=== PATIENT | female | born 1960 | race Caucasian/White ===

== ENCOUNTER → 2019-10-13 13:46 | Outpatient (BNVA) | payer MEDICARE, MEDICAID, SELFPAY | PROVIDERS: Family Provider Physician Assistant; PCP Physician Assistant; Visit Provider Nurse Practitioner | DX: G89.29 Other chronic pain (principal); M54.41 Lumbago with sciatica, right side; M54.42 Lumbago with sciatica, left side; M79.18 Myalgia, other site; M17.12 Unilateral primary osteoarthritis, left knee; Z79.891 Long term (current) use of opiate analgesic | CPT/HCPCS: 99213; 99214 ==

== ENCOUNTER → 2019-12-08 13:11 | Outpatient (BNVA) | payer MEDICARE, MEDICAID, SELFPAY | PROVIDERS: Family Provider Physician Assistant; PCP Physician Assistant; Visit Provider Anesthesiology | DX: M54.5 Low back pain (principal); M46.90 Unspecified inflammatory spondylopathy, site unspecified; M47.9 Spondylosis, unspecified; M17.12 Unilateral primary osteoarthritis, left knee; Z79.891 Long term (current) use of opiate analgesic | CPT/HCPCS: 99214 ==

== ENCOUNTER 2020-04-01 11:59 | Emergency (ER) | payer MEDICARE, MEDICAID, SELFPAY ==
[2020-04-01 12:13] VITALS: BP 130/85; PULSE 92; RESP 18; TEMP 36.2; O2SAT 97; BMI 34.7
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
[2020-04-01 13:20] LABS: Basophils # 0.1 10^3/uL (0.0-0.1); Basophils % 0.7 %; Eosinophils # 0.2 10^3/uL (0.0-0.8); Eosinophils % 2.4 %; Hematocrit 40.1 % (37.0-47.0); Hemoglobin 12.9 g/dL (11.5-15.3); Lymphocytes # 2.7 10^3/uL (0.8-4.8); Lymphocytes % 33.5 %; Mean Corpuscular HGB Conc 32.2 g/dL (30.0-36.0); Mean Corpuscular Hemoglobin 28.9 pg (28.0-34.0); Mean Corpuscular Volume 89.7 fL (81-99); Mean Platelet Volume 10.4 fL (7.4-10.4); Monocytes # 0.7 10^3/uL (0.2-0.9); Monocytes % 9.1 %; Neutrophils # 4.4 10^3/uL (1.8-7.7); Neutrophils % 54.1 %; Nucleated Red Blood Cells % 0 %; Platelet Count 284 10^3/cmm (130-400); Red Blood Count 4.47 10^6/uL (4.1-5.3); Red Cell Distribution Width 13.1 % (12.1-15.1); White Blood Count 8.2 10^3/uL (4.0-10.0)
[2020-04-01 13:37] VITALS: BP 116/89; PULSE 81; O2SAT 98
[2020-04-01 13:42] LABS: Alanine Aminotransferase 18 U/L (0-33); Albumin Level 4.5 g/dL (3.5-5.2); Alkaline Phosphatase 87 IU/L (35-105); Anion Gap 12.7 (5-19); Aspartate Amino Transferase 18 U/L (0-32); Blood Urea Nitrogen 18 mg/dL (6-20); Calcium 9.6 mg/dL (8.5-10.5); Carbon Dioxide 23 mmol/L (22-29); Chloride 110 mmol/L (98-107); Globulin 2.7 g/dL (1.3-4.6); Glomerular Filtration Rate 73.4 mL/min (90-130); Glucose 98 mg/dL (65-115); Osmolality Calculated 290 mOsm/kg (285-295); Potassium 3.7 mmol/L (3.5-5.1); Sodium 142 mmol/L (136-145); Total Bilirubin 0.3 mg/dL (0.15-1.2); Total Protein 7.2 g/dL (6.6-8.7)
[2020-04-01] MEDS: iohexol 300 mg/mL 100 mL Btl IV (14:49)
[2020-04-01 14:59] VITALS: BP 141/92; PULSE 88; RESP 15; O2SAT 98
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
[2020-04-01 16:09] VITALS: BP 125/89; PULSE 87; RESP 16; O2SAT 99
[2020-04-01 16:48] VITALS: BP 130/92; PULSE 91; RESP 16; O2SAT 98
== END 2020-04-01 16:48 | disposition home or self-care (01) ==
PROVIDERS: Emergency Provider Family Medicine; PCP Physician Assistant
DX: Z04.1 Encounter for examination and observation following transport accident (principal); V89.2XXA Person injured in unspecified motor-vehicle accident, traffic, initial encounter; Z77.22 Contact with and (suspected) exposure to environmental tobacco smoke (acute) (chronic)
CPT/HCPCS: 12345; 36415; 70450; 71045; 72125; 73030; 74177; 80053; 85025; 99282; 99283; Q9967

== ENCOUNTER → 2020-05-02 13:11 | Outpatient (BNVA) | payer MEDICARE, MEDICAID, SELFPAY | PROVIDERS: PCP Physician Assistant; Visit Provider Anesthesiology | DX: M54.41 Lumbago with sciatica, right side (principal); M54.42 Lumbago with sciatica, left side; M47.9 Spondylosis, unspecified; M46.90 Unspecified inflammatory spondylopathy, site unspecified; M54.9 Dorsalgia, unspecified; Z79.891 Long term (current) use of opiate analgesic | CPT/HCPCS: 99213; 99214 ==

== ENCOUNTER 2020-06-28 08:24 | Outpatient (CLI) | payer MEDICARE, MEDICAID, SELFPAY ==
--- NOTE | 2020-06-28 08:30 | CT_ITS ---
WS: [id number] CT scan of the abdomen and pelvis with Oral and IV contrast. Additional two-dimensional coronal and s agittal reconstruction was performed. 06/28/2020 Clinical Data: PELVIC PAIN IN FEMALE Comparison: CT abdomen and pelvis, 04/01/2020. DLP: 1143.[address] scans at [facility] use at least one of these dose optimization techniques: automat ed exposure control; mA and/or kV adjustment per patient size (includes targeted exams where dose is matched to clinical indication); or iterative reconstruction. Findings: The lower lungs show no nodules, masses or effusions. Epidural stimulator wires are in the thoracic epidural space. The liver, spleen, adrenal glands and pancreas are normal. There are clips in the gallbladder fossa f rom a cholecystectomy. The kidneys show equal bilateral contrast excretion with no cyst or masses. The abdominal aorta is normal in size. No appendicitis or diverticulitis is seen. Oral contrast is in the stomach and small bowel and there is no bowel dilatation. No abscess, adenopathy, ascites, mass, obstruction or free air is seen. There is a small umbilical hernia containing only fat. The bladder is unremarkable. Uterus is normal. No inguinal hernia is seen. There is degenerative change of all lumbar vertebral bodies with degenerative disc narrowing at all l evels from T12-L1 through L5-S1 except for L3-L4. There is a subluxation of 0.6 cm at L4-L5. Severe o steoarthritic change of both hips is noted. CT/CT abdomen pelvis w con* [id number] Impression: Negative for acute intracranial abdominal or pelvic abnormalities.
[2020-06-28] MEDS: iohexol 300 mg/mL 50 mL Btl PO (10:10)
[2020-06-28] MEDS: iohexol 300 mg/mL 100 mL Btl IV (10:10)
== END 2020-06-28 08:25 | disposition home or self-care (01) ==
LOC: RADWPI 08:27
PROVIDERS: PCP Physician Assistant; Visit Provider Physician Assistant
DX: R10.2 Pelvic and perineal pain (principal)
CPT/HCPCS: 74177; Q9967

== ENCOUNTER → 2020-07-02 09:41 | Outpatient (BNVA) | payer MEDICARE, MEDICAID, SELFPAY | PROVIDERS: PCP Physician Assistant; Visit Provider Anesthesiology | DX: M54.42 Lumbago with sciatica, left side (principal); M54.41 Lumbago with sciatica, right side; M54.9 Dorsalgia, unspecified; M47.9 Spondylosis, unspecified; M46.90 Unspecified inflammatory spondylopathy, site unspecified; Z79.891 Long term (current) use of opiate analgesic | CPT/HCPCS: 99213; 99214 ==

== ENCOUNTER → 2020-09-03 10:32 | Outpatient (BNVA) | payer MEDICARE, MEDICAID, SELFPAY | PROVIDERS: PCP Physician Assistant; Visit Provider Anesthesiology | DX: M54.42 Lumbago with sciatica, left side (principal); M54.41 Lumbago with sciatica, right side; M54.9 Dorsalgia, unspecified; M47.9 Spondylosis, unspecified; M46.90 Unspecified inflammatory spondylopathy, site unspecified; Z79.1 Long term (current) use of non-steroidal anti-inflammatories (NSAID); Z79.891 Long term (current) use of opiate analgesic | CPT/HCPCS: 99213; 99214 ==

== ENCOUNTER 2020-09-13 16:43 | Outpatient (CLI) | payer MEDICARE, MEDICAID, SELFPAY ==
[2020-09-13 17:32] LABS: Alanine Aminotransferase 33 U/L (0-33); Albumin Level 4.6 g/dL (3.5-5.2); Alkaline Phosphatase 134 IU/L (35-105); Anion Gap 16.7 (5-19); Aspartate Amino Transferase 23 U/L (0-32); Blood Urea Nitrogen 16 mg/dL (6-20); Calcium 10.1 mg/dL (8.5-10.5); Carbon Dioxide 22 mmol/L (22-29); Chloride 105 mmol/L (98-107); Globulin 2.9 g/dL (1.3-4.6); Glomerular Filtration Rate 73.4 mL/min (90-130); Glucose 77 mg/dL (65-115); Osmolality Calculated 290 mOsm/kg (285-295); Potassium 3.7 mmol/L (3.5-5.1); Sodium 140 mmol/L (136-145); Total Bilirubin 0.3 mg/dL (0.15-1.2); Total Protein 7.5 g/dL (6.6-8.7)
== END 2020-09-13 16:44 | disposition home or self-care (01) ==
PROVIDERS: PCP Physician Assistant; Visit Provider Anesthesiology
DX: Z79.1 Long term (current) use of non-steroidal anti-inflammatories (NSAID) (principal)
CPT/HCPCS: 80053

== ENCOUNTER → 2020-11-05 10:16 | Outpatient (BNVA) | payer MEDICARE, MEDICAID, SELFPAY | PROVIDERS: PCP Physician Assistant; Visit Provider Nurse Practitioner | DX: M47.9 Spondylosis, unspecified (principal); M54.9 Dorsalgia, unspecified; M17.12 Unilateral primary osteoarthritis, left knee; Z79.891 Long term (current) use of opiate analgesic | CPT/HCPCS: 99213 ==

== ENCOUNTER → 2020-12-25 09:32 | Outpatient (BNVA) | payer MEDICARE, MEDICAID, SELFPAY | PROVIDERS: PCP Physician Assistant; Visit Provider Nurse Practitioner | DX: G89.29 Other chronic pain (principal); M47.9 Spondylosis, unspecified; M54.9 Dorsalgia, unspecified; R29.6 Repeated falls; M46.90 Unspecified inflammatory spondylopathy, site unspecified; M17.12 Unilateral primary osteoarthritis, left knee; Z79.891 Long term (current) use of opiate analgesic | CPT/HCPCS: 99212; 99213 ==

== ENCOUNTER 2021-04-07 08:54 | Outpatient (CLI) | payer MEDICARE, MEDICAID, SELFPAY ==
--- NOTE | 2021-04-07 09:15 | CT_ITS ---
WS: [id number] Jacquelyn failure CT LUMBAR SPINE, NONCONTRAST. HISTORY: Chronic low back pain. Prior surgery. TECHNIQUE: 2.5 mm axial imaging performed of the lumbar spine. Images reformatted in sagittal and cor onal planes. Soft tissue and bone windows reviewed. DLP: 1788.29 mGy-cm. All CT scans at [facility] use at least one of these dose optimization techniques: automat ed exposure control; mA and/or kV adjustment per patient size (includes targeted exams where dose is matched to clinical indication); or iterative reconstruction. COMPARISON: Lumbar spine 03/26/2021 LEFT curvature of the upper lumbar spine. L4 anterolisthesis by 7 mm. Retrolisthesis of L1, L2-L3 and L5 by 2 to 3 mm. Severe degenerative disc disease with vacuum disc phenomenon at all levels except L 3-4. Severe osteochondrosis in the adjacent endplates of L2 and L3. No pars defects. No acute acute f ractures are identified in the lumbar spine. Dorsal column stimulator is noted extending above the T1 2 level. L1-2: Diffuse osteophytic ridging and asymmetric disc bulging. No central stenosis. Asymmetric disc b ulging and is focal RIGHT foraminal disc protrusion causing moderate stenosis on the RIGHT and mild o n the LEFT. L2-3: Diffuse osteophytic ridging and annular disc bulging. Facet joint arthritis and asymmetric disc bulging. Far RIGHT foraminal disc protrusion. Mild central with bilateral subarticular recess stenos is and severe RIGHT and moderate LEFT foraminal stenosis. L3-4: Diffuse asymmetric disc bulging and mild central with bilateral subarticular recess and foramin al stenosis. L4-5: diffuse annular disc bulging with severe facet joint arthritis. Widening of the facet joints wi th degenerative air and bony hypertrophy. Multifactorial findings of moderate to severe central, bila teral foraminal and subarticular recess stenosis. L5-S1: Diffuse annular disc bulging and osteophytic ridging. RIGHT foraminal disc protrusion and oste ophytes are causing severe RIGHT foraminal stenosis and moderate to severe LEFT foraminal stenosis. M ild central and bilateral subarticular recess stenosis. Sclerotic focus in the LEFT ilium is a bone island. CT/CT lumbar spine wo con* [id number] IMPRESSION: 1. Multilevel areas of significant stenosis throughout the lumbar spine with a dvanced degenerative changes. Progression of spondylosis and stenoses since 201 2. 2. Severe RIGHT, moderate to severe LEFT foraminal stenosis L5-S1 with mild tarsha tral and bilateral subarticular recess stenosis. 3. Moderate to severe central, bilateral foraminal subarticular recess stenosis at L4-5. 4. Severe RIGHT and moderate LEFT foraminal stenosis with mild central and bila teral subarticular recess stenosis at L2-3 due to combination of factors as jaspal cribed above. 5. Moderate RIGHT foraminal stenosis at L1-2. 6. Degenerative LEFT rotary scoliosis the lumbar spine with advanced degenerati ve disc disease and anterolisthesis and retrolisthesis at multiple levels.
== END 2021-04-07 08:55 | disposition home or self-care (01) ==
LOC: RADWPI 08:57
PROVIDERS: PCP Physician Assistant; Visit Provider Physician Assistant
DX: M43.16 Spondylolisthesis, lumbar region (principal); M48.061 Spinal stenosis, lumbar region without neurogenic claudication; M41.86 Other forms of scoliosis, lumbar region; M48.07 Spinal stenosis, lumbosacral region
CPT/HCPCS: 72131

== ENCOUNTER 2021-04-21 08:42 | Outpatient (CLI) | payer MEDICARE, MEDICAID, SELFPAY ==
[2021-04-21 09:09] LABS: D Dimer 0.48 ug/mIFEU (0-0.59)
== END 2021-04-21 08:43 | disposition home or self-care (01) ==
PROVIDERS: PCP Physician Assistant; Visit Provider Family Medicine
DX: U07.1 COVID-19 (principal)
CPT/HCPCS: 85378

== ENCOUNTER 2021-04-24 05:40 | Inpatient (IN) | payer MEDICARE, MEDICAID, SELFPAY ==
[2021-04-24] VITALS (21 sets, daily range): BP systolic 97–108; BP diastolic 63–77; PULSE 71–89; RESP 17–26; TEMP 36.9–37.1; O2SAT 73–100; BMI 30.1
--- NOTE | 2021-04-24 06:04 | ECG_ITS ---
[facility] ED Test Date: 2021-04-24 Pat Name: Aston Carvajal Department: Room: Gender: Female Collection Support Specialist: : 1960 Requested By: Thuan Cruz Order Number: [id number] Vargas MD: Jyoti Davenport M.D. Measurements Intervals [place] Rate: 78 P: 47 [place]: 171 QRS: -6 QRSD: 106 T: 39 QT: 350 QTc: 399 Interpretive Statements SINUS RHYTHM VOLTAGE CRITERIA FOR LVH [MEETS CRITERIA IN ONE OF: R(aVL), S(V1), R(V5), R(V5/V6)+S(V1)] POSSIBLE ANTERIOR MYOCARDIAL INFARCTION [30 ms Q WAVE IN V3/V4, OR R < 0.2 mV IN V4], OF INDETERMINATE AGE Compared to ECG 07/06/2015 09:30:53 Left ventricular hypertrophy now present Myocardial infarct finding now present Sinus tachycardia no longer present Electronically Signed On 04-28-2021 0:26:32 CDT by Jyoti Davenport M.D. [id number] f
--- NOTE | 2021-04-24 06:04 | XR_ITS ---
WS: [id number] XR chest 1V portable [id number] REASON FOR EXAM: SOB FINDINGS: Diffuse patchy infiltrative changes in the predominating in the central mid lung cruz. There is some volume loss in the right upper lobe. The heart and mediastinum are within normal limits. Dorsal column stimulator present at T6 level. Partial right shoulder arthroplasty. Severe degenerative change in the left shoulder with multiple lo ose bodies. XR/XR chest 1V portable [id number] IMPRESSION: Diffuse infiltrative changes of unknown chronicity, most likely subacute pneumo nitis.
--- NOTE | 2021-04-24 06:06 | W.ED.COVID ---
HPI - COVID General: Chief Complaint: COVID symptoms Stated Complaint: covid + Time Seen by Provider: 04/24/21 05:56 Triage information: Has fever, cough or shortness of breath. Exposure to COVID + person last 14 days History of Present Illness: HPI Narrative: This patient is a 60-year-old female who presents to the emergency department who presented for outpatient monoclonal antibody therapy. However upon arrival patient had a documented pulse ox in the 70s. Patient states she was diagnosed with Covid 2 weeks ago. Patient states she has not had the vaccine for Covid infection. Patient states that she just began having increasing shortness of breath over the past several days. Patient is on high flow nasal cannula at this time pulse ox is up to 95%. Will do medical evaluation treat as needed complaint: known COVID positive and has COVID symptoms Prior covid testing: yes, results known COVID 19 common symptoms: positive cough, non-productive cough, dyspnea, fatigue and body aches; negative headache(s), throat pain, nausea or vomiting COVID 19 other sytmptoms: positive requiring oxygen and requiring more oxygen; negative chest pain Onset (ago): day(s) Severity: moderate and slowly worsening COVID Results: No Data to Display Review of Systems General: Reports: 10 or more systems reviewed and unremarkable except in HPI and below Const: Reports: body aches and fatigue Eyes: Denies: change in vision or blurry vision ENMT: Denies: throat pain, hoarseness or mouth pain Card: Denies: chest pain, palpitations, irregular heart rhythm, edema, swelling of feet/ankles or lightheadedness Resp: Reports: dyspnea and non-productive cough GI: Denies: abdominal pain, nausea or vomiting : Denies: flank pain, difficulty voiding, dysuria, urinary frequency, urinary urgency or urinary hesitancy Musc: Denies: neck pain, back pain, extremity pain, extremity swelling, joint pain, joint swelling, joint redness, joint warmth or limited range of motion Skin/Breast: Denies: rash, pruritus, erythema or skin tenderness Neuro: Denies: headache(s), numbness in extremities or weakness in extremities Psych: Denies: anxiety or depression [facility] ED PFSH: Medical History (Updated 04/24/21 @ 09:08 by Thuan Cruz MD) Arthritis of left knee Bursitis of right shoulder DDD (degenerative disc disease) cervical and lumbar Diverticulosis Encounter for long-term opiate analgesic use Opioid contract exists Spondylitis Surgical History History of ankle surgery Tarsal release-bilat ankle repair 1991 History of back surgery HERNIATED DISC 12/2003 Hx of abdominal surgery exploratory Hx of carpal tunnel repair bilat wrists 1981 Hx of cholecystectomy 2006 Hx of laparoscopy X4 S/P shoulder replacement RIGHT SHOULDER REPLACEMENT 04/2016 Family History Sister Diabetes paternal grandmother Family/Other Heart disease paternal uncle Unknown Hypercholesteremia family members in general Brother Cancer prostate Sister Thyroid disease Social History Smoking and tobacco status: former smoker Second hand smoke exposure: Yes Alcohol intake: never History of recent travel: No Physical Exam Const: COMMON NORMALS: no acute distress, average body habitus, patient oriented x3, no limitations, healthy appearing, alert and well nourished HENMT: COMMON NORMALS: normocephalic, atraumatic, hearing grossly normal bilaterally, external ears normal, EAC's normal, TM's normal bilaterally, Normal external nose present, Normal nasal mucous membranes and turbinates present, moist oral mucous membranes, oropharynx normal, dentition normal and gingiva normal HEAD & SCALP: normocephalic and atraumatic NOSE: Normal external nose present and Normal nasal mucous membranes and turbinates present EXTERNAL EAR: Yes external ears normal EXTERNAL AUDITORY CANAL: EAC's normal TYMPANIC MEMBRANE: TM's normal bilaterally Neck/C-Spine: COMMON NORMALS: full ROM, no lymphadenopathy, supple, no meningeal signs, no JVD, Thyroid normal and No carotid bruits THYROID: Thyroid normal Chest: COMMONS NORMALS: normal inspection of the chest, normal palpation of entire chest wall, normal inspection of the breasts and normal palpation of the breasts Breast/axilla inspection: Yes normal inspection of the breasts BREAST/AXILLA PALPATION: Yes normal palpation of the breasts Resp: COMMON NORMALS: normal respiratory effort, No retractions, No use of accessory muscles, clear to auscultation bilaterally and percussion normal AUSCULTATION: clear to auscultation bilaterally PERCUSSION: percussion normal Cardio: COMMON NORMALS: no JVD, regular rate, regular rhythm, S1 normal heart sound present, S2 normal heart sound present, No gallops present (Cardio), No clicks present (Cardio), No murmurs present (Cardio), No rub (Cardio) and Peripheral pulses 2+ throughout RATE: regular rate RHYTHM: regular rhythm HEART SOUNDS: S1 normal heart sound present and S2 normal heart sound present PERIPHERAL PULSES: Peripheral pulses 2+ throughout GI: COMMON NORMALS: Normal to inspection, nondistended, normoactive bowel sounds present, Soft to palpation, non-tender, No hepatosplenomegaly present, no masses and no bruits PALPATION: Yes Soft to palpation and Yes No hepatosplenomegaly present Back/Pelvis: COMMON NORMALS: thoracic and lumbar spine normal to inspection, no thoracic nor lumbar tenderness, thoraco-lumbar ROM normal and straight leg raise negative bilaterally Extremity: COMMON NORMALS: normal to inspection, full ROM, capillary refill normal, no joint enlargement, no clubbing, cyanosis or edema, no calf tenderness and no pedal edema Neuro: COMMON NORMALS: patient oriented x3 SENSORIUM/ORIENTATION: Yes alert MENINGEAL SIGNS: Yes no meningeal signs Course Reevaluation(s): Reevaluation #1: I did discuss at length with patient about findings and concerns of worsening COVID-19 infection. Patient is agreeable to be admitted to the hospital. Time: 09:05 Consultations: Consultation #1: I did discuss at length with Dr. Hylton about patient's findings. Requiring high flow oxygen. He request the patient be admitted to the ICU and will start remdesivir treatment. Time: 09:06 Vital Signs: Vital signs: Vital Signs Temperature 98.5 F 04/24/21 05:47 Pulse Rate 78 04/24/21 07:50 Respiratory Rate 21 H 04/24/21 07:50 Blood Pressure 98/67 04/24/21 07:50 Pulse Oximetry 94 04/24/21 06:43 MDM - COVID MDM Narrative: Medical decision making narrative: This patient is a 60-year-old female who presents to the emergency department who presented for outpatient monoclonal antibody therapy. However upon arrival patient had a documented pulse ox in the 70s. Patient states she was diagnosed with Covid 2 weeks ago. Patient states she has not had the vaccine for Covid infection. Patient states that she just began having increasing shortness of breath over the past several days. Patient is on high flow nasal cannula at this time pulse ox is up to 95%. Will do medical evaluation treat as needed I did discuss at length with Dr. Hylton about patient's findings. Requiring high flow oxygen. He request the patient be admitted to the ICU and will start remdesivir treatment. Differential Diagnosis: Differential diagnosis: Likely COVID 19, influenza, other viral infection, bacterial infection and pneumonia Medical Records: Attestation: I reviewed the patient's medical records. Lab Data: Attestation: I reviewed the patient's lab results. Labs: Lab Results 04/24/21 04/24/21 04/24/21 Range/Units 06:40 06:40 06:40 WBC 5.6 (4.0-10.0) 10^3/ uL RBC 4.34 (4.1-5.3) 10^6/u L Hgb 12.3 (11.5-15.3) g/dL Hct 39.2 (37.0-47.0) % MCV 90.3 (81-99) fL MCH 28.3 (28.0-34.0) pg MCHC 31.4 (30.0-36.0) g/dL RDW 13.4 (12.1-15.1) % Plt Count 182 (130-400) 10^3/c mm MPV 12.2 H (7.4-10.4) fL Neut % (Auto) 70.8 % Lymph % (Auto) 18.8 % Duchesne % (Auto) 9.8 % Eos % (Auto) 0.0 % Baso % (Auto) 0.2 % Neut # (Auto) 3.97 (1.8-7.7) 10^3/u L Lymph # (Auto) 1.1 (0.8-4.8) 10^3/u L Duc[place]ne # (Auto) 0.6 (0.2-0.9) 10^3/u L Eos # (Auto) 0.0 (0.0-0.8) 10^3/u L Baso # (Auto) 0.0 (0.0-0.1) 10^3/u L Nucleated RBC % (a uto) 0 % Nucleated RBCs # 0.0 /100WBC PT Cancelled INR Cancelled APTT Cancelled Fibrinogen Cancelled D-Dimer Cancelled Sodium Cancelled Potassium Cancelled Chloride Cancelled Carbon Dioxide Cancelled Anion Gap Cancelled BUN Cancelled Creatinine Cancelled GFR Calculation Cancelled Glucose Cancelled Calculated Osmolal ity Cancelled Lactic Acid Calcium Cancelled Total Bilirubin Cancelled AST Cancelled ALT Cancelled Alkaline Phosphata se Cancelled Lactate Dehydrogen ase Cancelled Troponin T Gen 5 n g/L C-Reactive Protein Cancelled NT-Pro-B Natriuret Pep Cancelled Total Protein Cancelled Albumin Cancelled Globulin Cancelled Influenza Type A A g (Negative) Influenza Type B A g (Negative) 04/24/21 04/24/21 04/24/21 Range/Units 06:40 06:40 06:46 WBC (4.0-10.0) 10^3/ uL RBC (4.1-5.3) 10^6/u L Hgb (11.5-15.3) g/dL Hct (37.0-47.0) % MCV (81-99) fL MCH (28.0-34.0) pg MCHC (30.0-36.0) g/dL RDW (12.1-15.1) % Plt Count (130-400) 10^3/c mm MPV (7.4-10.4) fL Neut % (Auto) % Lymph % (Auto) % Duchesne % (Auto) % Eos % (Auto) % Baso % (Auto) % Neut # (Auto) (1.8-7.7) 10^3/u L Lymph # (Auto) (0.8-4.8) 10^3/u L Duchesne # (Auto) (0.2-0.9) 10^3/u L Eos # (Auto) (0.0-0.8) 10^3/u L Baso # (Auto) (0.0-0.1) 10^3/u L Nucleated RBC % (a uto) % Nucleated RBCs # /100WBC PT INR APTT Fibrinogen D-Dimer Sodium Potassium Chloride Carbon Dioxide Anion Gap BUN Creatinine GFR Calculation Glucose Calculated Osmolal ity Lactic Acid Cancelled Calcium Total Bilirubin AST ALT Alkaline Phosphata se Lactate Dehydrogen ase Troponin T Gen 5 n g/L Cancelled C-Reactive Protein NT-Pro-B Natriuret Pep Total Protein Albumin Globulin Influenza Type A A g Negative (Negative) Influenza Type B A g Negative (Negative) 04/24/21 04/24/21 04/24/21 Range/Units 07:45 07:45 07:55 WBC (4.0-10.0) 10^3/ uL RBC (4.1-5.3) 10^6/u L Hgb (11.5-15.3) g/dL Hct (37.0-47.0) % MCV (81-99) fL MCH (28.0-34.0) pg MCHC (30.0-36.0) g/dL RDW (12.1-15.1) % Plt Count (130-400) 10^3/c mm MPV (7.4-10.4) fL Neut % (Auto) % Lymph % (Auto) % Duc[place]ne % (Auto) % Eos % (Auto) % Baso % (Auto) % Neut # (Auto) (1.8-7.7) 10^3/u L Lymph # (Auto) (0.8-4.8) 10^3/u L Duc[place]ne # (Auto) (0.2-0.9) 10^3/u L Eos # (Auto) (0.0-0.8) 10^3/u L Baso # (Auto) (0.0-0.1) 10^3/u L Nucleated RBC % (a uto) % Nucleated RBCs # /100WBC PT 13.50 INR 1.00 APTT 26.2 Fibrinogen 497 D-Dimer 0.62 H Sodium 136 Potassium 4.1 Chloride 103 Carbon Dioxide 21 L Anion Gap 16.1 BUN 16 Creatinine 0.9 GFR Calculation 63.9 L Glucose 160 H Calculated Osmolal ity 287 Lactic Acid 1.6 Calcium 8.5 Total Bilirubin 0.4 AST 56 H ALT 41 H Alkaline Phosphata se 121 H Lactate Dehydrogen ase 720 H Troponin T Gen 5 n g/L C-Reactive Protein 105.3 H NT-Pro-B Natriuret Pep 163 H Total Protein 6.4 L Albumin 3.7 Globulin 2.7 Influenza Type A A g (Negative) Influenza Type B A g (Negative) 04/24/21 Range/Units 08:05 WBC (4.0-10.0) 10^3/ uL RBC (4.1-5.3) 10^6/u L Hgb (11.5-15.3) g/dL Hct (37.0-47.0) % MCV (81-99) fL MCH (28.0-34.0) pg MCHC (30.0-36.0) g/dL RDW (12.1-15.1) % Plt Count (130-400) 10^3/c mm MPV (7.4-10.4) fL Neut % (Auto) % Lymph % (Auto) % Duc[place]ne % (Auto) % Eos % (Auto) % Baso % (Auto) % Neut # (Auto) (1.8-7.7) 10^3/u L Lymph # (Auto) (0.8-4.8) 10^3/u L Duc[place]ne # (Auto) (0.2-0.9) 10^3/u L Eos # (Auto) (0.0-0.8) 10^3/u L Baso # (Auto) (0.0-0.1) 10^3/u L Nucleated RBC % (a uto) % Nucleated RBCs # /100WBC PT INR APTT Fibrinogen D-Dimer Sodium Potassium Chloride Carbon Dioxide Anion Gap BUN Creatinine GFR Calculation Glucose Calculated Osmolal ity Lactic Acid Calcium Total Bilirubin AST ALT Alkaline Phosphata se Lactate Dehydrogen ase Troponin T Gen 5 n g/L 13 H C-Reactive Protein NT-Pro-B Natriuret Pep Total Protein Albumin Globulin Influenza Type A A g (Negative) Influenza Type B A g (Negative) Imaging Data: CXR: Attestation: I personally reviewed and interpreted this imaging study as follows: Radiologist's impression: IMPRESSION: Diffuse infiltrative changes of unknown chronicity, most likely subacute pneumonitis. EKG Data: EKG 1: Attestation: I personally reviewed and interpreted this EKG as follows: EKG interpretation date: 04/24/21 EKG interpretation time: 06:51 Prior EKG tracings: not available for review Interpretation: Sinus rhythm heart rate 78 nonspecific EKG changes COVID Results: No Data to Display Discharge Plan Discharge Patient Disposition: Admitted As Inpatient Clinical Impression: Suspected severe acute respiratory syndrome coronavirus 2 (SARS-CoV-2) infection, Upper respiratory infection, Hypoxia Condition: Stable Prescriptions: No Action calcium carbonate-vitamin D3 500mg (1,250mg) -600 unit tablet 1 tab PO DAILY RF: 0 trazodone 50 mg tablet 50 mg PO BEDTIME PRN (Reason: Sleep) RF: 0 celecoxib [Celebrex] 200 mg capsule 200 mg PO BID PRN (Reason: pain) 30 Days Qty: 60 RF: 1 cyclobenzaprine 10 mg tablet 10 mg PO TID PRN (Reason: muscle spasm) Qty: 30 RF: 1 gabapentin 400 mg capsule 400 mg PO TID Qty: 90 RF: 1 topiramate [Topamax] 50 mg tablet 50 mg PO BEDTIME RF: 0 vitamin E 200 unit capsule 200 unit PO DAILY RF: 0 vitamin B complex Tablet 1 tab PO DAILY RF: 0 amlodipine 10 mg tablet 10 mg PO QAM RF: 0 omega-3 fatty acids [Fish Oil Concentrate] 1,000 mg capsule 1,000 mg PO DAILY RF: 0 esomeprazole magnesium [Nexium] 40 mg capsule,delayed release(DR/EC) 40 mg PO QAM RF: 0 fluticasone propion-salmeterol [Advair Diskus] 250-50 mcg/dose blister with device 1 inh INHALATION BID RF: 0 multivitamin Tablet 1 tab PO DAILY RF: 0 amoxicillin 500 mg capsule 1,000 mg PO TID RF: 0 azithromycin 250 mg tablet See Rx Instructions .ROUTE .COMPLEX RF: 0 prednisone 20 mg tablet 40 mg PO DAILY RF: 0 Tylenol Extra Strength 500 mg Tablet 1,000 mg PO PRN RF: 0 levothyroxine 75 mcg tablet 75 mcg PO QAM RF: 0 ProAir HFA 90 mcg/actuation Hfa Aerosol Inhaler 2 puff INHALATION Q4H PRN (Reason: Shortness Of Breath) RF: 0 oxybutynin chloride 5 mg tablet 5 mg PO BID RF: 0 Linzess 145 mcg capsule 145 mcg PO BEDTIME RF: 0 vitamin A 1 cap PO DAILY RF: 0 baclofen 20 mg tablet 20 mg PO BEDTIME RF: 0 Referrals: Jacqueline Adam PA [Primary Care Provider] - Coding Level of Care Code ED Dcs Engineer for Chg Fwd Exam Comprehensive
[2021-04-24] MEDS: albuterol 8 gm MDI 2 PUFF INHALATION (06:22)
[2021-04-24 06:51] LABS: Basophils % 0.2 %; Hematocrit 39.2 % (37.0-47.0); Hemoglobin 12.3 g/dL (11.5-15.3); Lymphocytes # 1.1 10^3/uL (0.8-4.8); Lymphocytes % 18.8 %; Mean Corpuscular HGB Conc 31.4 g/dL (30.0-36.0); Mean Corpuscular Hemoglobin 28.3 pg (28.0-34.0); Mean Corpuscular Volume 90.3 fL (81-99); Mean Platelet Volume 12.2 fL (7.4-10.4); Monocytes # 0.6 10^3/uL (0.2-0.9); Monocytes % 9.8 %; Neutrophils # 3.97 10^3/uL (1.8-7.7); Neutrophils % 70.8 %; Nucleated Red Blood Cells % 0 %; Platelet Count 182 10^3/cmm (130-400); Red Blood Count 4.34 10^6/uL (4.1-5.3); Red Cell Distribution Width 13.4 % (12.1-15.1); White Blood Count 5.6 10^3/uL (4.0-10.0)
[2021-04-24] MEDS: dexamethasone 4 mg/mL INJ 6 MG IVP (06:53)
[2021-04-24] MEDS: ondansetron 2 mg/ML SDV 2 mL 4 MG IV (06:54)
[2021-04-24] MEDS: sodium chloride 0.9% 1,000 ML 150 ML IV (06:54)
[2021-04-24 07:27] LABS: Influenza A by IFA Negative (Negative); Influenza B by IFA Negative (Negative)
[2021-04-24 07:32] LABS: Slide Review Slide Review Perform
[2021-04-24 08:09] LABS: Lactic Sepsis W/Reflex 1.6 mmol/L (0.5-2.2)
[2021-04-24 08:18] LABS: Alanine Aminotransferase 41 U/L (0-33); Albumin Level 3.7 g/dL (3.5-5.2); Alkaline Phosphatase 121 IU/L (35-105); Anion Gap 16.1 (5-19); Aspartate Amino Transferase 56 U/L (0-32); Blood Urea Nitrogen 16 mg/dL (8-23); C Reactive Protein 105.3 mg/L (0.0-4.9); Calcium 8.5 mg/dL (8.5-10.5); Carbon Dioxide 21 mmol/L (22-29); Chloride 103 mmol/L (98-107); Globulin 2.7 g/dL (1.3-4.6); Glomerular Filtration Rate 63.9 mL/min (90-130); Glucose 160 mg/dL (65-115); Lactate Dehydrogenase 720 U/L (135-214); NT Pro B Type Natriuretic Pept 163 pg/mL (0-125); Osmolality Calculated 287 mOsm/kg (285-295); Potassium 4.1 mmol/L (3.5-5.1); Sodium 136 mmol/L (136-145); Total Bilirubin 0.4 mg/dL (0.15-1.2); Total Protein 6.4 g/dL (6.6-8.7)
[2021-04-24 08:35] LABS: Partial Thromboplastin Time 26.2 SECONDS (23.9-36.7)
[2021-04-24 08:40] LABS: Fibrinogen 497 mg/dL (174-498)
[2021-04-24 08:43] LABS: D Dimer 0.62 ug/mIFEU (0-0.59)
[2021-04-24 08:44] LABS: Troponin T (5th) Once 13 ng/L (0-10)
[2021-04-24] MEDS: remdesivir 200 MG in sodium chloride 0.9% (100 ml) 100 ML 100 MG IV (10:38)
--- NOTE | 2021-04-24 13:04 | P.HP_ITS ---
Providers/Chief Complaint Primary Care Provider: Jacqueline Aadm Chief Complaint: covid + History of Present Illness Aston Carvajal is a 60 year old female presenting to the hospital short of breath. She reports she became ill 10 to 14 days ago, and eventually had a positive Covid test done at [facility] on Wednesday the . She has not been vaccinated, nor had Covid previously. She has not had any exposures that she is aware of. She has had fevers, nausea, decreased p.o. intake, and some loose stools. She reports no hemoptysis. Review of Systems General: Reports: 10 or more systems reviewed and unremarkable except in HPI and below Const: Reports: fever(s), chills, body aches and fatigue Eyes: Denies: change in vision ENMT: Denies: throat pain Card: Denies: chest pain Resp: Reports: dyspnea and productive cough GI: Reports: nausea; Denies: abdominal pain or vomiting : Denies: flank pain Musc: Denies: neck pain Skin/Breast: Denies: rash Neuro: Denies: headache(s) Psych: Denies: anxiety Endo: Denies: polyuria Ernesto/Lymph: Denies: easy bruising All/Imm: Denies: urticaria Medications/Allergies Home Medications Medication Instructions Recorded Confirmed Last Taken Type amlodipine 10 mg tablet 10 mg PO QAM 10/12/19 04/24/21 03/31/20 History esomeprazole magnesium 40 mg 40 mg PO QAM 10/12/19 04/24/21 03/31/20 History capsule,delayed release fluticasone 250 mcg-salmeterol 50 1 inh INHALATION BID 10/12/19 04/24/21 Unknown History mcg/dose blistr powdr for inhalation omega-3 fatty acids 1,000 mg 1,000 mg PO DAILY 10/12/19 04/24/21 03/31/20 History capsule topiramate 50 mg tablet 50 mg PO BEDTIME tab 10/12/19 04/24/21 03/31/20 History vitamin B complex 1 tab PO DAILY 10/12/19 04/24/21 03/31/20 History vitamin E 200 unit capsule 200 unit PO DAILY cap 10/12/19 04/24/21 03/31/20 History calcium carbonate-vitamin D3 500 1 tab PO DAILY tab 02/15/20 04/24/21 03/31/20 History mg (1,250 mg)-600 unit tablet trazodone 50 mg tablet 50 mg PO BEDTIME PRN 11/05/20 04/24/21 Unknown History celecoxib 200 mg capsule 200 mg PO BID PRN 30 Days #60 cap 12/25/20 04/24/21 Unknown Rx cyclobenzaprine 10 mg tablet 10 mg PO TID PRN #30 tab 12/25/20 04/24/21 Unknown Rx gabapentin 400 mg capsule 400 mg PO TID #90 cap 12/25/20 04/24/21 Unknown Rx acetaminophen [Tylenol Extra 1,000 mg PO PRN 04/24/21 04/24/21 04/23/21 History Strength] albuterol sulfate [ProAir HFA] 2 puff INHALATION Q4H PRN 04/24/21 04/24/21 Unknown History amoxicillin 1,000 mg PO TID 04/24/21 04/24/21 04/24/21 04:00 History azithromycin See Rx Instructions .ROUTE .COMPLEX 04/24/21 04/24/21 04/24/21 04:00 History baclofen 20 mg PO BEDTIME 04/24/21 04/24/21 Unknown History levothyroxine 75 mcg PO QAM 04/24/21 04/24/21 Unknown History linaclotide [Linzess] 145 mcg PO BEDTIME 04/24/21 04/24/21 Unknown History multivitamin 1 tab PO DAILY 04/24/21 04/24/21 Unknown History oxybutynin chloride 5 mg PO BID 04/24/21 04/24/21 Unknown History prednisone 40 mg PO DAILY 04/24/21 04/24/21 04/24/21 04:00 History vitamin A 1 cap PO DAILY 04/24/21 04/24/21 Unknown History Allergies Allergy/AdvReac Type Severity Reaction Status Date / Time acetaminophen [From Percocet] Allergy ADR-Itching Verified 04/24/21 08:48 oxycodone [From Percocet] Allergy ADR-Itching Verified 04/24/21 08:48 PFSH Acute PFSH: Medical History (Updated 04/24/21 @ 13:13 by Juwan Hylton MD) Arthritis of left knee Bursitis of right shoulder DDD (degenerative disc disease) cervical and lumbar Diverticulosis Encounter for long-term opiate analgesic use GERD (gastroesophageal reflux disease) Hypertension Hypothyroidism Opioid contract exists Spondylitis Surgical History History of ankle surgery Tarsal release-bilat ankle repair 1991 History of back surgery HERNIATED DISC 12/2003 Hx of abdominal surgery exploratory Hx of carpal tunnel repair bilat wrists 1981 Hx of cholecystectomy 2006 Hx of laparoscopy X4 S/P shoulder replacement RIGHT SHOULDER REPLACEMENT 04/2016 Family History Sister Diabetes paternal grandmother Family/Other Heart disease paternal uncle Unknown Hypercholesteremia family members in general Brother Cancer prostate Sister Thyroid disease Social History Smoking and tobacco status: former smoker Second hand smoke exposure: Yes Alcohol intake: never History of recent travel: No Supplemental PFSH Information: Also with history of nerve stimulator insertion Vitals/I&O/Wt Last Vital Signs Temp 98.7 F 04/24/21 10:48 Pulse 71 04/24/21 11:59 Resp 24 H 04/24/21 11:59 BP 108/76 04/24/21 10:48 Pulse Ox 91 04/24/21 11:59 Weight last 48 hrs Weight 77.111 kg Physical Exam Narrative: EXAM NARRATIVE: General exam is a white female, on high flow oxyge n, with moderate tachypnea and respiratory effort. HEENT: Pupils equally round. Oropharynx clear. Neck is supple no lymphadenopathy or thyromegaly Cardiovascular regular rate and rhythm without murmur, no S3 or S4 Lungs diminished breath sounds bilaterally with some scattered crackles Abdomen is soft with positive bowel sounds. No obvious organomegaly is deferred Extremities no cyanosis clubbing or edema, cap refill brisk Skin no rash Neuro no obvious focal deficits, alert and oriented Urinary Catheter Management^: Robb: Cath Placed During This Visit: yes Urinary Catheter Date of Insertion: 04/24/21 Urinary Catheter Time of Insertion: 11:55 Data : 04/24/21 06:40 04/24/21 07:45 Micro: Microbiology 04/24/21 06:40 Blood Culture - Preliminary Blood SPECIMEN COLLECTED 04/24/21 06:40 Blood Culture - Preliminary Blood SPECIMEN COLLECTED Other data: D-dimer 0.62 PT/PTT normal AST and ALT elevated at 56 and 41. Alk phos slight elevation 121. LDH 720. CRP 105. BNP 163 Influenza negative Chest x-ray diffuse interstitial infiltrates consistent with pneumonitis. Wiring from nerve stimulator is seen as well as right shoulder arthroplasty A&P Assessment and plan (1) Pneumonia due to COVID-19 virus: Severe COVID-19 pneumonia requiring high flow oxygen at approximately 95% Remdesivir Dexamethasone Combivent every 6 hours Budesonide every 12 hours Check MRSA PCR, Legionella antigen, bacterial antigen Zosyn empirically Wean oxygen as tolerated If any significant worsening consider Tocilizumab if available Ensure that blood cultures were done. Status: Acute (2) Acute respiratory failure with hypoxia: See above Status: Acute (3) Hypothyroidism: Check TSH Status: Acute (4) Hypertension: Hold amlodipine currently. Blood pressure somewhat soft. Status: Acute (5) GERD (gastroesophageal reflux disease): Status: Acute (6) Chronic back pain greater than 3 months duration: Continue current home medications. Status: Acute Additional A&P Information Full code Lovenox for DVT prophylaxis Attestations Medical Necessity Statement*: Will require greater than 2 midnight stay secon yolis to severe COVID-19 pneumonia. Critical Care Time: The high probability of a clinically significant, sudden or life threatening deterioration of the patient's [pulmonary] system(s) required my full and direct attention, intervention and personal management. The critical care time is as shown. This time is in addition to time spent performing any reported procedures but includes the following: [x] Data and vital sign review and interpretation [x] Patient assessment, examination and intervention [x] Documentation [x] Medication orders and management Critical Care Time (min): 67 Coding Level of Care Code Acute Instructional Aide for [facility] Fwd Diagnoses Pneumonia due to COVID-19 virus U07.1; J12.82 Acute respiratory failure with hypoxia J96.01 Hypothyroidism E03.9 Hypertension I10 GERD (gastroesophageal reflux disease) K21.9 Chronic back pain greater than 3 months duration M54.9; G89.29
[2021-04-24 14:14] LABS: Thyroid Stimulating Hormone 0.53 uIU/mL (0.27-4.20)
[2021-04-24 14:18] LABS: Hepatitis A Antibody IgM Non-Reactive (Nonreactive); Hepatitis B Core IgM Non-Reactive (Nonreactive); Hepatitis B Surface Antigen Non-Reactive (Nonreactive); Hepatitis C Virus Antibody Non-Reactive (Nonreactive)
[2021-04-24] MEDS: gabapentin 400 mg Capsule PO ×2 (18:17→21:43)
[2021-04-24] MEDS: oxybutynin 5 mg Tablet PO (18:17)
[2021-04-24] MEDS: enoxaparin 40 mg/0.4 mL Syringe SUBCUT (18:19)
[2021-04-24 18:39] LABS: Bilirubin Urine Neg (Negative); Blood Urine 3+ (Negative); Glucose Urine UA Norm (Normal); Ketones Urine Negative (Negative); Leukocyte Esterase Urine Negative (Negative); Nitrate Urine Negative (Negative); Protein Urine 1+ (Negative); Urine Appearance Clear (CLEAR); Urine Color Yellow (Yellow); Urobilinogen Urine 4 mg/dL (Negative); pH Urine 5 (5-7)
[2021-04-24 18:50] LABS: Add Urine Culture? Yes; Bacteria Urine TRACE /hpf; RBC Urine 50-80 /hpf (0-2); Squamous Epithelial Cell Urine 0-4 /hpf (0-5); WBC Urine 0-4 /hpf (0-5)
[2021-04-24] MEDS: piperacillin-tazobactam 3.375 GM in sodium chloride 0.9% (plus) 50 ML IV (21:43)
[2021-04-24] MEDS: topiramate 25 mg Tablet 50 MG PO (22:04)
[2021-04-24] MEDS: trazodone 50 mg Tablet PO (23:31)
[2021-04-25] VITALS (86 sets, daily range): BP systolic 91–120; BP diastolic 66–89; PULSE 62–98; RESP 16–38; TEMP 36.6–37.3; O2SAT 76–99
[2021-04-25] MEDS: piperacillin-tazobactam 3.375 GM in sodium chloride 0.9% (plus) 50 ML IV ×3 (05:12→22:16)
[2021-04-25] MEDS: levothyroxine 75 mcg Tablet PO (05:12)
[2021-04-25] MEDS: remdesivir 100 MG in sodium chloride 0.9% (100 ml) 100 ML IV (05:16)
[2021-04-25] MEDS: pantoprazole DR 40 mg Tablet PO (06:15)
[2021-04-25] MEDS: dexamethasone 4 mg/mL INJ 6 MG IVP (06:15)
[2021-04-25] MEDS: oxybutynin 5 mg Tablet PO (07:54)
[2021-04-25] MEDS: gabapentin 400 mg Capsule PO ×3 (07:54→20:05)
[2021-04-25] MEDS: ondansetron 2 mg/ML SDV 2 mL 4 MG IVP (08:17)
[2021-04-25 08:41] LABS: Hematocrit 36.6 % (37.0-47.0); Hemoglobin 11.6 g/dL (11.5-15.3); Lymphocytes # 1.3 10^3/uL (0.8-4.8); Lymphocytes % 17.5 %; Mean Corpuscular HGB Conc 31.7 g/dL (30.0-36.0); Mean Corpuscular Volume 88.2 fL (81-99); Monocytes # 0.6 10^3/uL (0.2-0.9); Monocytes % 8.3 %; Neutrophils # 5.58 10^3/uL (1.8-7.7); Neutrophils % 73.5 %; Nucleated Red Blood Cells % 0 %; Platelet Count 239 10^3/cmm (130-400); Red Blood Count 4.15 10^6/uL (4.1-5.3); Red Cell Distribution Width 13.2 % (12.1-15.1); White Blood Count 7.6 10^3/uL (4.0-10.0)
[2021-04-25 09:01] LABS: Alanine Aminotransferase 35 U/L (0-33); Albumin Level 3.4 g/dL (3.5-5.2); Alkaline Phosphatase 100 IU/L (35-105); Anion Gap 15.1 (5-19); Aspartate Amino Transferase 43 U/L (0-32); Blood Urea Nitrogen 19 mg/dL (8-23); Calcium 8.5 mg/dL (8.5-10.5); Carbon Dioxide 24 mmol/L (22-29); Chloride 106 mmol/L (98-107); Globulin 3.1 g/dL (1.3-4.6); Glomerular Filtration Rate 73.2 mL/min (90-130); Glucose 126 mg/dL (65-115); Magnesium 2.5 mg/dL (1.7-2.3); Osmolality Calculated 296 mOsm/kg (285-295); Potassium 4.1 mmol/L (3.5-5.1); Sodium 141 mmol/L (136-145); Total Bilirubin 0.4 mg/dL (0.15-1.2); Total Protein 6.5 g/dL (6.6-8.7)
[2021-04-25] MEDS: LORazepam 2 mg/mL INJ 1 mL 0.5 MG IVP ×2 (09:22→18:47)
[2021-04-25 09:37] LABS: Slide Review Slide Review Perform
--- NOTE | 2021-04-25 12:42 | PM.PN ---
Subjective Subjective: Interval history: Aston reported no significant changes overnight. She is very tired, and had not been able to sleep. Her shortness of breath is about the same as it was when she was put on oxygen yesterday. Medications: Reviewed: Yes Vitals/I&O/Wt Last Vital Signs Temp 99.1 F 04/25/21 11:26 Pulse 75 04/25/21 12:01 Resp 18 04/25/21 11:56 BP 114/75 04/25/21 11:26 Pulse Ox 89 L 04/25/21 11:56 04/24/21 04/25/21 04/25/21 22:59 06:59 14:59 Intake Total 100 / 1200 150.833 / 1350.833 Output Total 700 / 700 Balance 100 / 1200 -549.167 / 650.833 Weight last 48 hrs Weight 77.111 kg Weight 77.111 kg Physical Exam Narrative: EXAM NARRATIVE: General exam is a white female, on high flow oxygen, with moderate tachypnea Neck is supple no lymphadenopathy or thyromegaly Cardiovascular regular rate and rhythm without murmur, no S3 or S4 Lungs diminished breath sounds bilaterally with some scattered crackles Abdomen is soft with positive bowel sounds. No obvious organomegaly Extremities no cyanosis clubbing or edema, cap refill brisk Urinary Catheter Management^: Robb: Cath Placed During This Visit: yes Reason for Continuing Indwelling Catheter: Accurate Measurement of Urinary Output in Critically Ill Patients Urinary Catheter Date of Insertion: 04/24/21 Urinary Catheter Time of Insertion: 11:55 Data : 04/25/21 05:57 04/25/21 05:57 Micro: Microbiology 04/24/21 17:24 MRSA Culture - Final Nose 04/24/21 17:24 Bacterial Antigens - Final Urine Suprapubic 04/24/21 17:24 Legionella Urinary Antigen - Final Urine Catheterized 04/24/21 06:40 Blood Culture - Preliminary Blood NEGATIVE TO DATE 04/24/21 06:40 Blood Culture - Preliminary Blood NEGATIVE TO DATE A&P Assessment and plan (1) Pneumonia due to COVID-19 virus: Severe COVID-19 pneumonia requiring high flow oxygen at approximately 80% currently Continue remdesivir Continue dexamethasone Combivent every 6 hours Advair every 12 hours MRSA, Legionella, bacterial antigens all negative Continue Zosyn empirically Wean oxygen as tolerated Tocilizumab given 04/24 Blood cultures negative to date Check inflammatory markers tomorrow Status: Acute (2) Acute respiratory failure with hypoxia: See above Status: Acute (3) Hypothyroidism: TSH checked and normal Status: Acute (4) Hypertension: Hold amlodipine currently. Blood pressure normal Status: Acute (5) GERD (gastroesophageal reflux disease): Status: Acute (6) Chronic back pain greater than 3 months duration: Continue current home medications. Status: Acute Additional A&P Information Full code Lovenox for DVT prophylaxis Attestations Medical Necessity Statement*: Needs continued hospitalization secondary to severe COVID-19 pneumonia with requirement for high flow oxygen. 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
[2021-04-25] MEDS: cyclobenzaprine 10 mg Tablet PO (13:38)
[2021-04-25 14:04] LABS: Procalcitonin 0.13 ng/mL (0-0.5)
--- NOTE | 2021-04-25 16:33 | PC.NURSE ---
1610 Received patient awake and alert, pale, with very pale lips with o2 on. No c/os Connected to monitor. Iv in left a/c.
[2021-04-25] MEDS: enoxaparin 40 mg/0.4 mL Syringe SUBCUT (17:32)
[2021-04-25] MEDS: topiramate 25 mg Tablet 50 MG PO (20:05)
[2021-04-26] VITALS (226 sets, daily range): BP systolic 89–121; BP diastolic 56–87; PULSE 54–83; RESP 14–34; TEMP 36.1–37; O2SAT 79–100; BMI 30.1
[2021-04-26 04:44] LABS: Hematocrit 37.1 % (37.0-47.0); Hemoglobin 11.2 g/dL (11.5-15.3); Lymphocytes # 1.4 10^3/uL (0.8-4.8); Lymphocytes % 17.9 %; Mean Corpuscular HGB Conc 30.2 g/dL (30.0-36.0); Mean Corpuscular Hemoglobin 27.2 pg (28.0-34.0); Mean Platelet Volume 10.6 fL (7.4-10.4); Monocytes # 0.6 10^3/uL (0.2-0.9); Monocytes % 7.4 %; Neutrophils # 5.84 10^3/uL (1.8-7.7); Neutrophils % 73.7 %; Nucleated Red Blood Cells % 0 %; Platelet Count 279 10^3/cmm (130-400); Red Blood Count 4.12 10^6/uL (4.1-5.3); Red Cell Distribution Width 13.2 % (12.1-15.1); White Blood Count 7.9 10^3/uL (4.0-10.0)
[2021-04-26 05:11] LABS: D Dimer 2.04 ug/mIFEU (0-0.59)
[2021-04-26 05:16] LABS: Alanine Aminotransferase 39 U/L (0-33); Albumin Level 3.2 g/dL (3.5-5.2); Alkaline Phosphatase 105 IU/L (35-105); Anion Gap 14.3 (5-19); Aspartate Amino Transferase 49 U/L (0-32); Blood Urea Nitrogen 19 mg/dL (8-23); C Reactive Protein 34.8 mg/L (0.0-4.9); Calcium 8.6 mg/dL (8.5-10.5); Carbon Dioxide 25 mmol/L (22-29); Chloride 106 mmol/L (98-107); Creatinine Clr Calc Pharmacy 58.8242; Glomerular Filtration Rate 56.6 mL/min (90-130); Glucose 114 mg/dL (65-115); Osmolality Calculated 295 mOsm/kg (285-295); Potassium 4.3 mmol/L (3.5-5.1); Sodium 141 mmol/L (136-145); Total Bilirubin 0.3 mg/dL (0.15-1.2); Total Protein 6.2 g/dL (6.6-8.7)
[2021-04-26] MEDS: pantoprazole DR 40 mg Tablet PO (06:09)
[2021-04-26] MEDS: levothyroxine 75 mcg Tablet PO (06:09)
[2021-04-26] MEDS: remdesivir 100 MG in sodium chloride 0.9% (100 ml) 100 ML IV (06:10)
[2021-04-26] MEDS: piperacillin-tazobactam 3.375 GM in sodium chloride 0.9% (plus) 50 ML IV ×3 (06:10→21:31)
[2021-04-26] MEDS: dexamethasone 10 mg/mL INJ 6 MG IVP (07:42)
[2021-04-26] MEDS: oxybutynin 5 mg Tablet PO ×2 (09:31→17:57)
[2021-04-26] MEDS: gabapentin 400 mg Capsule PO ×3 (09:31→21:29)
--- NOTE | 2021-04-26 12:03 | PC.NURSE ---
Patient is reporting pain 8/ related to degenrative disc disease. Nurse alerted Dr bourgeois as no pain meds were available. Received order for tylenol 650mg q6prn. After she makes rounds she will order something for severe pain. .
[2021-04-26] MEDS: acetaminophen 325 mg Tablet 650 MG PO (12:16)
[2021-04-26] MEDS: HYDROcodone-acetaminophen 5-325 mg Tablet 1 TAB PO (13:46)
[2021-04-26] MEDS: LORazepam 2 mg/mL INJ 1 mL 0.5 MG IVP (15:29)
--- NOTE | 2021-04-26 16:07 | PC.NURSE ---
Patient having trouble maintaining an O2 saturation about the low 80's. Nurse placed patient back on BIPAP and administered IV ativan for anxiety. patient is now resting comfortably with BIPAP, saturating in the mid 90%s
--- NOTE | 2021-04-26 17:26 | PM.PN ---
Subjective Subjective: Interval history: Mrs. Kaufman thinks that she might feel a little bit better. Has continued to require high flow, high FiO2 oxygen supplementation to maintain saturations around 90%. Currently on 45 L flow at 85% FiO2. She has had some pain in her back and legs. No other new complaints. Medications: Reviewed: Yes Vitals/I&O/Wt Last Vital Signs Temp 97.0 F L 04/26/21 12:05 Pulse 72 04/26/21 16:18 Resp 29 H 04/26/21 14:05 BP 107/67 04/26/21 14:05 Pulse Ox 91 04/26/21 16:18 04/26/21 04/26/21 04/26/21 06:59 14:59 22:59 Intake Total 50 / 209.167 150 / 150 Output Total 300 / 750 Balance -250 / -540.833 150 / 150 Weight last 48 hrs Weight 77.111 kg Weight 77.111 kg Physical Exam Narrative: EXAM NARRATIVE: On BiPAP therapy, awake, answers questions, requested a sip of water and able to take a sip with assistance removing BiPAP mask. Saturations dropped into the mid to low 80s but quickly recovered with replacement of BiPAP mask. Some accessory muscle use noted intermittently, regular rhythm, scattered crackles, occasional wheeze, abdomen is soft, obese, positive Robb, no pitting edema, cooperative Urinary Catheter Management^: Robb: Cath Placed During This Visit: yes Reason for Continuing Indwelling Catheter: Accurate Measurement of Urinary Output in Critically Ill Patients Urinary Catheter Date of Insertion: 04/24/21 Urinary Catheter Time of Insertion: 11:55 Data : 04/26/21 03:49 04/26/21 03:49 Micro: Microbiology 04/24/21 17:24 Urine Culture - Preliminary Urine,Clean Catch 04/24/21 17:24 MRSA Culture - Final Nose A&P Assessment and plan (1) Pneumonia due to COVID-19 virus: Severe COVID-19 pneumonia requiring high flow oxygen -currently 45 L flow with 85% FiO2 Remdesivir initiated 04/24 Dexamethasone initiated 04/25 Combivent every 6 hours Advair every 12 hours MRSA, Legionella, bacterial antigens all negative Continue Zosyn empirically, started 04/24 Wean oxygen as tolerated Tocilizumab given 04/24 Blood cultures from 04/24 negative to date CRP 105>35 D dimer 0.62>2.02 As needed Ativan for anxiety Status: Acute (2) Acute respiratory failure with hypoxia: See above Status: Acute (3) Hypothyroidism: TSH checked and normal On home levothyroxine Status: Chronic (4) Hypertension: Home amlodipine currently held , blood pressure normal Status: Chronic (5) GERD (gastroesophageal reflux disease): Status: Chronic (6) Chronic back pain greater than 3 months duration: Baclofen resumed at half home dose 04/26 Remains on home gabapentin and as needed Flexeril Off of home Celebrex As needed hydrocodone added 04/26 Status: Chronic Additional A&P Information Off of home Linzess On home oxybutynin On home Topamax On home trazodone prn Has Robb catheter GI prophylaxis Lovenox for DVT prophylaxis Disposition dependent on clinical course Full code Attestations Medical Necessity Statement*: Needs continued hospitalization for severe COVID pneumonia with requirement for high flow oxygen Coding Level of Care Code 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
[2021-04-26] MEDS: enoxaparin 40 mg/0.4 mL Syringe SUBCUT (17:57)
--- NOTE | 2021-04-26 19:37 | PC.NURSE ---
SHift SUmmary: patient spent about half of the day in the chair, but oxygen requirements started increasing. Pt was saturaing in the low 80's on 50 L and 100% fio2. Pt was moved back to bed around 2pm and was placed on bipap. REmained on bipap for rest of shift. Saturations in the low 90's on bipap @85%
[2021-04-26] MEDS: topiramate 25 mg Tablet 50 MG PO (21:29)
[2021-04-26] MEDS: baclofen 10 mg Tablet PO (21:31)
[2021-04-27] VITALS (244 sets, daily range): BP systolic 90–150; BP diastolic 65–97; PULSE 48–90; RESP 15–36; TEMP 35.1–37.2; O2SAT 72–100
--- NOTE | 2021-04-27 00:19 | PC.NURSE ---
Provider notified me of change in pain medication ordered hydrocodone. I clarified allergies to oxycodone. Pt previously on medication. Will give medicain PRN.
[2021-04-27] MEDS: LORazepam 2 mg/mL INJ 1 mL 0.5 MG IVP (05:16)
[2021-04-27] MEDS: ondansetron 2 mg/ML SDV 2 mL 4 MG IVP (05:16)
[2021-04-27 05:21] LABS: Basophils % 0.1 %; Eosinophils % 0.1 %; Hematocrit 39.2 % (37.0-47.0); Lymphocytes # 0.9 10^3/uL (0.8-4.8); Lymphocytes % 11.2 %; Mean Corpuscular HGB Conc 30.6 g/dL (30.0-36.0); Mean Corpuscular Hemoglobin 27.6 pg (28.0-34.0); Mean Corpuscular Volume 90.3 fL (81-99); Mean Platelet Volume 10.5 fL (7.4-10.4); Monocytes # 0.2 10^3/uL (0.2-0.9); Neutrophils # 6.33 10^3/uL (1.8-7.7); Neutrophils % 83.9 %; Nucleated Red Blood Cells % 0 %; Platelet Count 282 10^3/cmm (130-400); Red Blood Count 4.34 10^6/uL (4.1-5.3); Red Cell Distribution Width 13.1 % (12.1-15.1); White Blood Count 7.6 10^3/uL (4.0-10.0)
[2021-04-27 05:44] LABS: Alanine Aminotransferase 37 U/L (0-33); Albumin Level 3.2 g/dL (3.5-5.2); Alkaline Phosphatase 114 IU/L (35-105); Aspartate Amino Transferase 50 U/L (0-32); Blood Urea Nitrogen 16 mg/dL (8-23); C Reactive Protein 18.4 mg/L (0.0-4.9); Calcium 8.3 mg/dL (8.5-10.5); Carbon Dioxide 26 mmol/L (22-29); Chloride 104 mmol/L (98-107); Globulin 2.6 g/dL (1.3-4.6); Glomerular Filtration Rate 73.2 mL/min (90-130); Glucose 87 mg/dL (65-115); Osmolality Calculated 291 mOsm/kg (285-295); Phosphorus 3.1 mg/dL (2.5-4.5); Sodium 140 mmol/L (136-145); Total Bilirubin 0.5 mg/dL (0.15-1.2); Total Protein 5.8 g/dL (6.6-8.7)
[2021-04-27 05:49] LABS: Procalcitonin 0.08 ng/mL (0-0.5)
[2021-04-27] MEDS: remdesivir 100 MG in sodium chloride 0.9% (100 ml) 100 ML IV (06:21)
[2021-04-27] MEDS: piperacillin-tazobactam 3.375 GM in sodium chloride 0.9% (plus) 50 ML IV ×3 (06:21→23:41)
[2021-04-27] MEDS: pantoprazole DR 40 mg Tablet PO (06:22)
[2021-04-27] MEDS: levothyroxine 75 mcg Tablet PO (06:22)
--- NOTE | 2021-04-27 06:38 | PC.NURSE ---
Patient has increased agitation around 1800. Pulled off bipap multipe times. received order for restraints. Applied restraints.
--- NOTE | 2021-04-27 07:00 | XRR_ITS ---
PROCEDURE INFORMATION: Exam: XR Chest Exam date and time: 04/27/2021 7:00 AM Age: 60 years old Clinical indication: Dyspnea; Additional info: Covid, high flow TECHNIQUE: Imaging protocol: XR of the chest. Views: 1 view. Total images: 1 COMPARISON: CR XR chest 1V portable [id number] 04/24/2021 6:12 AM FINDINGS: Tubes, catheters and devices: Intraspinal nerve stimulator electrodes noted. Lungs: Bilateral pulmonary opacities are again noted and have shown interval worsening from the prior exam. Pleural spaces: Unremarkable. No pleural effusion. No pneumothorax. Heart/Mediastinum: Heart size is stable when compared to the prior exam. Bones/joints: Right shoulder arthroplasty. Osseous structures are unchanged from the prior exam. Organs: Surgical clips are present in the right upper quadrant which are suggestive of prior cholecystectomy. XR/XR chest 1V portable [id number] IMPRESSION: Bilateral pulmonary opacities are again noted and have shown interval worsening from the prior exam.
[2021-04-27] MEDS: dexamethasone 10 mg/mL INJ 6 MG IVP (07:13)
--- NOTE | 2021-04-27 08:21 | PC.NURSE ---
Upon morning assessment, patient is in restraints due to overnight agitation and trying to pull bipap off. Nurse educated patient on reasoning for restraints but patient does not comprehend. A/OX0 as she doesn't respond to questions. She is still agitated and trying to pull off bipap. Nurse repositioned patient and assisted her with getting a drink. patient continues to be agitated and pulled off bipap. Oxygen saturation quickly fell to the low 70's. Nurse reapplied bipap and restraints. Updated day shift physician.
--- NOTE | 2021-04-27 08:38 | PC.NURSE ---
Patient continues to be agitated, thrashing in bed, trying to pull off mask, no able to be redirected. Nurse received order for precedex from physician.
[2021-04-27] MEDS: dexmedetomidine 400 MCG in sodium chloride 0.9% (100 ml) 100 ML IV (08:44)
[2021-04-27 10:08] LABS: ABG PCO2 40.5 mmHg (35-45); ABG PH Result 7.39 (7.35-7.45); Alveolar-Arterial Oxygen Gradi 78.6 mmHg (5-10); Arterial Blood Gas Hematocrit 38.9 % (37-47); Base Excess ABG -0.5 mmol/L (-2.0-2.0); Blood Gas Allen Test Pos; Blood Gas Operator Identificat BD; Blood Gas Sample Site Brachial, right; Blood Gas Sample Type Arterial; Carboxyhemoglobin 0.7 %THgb (0.4-20.1); HCO3 ABG 24.5 mmol/L (22-26); HGB O2 Sat 90.3 % (95-100); Ionized Calcium Level - ABG 1.2 mmol/L (1.1-1.4); Methemoglobin 0.9 % (0.4-1.5); Oxygen Device BIPAP; Oxygen Saturation ABG 91.8; PO2 ABG 59.3 mmHg (80.0-100.0); Potassium Level - ABG 4.2 mmol/L (3.5-5.0); Total Hemoglobin 12.7 g/dL (12-16)
--- NOTE | 2021-04-27 10:27 | DCPLANNER ---
04/27/21 @ 0952. IMM not updated due to pt on vent at this time.
--- NOTE | 2021-04-27 12:13 | USCV_ITS ---
Aston Carvajal Age: 60 Gender: F : 1960 Exam Date: 04/27/2021 13:23 Ordering Phys: Nima Garcia MD Technologist: Exam Location: [facility] [place] Indication: SOB COVID BP: 142 / 95 HR: 50 Rhythm: Sinus Technical Quality: Adequate MEASUREMENTS (Male / Female) Normal Values 2D ECHO LV Diastolic Diameter PLAX 3.3 cm 4.2 - 5.9 / 3.9 - 5.3 cm LV Systolic Diameter PLAX 2.2 cm IVS Diastolic Thickness 1.1 cm 0.6 - 1.0 / 0.6 - 0.9 cm IVS Systolic Thickness 1.5 cm LVPW Diastolic Thickness 1.1 cm 0.6 - 1.0 / 0.6 - 0.9 cm LVPW Systolic Thickness 1.1 cm LVOT Diameter 2.0 cm LV Ejection Fraction 2D Teich 64.3 % LV Ejection Fraction MOD 2C 51.5 % LV Ejection Fraction 2C AL 51.9 % LA Diameter 2.9 cm LA Width 3.5 cm LA Height 4.8 cm RA Width 3.3 cm RA Height 4.5 cm DOPPLER AV Peak Velocity 118.0 cm/s LVOT Peak Velocity 89.0 cm/s AV Area Cont Eq vti 2.3 cm squared AV Area Cont Eq pk 2.4 cm squared MV Area PHT 5.0 cm squared Mitral E to A Ratio 0.8 MV E' Velocity 30.5 cm/s Mitral E to MV E' Ratio 8.5 Mitral E to LV E' Lateral Ratio 6.7 Mitral E to LV E' Septal Ratio 11.6 TR Peak Velocity 130.3 cm/s TR Peak Gradient 6.8 mmHg TV Peak E Velocity 88.0 cm/s Right Atrial Pressure 3.0 mmHg Pulmonary Artery Systolic Pressu 9.8 mmHg FINDINGS Left Ventricle Normal left ventricular cavity size. Normal left ventricular systolic function. No regional wall motion abnormalities. Left ventricular ejection fraction is estimated at 60 %. Grade I/IV diastolic dysfunction (abnormal relaxation filling pattern), normal to mildly elevated filling pressures. Right Ventricle The right ventricle is normal in size and function. Right Atrium The right atrium is normal in size. Left Atrium The left atrium is normal in size. Mitral Valve Moderately thickened mitral valve. No mitral valve stenosis. Mild mitral annular calcification. Trace mitral valve regurgitation. Aortic Valve Structurally normal aortic valve without significant sclerosis or stenosis. There is no aortic regurgitation. Tricuspid Valve Structurally normal tricuspid valve without significant stenosis or regurgitation. Pulmonary artery systolic pressure is normal. Pulmonic Valve Structurally normal pulmonic valve without significant stenosis. There is no pulmonic regurgitation. Pericardium Normal pericardium without effusion. Aorta Normal ascending aorta dimension. CONCLUSIONS 1-Normal left ventricular cavity size. Normal left ventricular systolic function. No regional wall motion abnormalities. Left ventricular ejection fraction is estimated at 60 %. Grade I/IV diastolic dysfunction (abnormal relaxation filling pattern), normal to mildly elevated filling pressures. 2-There is no pericardial effusion. 3-No significant valve abnormalities. 4-Right atrial pressure is around 5 mm of mercury. 5-There are no prior echocardiogram studies to compare. Simeon Dunn MD (Electronically Signed) Final Date: 27 April 2021 18:46 S
[2021-04-27] MEDS: FUROsemide 10 mg/mL SDV 2mL 20 MG IVP (12:45)
[2021-04-27 14:19] LABS: NT Pro B Type Natriuretic Pept 172 pg/mL (0-125)
[2021-04-27] MEDS: gabapentin 400 mg Capsule PO (14:48)
[2021-04-27] MEDS: HYDROcodone-acetaminophen 5-325 mg Tablet 1 TAB PO ×2 (14:49→20:27)
--- NOTE | 2021-04-27 15:59 | P.PN_ITS ---
Subjective Subjective: Interval history: Overnight patient had episodes of hypoxia, and agitation and confusion requiring placement of BiPAP. I was told by nurses and respiratory staff that she continues to pull off her BiPAP mask at times, and refuses prone positioning. At one point early this morning she did not follow commands, but now is much more responsive. For her agitation, she is placed on Precedex overnight, is on 100% FiO2 on BiPAP, remained afebrile overnight, normotensive. This morning patient was alert to person, to place, follows all commands, tells me that she is tired, tired of having the mask on, but nods her head to understand that the BiPAP is lifesaving, and will avoid intubation. She agreed to continue BiPAP therapy, voiced understanding of its importance, agreed to be compliant. I was clear with patient, if her respiratory status worsens, she continues to have episodes of confusion, we will have to proceed with intubation. For now we will avoid as best as possible but we will require her compliance, especially with prone positioning if possible Vitals/I&O/Wt Last Vital Signs Temp 98.0 F 04/27/21 10:20 Pulse 66 04/27/21 15:14 Resp 26 H 04/27/21 15:05 BP 116/82 04/27/21 15:05 Pulse Ox 98 04/27/21 15:14 04/27/21 04/27/21 04/27/21 06:59 14:59 22:59 Intake Total 50 / 310 555.615 / 555.615 Output Total 350 / 1100 500 / 500 Balance -300 / -790 55.615 / 55.615 Weight last 48 hrs Weight 77.111 kg Physical Exam Const: COMMON NORMALS: no acute distress and patient oriented x3 Resp: COMMON NORMALS: normal respiratory effort, No retractions, No use of accessory muscles and clear to auscultation bilaterally AUSCULTATION: clear to auscultation bilaterally Cardio: COMMON NORMALS: regular rate, regular rhythm, S1 normal heart sound present and S2 normal heart sound present RATE: regular rate RHYTHM: regular rhythm HEART SOUNDS: S1 normal heart sound present and S2 normal heart sound present GI: COMMON NORMALS: Normal to inspection, nondistended, normoactive bowel sounds present, Soft to palpation, non-tender and No hepatosplenomegaly present PALPATION: Yes Soft to palpation and Yes No hepatosplenomegaly present Neuro: COMMON NORMALS: patient oriented x3 Psych: COMMON NORMALS: mental status grossly normal Urinary Catheter Management^: Robb: Cath Placed During This Visit: yes Reason for Continuing Indwelling Catheter: Accurate Measurement of Urinary Output in Critically Ill Patients Urinary Catheter Date of Insertion: 04/24/21 Urinary Catheter Time of Insertion: 11:55 Data : 04/27/21 03:58 04/27/21 03:58 Micro: Microbiology 04/27/21 13:00 Bacterial Antigens - Final Urine,Voided 04/24/21 17:24 Urine Culture - Final Urine,Clean Catch A&P Assessment and plan (1) Pneumonia due to COVID-19 virus: Severe COVID-19 pneumonia, acute hypoxic respiratory failure, acute encephalopathy requiring high flow oxygen -BiPAP, 100% FiO2 Remdesivir initiated 04/24 Dexamethasone initiated 04/25 Combivent every 6 hours Advair every 12 hours MRSA, Legionella, bacterial antigens all negative Continue Zosyn empirically, started 04/24, start azithromycin 04/27/2021 Wean oxygen as tolerated Tocilizumab given 04/24 Blood cultures from 04/24 negative to date Monitor inflammatory markers Encourage prone positioning Vitamin C, zinc, incentive spirometer, flutter valve Obtain a cardiac echocardiogram today, Lasix 20 mg Currently patient is a high risk of intubation, monitor respiratory status closely Currently Precedex for anxiety and agitation, Ativan as needed but will be used sparingly Will hold Flexeril, gabapentin for now Lovenox for DVT prophylaxis Protonix for GI prophylaxis Full code Status: Acute (2) Acute respiratory failure with hypoxia: See above Status: Acute (3) Hypothyroidism: TSH checked and normal On home levothyroxine Status: Chronic (4) Hypertension: Home amlodipine currently held , blood pressure normal Status: Chronic (5) GERD (gastroesophageal reflux disease): Status: Chronic (6) Chronic back pain greater than 3 months duration: Baclofen resumed at half home dose 04/26 Remains on home gabapentin and as needed Flexeril Off of home Celebrex As needed hydrocodone added 04/26 Status: Chronic (7) Acute encephalopathy: Likely secondary to COVID-19, hypoxia Status: Acute Additional A&P Information Off of home Linzess On home oxybutynin On home Topamax On home trazodone prn Has Robb catheter GI prophylaxis Lovenox for DVT prophylaxis Disposition dependent on clinical course Full code Attestations Medical Necessity Statement*: Patient requires hospitalization, for acute respiratory failure with hypoxia secondary to COVID-19 pneumonia, ICU admission, critical care time spent over 45 minutes Coding Level of Care Code 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
[2021-04-27] MEDS: azithromycin 500 MG in sodium chloride 0.9% 250 ML 250 MG IV (17:22)
[2021-04-27] MEDS: enoxaparin 40 mg/0.4 mL Syringe SUBCUT (17:23)
[2021-04-27] MEDS: oxybutynin 5 mg Tablet PO (17:23)
[2021-04-27] MEDS: ascorbic acid 500 mg Tablet 1000 MG PO (17:23)
--- NOTE | 2021-04-27 18:28 | PC.NURSE ---
Recieved Okay to give info to the patient's daughter Sandra at [phone]
--- NOTE | 2021-04-27 19:34 | PC.NURSE ---
SHift SUmmary: Initially, patient was confused, agitated and pulling off BIPAP form which she would quickly Desaturate into the 70's. After precedex was started, patient became calm. Throughout the day precedex was weaned off. Patient became more alert and is no longer agitated. Besides initial confusion which is now resolved, uneventful shift. Patient is currently still receiving 0.1 of precedex and is on Bipap at 100%
[2021-04-27] MEDS: topiramate 25 mg Tablet 50 MG PO (20:27)
[2021-04-27] MEDS: trazodone 50 mg Tablet PO (20:27)
[2021-04-27] MEDS: baclofen 10 mg Tablet PO (20:28)
[2021-04-28] VITALS (99 sets, daily range): BP systolic 71–151; BP diastolic 47–91; PULSE 48–106; RESP 16–32; TEMP 36.6–37.2; O2SAT 71–99
[2021-04-28 04:28] LABS: Basophils % 0.2 %; Hemoglobin 12.7 g/dL (11.5-15.3); Lymphocytes # 0.9 10^3/uL (0.8-4.8); Lymphocytes % 10.6 %; Mean Corpuscular HGB Conc 31.8 g/dL (30.0-36.0); Mean Corpuscular Hemoglobin 27.7 pg (28.0-34.0); Mean Corpuscular Volume 87.3 fL (81-99); Mean Platelet Volume 9.9 fL (7.4-10.4); Monocytes # 0.2 10^3/uL (0.2-0.9); Neutrophils # 6.76 10^3/uL (1.8-7.7); Neutrophils % 84.5 %; Nucleated Red Blood Cells % 0 %; Platelet Count 266 10^3/cmm (130-400); Red Blood Count 4.58 10^6/uL (4.1-5.3); Red Cell Distribution Width 12.7 % (12.1-15.1)
[2021-04-28 04:44] LABS: INR 1.17 (0.8-1.2)
[2021-04-28 04:52] LABS: NT Pro B Type Natriuretic Pept 269 pg/mL (0-125); Procalcitonin 0.15 ng/mL (0-0.5)
[2021-04-28 04:54] LABS: Alanine Aminotransferase 30 U/L (0-33); Albumin Level 3.3 g/dL (3.5-5.2); Alkaline Phosphatase 111 IU/L (35-105); Anion Gap 16.8 (5-19); Aspartate Amino Transferase 39 U/L (0-32); Blood Urea Nitrogen 19 mg/dL (8-23); C Reactive Protein 22.4 mg/L (0.0-4.9); Calcium 8.6 mg/dL (8.5-10.5); Carbon Dioxide 24 mmol/L (22-29); Chloride 105 mmol/L (98-107); Globulin 2.7 g/dL (1.3-4.6); Glomerular Filtration Rate 73.2 mL/min (90-130); Glucose 92 mg/dL (65-115); Magnesium 2.1 mg/dL (1.7-2.3); Osmolality Calculated 296 mOsm/kg (285-295); Phosphorus 2.9 mg/dL (2.5-4.5); Potassium 3.8 mmol/L (3.5-5.1); Sodium 142 mmol/L (136-145); Total Bilirubin 0.5 mg/dL (0.15-1.2)
[2021-04-28 04:56] LABS: ABG PCO2 38.5 mmHg (35-45); ABG PH Result 7.44 (7.35-7.45); Arterial Blood Gas Hematocrit 41.6 % (37-47); Base Excess ABG 2.1 mmol/L (-2.0-2.0); Blood Gas Allen Test Pos; Blood Gas Sample Type Arterial; HCO3 ABG 26.3 mmol/L (22-26); PO2 ABG 65.9 mmHg (80.0-100.0)
[2021-04-28 04:58] LABS: Blood Gas Sample Site Radial, right; Oxygen Device BIPAP
[2021-04-28 05:04] LABS: Creatine Phosphokinase 94 U/L (26-192)
[2021-04-28] MEDS: remdesivir 100 MG in sodium chloride 0.9% (100 ml) 100 ML IV (05:19)
[2021-04-28] MEDS: levothyroxine 75 mcg Tablet PO (05:19)
[2021-04-28] MEDS: pantoprazole DR 40 mg Tablet PO (05:19)
[2021-04-28] MEDS: piperacillin-tazobactam 3.375 GM in sodium chloride 0.9% (plus) 50 ML IV ×3 (06:32→21:24)
--- NOTE | 2021-04-28 07:00 | XRR_ITS ---
PROCEDURE INFORMATION: Exam: XR Chest Exam date and time: 04/28/2021 7:00 AM Age: 60 years old Clinical indication: Dyspnea; Additional info: SOB TECHNIQUE: Imaging protocol: XR of the chest. Views: 1 view. COMPARISON: CR (CHEST, ) 04/27/2021 5:06 AM FINDINGS: Tubes, catheters and devices: Neurostimulator leads project over the lower thoracic spine. Lungs: Low lung volumes. Persistent bilateral airspace opacities. No large pleural effusion or pneumothorax. Pleural spaces: See Lungs finding. Heart/Mediastinum: Stable cardiomediastinal silhouette. Stable cardiomediastinal silhouette. Bones/joints: Right shoulder arthroplasty hardware and left shoulder degenerative changes noted. No acute osseous injury identified. XR/XR chest 1V portable [id number] IMPRESSION: Persistent bilateral airspace opacities.
[2021-04-28] MEDS: dexamethasone 10 mg/mL INJ 6 MG IVP (07:12)
[2021-04-28] MEDS: dexmedetomidine 400 MCG in sodium chloride 0.9% (100 ml) 100 ML 6.02 MCG IV (07:15)
[2021-04-28] MEDS: succinylcholine 20 mg/mL SDV 10mL IVP (09:35)
--- NOTE | 2021-04-28 10:18 | XR_ITS ---
WS: [id number] Portable AP semiupright chest, 04/28/2021, 1035 hours Clinical Data: central line Comparison: Portable chest, 0512 hours Findings: There is an endotracheal tube which is above the anusha. There is a right internal jugular venous catheter ending in the superior vena cava. No pneumothorax is noted. Bilateral pulmonary opaci ties remain the same. There are monitor leads on the chest wall. There are epidural stimulator leads ending in the lower thoracic epidural space. There is a right shoulder arthroplasty and degenerative change of the left shoulder. Monitor leads on the chest wall. XR/XR chest 1V portable [id number] Impression: 1. Endotracheal tube above the anusha. 2. Satisfactory position right internal jugular venous catheter. 3. No change in bilateral pulmonary opacities.
[2021-04-28] MEDS: cisatracurium 100 MG in sodium chloride 0.9% 50 ML IV (10:31)
--- NOTE | 2021-04-28 11:30 | PC.NURSE ---
Nurse called the patient's sister, shar bush, and updated her on patient condition. Now intubated. Nurse also attempted to call the daughter elizabeth. Left message with the fiance to call us back.
[2021-04-28] MEDS: midazolam 1 mg/mL INJ 2 mL 2 MG IVP (11:48)
[2021-04-28] MEDS: midazolam 1 mg/mL INJ 2 mL 4 MG IVP (11:48)
[2021-04-28] MEDS: propofol 1,000 MG/100 ML INJ 20.82 MG IV ×3 (12:22→17:24)
[2021-04-28 14:16] LABS: ABG PCO2 34.6 mmHg (35-45); ABG PH Result 7.43 (7.35-7.45); Arterial Blood Gas Hematocrit 37.9 % (37-47); Blood Gas Allen Test Pos; Blood Gas Sample Site Radial, right; Blood Gas Sample Type Arterial; HCO3 ABG 22.9 mmol/L (22-26); Oxygen Device HAG; PO2 ABG 63.6 mmHg (80.0-100.0)
--- NOTE | 2021-04-28 14:17 | PC.NUTR ---
Nutrition reassessment: Spoke with ICU staff by phone clarifying current diet--request to cancel Cardiac diet given intubated status. Poor po intake X 4 days noted, and possibly prior to admit as well. If unable to consume oral diet within 1-3 days, recommend consideration of nutrition support if consistent with patient's plan of care. RD available for recommendations as needed. See RD assessments for further details.
[2021-04-28 14:48] LABS: Glucose Point of Care 209 mg/dL (70-110)
[2021-04-28 14:54] LABS: ABG PCO2 74.6 mmHg (35-45); ABG PH Result 7.15 (7.35-7.45); Alveolar-Arterial Oxygen Gradi 61.5 mmHg (5-10); Base Excess ABG -4.5 mmol/L (-2.0-2.0); Blood Gas Allen Test Pos; Blood Gas Operator Identificat BD; Blood Gas Sample Site Radial, left; Blood Gas Sample Type Arterial; Blood Gas Tidal Volume 0.35; Carboxyhemoglobin 0.4 %THgb (0.4-20.1); HCO3 ABG 26.2 mmol/L (22-26); HGB O2 Sat 97.1 % (95-100); Ionized Calcium Level - ABG 1.3 mmol/L (1.1-1.4); Oxygen Saturation ABG 98.5; Potassium Level - ABG 4.1 mmol/L (3.5-5.0); Total Hemoglobin 14.7 g/dL (12-16)
--- NOTE | 2021-04-28 15:45 | PM.ACPR ---
Procedure/Consent Time out: Time Out Performed: Yes Consent: Consent for Procedure: Emergency procedure Procedure Narrative: Name of the Procedure: Right internal Jugular Central venous catheter placement under ultrasound guidance. Indication: Frequent blood work and need for vasopressor Anesthesiia: Lidocaine 1%, 5 ml Description of the procedure: The right IJ vein was identified with the Ultrasound from collapsibility and lack of pulsatility. The site was prepared using sterile technique. The skin and subcuteneous tissue was anesthetized using lidocaine. The introducer needle was advanced under US guidance till flash back was noted. Dark, non pulsatile blood noted. Using seldinger technique the CVC was put in.Blood return was noted in all ports. Catheter was secured with suture and covered with transparent dressing. Complications: None X-ray: Right IJ central venous catheter is in optimal position. Acute Procedures Epistaxis Control: Time out performed: Yes
--- NOTE | 2021-04-28 15:50 | PM.PN ---
Subjective Subjective: Interval history: Overnight patient continued to have high oxygen requirements, 100% FiO2, remained on BiPAP, patient was seen by pulmonary critical care team this morning, decision was made to intubate patient, patient was seen after intubation, she is currently in prone positioning, on 100% FiO2, on fentanyl, Versed, propofol, and paralytics for sedation Vitals/I&O/Wt Last Vital Signs Temp 98.9 F 04/28/21 03:00 Pulse 104 H 04/28/21 13:00 Resp 16 04/28/21 14:04 BP 115/67 04/28/21 13:00 Pulse Ox 97 04/28/21 14:04 04/28/21 04/28/21 04/28/21 06:59 14:59 22:59 Intake Total 348.385 / 1054.000 376.514 / 376.514 125.485 / 501.999 Output Total 400 / 1600 Balance -51.615 / -546.000 376.514 / 376.514 125.485 / 501.999 Physical Exam Narrative: EXAM NARRATIVE: Intubated, sedated Const: COMMON NORMALS: no acute distress Neck/C-Spine: COMMON NORMALS: no JVD Resp: COMMON NORMALS: normal respiratory effort, No retractions, No use of accessory muscles and clear to auscultation bilaterally AUSCULTATION: clear to auscultation bilaterally Cardio: COMMON NORMALS: no JVD, regular rate, regular rhythm, S1 normal heart sound present and S2 normal heart sound present RATE: regular rate RHYTHM: regular rhythm HEART SOUNDS: S1 normal heart sound present and S2 normal heart sound present GI: COMMON NORMALS: Normal to inspection, nondistended, normoactive bowel sounds present, Soft to palpation and non-tender PALPATION: Yes Soft to palpation Extremity: COMMON NORMALS: no pedal edema Psych: COMMON NORMALS: mental status grossly normal Urinary Catheter Management^: Robb: Cath Placed During This Visit: yes Reason for Continuing Indwelling Catheter: Accurate Measurement of Urinary Output in Critically Ill Patients Urinary Catheter Date of Insertion: 04/24/21 Urinary Catheter Time of Insertion: 11:55 Data : 04/28/21 03:33 04/28/21 03:33 Micro: Microbiology 04/27/21 13:00 Bacterial Antigens - Final Urine,Voided A&P Assessment and plan (1) Pneumonia due to COVID-19 virus: Severe COVID-19 pneumonia, acute hypoxic respiratory failure, acute encephalopathy requiring high flow oxygen -BiPAP, 100% FiO2 Intubated 04/27/2021 Prone positioning protocol On vent, 100% FiO2, PEEP of 10, will titrate down FiO2 On Versed, propofol, fentanyl for sedation Nimbex for paralytic, BISS 30-40 Remdesivir initiated 04/24 Dexamethasone initiated 04/25 Combivent every 6 hours Advair every 12 hours MRSA, Legionella, bacterial antigens all negative Continue Zosyn empirically, started 04/24, start azithromycin 04/27/2021 Tocilizumab given 04/24 Blood cultures from 04/24 negative to date Monitor inflammatory markers Encourage prone positioning Vitamin C, zinc, incentive spirometer, flutter valve Echocardiogram shows EF of 60%, grade 1 out of 4 diastolic dysfunction Currently patient is a high risk of intubation, monitor respiratory status closely Currently Precedex for anxiety and agitation, Ativan as needed but will be used sparingly Will hold Flexeril, gabapentin for now Lovenox for DVT prophylaxis Protonix for GI prophylaxis Full code Status: Acute (2) Acute respiratory failure with hypoxia: See above Status: Acute (3) Hypothyroidism: TSH checked and normal On home levothyroxine Status: Chronic (4) Hypertension: Home amlodipine currently held , blood pressure normal Status: Chronic (5) GERD (gastroesophageal reflux disease): Status: Chronic (6) Chronic back pain greater than 3 months duration: Baclofen resumed at half home dose 04/26 Remains on home gabapentin and as needed Flexeril Off of home Celebrex As needed hydrocodone added 04/26 Status: Chronic (7) Acute encephalopathy: Likely secondary to COVID-19, hypoxia Status: Acute Additional A&P Information Off of home Linzess On home oxybutynin On home Topamax On home trazodone prn Has Robb catheter GI prophylaxis Lovenox for DVT prophylaxis Disposition dependent on clinical course Full code Attestations Medical Necessity Statement*: Patient requires hospitalization due to acute respiratory failure secondary COVID-19 Coding Level of Care Code Acute Trouble Locator Test Desk for [facility] Fwd Diagnoses Pneumonia due to COVID-19 virus U07.1; J12.82 Acute respiratory failure with hypoxia J96.01 Hypothyroidism E03.9 Hypertension I10 GERD (gastroesophageal reflux disease) K21.9 Chronic back pain greater than 3 months duration M54.9; G89.29 Acute encephalopathy G93.40
--- NOTE | 2021-04-28 15:52 | PM.ACPR ---
Procedure/Consent Time out: Time Out Performed: Yes Consent: Consent for Procedure: Emergency procedure Procedure Narrative: Name of the procedure: Endotracheal intubation. Indication: Hypoxic respiratory failure. Medications: Etomidate 20 mg, succinylcholine 100 mg. Procedure: The patient was positioned optimally.The patient was oxygenated with 100% oxygen with noninvasive ventilator. After the aforementioned medications were introduced, the videoendoscope blade was introduced and advanced till vocal cords are visualized. The endotracheal tube was advanced through the vocal cords under direct visualization. There was fogging of the ET tube, positive change in end-tidal CO2 monitor, bilateral chest rise, bilateral positive breath sound. The ET tube was secured at 22 cm at the lips. Complications: There was no immediate complications. Chest x-ray: The ET tube is in optimal position. Acute Procedures Epistaxis Control: Time out performed: Yes
--- NOTE | 2021-04-28 15:54 | P.CONIM_ITS ---
Providers/Reason For Consult Consulting Physician/Specialty*: Pulmonary critical care medicine Reason for Consult*: Acute hypoxic respiratory failure with SARS-CoV-2 pneumonia Attending Physician: Nima Garcia MD Primary Care Provider: Jacqueline Adam History of Present Illness History of Present Illness Aston Carvajal is a 60 year old female who presented to the hospital on April 24 with acute hypoxic respiratory failure secondary to SARS-CoV-2 pneumonia. The patient tested positive for COVID-19 on April 14. She was likely having symptoms for a few days prior to testing positive. After admission to the hospital, the patient had been receiving remdesivir and dexamethasone. She also received Tocilizumab on April 24. Initially, the patient was on high flow nasal cannula however since yesterday she has been on 100% BiPAP with her saturation ranging in the high 80s to low 90s. I had seen and examined the patient today. She appears tired. Complaint of shortness of breath. She was eventually intubated paralyzed and performed. Her chest x-ray on admission revealed bilateral diffuse infiltrate. Which has progressed since then. Patient has no leukocytosis. Her inflammatory markers have been elevated. Review of Systems Narrative: Unable to assess Meds/Allergies Home Medications and Allergies Home Medications Medication Instructions Recorded Confirmed Last Taken Type amlodipine 10 mg tablet 10 mg PO QAM 10/12/19 04/24/21 03/31/20 History esomeprazole magnesium 40 mg 40 mg PO QAM 10/12/19 04/24/21 03/31/20 History capsule,delayed release fluticasone 250 mcg-salmeterol 50 1 inh INHALATION BID 10/12/19 04/24/21 Unknown History mcg/dose blistr powdr for inhalation omega-3 fatty acids 1,000 mg 1,000 mg PO DAILY 10/12/19 04/24/21 03/31/20 History capsule topiramate 50 mg tablet 50 mg PO BEDTIME tab 10/12/19 04/24/21 03/31/20 History vitamin B complex 1 tab PO DAILY 10/12/19 04/24/21 03/31/20 History vitamin E 200 unit capsule 200 unit PO DAILY cap 10/12/19 04/24/21 03/31/20 History calcium carbonate-vitamin D3 500 1 tab PO DAILY tab 02/15/20 04/24/21 03/31/20 History mg (1,250 mg)-600 unit tablet trazodone 50 mg tablet 50 mg PO BEDTIME PRN 11/05/20 04/24/21 Unknown History celecoxib 200 mg capsule 200 mg PO BID PRN 30 Days #60 cap 12/25/20 04/24/21 Unknown Rx cyclobenzaprine 10 mg tablet 10 mg PO TID PRN #30 tab 12/25/20 04/24/21 Unknown Rx gabapentin 400 mg capsule 400 mg PO TID #90 cap 12/25/20 04/24/21 Unknown Rx acetaminophen [Tylenol Extra 1,000 mg PO PRN 04/24/21 04/24/21 04/23/21 History Strength] albuterol sulfate [ProAir HFA] 2 puff INHALATION Q4H PRN 04/24/21 04/24/21 Un known History amoxicillin 1,000 mg PO TID 04/24/21 04/24/21 04/24/21 04:00 History azithromycin See Rx Instructions .ROUTE .COMPLEX 04/24/21 04/24/21 04/24/21 04:00 History baclofen 20 mg PO BEDTIME 04/24/21 04/24/21 Unknown History levothyroxine 75 mcg PO QAM 04/24/21 04/24/21 Unknown History linaclotide [Linzess] 145 mcg PO BEDTIME 04/24/21 04/24/21 Unknown History multivitamin 1 tab PO DAILY 04/24/21 04/24/21 Unknown History oxybutynin chloride 5 mg PO BID 04/24/21 04/24/21 Unknown History prednisone 40 mg PO DAILY 04/24/21 04/24/21 04/24/21 04:00 History vitamin A 1 cap PO DAILY 04/24/21 04/24/21 Unknown History Allergies Allergy/AdvReac Type Severity Reaction Status Date / Time oxycodone [From Percocet] Allergy ADR-Itching Verified 04/24/21 08:48 Current Medications Current Medications Generic Name Dose Route Start Last Admin Trade Name Freq PRN Reason Stop Dose Admin Acetaminophen 650 mg 04/26/21 12:02 04/26/21 12:16 Acetaminophen 325 Mg Tablet PO 650 mg Q6H PRN Administration MILD PAIN Hydrocodone Bitart/Acetaminophen 1 tab 04/26/21 13:13 04/27/21 20:27 Hydrocodone-Acetaminophen 5-325 Mg Tablet PO 1 tab Q6H PRN Administration SEVERE PAIN Albuterol/Ipratropium 1 puff 04/24/21 16:00 04/27/21 20:49 Ipratropium-Albuterol 4 Gm Mdi INHALATION Not Given QID.RESPIRATORY MICHAEL Ascorbic Acid 1,000 mg 04/27/21 18:00 04/28/21 11:38 Ascorbic Acid 500 Mg Tablet PO Not Given BID MICHAEL Baclofen 10 mg 04/26/21 21:00 04/27/21 20:28 Baclofen 10 Mg Tablet PO 10 mg BEDTIME MICHAEL Administration Cyclobenzaprine HCl 10 mg 04/24/21 17:19 04/25/21 13:38 Cyclobenzaprine 10 Mg Tablet PO 10 mg TID PRN Administration muscle spasm Dexamethasone 6 mg 04/26/21 08:00 04/28/21 07:12 Dexamethasone 10 Mg/Ml Inj IVP 6 mg Q24H MICHAEL Administration Enoxaparin Sodium 40 mg 04/24/21 18:00 04/27/21 17:23 Enoxaparin 40 Mg/0.4 Ml Syringe SUBCUT 40 mg Q24H MICHAEL Administration Gabapentin 400 mg 04/24/21 17:19 04/27/21 14:48 Gabapentin 400 Mg Capsule PO 400 mg TID MICHAEL Administration Piperacillin Sod/Tazobactam 50 mls @ 12.5 mls/hr 04/24/21 14:00 04/28/21 14:28 Sod 3.375 gm/ Sodium Chloride IV 12.5 mls/hr Q8H MICHAEL Administration Protocol Dexmedetomidine HCl 400 mcg/ 104 mls @ 0 mls/hr 04/27/21 08:45 04/28/21 12:19 Sodium Chloride IV 0 mcg/kg/hr .Q0M MICHAEL 0 mls/hr Titration Protocol Per Protocol Azithromycin 500 mg/ Sodium 250 mls @ 250 mls/hr 04/27/21 17:00 04/28/21 11:39 Chloride IV Infused Q24H MICHAEL Infusion Protocol Norepinephrine Bitartrate 4 mg 254 mls @ 0 mls/hr 04/28/21 09:15 04/28/21 15:16 / Dextrose IV 10 mcg/min .Q0M MICHAEL 38.1 mls/hr Administration Protocol Per Protocol Propofol 1,000 mg in 100 mls @ 0 mls/hr 04/28/21 09:30 04/28/21 13:08 Diprivan IV 45 mcg/kg/min .Q0M MICHAEL 20.82 mls/hr Administration Protocol Per Protocol Fentanyl 1,000 mcg/ Sodium 100 mls @ 0 mls/hr 04/28/21 09:30 04/28/21 15:32 Chloride IV 125 mcg/hr .Q0M MICHAEL 12.5 mls/hr Titration Protocol Per Protocol Midazolam HCl 100 mg/ Sodium 100 mls @ 0 mls/hr 04/28/21 10:00 04/28/21 12:21 Chloride IV 4 mg/hr .Q0M MICHAEL 4 mls/hr Administration Protocol Per Protocol Cisatracurium Besylate 100 mg/ 100 mls @ 0 mls/hr 04/28/21 10:15 04/28/21 15:00 Sodium Chloride IV 1.25 mcg/kg/min .Q0M MICHAEL 5.78 mls/hr Titration Protocol Per Protocol Levothyroxine Sodium 75 mcg 04/25/21 06:00 04/28/21 05:19 Levothyroxine 75 Mcg Tablet PO 75 mcg QAM MICHAEL Administration Lorazepam 0.5 mg 04/25/21 07:55 04/27/21 05:16 Lorazepam 2 Mg/Ml Inj 1 Ml IVP 0.5 mg Q6H PRN Administration ANXIETY Ondansetron HCl 4 mg 04/24/21 17:19 04/27/21 05:16 Ondansetron 2 Mg/Ml Sdv 2 Ml IVP 4 mg Q6H PRN Administration NAUSEA AND VOMITING Oxybutynin Chloride 5 mg 04/24/21 18:00 04/28/21 11:38 Oxybutynin 5 Mg Tablet PO Not Given BID MICHAEL Pantoprazole Sodium 40 mg 04/25/21 06:00 04/28/21 05:[address] 40 Mg Tablet PO 40 mg QAM MICHAEL Administration Fluticasone/Salmeterol 1 puff 04/25/21 08:00 04/27/21 20:49 Fluticasone-Salmeterol 250-50 Diskus INHALATION Not Given BID.RESPIRATORY MICHAEL Topiramate 50 mg 04/24/21 21:00 04/27/21 20:27 Topiramate 25 Mg Tablet PO 50 mg BEDTIME MICHAEL Administration Trazodone HCl 50 mg 04/24/21 17:19 04/27/21 20:27 Trazodone 50 Mg Tablet PO 50 mg BEDTIME PRN Administration Sleep Zinc Gluconate 50 mg 04/28/21 09:00 04/28/21 11:38 Zinc Gluconate 50 Mg Tablet PO Not Given DAILY MICHAEL PFSH Acute PFSH: Medical History Arthritis of left knee Bursitis of right shoulder DDD (degenerative disc disease) cervical and lumbar Diverticulosis Encounter for long-term opiate analgesic use GERD (gastroesophageal reflux disease) Hypertension Hypothyroidism Opioid contract exists Spondylitis Surgical History History of ankle surgery Tarsal release-bilat ankle repair 1991 History of back surgery HERNIATED DISC 12/2003 Hx of abdominal surgery exploratory Hx of carpal tunnel repair bilat wrists 1981 Hx of cholecystectomy 2006 Hx of laparoscopy X4 S/P shoulder replacement RIGHT SHOULDER REPLACEMENT 04/2016 Family History Sister Diabetes paternal grandmother Family/Other Heart disease paternal uncle Unknown Hypercholesteremia family members in general Brother Cancer prostate Sister Thyroid disease Social History Smoking and tobacco status: former smoker Second hand smoke exposure: Yes Alcohol intake: never History of recent travel: No Vitals/I&O/Wt Last Vital Signs Temp 98.9 F 04/28/21 03:00 Pulse 104 H 04/28/21 13:00 Resp 16 04/28/21 14:04 BP 115/67 04/28/21 13:00 Pulse Ox 97 04/28/21 14:04 04/28/21 04/28/21 04/28/21 06:59 14:59 22:59 Intake Total 348.385 / 1054.000 376.514 / 376.514 125.485 / 501.999 Output Total 400 / 1600 Balance -51.615 / -546.000 376.514 / 376.514 125.485 / 501.999 Physical Exam Narrative: EXAM NARRATIVE: General: The patient is intubated and sedated Neck: No JVD Respiratory: Auscultation: Mild crackles at bilateral lung bases Cardiovascular: Regular rate and rhythm, S1-S2 present, no murmur, no peripheral edema. Abdomen: Soft, mildly distended from obesity, absent bowel sound Musculoskeletal: No obvious joint deformity Skin: No rash Neuro: Unable to assess Urinary Catheter Management^: Robb: Cath Placed During This Visit: yes Reason for Continuing Indwelling Catheter: Accurate Measurement of Urinary Output in Critically Ill Patients Urinary Catheter Date of Insertion: 04/24/21 Urinary Catheter Time of Insertion: 11:55 Data Micro: Micro: Microbiology 04/27/21 13:00 Bacterial Antigens - Final Urine,Voided Other Data: Attestation for Other Data: I personally reviewed and interpreted the following: Other data: I have reviewed the patient's laboratory, microbiologic and radiologic data in detail. A&P Assessment and plan (1) Pneumonia due to COVID-19 virus: This is a 60-year-old lady with severe COVID-19 secondary to SARS-CoV-2 pneumonia. The patient has developed ARDS. The patient is currently intubated, paralyzed and prone. Changes have been made to her ventilator setting after the blood gas revealed acute hypercapnic respiratory failure. There had been a significant improvement of the hypoxic respiratory failure after proning her. Status: Acute (2) ARDS (adult respiratory distress syndrome): We will continue with the low tidal volume ventilation. The PEEP will be optimized. Currently the patient is covered with Zosyn and azithromycin. I will consider discontinuing the antibiotic in the near future in the absence of any infection which there is none currently. Status: Acute (3) Hypothyroidism: The levothyroxine has been switched to IV form. Status: Chronic (4) Hypertension: The patient is currently requiring vasopressor support likely secondary to vasodilatory shock. 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
[2021-04-28] MEDS: azithromycin 500 MG in sodium chloride 0.9% 250 ML 250 MG IV (17:57)
[2021-04-28] MEDS: famotidine 20 mg/2 mL INJ IVP (17:57)
[2021-04-28] MEDS: enoxaparin 40 mg/0.4 mL Syringe SUBCUT (17:58)
--- NOTE | 2021-04-28 19:25 | PC.NURSE ---
Nurse shabana smith witness wasting of 1mg versed from morning intubation
--- NOTE | 2021-04-28 19:51 | PC.NURSE ---
Nurse was able to reach patient's sister shar. updated on condition
--- NOTE | 2021-04-28 19:52 | PC.NURSE ---
Late note, patient was intubated this AM and proned. Proned at 1100 on 04/28/2021, needs to go supine at 0300.
--- NOTE | 2021-04-28 19:53 | PC.NURSE ---
SHift Summary: Due to increased and unsustainable work of breathing despite the BIPAP being at 100%, patient has been intubated, and placed prone today. Nimbex used for paralytic and rate has varied between 1 and 1.5 to acheive a 2 on the TO4 scale. BIS has ranged between 40-50 using versed at 7, fentanyl at 125, and propofol at 40. Patient needs to be placed supine at 0300 on 04/29/2021. Family aware of intubation.
--- NOTE | 2021-04-28 19:56 | PC.NURSE ---
TO4/BIS 1000 1100 1200 2 1300 258 1400 248 1500 1600 045 1700 1800
[2021-04-28] MEDS: propofol 1,000 MG/100 ML INJ 18.51 MG IV (21:51)
--- NOTE | 2021-04-28 22:07 | PC.NURSE ---
Upon shift change Versed gtt was running at 7 mg/7 mL an hour per Dr. Garcia is what was reported at shift report
[2021-04-29] VITALS (54 sets, daily range): BP systolic 66–157; BP diastolic 46–88; PULSE 53–88; RESP 22; TEMP 37.1–37.3; O2SAT 84–98
[2021-04-29] MEDS: cisatracurium 100 MG in sodium chloride 0.9% 50 ML IV (01:44)
[2021-04-29] MEDS: propofol 1,000 MG/100 ML INJ 16.19 MG IV (03:02)
[2021-04-29 03:46] LABS: Glucose Point of Care 121 mg/dL (70-110)
[2021-04-29] MEDS: famotidine 20 mg/2 mL INJ IVP ×2 (04:19→17:42)
[2021-04-29] MEDS: piperacillin-tazobactam 3.375 GM in sodium chloride 0.9% (plus) 50 ML IV ×3 (05:12→21:59)
--- NOTE | 2021-04-29 05:36 | PC.NURSE ---
Addendum entered by Deb Quinonez RN 04/29/21 05:37: Witnessed versed waste. Original Note: Wasted 46.5 of Versed witnessed by Deb MITCHELL
--- NOTE | 2021-04-29 06:00 | ECG_ITS ---
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
--- NOTE | 2021-04-29 06:05 | PC.NURSE ---
No acute changes overnight patient still on paralytic. Continue care.
[2021-04-29 06:07] LABS: ABG PCO2 47.7 mmHg (35-45); ABG PH Result 7.36 (7.35-7.45); Arterial Blood Gas Hematocrit 44.7 % (37-47); Base Excess ABG 0.5 mmol/L (-2.0-2.0); Blood Gas Allen Test Pos; Blood Gas Sample Type Arterial; HCO3 ABG 26.6 mmol/L (22-26); PO2 ABG 74.2 mmHg (80.0-100.0)
[2021-04-29 06:08] LABS: Blood Gas Operator Identificat JB; Blood Gas Sample Site Brachial, right; Blood Gas Tidal Volume 0.37; Oxygen Device VENT
--- NOTE | 2021-04-29 06:20 | PC.NURSE ---
TOF/BIS 2000 TOF 4 BIS 30 2200 TOF 4 BIS 32 0000 TOF 4 BIS 36 0200 TOF 4 BIS 45 0400 TOF 4 BIS 50 0600 TOF 4 BIS 41
[2021-04-29 06:25] LABS: Basophils % 0.3 %; Eosinophils # 0.1 10^3/uL (0.0-0.8); Hematocrit 41.4 % (37.0-47.0); Hemoglobin 12.7 g/dL (11.5-15.3); Lymphocytes # 0.9 10^3/uL (0.8-4.8); Lymphocytes % 7.6 %; Mean Corpuscular HGB Conc 30.7 g/dL (30.0-36.0); Mean Corpuscular Hemoglobin 27.5 pg (28.0-34.0); Mean Corpuscular Volume 89.8 fL (81-99); Mean Platelet Volume 10.3 fL (7.4-10.4); Monocytes # 0.3 10^3/uL (0.2-0.9); Monocytes % 2.7 %; Neutrophils # 9.78 10^3/uL (1.8-7.7); Neutrophils % 85.7 %; Nucleated Red Blood Cells % 0.2 %; Platelet Count 267 10^3/cmm (130-400); Red Blood Count 4.61 10^6/uL (4.1-5.3); Red Cell Distribution Width 13.1 % (12.1-15.1); White Blood Count 11.4 10^3/uL (4.0-10.0)
[2021-04-29 06:31] LABS: Lactate (Lactic Acid level) 2.5 mmol/L (0.5-2.2)
[2021-04-29 06:42] LABS: INR 1.23 (0.8-1.2)
[2021-04-29 06:51] LABS: D Dimer 19.94 ug/mIFEU (0-0.59)
[2021-04-29 06:57] LABS: Alanine Aminotransferase 23 U/L (0-33); Albumin Level 3.1 g/dL (3.5-5.2); Alkaline Phosphatase 127 IU/L (35-105); Anion Gap 14.8 (5-19); Aspartate Amino Transferase 27 U/L (0-32); Blood Urea Nitrogen 16 mg/dL (8-23); Calcium 8.4 mg/dL (8.5-10.5); Carbon Dioxide 25 mmol/L (22-29); Chloride 102 mmol/L (98-107); Globulin 2.7 g/dL (1.3-4.6); Glomerular Filtration Rate 73.2 mL/min (90-130); Glucose 109 mg/dL (65-115); Magnesium 2.1 mg/dL (1.7-2.3); Osmolality Calculated 288 mOsm/kg (285-295); Phosphorus 2.3 mg/dL (2.5-4.5); Potassium 3.8 mmol/L (3.5-5.1); Sodium 138 mmol/L (136-145); Total Bilirubin 0.5 mg/dL (0.15-1.2); Total Protein 5.8 g/dL (6.6-8.7)
[2021-04-29 06:58] LABS: NT Pro B Type Natriuretic Pept 819 pg/mL (0-125); Procalcitonin 0.32 ng/mL (0-0.5)
--- NOTE | 2021-04-29 07:00 | XRR_ITS ---
PROCEDURE INFORMATION: Exam: XR Chest Exam date and time: 04/29/2021 7:00 AM Age: 60 years old Clinical indication: Dyspnea; Additional info: SOB TECHNIQUE: Imaging protocol: XR of the chest. Views: 1 view. COMPARISON: CR XR chest 1V portable [id number] 04/28/2021 10:31 AM FINDINGS: Tubes, catheters and devices: Endotracheal tube, neuro muscular stimulation device, central venous catheter. The endotracheal tube terminates 6.8 cm above the anusha. Lungs: Bilateral interstitial/airspace disease. Pleural spaces: No significant pleural effusion. Heart/Mediastinum: No cardiomegaly. Bones/joints: Right shoulder arthroplasty. Degenerative change. XR/XR chest 1V portable [id number] IMPRESSION: Bilateral interstitial/airspace disease.
[2021-04-29 07:09] LABS: Creatine Phosphokinase 226 U/L (26-192); Ferritin 359 ng/mL (15-150)
[2021-04-29 08:04] LABS: Glucose Point of Care 152 mg/dL (70-110)
[2021-04-29 09:03] LABS: Glucose Point of Care 119 mg/dL (70-110)
[2021-04-29] MEDS: dexamethasone 10 mg/mL INJ 6 MG IVP (09:04)
[2021-04-29] MEDS: levothyroxine 100 mcg SDV 40 MCG IVP (09:06)
--- NOTE | 2021-04-29 09:07 | P.PN_ITS ---
Subjective Subjective: Interval history: The patient was seen and examined. She was unprovoked around 2 AM this morning. Currently her oxygen saturation in the high 80s. She will be proned again this morning. Currently the patient is on 70% FiO2. No other overnight events. Medications: Reviewed: Yes Vitals/I&O/Wt Last Vital Signs Temp 97.8 F 04/28/21 20:00 Pulse 70 04/29/21 06:00 Resp 22 H 04/29/21 06:37 BP 82/61 04/29/21 06:00 Pulse Ox 96 04/29/21 06:37 04/28/21 04/29/21 04/29/21 22:59 06:59 14:59 Intake Total 1041.086 / 1417.600 361.330 / 1778.930 25.625 / 25.625 Output Total 500 / 500 550 / 1050 Balance 541.086 / 917.600 -188.670 / 728.930 25.625 / 25.625 Physical Exam Narrative: EXAM NARRATIVE: General: The patient is intubated and sedated Neck: No JVD Respiratory: Auscultation: Mild crackles at bilateral lung bases Cardiovascular: Regular rate and rhythm, S1-S2 present, no murmur, no peripheral edema. Abdomen: Soft, mildly distended from obesity, absent bowel sound Musculoskeletal: No obvious joint deformity Skin: No rash Neuro: Unable to assess Urinary Catheter Management^: Robb: Cath Placed During This Visit: yes Reason for Continuing Indwelling Catheter: Accurate Measurement of Urinary Output in Critically Ill Patients Urinary Catheter Date of Insertion: 04/24/21 Urinary Catheter Time of Insertion: 11:55 Data : 04/29/21 05:55 04/29/21 05:55 Micro: Microbiology 04/24/21 06:40 Blood Culture - Final Blood NO GROWTH AFTER 5 DAYS 04/24/21 06:40 Blood Culture - Final Blood NO GROWTH AFTER 5 DAYS Attestation for Other Data: I personally reviewed and interpreted the following: Other data: I have reviewed her laboratory, microbiologic and radiologic data. A&P Assessment and plan (1) Pneumonia due to COVID-19 virus: This is a 60-year-old lady with severe COVID-19 secondary to SARS-CoV-2 pneumonia. The patient has developed ARDS. The patient is currently intubated, paralyzed and undergoing her second session of prone positioning Currently she is on 70% oxygen. I am hoping the session of prone positioning will help reducing the FiO2 even further tomorrow. She is currently on dexamethasone. She has completed her course of remdesivir. She received tocilizumab on April 24. Status: Acute (2) ARDS (adult respiratory distress syndrome): We will continue with the low tidal volume ventilation. The PEEP will be optimized. Currently the patient is covered with Zosyn and azithromycin. Status: Acute (3) Hypothyroidism: The levothyroxine has been switched to IV form. Status: Chronic (4) Hypertension: The patient is currently requiring vasopressor support likely secondary to vasodilatory shock. 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
--- NOTE | 2021-04-29 09:37 | PC.CHAP ---
Pastoral Care Encounter/Spiritual Assessment Type of Contact [] Declined shipping/receiving manager visit [] Patient/Family/Request visit [] Outpatient visit [] Follow-up visit [] Physician referral [] Code/Alert [x] Routine visit [] Staff referral [] Actively dying [] Patient sleeping [] Family support [] [] Out of room [] Palliative care [] [] Receiving care in room [] Pre-surgical visit [] Trauma [] Long length of stay [x] ICU visit [x] Other:ventilator Relational/Emotional Strength [] Patient feels connected with others/family/visitors/staff [] Distress [] Loneliness/isolation [] Abandonment Spirituality of Patient [] Person of Miracle [] Attends Judaism of their Miracle [] Believes in Prayer [] Reads Bible or Mormonism materials [] There are Spiritual issues to be addressed [employer] Interventions [x] Prayer [] Active listening [] Non-anxious presence [] Spiritual/emotional support [] Crisis/trauma care [] Spiritual counseling [] Bereavement support [] Provided bereavement packet [] Provided Bible/devotional materials [] Provided toy/stuffed animal, coloring book to patient or family member [] Provided Communion [] Anointing/[place] [] Salvation [x] Completed spiritual assessment [] Other: Impact on Illness or Injury [] Angry [] Fearful [] Anxious [] Often cries [] Exhaustion [] Unable to work [] Unable to attend muslim [] Unable to walk/stand [] Unable to read [] Unable to drive [] Unable to eat/drink [] Unable to sleep [] Unable to be with family [] Patient intubated [] Other: Summary Time spent with patient
--- NOTE | 2021-04-29 11:00 | PC.NURSE ---
Placed patient prone at 0930. Turn was uneventful.
--- NOTE | 2021-04-29 11:05 | PC.NURSE ---
NUrse spoke to shar bush, patient's sister and gave an update. Attempted to call daughter elizabeth, no answer.
--- NOTE | 2021-04-29 11:14 | PC.SOCIAL ---
IMM NOT GIVEN IMM update not given due to patient on vent at this time.
--- NOTE | 2021-04-29 12:37 | PC.NURSE ---
Patient has had a decreased hourly urine output. 0.35 ml/kg/hr for the last 5 hours. and average of 0.16ml/kg/hr for the last 12 [address] nurse [address] ramirez and received an order to give 1000ml bolus of lactated ringers at 100 ml/hr
--- NOTE | 2021-04-29 12:55 | P.PN_ITS ---
Subjective Subjective: Interval history: Currently patient was seen this morning, she is intubated, sedated, on pressors, on paralytics, and prone positioning, oxygen saturation high 80s, currently she is on 70% FiO2, Vitals/I&O/Wt Last Vital Signs Temp 99.1 F 04/29/21 09:30 Pulse 75 04/29/21 10:00 Resp 22 H 04/29/21 11:17 BP 74/51 04/29/21 10:00 Pulse Ox 97 04/29/21 11:17 04/28/21 04/29/21 04/29/21 22:59 06:59 14:59 Intake Total 1041.086 / 1417.600 361.330 / 1778.930 149.375 / 149.375 Output Total 500 / 500 550 / 1050 150 / 150 Balance 541.086 / 917.600 -188.670 / 728.930 -0.625 / -0.625 Physical Exam Narrative: EXAM NARRATIVE: Intubated, sedated in prone Const: COMMON NORMALS: no acute distress HENMT: COMMON NORMALS: normocephalic HEAD & SCALP: normocephalic Resp: COMMON NORMALS: normal respiratory effort, No retractions, No use of accessory muscles and clear to auscultation bilaterally AUSCULTATION: clear to auscultation bilaterally Cardio: COMMON NORMALS: regular rate, regular rhythm, S1 normal heart sound present and S2 normal heart sound present RATE: regular rate RHYTHM: reg ular rhythm HEART SOUNDS: S1 normal heart sound present and S2 normal heart sound present GI: COMMON NORMALS: Normal to inspection, nondistended, normoactive bowel sounds present, Soft to palpation and non-tender PALPATION: Yes Soft to palpation Extremity: COMMON NORMALS: no pedal edema Psych: COMMON NORMALS: mental status grossly normal Urinary Catheter Management^: Robb: Cath Placed During This Visit: yes Reason for Continuing Indwelling Catheter: Accurate Measurement of Urinary Output in Critically Ill Patients Urinary Catheter Date of Insertion: 04/24/21 Urinary Catheter Time of Insertion: 11:55 Data : 04/29/21 05:55 04/29/21 05:55 Micro: Microbiology 04/24/21 06:40 Blood Culture - Final Blood NO GROWTH AFTER 5 DAYS 04/24/21 06:40 Blood Culture - Final Blood NO GROWTH AFTER 5 DAYS A&P Assessment and plan (1) Pneumonia due to COVID-19 virus: Severe COVID-19 pneumonia, acute hypoxic respiratory failure, acute encephalopathy, acute respiratory distress requiring high flow oxygen -BiPAP, 100% FiO2, then intubation Intubated 04/27/2021 Prone positioning protocol On vent, 70% FiO2, minimize tidal volume, minimize FiO2 optimize PEEP On Versed, propofol, fentanyl for sedation Levophed for vasodilatory, pressor support wean as tolerated maintain MAP in the 65 Patient is urine output has declined to 150 cc in the last shift, monitor crea tinine, monitor for ATN, monitor for rhabdo, she has a high risk of requiring dialysis next 24 to 48 hours Nimbex for paralytic, BISS 30-40 Remdesivir initiated 04/24 Dexamethasone initiated 04/25 Combivent every 6 hours Advair every 12 hours MRSA, Legionella, bacterial antigens all negative Continue Zosyn empirically, started 04/24, start azithromycin 04/27/2021 Tocilizumab given 04/24 Blood cultures from 04/24 negative to date Monitor inflammatory markers Encourage prone positioning Vitamin C, zinc, incentive spirometer, flutter valve Echocardiogram shows EF of 60%, grade 1 out of 4 diastolic dysfunction Will hold Flexeril, gabapentin for now Lovenox for DVT prophylaxis Protonix for GI prophylaxis Full code Status: Acute (2) Acute respiratory failure with hypoxia: See above Status: Acute (3) Hypothyroidism: TSH checked and normal On home levothyroxine Status: Chronic (4) Hypertension: Home amlodipine currently held , blood pressure normal Status: Chronic (5) GERD (gastroesophageal reflux disease): Status: Chronic (6) Chronic back pain greater than 3 months duration: Baclofen resumed at half home dose 04/26 Remains on home gabapentin and as needed Flexeril Off of home Celebrex As needed hydrocodone added 04/26 Status: Chronic (7) Acute encephalopathy: Likely secondary to COVID-19, hypoxia Status: Acute Additional A&P Information Off of home Linzess On home oxybutynin On home Topamax On home trazodone prn Has Robb catheter GI prophylaxis Lovenox for DVT prophylaxis Disposition dependent on clinical course Full code Attestations Medical Necessity Statement*: Patient requires hospitalization due to pneumonia secondary COVID-19 Coding Level of Care Code 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
[2021-04-29] MEDS: lactated ringers 1,000 ML 100 ML IV (13:03)
[2021-04-29] MEDS: propofol 1,000 MG/100 ML INJ 13.88 MG IV (14:38)
[2021-04-29 15:41] LABS: Glucose Point of Care 162 mg/dL (70-110)
[2021-04-29] MEDS: azithromycin 500 MG in sodium chloride 0.9% 250 ML 250 MG IV (17:41)
[2021-04-29] MEDS: enoxaparin 40 mg/0.4 mL Syringe SUBCUT (17:42)
--- NOTE | 2021-04-29 19:04 | PC.NURSE ---
Paralytic monitoring: BIS/TO4 0800 35/4 1000 45/4 1200 51/4 1400 35/4 1600 52/4 1800 35/0
--- NOTE | 2021-04-29 19:05 | PC.NURSE ---
SHift summary: uneventful shift. Patient was proned without incident at 0930. Needs to be supine at 0130. Decreased urine output was noted, only 300 mL during day shift a 1000mL bolus of LR was ordered, followed by an order for lasix. Day shit nurse held lasix administration due to soft blood pressure and a map below 65. CUrrently waiting on levophed form the pharmacy before giving lasix. Family has been updated on patient condition.
[2021-04-29] MEDS: cisatracurium 100 MG in sodium chloride 0.9% 50 ML 8.1 MG IV (19:28)
[2021-04-29] MEDS: FUROsemide 10 mg/mL SDV 2mL 20 MG IVP (19:52)
[2021-04-29] MEDS: propofol 1,000 MG/100 ML INJ 9.25 MG IV (21:59)
[2021-04-30] VITALS (51 sets, daily range): BP systolic 105–156; BP diastolic 64–98; PULSE 54–90; RESP 19–22; TEMP 36.4–37.3; O2SAT 87–98
[2021-04-30 01:22] LABS: Glucose Point of Care 140 mg/dL (70-110)
--- NOTE | 2021-04-30 01:30 | PC.NURSE ---
Patient turned back supine at 0130. No complications. Continue care.
[2021-04-30 02:50] LABS: Glucose Point of Care 139 mg/dL (70-110)
[2021-04-30] MEDS: propofol 1,000 MG/100 ML INJ 13.88 MG IV ×3 (03:54→18:17)
[2021-04-30] MEDS: famotidine 20 mg/2 mL INJ IVP ×2 (04:09→16:35)
--- NOTE | 2021-04-30 05:25 | PC.NURSE ---
Shift Note Frequent safety and comfort rounds continue. Orders and/or nursing care completed as indicated. Patient monitored for response to intervention and treatment(s). Education provided includes[pain management]. Patient and/or claim service representative[patient, reinforcement needed]. Will continue to monitor.
[2021-04-30] MEDS: piperacillin-tazobactam 3.375 GM in sodium chloride 0.9% (plus) 50 ML IV ×3 (05:41→21:41)
[2021-04-30 05:55] LABS: ABG PCO2 47.7 mmHg (35-45); ABG PH Result 7.39 (7.35-7.45); Arterial Blood Gas Hematocrit 42.5 % (37-47); Base Excess ABG 3.3 mmol/L (-2.0-2.0); Blood Gas Allen Test Pos; Blood Gas Operator Identificat JB; Blood Gas Sample Site Radial, right; Blood Gas Sample Type Arterial; Blood Gas Tidal Volume 0.37; HCO3 ABG 29.1 mmol/L (22-26); Oxygen Device VENT
--- NOTE | 2021-04-30 06:01 | PC.NURSE ---
TOF/BIS 2000- TOF 4 BIS 56 2200- TOF 4 BIS 56 0000- TOF 4 BIS 54 0200- TOF 4 BIS 45 0400 -TOF 4 BIS 41 0600- TOF 4 BIS 31
[2021-04-30 06:48] LABS: Basophils % 0.3 %; Eosinophils # 0.2 10^3/uL (0.0-0.8); Eosinophils % 1.3 %; Hematocrit 41.9 % (37.0-47.0); Hemoglobin 12.9 g/dL (11.5-15.3); Lymphocytes # 0.6 10^3/uL (0.8-4.8); Mean Corpuscular HGB Conc 30.8 g/dL (30.0-36.0); Mean Corpuscular Hemoglobin 27.7 pg (28.0-34.0); Mean Corpuscular Volume 89.9 fL (81-99); Mean Platelet Volume 10.2 fL (7.4-10.4); Monocytes # 0.5 10^3/uL (0.2-0.9); Monocytes % 3.8 %; Neutrophils # 10.63 10^3/uL (1.8-7.7); Neutrophils % 84.9 %; Nucleated Red Blood Cells % 0.2 %; Platelet Count 311 10^3/cmm (130-400); Red Blood Count 4.66 10^6/uL (4.1-5.3); Red Cell Distribution Width 13.2 % (12.1-15.1); White Blood Count 12.5 10^3/uL (4.0-10.0)
[2021-04-30 06:56] LABS: INR 1.12 (0.8-1.2)
[2021-04-30 07:00] LABS: Alanine Aminotransferase 20 U/L (0-33); Albumin Level 3.2 g/dL (3.5-5.2); Alkaline Phosphatase 118 IU/L (35-105); Anion Gap 14.7 (5-19); Aspartate Amino Transferase 27 U/L (0-32); Blood Urea Nitrogen 17 mg/dL (8-23); Calcium 8.6 mg/dL (8.5-10.5); Carbon Dioxide 28 mmol/L (22-29); Chloride 102 mmol/L (98-107); Globulin 2.5 g/dL (1.3-4.6); Glomerular Filtration Rate 85.4 mL/min (90-130); Glucose 135 mg/dL (65-115); Magnesium 1.9 mg/dL (1.7-2.3); Osmolality Calculated 296 mOsm/kg (285-295); Potassium 3.7 mmol/L (3.5-5.1); Sodium 141 mmol/L (136-145); Total Bilirubin 0.4 mg/dL (0.15-1.2); Total Protein 5.7 g/dL (6.6-8.7)
[2021-04-30 07:07] LABS: Procalcitonin 0.19 ng/mL (0-0.5)
[2021-04-30] MEDS: dexamethasone 10 mg/mL INJ 6 MG IVP (08:28)
[2021-04-30 08:36] LABS: Glucose Point of Care 154 mg/dL (70-110)
[2021-04-30] MEDS: levothyroxine 100 mcg SDV 40 MCG IVP (09:20)
--- NOTE | 2021-04-30 09:40 | P.PN_ITS ---
Subjective Subjective: Interval history: The patient was seen and examined. She is intubated sedated and paralyzed in supine position. A bedside ultrasound revealed dilated IVC. Her oxygen requirement has been slowly coming down. Medications: Reviewed: Yes Vitals/I&O/Wt Last Vital Signs Temp 99.0 F 04/29/21 16:00 Pulse 70 04/30/21 06:00 Resp 22 H 04/30/21 08:27 BP 118/79 04/30/21 05:30 Pulse Ox 92 04/30/21 08:27 04/29/21 04/30/21 04/30/21 22:59 06:59 14:59 Intake Total 522.445 / 3773.503 7300.746 / 2411.981 Output Total 150 / 300 1200 / 1500 Balance 372.445 / 736.235 175.746 / 911.981 Physical Exam Narrative: EXAM NARRATIVE: General: The patient is intubated and sedated Neck: No JVD Respiratory: Auscultation: Mild crackles at bilateral lung bases Cardiovascular: Regular rate and rhythm, S1-S2 present, no murmur, no peripheral edema. Abdomen: Soft, mildly distended from obesity, absent bowel sound Musculoskeletal: No obvious joint deformity Skin: No rash Neuro: Unable to assess Urinary Catheter Management^: Robb: Cath Placed During This Visit: yes Reason for Continuing Indwelling Catheter: Accurate Measurement of Urinary Output in Critically Ill Patients Urinary Catheter Date of Insertion: 04/24/21 Urinary Catheter Time of Insertion: 11:55 Data : 04/30/21 05:25 04/30/21 05:25 Micro: Microbiology 04/24/21 06:40 Blood Culture - Final Blood NO GROWTH AFTER 5 DAYS 04/24/21 06:40 Blood Culture - Final Blood NO GROWTH AFTER 5 DAYS Attestation for Other Data: I personally reviewed and interpreted the following: Other data: I have reviewed her laboratory, microbiologic and radiologic data A&P Assessment and plan (1) Pneumonia due to COVID-19 virus: This is a 60-year-old lady with severe COVID-19 secondary to SARS-CoV-2 pneumonia. The patient has developed ARDS. The patient is currently intubated, paralyzed and had undergone second session of prone positioning Currently she is on 70% oxygen and saturating in mid 90s. She is currently on dexamethasone. She has completed her course of remdesivir. She received tocilizumab on April 24. Status: Acute (2) ARDS (adult respiratory distress syndrome): We will continue with the low tidal volume ventilation. The PEEP will be optimized. Currently the patient is covered with Zosyn and azithromycin. I am going to start her on trickle feeds today. She will receive a dose of 20 of Lasix. Status: Acute (3) Hypothyroidism: The levothyroxine has been switched to IV form. Status: Chronic (4) Hypertension: The patient is currently requiring mild vasopressor support likely secondary to vasodilatory shock. 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
--- NOTE | 2021-04-30 09:47 | PC.CHAP ---
Pastoral Care Encounter/Spiritual Assessment Type of Contact [] Declined call center dispatcher visit [] Patient/Family/Request visit [] Outpatient visit [] Follow-up visit [] Physician referral [] Code/Alert [x] Routine visit [] Staff referral [] Actively dying [] Patient sleeping [] Family support [] [] Out of room [] Palliative care [] [] Receiving care in room [] Pre-surgical visit [] Trauma [] Long length of stay [x] ICU visit [x] Other: ventilator Relational/Emotional Strength [] Patient feels connected with others/family/visitors/staff [] Distress [] Loneliness/isolation [] Abandonment Spirituality of Patient [] Person of Miracle [] Attends Protestant of their Miracle [] Believes in Prayer [] Reads Bible or Baptism materials [] There are Spiritual issues to be addressed Banquet Set Up Person Interventions [x] Prayer [] Active listening [] Non-anxious presence [] Spiritual/emotional support [] Crisis/trauma care [] Spiritual counseling [] Bereavement support [] Provided bereavement packet [] Provided Bible/devotional materials [] Provided toy/stuffed animal, coloring book to patient or family member [] Provided Communion [] Anointing/[place] [] Salvation [x] Completed spiritual assessment [] Other: Impact on Illness or Injury [] Angry [] Fearful [] Anxious [] Often cries [] Exhaustion [] Unable to work [] Unable to attend orthodox [] Unable to walk/stand [] Unable to read [] Unable to drive [] Unable to eat/drink [] Unable to sleep [] Unable to be with family [] Patient intubated [] Other: Summary Time spent with patient
[2021-04-30] MEDS: FUROsemide 10 mg/mL SDV 2mL 20 MG IVP (11:00)
--- NOTE | 2021-04-30 12:09 | P.PN_ITS ---
Subjective Subjective: Interval history: Patient was seen this morning, currently in prone positioning, intubated, sedated, on paralytics, afebrile overnight, remains on pressors, Vitals/I&O/Wt Last Vital Signs Temp 97.5 F L 04/30/21 11:30 Pulse 62 04/30/21 12:00 Resp 21 H 04/30/21 10:56 BP 137/82 04/30/21 12:00 Pulse Ox 96 04/30/21 12:00 04/29/21 04/30/21 04/30/21 22:59 06:59 14:59 Intake Total 522.445 / 2185.785 8699.746 / 2411.981 93.922 / 93.922 Output Total 150 / 300 1200 / 1500 Balance 372.445 / 736.235 175.746 / 911.981 93.922 / 93.922 Physical Exam Narrative: EXAM NARRATIVE: Intubated, sedated in prone Const: COMMON NORMALS: no acute distress HENMT: COMMON NORMALS: normocephalic HEAD & SCALP: normocephalic Neck/C-Spine: COMMON NORMALS: no JVD Resp: COMMON NORMALS: normal respiratory effort, No retractions, No use of accessory muscles and clear to auscultation bilaterally AUSCULTATION: clear to auscultation bilaterally Cardio: COMMON NORMALS: no JVD, regular rate, regular rhythm, S1 normal heart sound present and S2 normal heart sound present RATE: regular rate RHYTHM: regular rhythm HEART SOUNDS: S1 normal heart sound present and S2 normal heart sound present GI: COMMON NORMALS: Normal to inspection, nondistended, normoactive bowel zuhair nds present, Soft to palpation, non-tender and No hepatosplenomegaly present PALPATION: Yes Soft to palpation and Yes No hepatosplenomegaly present Extremity: COMMON NORMALS: no pedal edema Urinary Catheter Management^: Robb: Cath Placed During This Visit: yes Reason for Continuing Indwelling Catheter: Accurate Measurement of Urinary Output in Critically Ill Patients Urinary Catheter Date of Insertion: 04/24/21 Urinary Catheter Time of Insertion: 11:55 Data : 04/30/21 05:25 04/30/21 05:25 Micro: Microbiology 04/24/21 06:40 Blood Culture - Final Blood NO GROWTH AFTER 5 DAYS 04/24/21 06:40 Blood Culture - Final Blood NO GROWTH AFTER 5 DAYS A&P Assessment and plan (1) Pneumonia due to COVID-19 virus: Severe COVID-19 pneumonia, acute hypoxic respiratory failure, acute encephalopathy, acute respiratory distress requiring high flow oxygen -BiPAP, 100% FiO2, then intubation Intubated 04/27/2021 Prone positioning protocol On vent, 70% FiO2, minimize tidal volume, minimize FiO2 optimize PEEP On Versed, propofol, fentanyl for sedation Levophed for vasodilatory, pressor support wean as tolerated maintain MAP in the 65 Patient is urine output has declined to 150 cc in the last shift, monitor creatinine, monitor for ATN, monitor for rhabdo, she has a high risk of requiring dialysis next 24 to 48 hours Nimbex for paralytic, BISS 30-40 Remdesivir initiated 04/24 Dexamethasone initiated 04/25 Combivent every 6 hours Advair every 12 hours IV levothyroxine Lasix as needed MRSA, Legionella, bacterial antigens all negative Continue Zosyn empirically, started 04/24, start azithromycin 04/27/2021 Tocilizumab given 04/24 Blood cultures from 04/24 negative to date Monitor inflammatory markers Encourage prone positioning Vitamin C, zinc, incentive spirometer, flutter valve Echocardiogram shows EF of 60%, grade 1 out of 4 diastolic dysfunction Will hold Flexeril, gabapentin for now Lovenox for DVT prophylaxis Protonix for GI prophylaxis Full code Status: Acute (2) Acute respiratory failure with hypoxia: See above Status: Acute (3) Hypothyroidism: TSH checked and normal On home levothyroxine Status: Chronic (4) Hypertension: Home amlodipine currently held , blood pressure normal Status: Chronic (5) GERD (gastroesophageal reflux disease): Status: Chronic (6) Chronic back pain greater than 3 months duration: Baclofen resumed at half home dose 04/26 Remains on home gabapentin and as needed Flexeril Off of home Celebrex As needed hydrocodone added 04/26 Status: Chronic (7) Acute encephalopathy: Likely secondary to COVID-19, hypoxia Status: Acute Additional A&P Information Off of home Linzess On home oxybutynin On home Topamax On home trazodone prn Has Robb catheter GI prophylaxis Lovenox for DVT prophylaxis Disposition dependent on clinical course Full code Attestations Medical Necessity Statement*: Patient requires hospitalization for acute respiratory failure, COVID-19 pneumonia, sepsis Coding Level of Care Code 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
[2021-04-30] MEDS: cisatracurium 100 MG in sodium chloride 0.9% 50 ML 8.1 MG IV (13:33)
[2021-04-30] MEDS: azithromycin 500 MG in sodium chloride 0.9% 250 ML 250 MG IV (16:35)
[2021-04-30 17:07] LABS: Glucose Point of Care 174 mg/dL (70-110)
[2021-04-30] MEDS: enoxaparin 40 mg/0.4 mL Syringe SUBCUT (18:13)
--- NOTE | 2021-04-30 19:01 | PC.NURSE ---
TOF BIS 0700- 4 35 1100- 4 51 1500- 4 38 1900- 4 36
--- NOTE | 2021-04-30 19:03 | PC.NURSE ---
Shift Note Frequent safety and comfort rounds continue. Orders and/or nursing care completed as indicated. Patient monitored for response to intervention and treatment(s). Education provided includes paralytics and ventilation compliance. Patient and/or phlebotomy services representative were notified of these findings. Will continue to monitor.
[2021-04-30] MEDS: propofol 1,000 MG/100 ML INJ 18.51 MG IV (20:28)
[2021-04-30 21:42] LABS: Glucose Point of Care 135 mg/dL (70-110)
[2021-05-01] VITALS (35 sets, daily range): BP systolic 104–147; BP diastolic 67–86; PULSE 53–73; RESP 22; TEMP 37.3–37.4; O2SAT 88–97
--- NOTE | 2021-05-01 00:27 | PC.NURSE ---
Restraint order placed in error/on wrong pt. discontinued.
[2021-05-01] MEDS: propofol 1,000 MG/100 ML INJ 18.51 MG IV (01:11)
--- NOTE | 2021-05-01 02:48 | PC.NURSE ---
PT returned to supine position @ 0230. Tolerated well.
[2021-05-01 03:39] LABS: Glucose Point of Care 123 mg/dL (70-110)
[2021-05-01] MEDS: famotidine 20 mg/2 mL INJ IVP ×2 (04:47→16:04)
[2021-05-01] MEDS: piperacillin-tazobactam 3.375 GM in sodium chloride 0.9% (plus) 50 ML IV ×3 (05:29→21:38)
[2021-05-01] MEDS: propofol 1,000 MG/100 ML INJ 20.82 MG IV ×4 (05:30→18:39)
--- NOTE | 2021-05-01 05:43 | PC.NURSE ---
TRAIN of 4's 1900 - 4 2000 - 3 2100 - 3 2200 - 3 2300 - 3 0000 - 3 0100 - 4 0200 - 3 0300 - 4 0400 - 3 0500 - 4 0600 - 4
--- NOTE | 2021-05-01 06:13 | PC.NURSE ---
Shift Note Pt sedation and paralyzation monitored and medications titrated per protocol. Frequent safety and comfort rounds continue. Orders and/or nursing care completed as indicated. Patient monitored for response to intervention and treatment(s). Will continue to monitor.
[2021-05-01 06:58] LABS: Basophils # 0.1 10^3/uL (0.0-0.1); Basophils % 0.4 %; Eosinophils # 0.1 10^3/uL (0.0-0.8); Eosinophils % 1.2 %; Hematocrit 39.9 % (37.0-47.0); Hemoglobin 12.3 g/dL (11.5-15.3); Lymphocytes # 0.9 10^3/uL (0.8-4.8); Lymphocytes % 7.7 %; Mean Corpuscular HGB Conc 30.8 g/dL (30.0-36.0); Mean Corpuscular Hemoglobin 28.1 pg (28.0-34.0); Mean Corpuscular Volume 91.3 fL (81-99); Mean Platelet Volume 10.2 fL (7.4-10.4); Monocytes # 0.6 10^3/uL (0.2-0.9); Monocytes % 5.3 %; Neutrophils # 9.22 10^3/uL (1.8-7.7); Neutrophils % 79.6 %; Nucleated Red Blood Cells % 0.2 %; Platelet Count 277 10^3/cmm (130-400); Red Blood Count 4.37 10^6/uL (4.1-5.3); Red Cell Distribution Width 13.3 % (12.1-15.1); White Blood Count 11.6 10^3/uL (4.0-10.0)
[2021-05-01 07:16] LABS: Alanine Aminotransferase 16 U/L (0-33); Albumin Level 3.2 g/dL (3.5-5.2); Alkaline Phosphatase 106 IU/L (35-105); Anion Gap 11.8 (5-19); Aspartate Amino Transferase 22 U/L (0-32); Blood Urea Nitrogen 19 mg/dL (8-23); Calcium 8.7 mg/dL (8.5-10.5); Carbon Dioxide 31 mmol/L (22-29); Chloride 105 mmol/L (98-107); Globulin 2.2 g/dL (1.3-4.6); Glucose 120 mg/dL (65-115); Osmolality Calculated 301 mOsm/kg (285-295); Phosphorus 1.8 mg/dL (2.5-4.5); Potassium 3.8 mmol/L (3.5-5.1); Sodium 144 mmol/L (136-145); Total Bilirubin 0.4 mg/dL (0.15-1.2); Total Protein 5.4 g/dL (6.6-8.7)
[2021-05-01] MEDS: cisatracurium 100 MG in sodium chloride 0.9% 50 ML 6.02 MG IV (07:46)
[2021-05-01 08:08] LABS: Slide Review Slide Review Perform
[2021-05-01] MEDS: dexamethasone 10 mg/mL INJ 6 MG IVP (08:24)
--- NOTE | 2021-05-01 09:41 | PC.CHAP ---
Pastoral Care Encounter/Spiritual Assessment Type of Contact [] Declined mission worker visit [] Patient/Family/Request visit [] Outpatient visit [] Follow-up visit [] Physician referral [] Code/Alert [x] Routine visit [] Staff referral [] Actively dying [] Patient sleeping [] Family support [] [] Out of room [] Palliative care [] [] Receiving care in room [] Pre-surgical visit [] Trauma [] Long length of stay [x] ICU visit [x] Other: Relational/Emotional Strength [] Patient feels connected with others/family/visitors/staff [] Distress [] Loneliness/isolation [] Abandonment Spirituality of Patient [] Person of Miracle [] Attends Voodoo of their Miracle [] Believes in Prayer [] Reads Bible or Druze materials [] There are Spiritual issues to be addressed Finance Assistant Interventions [] Prayer [] Active listening [] Non-anxious presence [] Spiritual/emotional support [] Crisis/trauma care [] Spiritual counseling [] Bereavement support [] Provided bereavement packet [] Provided Bible/devotional materials [] Provided toy/stuffed animal, coloring book to patient or family member [] Provided Communion [] Anointing/[place] [] Salvation [x] Completed spiritual assessment [] Other: Impact on Illness or Injury [] Angry [] Fearful [] Anxious [] Often cries [] Exhaustion [] Unable to work [] Unable to attend buddhist [] Unable to walk/stand [] Unable to read [] Unable to drive [] Unable to eat/drink [] Unable to sleep [] Unable to be with family [] Patient intubated [] Other: Summary Time spent with patient
--- NOTE | 2021-05-01 09:47 | P.PN_ITS ---
Subjective Subjective: Interval history: The patient was seen and examined. Currently in supine position. The patient is intubated sedated and paralyzed. Requiring 60% oxygen. Medications: Reviewed: Yes Vitals/I&O/Wt Last Vital Signs Temp 99.1 F 05/01/21 07:00 Pulse 70 05/01/21 09:00 Resp 22 H 05/01/21 08:16 BP 123/79 05/01/21 09:00 Pulse Ox 92 05/01/21 09:00 04/30/21 05/01/21 05/01/21 22:59 06:59 14:59 Intake Total 627.948 / 1173.156 578.926 / 1752.082 110.307 / 110.307 Output Total 1250 / 1450 Balance 627.948 / 973.156 -671.074 / 302.082 110.307 / 110.307 Physical Exam Narrative: EXAM NARRATIVE: General: The patient is intubated and sedated Neck: No JVD Respiratory: Auscultation: Mild crackles at bilateral lung bases Cardiovascular: Regular rate and rhythm, S1-S2 present, no murmur, no peripheral edema. Abdomen: Soft, mildly distended from obesity, sluggish bowel sound Musculoskeletal: No obvious joint deformity Skin: No rash Neuro: Unable to assess Urinary Catheter Management^: Robb: Cath Placed During This Visit: yes Reason for Continuing Indwelling Catheter: Accurate Measurement of Urinary Output in Critically Ill Patients Urinary Catheter Date of Insertion: 04/24/21 Urinary Catheter Time of Insertion: 11:55 Data : 05/01/21 05:55 05/01/21 05:55 Micro: Microbiology 04/29/21 15:13 MRSA Culture - Final Nose Attestation for Other Data: I personally reviewed and interpreted the following: Other data: I have reviewed her laboratory, microbiologic and neurologic data A&P Assessment and plan (1) Pneumonia due to COVID-19 virus: This is a 60-year-old lady with severe COVID-19 secondary to SARS-CoV-2 pneumonia. The patient has developed ARDS. The patient is currently intubated, paralyzed and had undergone second session of prone positioning Currently she is on 60% oxygen and saturating in mid 90s. She is currently on dexamethasone. She has completed her course of remdesivir. She received tocilizumab on April 24. Status: Acute (2) ARDS (adult respiratory distress syndrome): We will continue with the low tidal volume ventilation. The PEEP will be optimized. Currently the patient is covered with Zosyn and azithromycin. The patient is on trickle feeds. Lasix 20 mg IV today. We will move forward with the fourth session of proning. Status: Acute (3) Hypothyroidism: The levothyroxine has been switched to IV form. Status: Chronic (4) Hypertension: The patient is currently requiring mild vasopressor support likely secondary to vasodilatory shock. 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
[2021-05-01] MEDS: levothyroxine 100 mcg SDV 40 MCG IVP (09:59)
[2021-05-01] MEDS: FUROsemide 10 mg/mL SDV 2mL 20 MG IVP (09:59)
--- NOTE | 2021-05-01 10:54 | PC.NUTR ---
Nutrition follow up: Noted TF ordered by MD and verified per nursing yesterday AM, but no documentation of provision in chart. Contacted nurse by phone, who stated confirmed TF not yet initiated. Also confirmed with Dr. Wells that TF was ordered yesterday AM and should be have been started. Recommend to initiate MD order YUE, and when proning sessions complete and medically appropriate, recommend to increase to goal of 55 ml/hr, with 130 ml H2O flushes q 6 hours, to provide 1584 kcal, 79 g protein, and 1583 ml H2O. If propofol remaining at current rate, however, would hold TF at 35-40 ml/hr until propofol decreased, as it is providing 550 kcal/day at this time. See full RD assessment for further details.
[2021-05-01 10:56] LABS: Glucose Point of Care 124 mg/dL (70-110)
[2021-05-01 11:08] LABS: ABG PCO2 46.2 mmHg (35-45); ABG PH Result 7.47 (7.35-7.45); Arterial Blood Gas Hematocrit 39.1 % (37-47); Base Excess ABG 8.5 mmol/L (-2.0-2.0); Blood Gas Allen Test Pos; Blood Gas Sample Type Arterial; HCO3 ABG 33.4 mmol/L (22-26); PO2 ABG 56.6 mmHg (80.0-100.0)
[2021-05-01 11:09] LABS: Blood Gas Operator Identificat GD; Oxygen Device VENT
--- NOTE | 2021-05-01 11:49 | PC.SOCIAL ---
IMM NOT GIVEN IMM update not given at this time due to patient still intubated.
--- NOTE | 2021-05-01 12:08 | PC.NURSE ---
Unable to check placement of OG tube due to patient being in the proned position per radiology staff. Will get xray when patient is in supine position and start tube feeding.
--- NOTE | 2021-05-01 13:15 | P.PN_ITS ---
Subjective Subjective: Interval history: Patient was seen this morning, currently she is in supine positioning, remains on pressors, paralytics, multiple sedating medications, remains normotensive, afebrile, good urine output, requiring 60% FiO2 Vitals/I&O/Wt Last Vital Signs Temp 99.1 F 05/01/21 07:00 Pulse 63 05/01/21 12:00 Resp 22 H 05/01/21 12:31 BP 108/70 05/01/21 11:00 Pulse Ox 97 05/01/21 12:31 04/30/21 05/01/21 05/01/21 22:59 06:59 14:59 Intake Total 627.948 / 1173.156 578.926 / 1752.082 226.762 / 226.762 Output Total 1250 / 1450 Balance 627.948 / 973.156 -671.074 / 302.082 226.762 / 226.762 Physical Exam Narrative: EXAM NARRATIVE: Intubated, sedated in supine positioning Resp: COMMON NORMALS: normal respiratory effort, No retractions, No use of a ccessory muscles and clear to auscultation bilaterally AUSCULTATION: clear to auscultation bilaterally Cardio: COMMON NORMALS: regular rate, regular rhythm, S1 normal heart sound present and S2 normal heart sound present RATE: regular rate RHYTHM: regular rhythm HEART SOUNDS: S1 normal heart sound present and S2 normal heart sound present GI: COMMON NORMALS: Normal to inspection, nondistended, normoactive bowel sounds present, Soft to palpation and No hepatosplenomegaly present PALPATION: Yes Soft to palpation and Yes No hepatosplenomegaly present Extremity: COMMON NORMALS: no pedal edema Urinary Catheter Management^: Robb: Cath Placed During This Visit: yes Reason for Continuing Indwelling Catheter: Accurate Measurement of Urinary Output in Critically Ill Patients Urinary Catheter Date of Insertion: 04/24/21 Urinary Catheter Time of Insertion: 11:55 Data : 05/01/21 05:55 05/01/21 05:55 Micro: Microbiology 04/29/21 15:13 MRSA Culture - Final Nose A&P Assessment and plan (1) Pneumonia due to COVID-19 virus: Severe COVID-19 pneumonia, acute hypoxic respiratory failure, acute encephalopathy, acute respiratory distress requiring high flow oxygen -BiPAP, 100% FiO2, then intubation Intubated 04/27/2021 Prone positioning protocol, fourth session On vent, 70% FiO2, minimize tidal volume, minimize FiO2 optimize PEEP On Versed, propofol, fentanyl for sedation Levophed for vasodilatory, pressor support wean as tolerated maintain MAP in the 65 Patient is urine output has declined to 150 cc in the last shift, monitor creatinine, monitor for ATN, monitor for rhabdo, she has a high risk of requiring dialysis next 24 to 48 hours Nimbex for paralytic, BISS 30-40 Remdesivir initiated 04/24 Dexamethasone initiated 04/25 Combivent every 6 hours Advair every 12 hours IV levothyroxine Lasix as needed Is on trickle feeds MRSA, Legionella, bacterial antigens all negative Continue Zosyn empirically, started 04/24, start azithromycin 04/27/2021 Tocilizumab given 04/24 Blood cultures from 04/24 negative to date Monitor inflammatory markers Encourage prone positioning Vitamin C, zinc, incentive spirometer, flutter valve Echocardiogram shows EF of 60%, grade 1 out of 4 diastolic dysfunction Will hold Flexeril, gabapentin for now Lovenox for DVT prophylaxis Protonix for GI prophylaxis Full code Status: Acute (2) Acute respiratory failure with hypoxia: See above Status: Acute (3) Hypothyroidism: TSH checked and normal On home levothyroxine Status: Chronic (4) Hypertension: Home amlodipine currently held , blood pressure normal Status: Chronic (5) GERD (gastroesophageal reflux disease): Status: Chronic (6) Chronic back pain greater than 3 months duration: Baclofen resumed at half home dose 04/26 Remains on home gabapentin and as needed Flexeril Off of home Celebrex As needed hydrocodone added 04/26 Status: Chronic (7) Acute encephalopathy: Likely secondary to COVID-19, hypoxia Status: Acute Additional A&P Information Off of home Linzess On home oxybutynin On home Topamax On home trazodone prn Has Robb catheter GI prophylaxis Lovenox for DVT prophylaxis Disposition dependent on clinical course Full code Attestations Medical Necessity Statement*: Patient requires hospitalization due to acute respiratory distress syndrome, pneumonia, second COVID-19 pneumonia Coding Level of Care Code 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
[2021-05-01 14:06] LABS: Oxygen Device HAG
[2021-05-01 14:50] LABS: Glucose Point of Care 200 mg/dL (70-110)
[2021-05-01] MEDS: azithromycin 500 MG in sodium chloride 0.9% 250 ML 250 MG IV (16:03)
[2021-05-01] MEDS: enoxaparin 40 mg/0.4 mL Syringe SUBCUT (17:29)
--- NOTE | 2021-05-01 19:55 | PC.NURSE ---
FENTANYL DOSING PER BRIE Fentanyl MAX changed from 100 mcg to titrate up PRN to reach BIS goal of les than 50.
[2021-05-01] MEDS: cisatracurium 100 MG in sodium chloride 0.9% 50 ML 7.4 MG IV (20:41)
[2021-05-01] MEDS: propofol 1,000 MG/100 ML INJ 23.13 MG IV (22:33)
[2021-05-01 23:20] LABS: Glucose Point of Care 135 mg/dL (70-110)
[2021-05-02] VITALS (32 sets, daily range): BP systolic 99–151; BP diastolic 62–91; PULSE 54–74; RESP 22; TEMP 36.6–36.9; O2SAT 85–97
[2021-05-02] MEDS: propofol 1,000 MG/100 ML INJ 23.13 MG IV ×5 (00:40→16:03)
--- NOTE | 2021-05-02 00:49 | PC.NURSE ---
Addendum entered by Sophie Downing RN 05/02/21 05:36: 0400 - 4 0500 - 3 Addendum entered by Sophie Downing RN 05/02/21 03:07: 0100 - 4 0200 - 3 0300 - 2 Original Note: TOF 1900 - 4 2000 - 4 2100 - 3 2200 - 4 2300 - 4 0000 - 3 0100 - 0200 - 0300 - 0400 - 0500 - 0600 -
--- NOTE | 2021-05-02 04:31 | PC.NURSE ---
Pt placed in supine position and reconnected to all monitoring equipment.
[2021-05-02] MEDS: famotidine 20 mg/2 mL INJ IVP ×2 (04:39→17:30)
[2021-05-02] MEDS: cisatracurium 100 MG in sodium chloride 0.9% 50 ML 11.57 MG IV (05:24)
[2021-05-02] MEDS: piperacillin-tazobactam 3.375 GM in sodium chloride 0.9% (plus) 50 ML IV ×3 (05:31→21:27)
--- NOTE | 2021-05-02 05:59 | PC.NURSE ---
Shift Note Sedation and paralytic medication continued. Monitoring for TOF and BIS are documented. Frequent safety and comfort rounds continue. Orders and/or nursing care completed as indicated. Patient monitored for response to intervention and treatment(s). Will continue to monitor.
[2021-05-02 06:02] LABS: Basophils # 0.1 10^3/uL (0.0-0.1); Basophils % 0.6 %; Eosinophils % 0.1 %; Hematocrit 37.7 % (37.0-47.0); Hemoglobin 11.6 g/dL (11.5-15.3); Lymphocytes # 1.2 10^3/uL (0.8-4.8); Lymphocytes % 8.1 %; Mean Corpuscular HGB Conc 30.8 g/dL (30.0-36.0); Mean Corpuscular Volume 91.1 fL (81-99); Mean Platelet Volume 9.8 fL (7.4-10.4); Monocytes # 0.8 10^3/uL (0.2-0.9); Monocytes % 5.8 %; Neutrophils # 11.75 10^3/uL (1.8-7.7); Neutrophils % 80.5 %; Nucleated Red Blood Cells % 0.2 %; Platelet Count 236 10^3/cmm (130-400); Red Blood Count 4.14 10^6/uL (4.1-5.3); Red Cell Distribution Width 13.2 % (12.1-15.1); White Blood Count 14.6 10^3/uL (4.0-10.0)
[2021-05-02 06:20] LABS: Alanine Aminotransferase 13 U/L (0-33); Alkaline Phosphatase 91 IU/L (35-105); Anion Gap 11.6 (5-19); Aspartate Amino Transferase 20 U/L (0-32); Blood Urea Nitrogen 22 mg/dL (8-23); Calcium 8.6 mg/dL (8.5-10.5); Carbon Dioxide 31 mmol/L (22-29); Chloride 105 mmol/L (98-107); Globulin 2.3 g/dL (1.3-4.6); Glomerular Filtration Rate 125.9 mL/min (90-130); Glucose 103 mg/dL (65-115); Magnesium 2.1 mg/dL (1.7-2.3); Osmolality Calculated 302 mOsm/kg (285-295); Phosphorus 2.2 mg/dL (2.5-4.5); Potassium 3.6 mmol/L (3.5-5.1); Sodium 144 mmol/L (136-145); Total Bilirubin 0.4 mg/dL (0.15-1.2); Total Protein 5.3 g/dL (6.6-8.7)
[2021-05-02] MEDS: dexamethasone 10 mg/mL INJ 6 MG IVP (08:21)
[2021-05-02 08:26] LABS: Glucose Point of Care 116 mg/dL (70-110)
--- NOTE | 2021-05-02 09:27 | PC.NURSE ---
pt to right side and trickle tube feeding at 15cc started at this time Dr Wells here to decrease paralytic and start to bring pt to somewhat at this time oral care done urine output very decreased at this time fio2 50% on vent. monitor vs and o2 sat
[2021-05-02] MEDS: levothyroxine 100 mcg SDV 40 MCG IVP (10:00)
--- NOTE | 2021-05-02 10:31 | PC.NURSE ---
decreased paralytic small amt per doctor orders, lighten sedation fio2 increased to 55%
--- NOTE | 2021-05-02 11:51 | XRR_ITS ---
PROCEDURE INFORMATION: Exam: XR Chest Exam date and time: 05/02/2021 11:51 AM Age: 60 years old Clinical indication: Device placement; Ng tube; Patient HX: Check for og placement TECHNIQUE: Imaging protocol: XR of the chest. Views: 1 view. COMPARISON: CR (CHEST, ) 04/29/2021 5:14 AM FINDINGS: Tubes, catheters and devices: An endotracheal tube is placed with its tip approximately 5.6 cm from the anusha. An orogastric tube is placed with its tip in the proximal stomach. The proximal side port is within the distal esophagus. A right internal jugular vein central venous line is placed with its tip at the level of the superior vena cava. EKG leads overlie the chest. Lungs: Patchy bilateral ground-glass opacities are seen within the hemithoraces, findings suggesting a bilateral interstitial pneumonia. Pleural spaces: Unremarkable. No pleural effusion. No pneumothorax. Heart/Mediastinum: Unremarkable. No cardiomegaly. Bones/joints: Unremarkable. XR/XR chest 1V portable [id number] IMPRESSION: 1. Endotracheal tube tip 5.6 cm from the anusha. Stable right internal jugular vein central venous line. 2. Orogastric tube tip in proximal stomach. However, the proximal side port is in the distal esophagus. 3. Patchy bilateral ground-glass opacities within the hemithoraces suggests a bilateral interstitial pneumonia.
--- NOTE | 2021-05-02 12:25 | P.PN_ITS ---
Subjective Subjective: Interval history: This morning patient was seen, currently she is supine positioning, receiving trickle feeding, on 1 of Levophed, on sedation, on paralytics, remains normotensive, afebrile, has good urine output Vitals/I&O/Wt Last Vital Signs Temp 98.5 F 05/02/21 12:00 Pulse 63 05/02/21 12:00 Resp 22 H 05/02/21 12:00 BP 100/64 05/02/21 12:00 Pulse Ox 89 L 05/02/21 12:00 05/01/21 05/02/21 05/02/21 22:59 06:59 14:59 Intake Total 774.161 / 1160.228 628.452 / 1788.680 171.917 / 171.917 Output Total 500 / 500 250 / 750 Balance 274.161 / 660.228 378.452 / 1038.680 171.917 / 171.917 Physical Exam Const: COMMON NORMALS: no acute distress OTHER: Patient is intubated, sedated Neck/C-Spine: OTHER: Right central venous catheter in place Resp: COMMON NORMALS: normal respiratory effort, No retractions, No use of accessory muscles and clear to auscultation bilaterally AUSCULTATION: clear to auscultation bilaterally Cardio: COMMON NORMALS: regular rate, regular rhythm, S1 normal heart sound present and S2 normal heart sound present RATE: regular rate RHYTHM: regular rhythm HEART SOUNDS: S1 normal heart sound present and S2 normal heart sound present GI: COMMON NORMALS: Normal to inspection, nondistended, normoactive bowel sounds present and Soft to palpation PALPATION: Yes Soft to palpation Psych: COMMON NORMALS: mental status grossly normal Urinary Catheter Management^: Robb: Cath Placed During This Visit: yes Reason for Continuing Indwelling Catheter: Accurate Measurement of Urinary Output in Critically Ill Patients Urinary Catheter Date of Insertion: 04/24/21 Urinary Catheter Time of Insertion: 11:55 Data : 05/02/21 05:51 05/02/21 05:51 A&P Assessment and plan (1) Pneumonia due to COVID-19 virus: Severe COVID-19 pneumonia, acute hypoxic respiratory failure, acute encephalopat hy, acute respiratory distress requiring high flow oxygen -BiPAP, 100% FiO2, then intubation Agree with pulmonary critical care Intubated 04/27/2021 Has finished her fourth session of proning On vent, 60% FiO2, minimize tidal volume, minimize FiO2, optimize PEEP On Versed, propofol, fentanyl for sedation Levophed for vasodilatory, pressor support wean as tolerated maintain MAP in the 65 Continues to have good urine output Nimbex for paralytic, BISS 30-40 Plan on weaning trial today Remdesivir initiated 04/24 Dexamethasone initiated 04/25 Combivent every 6 hours Advair every 12 hours IV levothyroxine Lasix as needed Is on trickle feeds MRSA, Legionella, bacterial antigens all negative Continue Zosyn empirically, started 04/24, start azithromycin 04/27/2021 Tocilizumab given 04/24 Blood cultures from 04/24 negative to date Monitor inflammatory markers Encourage prone positioning Vitamin C, zinc, incentive spirometer, flutter valve Echocardiogram shows EF of 60%, grade 1 out of 4 diastolic dysfunction Will hold Flexeril, gabapentin for now Lovenox for DVT prophylaxis Protonix for GI prophylaxis Full code Status: Acute (2) Acute respiratory failure with hypoxia: See above Status: Acute (3) Hypothyroidism: TSH checked and normal On home levothyroxine Status: Chronic (4) Hypertension: Home amlodipine currently held , blood pressure normal Status: Chronic (5) GERD (gastroesophageal reflux disease): Status: Chronic (6) Chronic back pain greater than 3 months duration: Baclofen resumed at half home dose 04/26 Remains on home gabapentin and as needed Flexeril Off of home Celebrex As needed hydrocodone added 04/26 Status: Chronic (7) Acute encephalopathy: Likely secondary to COVID-19, hypoxia Status: Acute Additional A&P Information Off of home Linzess On home oxybutynin On home Topamax On home trazodone prn Has Robb catheter GI prophylaxis Lovenox for DVT prophylaxis Disposition dependent on clinical course Full code Attestations Medical Necessity Statement*: Patient course hospitalization due to COVID-19 pneumonia, acute respiratory distress Coding Level of Care Code 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
[2021-05-02] MEDS: azithromycin 500 MG in sodium chloride 0.9% 250 ML 250 MG IV (17:29)
[2021-05-02] MEDS: enoxaparin 40 mg/0.4 mL Syringe SUBCUT (17:30)
[2021-05-02 18:28] LABS: Glucose Point of Care 158 mg/dL (70-110)
--- NOTE | 2021-05-02 18:44 | PC.NURSE ---
shift summary... monitor closely weaned off nembex gtt today to llighten sedation slowly awaken to wean vent fio2 now at 60 but off levophed gtt today overal small progress. oral care done q2hr and turned reposition
--- NOTE | 2021-05-02 19:33 | P.PN_ITS ---
Subjective Subjective: Interval history: The patient was seen and examined. She has undergone 4 sessions of prone positioning. Currently the patient is on 60% oxygen. No significant overnight events. Chest x-ray today revealed bilateral infiltrate. There is no worsening of the previous infiltrate. Medications: Reviewed: Yes Vitals/I&O/Wt Last Vital Signs Temp 98 F 05/02/21 17:00 Pulse 63 05/02/21 18:00 Resp 22 H 05/02/21 16:11 BP 100/63 05/02/21 18:00 Pulse Ox 95 05/02/21 18:00 05/02/21 05/02/21 05/02/21 06:59 14:59 22:59 Intake Total 628.452 / 1788.680 304.938 / 304.938 227.735 / 532.673 Output Total 250 / 750 350 / 350 Balance 378.452 / 1038.680 304.938 / 304.938 -122.265 / 182.673 Physical Exam Narrative: EXAM NARRATIVE: General: The patient is intubated and sedated Neck: No JVD Respiratory: Auscultation: Mild crackles at bilateral lung bases Cardiovascular: Regular rate and rhythm, S1-S2 present, no murmur, no peripheral edema. Abdomen: Soft, mildly distended from obesity, sluggish bowel sound Musculoskeletal: No obvious joint deformity Skin: No rash Neuro: Unable to assess Urinary Catheter Management^: Robb: Cath Placed During This Visit: yes Reason for Continuing Indwelling Catheter: Accurate Measurement of Urinary Output in Critically Ill Patients Urinary Catheter Date of Insertion: 04/24/21 Urinary Catheter Time of Insertion: 11:55 Data : 05/02/21 05:51 05/02/21 05:51 Attestation for Other Data: I personally reviewed and interpreted the following: Other data: I have reviewed the patient's laboratory, microbiologic and radiologic data A&P Assessment and plan (1) Pneumonia due to COVID-19 virus: This is a 60-year-old lady with severe COVID-19 secondary to SARS-CoV-2 pneumonia. The patient has developed ARDS. The patient is currently intubated, and sedated. She has undergone 4 sessions of prone positioning. Currently she is on 60% oxygen and saturating in mid 90s. She is currently on dexamethasone. Today is day 7. She has completed her course of remdesivir. She received tocilizumab on April 24. Status: Acute (2) ARDS (adult respiratory distress syndrome): We will continue with the low tidal volume ventilation. The PEEP will be optimized. Currently the patient is covered with Zosyn and azithromycin. The patient is on trickle feeds. Lasix 20 mg IV today. Status: Acute (3) Hypothyroidism: The levothyroxine has been switched to IV form. Status: Chronic (4) Hypertension: The patient is currently requiring mild vasopressor support likely secondary to vasodilatory shock. I am hoping that her oxygen requirement will continue to come down. 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
[2021-05-02 20:10] LABS: Triglycerides 763 mg/dL (0-150)
[2021-05-02 20:24] LABS: LDL Cholesterol Direct 39 mg/dL (0-100)
[2021-05-02] MEDS: propofol 1,000 MG/100 ML INJ 11.57 MG IV (20:30)
[2021-05-02] MEDS: FUROsemide 10 mg/mL SDV 2mL 20 MG IVP (21:27)
[2021-05-02 21:46] LABS: Glucose Point of Care 119 mg/dL (70-110)
[2021-05-03] VITALS (33 sets, daily range): BP systolic 92–135; BP diastolic 57–88; PULSE 68–95; RESP 20–26; TEMP 36.7–37.4; O2SAT 88–97
--- NOTE | 2021-05-03 00:42 | PC.NURSE ---
VERSED MAX Per Aureliano, versed may be maxed at 6 mg/hr.
[2021-05-03 03:47] LABS: Glucose Point of Care 121 mg/dL (70-110)
[2021-05-03 04:01] LABS: Basophils # 0.1 10^3/uL (0.0-0.1); Basophils % 0.3 %; Hematocrit 37.4 % (37.0-47.0); Hemoglobin 11.3 g/dL (11.5-15.3); Lymphocytes # 1.3 10^3/uL (0.8-4.8); Lymphocytes % 7.7 %; Mean Corpuscular HGB Conc 30.2 g/dL (30.0-36.0); Mean Corpuscular Volume 92.8 fL (81-99); Mean Platelet Volume 10.2 fL (7.4-10.4); Monocytes # 1.2 10^3/uL (0.2-0.9); Neutrophils # 13.62 10^3/uL (1.8-7.7); Neutrophils % 80.1 %; Nucleated Red Blood Cells % 0.2 %; Platelet Count 228 10^3/cmm (130-400); Red Blood Count 4.03 10^6/uL (4.1-5.3); Red Cell Distribution Width 13.6 % (12.1-15.1)
[2021-05-03 04:24] LABS: Alanine Aminotransferase 12 U/L (0-33); Albumin Level 3.1 g/dL (3.5-5.2); Alkaline Phosphatase 95 IU/L (35-105); Anion Gap 10.5 (5-19); Aspartate Amino Transferase 21 U/L (0-32); Blood Urea Nitrogen 25 mg/dL (8-23); Calcium 8.7 mg/dL (8.5-10.5); Carbon Dioxide 33 mmol/L (22-29); Chloride 106 mmol/L (98-107); Globulin 2.1 g/dL (1.3-4.6); Glomerular Filtration Rate 125.9 mL/min (90-130); Glucose 105 mg/dL (65-115); Magnesium 2.2 mg/dL (1.7-2.3); Osmolality Calculated 307 mOsm/kg (285-295); Potassium 3.5 mmol/L (3.5-5.1); Sodium 146 mmol/L (136-145); Total Bilirubin 0.5 mg/dL (0.15-1.2); Total Protein 5.2 g/dL (6.6-8.7)
[2021-05-03] MEDS: famotidine 20 mg/2 mL INJ IVP ×2 (04:37→17:12)
[2021-05-03] MEDS: piperacillin-tazobactam 3.375 GM in sodium chloride 0.9% (plus) 50 ML IV ×3 (05:09→22:09)
--- NOTE | 2021-05-03 05:51 | PC.NURSE ---
Shift Note Frequent safety and comfort rounds continue. Orders and/or nursing care completed as indicated. At the beginning of this shift, Dr. Wells verbally stated propofol should be weaned and d/c. Propofol weaning successful. Patient monitored for response to intervention and treatment(s). Will continue to monitor.
[2021-05-03 06:33] LABS: ABG PCO2 44.3 mmHg (35-45); Arterial Blood Gas Hematocrit 36.6 % (37-47); Base Excess ABG 10.5 mmol/L (-2.0-2.0); Blood Gas Allen Test Pos; Blood Gas Operator Identificat BD; Blood Gas Sample Site Brachial, right; Blood Gas Sample Type Arterial; Blood Gas Tidal Volume 0.37; HCO3 ABG 34.9 mmol/L (22-26); Oxygen Device VENT; PO2 ABG 63.4 mmHg (80.0-100.0)
[2021-05-03] MEDS: dexamethasone 10 mg/mL INJ 6 MG IVP (07:18)
--- NOTE | 2021-05-03 08:19 | P.PN_ITS ---
Subjective Subjective: Interval history: The patient was seen and examined. She seems to be doing okay. No significant overnight events. She has received 4 sessions of prone positioning. Currently she is sedated. Her oxygen requirement is 60% at this time. The patient has developed mild met abolic alkalosis likely secondary to mild dehydration. Some increase in the white blood cell count. Medications: Reviewed: Yes Vitals/I&O/Wt Last Vital Signs Temp 98.1 F 05/03/21 07:35 Pulse 77 05/03/21 08:00 Resp 22 H 05/03/21 08:00 BP 92/61 05/03/21 08:00 Pulse Ox 91 05/03/21 08:00 05/02/21 05/03/21 05/03/21 22:59 06:59 14:59 Intake Total 768.184 / 1073.122 405.619 / 1478.741 Output Total 350 / 350 850 / 1200 Balance 418.184 / 723.122 -444.381 / 278.741 Physical Exam Narrative: EXAM NARRATIVE: General: The patient is intubated and sedated Neck: No JVD Respiratory: Auscultation: Mild crackles at bilateral lung bases Cardiovascular: Regular rate and rhythm, S1-S2 present, no murmur, no peripheral edema. Abdomen: Soft, mildly distended from obesity, sluggish bowel sound Musculoskeletal: No obvious joint deformity Skin: No rash Neuro: The patient is sedated, unable to assess Urinary Catheter Management^: Robb: Cath Placed During This Visit: yes Reason for Continuing Indwelling Catheter: Accurate Measurement of Urinary Output in Critically Ill Patients Urinary Catheter Date of Insertion: 04/24/21 Urinary Catheter Time of Insertion: 11:55 Data : 05/03/21 03:37 05/03/21 03:37 Attestation for Other Data: I personally reviewed and interpreted the following: Other data: I have reviewed the patient's laboratory, microbiologic and radiologic data A&P Assessment and plan (1) Pneumonia due to COVID-19 virus: This is a 60-year-old lady with severe COVID-19 secondary to SARS-CoV-2 pneumonia. The patient has developed ARDS. The patient is currently intubated, and sedated. She has undergone 4 sessions of prone positioning. Currently she is on 60% oxygen and saturating in mid 90s. The latest PO2 is in the 60s. She is currently on dexamethasone. Today is day 8. She has completed her course of remdesivir. She received tocilizumab on April 24. Status: Acute (2) ARDS (adult respiratory distress syndrome): We will continue with the low tidal volume ventilation. The PEEP will be optimized. Currently the patient is covered with Zosyn and azithromycin. She has received azithromycin for 6 days and going to discontinue it. We will continue with Zosyn for now. If the white cell continues to get worse, the patient may require a different antibiotic if there is evidence of sepsis. Nasal MRSA have been negative. The patient is on trickle feeds. We will increase the tube feed and also add free water flush. Status: Acute (3) Hypothyroidism: The levothyroxine has been switched to IV form. Status: Chronic (4) Hypertension: The patient is currently requiring mild vasopressor support likely secondary to vasodilatory shock. I am hoping that her oxygen requirement will continue to come down. 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
--- NOTE | 2021-05-03 08:55 | PC.NURSE ---
Addendum entered by NADEEN Byers 05/03/21 08:59: time of this patient change and actions performed was at 0830. Original Note: Sedation level change Pt found to be restless and moving with secretions coming out of mouth. Respiratory therapist alerted; suction and oral care performed. Head repositioned and increased versed drip at this time.
[2021-05-03] MEDS: levothyroxine 100 mcg SDV 40 MCG IVP (09:08)
--- NOTE | 2021-05-03 09:29 | PC.NURSE ---
Dr. Garcia aware of Versed at 7mg/hr and fentanyl at 200mcg/hr.
[2021-05-03 09:33] LABS: Glucose Point of Care 180 mg/dL (70-110)
--- NOTE | 2021-05-03 10:04 | PC.NURSE ---
Dr ramirez her this am attempt to wean sedation unable at this time as pt became restless agitated with increase resp rate and increased secrtions noted repositioned up in bed saftey and comfort rounds performed frequently
--- NOTE | 2021-05-03 10:44 | PC.NURSE ---
Suction Patient noted to have secretions in airway; suction performed via ET tube.
--- NOTE | 2021-05-03 10:53 | PC.SOCIAL ---
IMM update IMM not updated as patient is intubated and not expected to DC in the next 24 to 48 hours.
--- NOTE | 2021-05-03 13:29 | PM.PN ---
Subjective Subjective: Interval history: Patient was seen this morning, her propofol has been turned off, currently improved fentanyl and Versed, is off pressors, off paralytics, remains afebrile right normotensive, 55% FiO2 Vitals/I&O/Wt Last Vital Signs Temp 98.8 F 05/03/21 12:00 Pulse 95 05/03/21 12:00 Resp 24 H 05/03/21 12:17 BP 112/82 05/03/21 12:00 Pulse Ox 95 05/03/21 12:17 05/02/21 05/03/21 05/03/21 22:59 06:59 14:59 Intake Total 768.184 / 1073.122 405.619 / 1478.741 396.7 / 396.7 Output Total 350 / 350 850 / 1200 Balance 418.184 / 723.122 -444.381 / 278.741 396.7 / 396.7 Physical Exam Const: COMMON NORMALS: no acute distress OTHER: Currently intubated, sedated Neck/C-Spine: COMMON NORMALS: no JVD Resp: COMMON NORMALS: normal respiratory effort, No retractions, No use of accessory muscles and clear to auscultation bilaterally AUSCULTATION: clear to auscultation bilaterally Cardio: COMMON NORMALS: no JVD, regular rate, regular rhythm, S1 normal heart sound present and S2 normal heart sound present RATE: regular rate RHYTHM: regular rhythm HEART SOUNDS: S1 normal heart sound present and S2 normal heart sound present GI: COMMON NORMALS: Normal to inspection, nondistended, normoactive bowel sounds present, Soft to palpation, non-tender and No hepatosplenomegaly present PALPATION: Yes Soft to palpation and Yes No hepatosplenomegaly present Extremity: COMMON NORMALS: no pedal edema Urinary Catheter Management^: Robb: Cath Placed During This Visit: yes Reason for Continuing Indwelling Catheter: Accurate Measurement of Urinary Output in Critically Ill Patients Urinary Catheter Date of Insertion: 04/24/21 Urinary Catheter Time of Insertion: 11:55 Data : 05/03/21 03:37 05/03/21 03:37 A&P Assessment and plan (1) Pneumonia due to COVID-19 virus: Severe COVID-19 pneumonia, acute hypoxic respiratory failure, acute encephalopathy, acute respiratory distress requiring high flow oxygen -BiPAP, 100% FiO2, then intubation Agree with pulmonary critical care Intubated 04/27/2021 Has finished her fourth session of proning On vent, 60% FiO2, minimize tidal volume, minimize FiO2, optimize PEEP On Versed,, fentanyl for sedation Off Levophed for vasodilatory, pressor support wean as tolerated maintain MAP in the 65 Continues to have good urine output off nimbex for paralytic Plan on weaning trial today Remdesivir initiated 04/24 Dexamethasone initiated 04/25 Combivent every 6 hours Advair every 12 hours IV levothyroxine Lasix as needed Is on trickle feeds MRSA, Legionella, bacterial antigens all negative Continue Zosyn empirically, started 04/24, start azithromycin 04/27/2021 Tocilizumab given 04/24 Blood cultures from 04/24 negative to date Monitor inflammatory markers Encourage prone positioning Vitamin C, zinc, incentive spirometer, flutter valve Echocardiogram shows EF of 60%, grade 1 out of 4 diastolic dysfunction Will hold Flexeril, gabapentin for now Lovenox for DVT prophylaxis Protonix for GI prophylaxis Full code Status: Acute (2) Acute respiratory failure with hypoxia: See above Status: Acute (3) Hypothyroidism: TSH checked and normal On home levothyroxine Status: Chronic (4) Hypertension: Home amlodipine currently held , blood pressure normal Status: Chronic (5) GERD (gastroesophageal reflux disease): Status: Chronic (6) Chronic back pain greater than 3 months duration: Baclofen resumed at half home dose 04/26 Remains on home gabapentin and as needed Flexeril Off of home Celebrex As needed hydrocodone added 04/26 Status: Chronic (7) Acute encephalopathy: Likely secondary to COVID-19, hypoxia Status: Acute Additional A&P Information Off of home Linzess On home oxybutynin On home Topamax On home trazodone prn Has Robb catheter GI prophylaxis Lovenox for DVT prophylaxis Disposition dependent on clinical course Full code Attestations Medical Necessity Statement*: Patient course hospitalization for COVID-19 pneumonia, weaning trial today Coding Level of Care Code Acute Disability Attorney for [facility] Fwd Diagnoses Pneumonia due to COVID-19 virus U07.1; J12.82 Acute respiratory failure with hypoxia J96.01 Hypothyroidism E03.9 Hypertension I10 GERD (gastroesophageal reflux disease) K21.9 Chronic back pain greater than 3 months duration M54.9; G89.29 Acute encephalopathy G93.40
[2021-05-03 14:58] LABS: Glucose Point of Care 195 mg/dL (70-110)
[2021-05-03] MEDS: enoxaparin 40 mg/0.4 mL Syringe SUBCUT (17:12)
--- NOTE | 2021-05-03 18:33 | PC.NURSE ---
Suction Patient noted to have further secretions in airway; suction performed two times via ET tube between 2 and 6.
--- NOTE | 2021-05-03 18:56 | PC.NURSE ---
Heparin Flush One of the lumens of the Right IJ central line found hard to flush; position altered and no change. Heparin flush put in followed by normal saline.
[2021-05-03 22:02] LABS: Glucose Point of Care 120 mg/dL (70-110)
[2021-05-04] VITALS (31 sets, daily range): BP systolic 92–141; BP diastolic 63–104; PULSE 61–87; RESP 17–31; TEMP 36.6–37.2; O2SAT 89–99
[2021-05-04 03:17] LABS: Glucose Point of Care 129 mg/dL (70-110)
[2021-05-04 04:06] LABS: Basophils # 0.1 10^3/uL (0.0-0.1); Basophils % 0.6 %; Eosinophils % 0.1 %; Hematocrit 37.7 % (37.0-47.0); Hemoglobin 11.3 g/dL (11.5-15.3); Lymphocytes % 5.6 %; Mean Corpuscular Hemoglobin 27.8 pg (28.0-34.0); Mean Corpuscular Volume 92.6 fL (81-99); Mean Platelet Volume 10.3 fL (7.4-10.4); Monocytes % 5.7 %; Neutrophils # 14.85 10^3/uL (1.8-7.7); Neutrophils % 85.7 %; Nucleated Red Blood Cells % 0 %; Platelet Count 205 10^3/cmm (130-400); Red Blood Count 4.07 10^6/uL (4.1-5.3); Red Cell Distribution Width 13.8 % (12.1-15.1); White Blood Count 17.3 10^3/uL (4.0-10.0)
[2021-05-04 04:39] LABS: Alanine Aminotransferase 13 U/L (0-33); Albumin Level 3.1 g/dL (3.5-5.2); Alkaline Phosphatase 111 IU/L (35-105); Anion Gap 11.4 (5-19); Aspartate Amino Transferase 21 U/L (0-32); Blood Urea Nitrogen 25 mg/dL (8-23); Calcium 8.9 mg/dL (8.5-10.5); Carbon Dioxide 32 mmol/L (22-29); Chloride 104 mmol/L (98-107); Globulin 2.2 g/dL (1.3-4.6); Glomerular Filtration Rate 162.8 mL/min (90-130); Glucose 122 mg/dL (65-115); Magnesium 2.2 mg/dL (1.7-2.3); Osmolality Calculated 304 mOsm/kg (285-295); Phosphorus 3.1 mg/dL (2.5-4.5); Potassium 3.4 mmol/L (3.5-5.1); Sodium 144 mmol/L (136-145); Total Bilirubin 0.7 mg/dL (0.15-1.2); Total Protein 5.3 g/dL (6.6-8.7)
[2021-05-04] MEDS: famotidine 20 mg/2 mL INJ IVP ×2 (05:15→17:16)
[2021-05-04] MEDS: piperacillin-tazobactam 3.375 GM in sodium chloride 0.9% (plus) 50 ML IV ×3 (05:15→21:57)
--- NOTE | 2021-05-04 06:33 | PC.NURSE ---
Shift Note Frequent safety and comfort rounds continue. Orders and nursing care completed as indicated. Patient remains intubated and sedated. gtts include: fent and versed at this time. Patient monitored for response to intervention and treatments. Education provided including ventilator management and disease process. Patient gestures to understanding but will likely need reinforcement. Will continue to monitor.
[2021-05-04 07:48] LABS: Glucose Point of Care 159 mg/dL (70-110)
[2021-05-04] MEDS: dexamethasone 10 mg/mL INJ 6 MG IVP (08:38)
[2021-05-04] MEDS: levothyroxine 100 mcg SDV 40 MCG IVP (08:39)
--- NOTE | 2021-05-04 09:17 | XRR_ITS ---
PROCEDURE INFORMATION: Exam: XR Chest Exam date and time: 05/04/2021 9:17 AM Age: 60 years old Clinical indication: Shortness of breath; Additional info: Respiratory failure TECHNIQUE: Imaging protocol: XR of the chest. Views: Frontal portable semiupright view of the chest. COMPARISON: CR (CHEST, ) 05/02/2021 5:18 AM FINDINGS: Tubes, catheters and devices: EKG leads are present overlying the chest. The feeding tube enters the stomach with the tip in the mid gastric body. Lower thoracic intraspinal neural stimulator leads. The right internal jugular venous catheter tip is in the lower SVC. The endotracheal tube tip is approximately 5 cm above the anusha. Lungs: Interval increase in heterogeneous air space opacities in the right mid and bilateral lower lung zones. The pulmonary vasculature is stable. Pleural spaces: Small-moderate right pleural effusion. No pneumothorax. Heart/Mediastinum: The heart is normal in size and contour. Bones/joints: Right shoulder arthroplasty. Severe left glenohumeral joint primary osteoarthritis. XR/XR chest 1V portable [id number] IMPRESSION: 1. Increased bilateral pulmonary infiltrates/atypical pulmonary edema. 2. Small-moderate right pleural effusion.
[2021-05-04] MEDS: potassium chloride oral liq 20 mEq/15 mL UDC 40 MEQ PO (10:15)
--- NOTE | 2021-05-04 10:51 | PM.PN ---
Subjective Subjective: Interval history: This morning patient was seen, she is on Versed, and fentanyl for sedation, her sedation is being weaned, she is on 45% FiO2, normotensive, afebrile Medications: Reviewed: Yes Vitals/I&O/Wt Last Vital Signs Temp 98.1 F 05/04/21 03:00 Pulse 81 05/04/21 08:00 Resp 31 H 05/04/21 08:28 BP 114/72 05/04/21 08:00 Pulse Ox 92 05/04/21 08:28 05/03/21 05/04/21 05/04/21 22:59 06:59 14:59 Intake Total 493.917 / 1032.717 545 / 1577.717 50 / 50 Output Total 375 / 375 300 / 675 Balance 118.917 / 657.717 245 / 902.717 50 / 50 Physical Exam Narrative: EXAM NARRATIVE: Intubated, sedated in supine positioning Const: COMMON NORMALS: no acute distress OTHER: Currently intubated, sedated HENMT: COMMON NORMALS: normocephalic HEAD & SCALP: normocephalic Neck/C-Spine: COMMON NORMALS: no JVD OTHER: Right central venous catheter in place Resp: COMMON NORMALS: normal respiratory effort, No retractions, No use of accessory muscles and clear to auscultation bilaterally AUSCULTATION: clear to auscultation bilaterally Cardio: COMMON NORMALS: no JVD, regular rate, regular rhythm, S1 normal heart sound present and S2 normal heart sound present RATE: regular rate RHYTHM: regular rhythm HEART SOUNDS: S1 normal heart sound present and S2 normal heart sound present GI: COMMON NORMALS: Normal to inspection, nondistended, normoactive bowel sounds present, Soft to palpation, non-tender and No hepatosplenomegaly present PALPATION: Yes Soft to palpation and Yes No hepatosplenomegaly present Extremity: COMMON NORMALS: no pedal edema Urinary Catheter Management^: Robb: Cath Placed During This Visit: yes Reason for Continuing Indwelling Catheter: Accurate Measurement of Urinary Output in Critically Ill Patients Urinary Catheter Date of Insertion: 04/24/21 Urinary Catheter Time of Insertion: 11:55 Data : 05/04/21 03:49 05/04/21 03:49 A&P Assessment and plan (1) Pneumonia due to COVID-19 virus: Severe COVID-19 pneumonia, acute hypoxic respiratory failure, acute encephalopathy, acute respiratory distress requiring high flow oxygen -BiPAP, 100% FiO2, then intubation Agree with pulmonary critical care Intubated 04/27/2021 Has finished her fourth session of proning On vent, 45% FiO2, minimize tidal volume, minimize FiO2, optimize PEEP On Versed,, fentanyl for sedation Off Levophed for vasodilatory, pressor support wean as tolerated maintain MAP in the 65 Continues to have good urine output off nimbex for paralytic Plan on weaning trial today Remdesivir initiated 04/24 Dexamethasone initiated 04/25 Combivent every 6 hours Advair every 12 hours IV levothyroxine Lasix as needed Is on trickle feeds MRSA, Legionella, bacterial antigens all negative Continue Zosyn empirically, started 04/24, start azithromycin 04/27/2021 Tocilizumab given 04/24 Blood cultures from 04/24 negative to date Monitor inflammatory markers Encourage prone positioning Vitamin C, zinc, incentive spirometer, flutter valve Echocardiogram shows EF of 60%, grade 1 out of 4 diastolic dysfunction Will hold Flexeril, gabapentin for now Lovenox for DVT prophylaxis Protonix for GI prophylaxis Full code Status: Acute (2) Acute respiratory failure with hypoxia: See above Status: Acute (3) Hypothyroidism: TSH checked and normal On home levothyroxine Status: Chronic (4) Hypertension: Home amlodipine currently held , blood pressure normal Status: Chronic (5) GERD (gastroesophageal reflux disease): Status: Chronic (6) Chronic back pain greater than 3 months duration: Baclofen resumed at half home dose 04/26 Remains on home gabapentin and as needed Flexeril Off of home Celebrex As needed hydrocodone added 04/26 Status: Chronic (7) Acute encephalopathy: Likely secondary to COVID-19, hypoxia Status: Acute Additional A&P Information Off of home Linzess On home oxybutynin On home Topamax On home trazodone prn Has Robb catheter GI prophylaxis Lovenox for DVT prophylaxis Disposition dependent on clinical course Full code Attestations Medical Necessity Statement*: Patient requires hospitalization for severe COVID-19 pneumonia, acute respiratory failure Coding Level of Care Code Acute Marketing Operations Analyst for [facility] Fwd Diagnoses Pneumonia due to COVID-19 virus U07.1; J12.82 Acute respiratory failure with hypoxia J96.01 Hypothyroidism E03.9 Hypertension I10 GERD (gastroesophageal reflux disease) K21.9 Chronic back pain greater than 3 months duration M54.9; G89.29 Acute encephalopathy G93.40
--- NOTE | 2021-05-04 13:15 | PM.PN ---
Subjective Subjective: Interval history: The patient was seen and examined this morning. Overall, the patient has made recovery. Currently she is on 45% FiO2. She is sedated and not able to follow any commands at this time. The patient gets agitated very quickly A chest x-ray this morning revealed organization of infiltrate in bilateral lower lobes. Likely secondary to atelectasis. Overall since her admission, the patient is approximately 3 L positive without taking consideration the insensible fluid loss. Medications: Reviewed: Yes Vitals/I&O/Wt Last Vital Signs Temp 97.8 F 05/04/21 10:00 Pulse 78 05/04/21 10:00 Resp 21 H 05/04/21 13:13 BP 126/94 05/04/21 10:00 Pulse Ox 92 05/04/21 13:13 05/03/21 05/04/21 05/04/21 22:59 06:59 14:59 Intake Total 493.917 / 1032.717 545 / 1577.717 226.083 / 226.083 Output Total 375 / 375 300 / 675 Balance 118.917 / 657.717 245 / 902.717 226.083 / 226.083 Physical Exam Narrative: EXAM NARRATIVE: General: The patient is intubated and sedated Neck: No JVD Respiratory: Auscultation: Mild crackles at bilateral lung bases Cardiovascular: Regular rate and rhythm, S1-S2 present, no murmur, no peripheral edema. Abdomen: Soft, mildly distended from obesity, positive bowel sound Musculoskeletal: No obvious joint deformity Skin: No rash Neuro: The patient is sedated, unable to assess Urinary Catheter Management^: Robb: Cath Placed During This Visit: yes Reason for Continuing Indwelling Catheter: Accurate Measurement of Urinary Output in Critically Ill Patients Urinary Catheter Date of Insertion: 04/24/21 Urinary Catheter Time of Insertion: 11:55 Data : 05/04/21 03:49 05/04/21 03:49 Attestation for Other Data: I personally reviewed and interpreted the following: Other data: I have reviewed her laboratory, microbiologic and radiologic data A&P Assessment and plan (1) Pneumonia due to COVID-19 virus: This is a 60-year-old lady with severe COVID-19 secondary to SARS-CoV-2 pneumonia. The patient has developed ARDS. The patient is currently intubated, and sedated. She has undergone 4 sessions of prone positioning. Currently she is on 45% oxygen and saturating in mid 90s. She is currently on dexamethasone. Today is day 9. She has completed her course of remdesivir. She received tocilizumab on April 24. Status: Acute (2) ARDS (adult respiratory distress syndrome): We will continue with the low tidal volume ventilation. The patient is now on Zosyn. Overall she has been getting better over the past week. The patient is on tube feed and free water flush drip. Going to give her a dose of Lasix 40 mg IV today. Status: Acute (3) Hypothyroidism: The levothyroxine has been switched to IV form. Status: Chronic (4) Hypertension: The patient is currently requiring mild vasopressor support likely secondary to vasodilatory shock. I am hoping that her oxygen requirement will continue to come down. We will need to work on her mental status next. Status: Chronic Attestations Medical Necessity Statement*: Will defer to the primary team Coding Level of Care Code Acute Area Mechanic for [facility] Diagnoses Pneumonia due to COVID-19 virus U07.1; J12.82 ARDS (adult respiratory distress syndrome) J80 Hypothyroidism E03.9 Hypertension I10 Time Spent (min) 32
[2021-05-04] MEDS: FUROsemide 10 mg/mL SDV 4mL 40 MG IVP (13:38)
--- NOTE | 2021-05-04 15:24 | NUR.SHIFT ---
repositioned oral care done tube feeding infusing at 10cchr doctor aware lower rate increased residual and flush noted orders today to wean versed dripp and started precedex gtt for transition assist lower rate and fio2 when awaken . fentynl gtt decreased fio2 now down to 45% continues to arch head to kraus vent with eyes upward but will move eyes when more awake and repositioning right IJ in place drs change done
--- NOTE | 2021-05-04 15:26 | PC.NUTR ---
Nutrition follow up: Spoke with nurse, who reports TF decreased to 10 ml/hr yesterday. States unsure of rationale, but suspects not tolerating the 15 ml/hr. Due to limited documentation, unclear what the TF provision has been since initiated on 05/01. Current feeding at 10 ml/hr with flushes providing 288 kcal, 15 g protein, 993 ml H2O. Per nurse, unable to tolerate increase at this time. If able to tolerate at later time, would recommend goal of 55 ml/hr, with 130 ml H2O flushes q 6 hours, to provide 1584 kcal, 79 g protein, and 1583 ml H2O. See full RD assessment for further details.
[2021-05-04 16:08] LABS: Glucose Point of Care 215 mg/dL (70-110)
[2021-05-04] MEDS: gabapentin 400 mg Capsule PO ×2 (16:14→21:57)
[2021-05-04] MEDS: enoxaparin 40 mg/0.4 mL Syringe SUBCUT (17:16)
--- NOTE | 2021-05-04 18:18 | PC.NURSE ---
Shift Note Frequent safety and comfort rounds continue. Orders and/or nursing care completed as indicated. Patient monitored for response to intervention and treatment(s). Education provided includes[decreasing sedation]. Patient and/or wholesale representative [ResponseToTeaching]. Will continue to monitor.
[2021-05-04] MEDS: dexmedetomidine 400 MCG in sodium chloride 0.9% (100 ml) 100 ML 12.03 MCG IV (21:36)
[2021-05-05] VITALS (102 sets, daily range): BP systolic 84–139; BP diastolic 58–95; PULSE 62–96; RESP 16–33; TEMP 37.3–37.9; O2SAT 84–99
[2021-05-05 01:16] LABS: Glucose Point of Care 142 mg/dL (70-110)
[2021-05-05] MEDS: dexmedetomidine 400 MCG in sodium chloride 0.9% (100 ml) 100 ML 12.03 MCG IV (05:14)
[2021-05-05] MEDS: famotidine 20 mg/2 mL INJ IVP ×2 (05:14→17:31)
[2021-05-05] MEDS: piperacillin-tazobactam 3.375 GM in sodium chloride 0.9% (plus) 100 ML IV ×3 (06:36→21:56)
--- NOTE | 2021-05-05 07:10 | PC.NURSE ---
Shift Note Frequent safety and comfort rounds continue. Orders and/or nursing care completed as indicated. Patient monitored for response to intervention and treatment(s). Education provided includes situation, medications and mech vent. Patient unable to comprehend at this this time due to sedation. Patient does not respond meaningfully or follow commands, but does get agitated and move extremities and shack her head back and forth. Tolerating tube feeds so rate increased, 15ml/hr as ordered. Will continue to monitor.
[2021-05-05] MEDS: dexamethasone 10 mg/mL INJ 6 MG IVP (08:00)
[2021-05-05] MEDS: levothyroxine 100 mcg SDV 40 MCG IVP (08:03)
[2021-05-05] MEDS: gabapentin 400 mg Capsule PO ×3 (08:04→21:57)
[2021-05-05 08:44] LABS: Glucose Point of Care 163 mg/dL (70-110)
[2021-05-05 09:01] LABS: Glucose Point of Care 145 mg/dL (70-110)
--- NOTE | 2021-05-05 09:12 | XRR_ITS ---
PROCEDURE INFORMATION: Exam: XR Chest Exam date and time: 05/05/2021 9:12 AM Age: 60 years old Clinical indication: Condition or disease; Lung condition and disease; Pneumonia; Additional info: Covid pneumonia TECHNIQUE: Imaging protocol: XR of the chest. Views: 1 view. COMPARISON: CR (CHEST, ) 05/04/2021 9:26 AM FINDINGS: Tubes, catheters and devices: The endotracheal tube is above the level of the anusha. Nasogastric tube overlies the body of the stomach; Central venous catheter via the right jugular approach with the tip projecting over the superior vena cava. Lungs: Mild basilar airspace disease left greater than right. Likely infectious. Small subpulmonic effusions. Findings mildly improved. Pleural spaces: See Lungs finding. Heart/Mediastinum: Unremarkable. No cardiomegaly. Bones/joints: Unremarkable. XR/XR chest 1V portable [id number] IMPRESSION: Mild basilar airspace disease left greater than right. Likely infectious. Small subpulmonic effusions. Findings mildly improved.
--- NOTE | 2021-05-05 09:58 | PC.CHAP ---
Pastoral Care Encounter/Spiritual Assessment Type of Contact [] Declined egyptologist visit [] Patient/Family/Request visit [] Outpatient visit [] Follow-up visit [] Physician referral [] Code/Alert [x] Routine visit [] Staff referral [] Actively dying [] Patient sleeping [] Family support [] [] Out of room [] Palliative care [] [] Receiving care in room [] Pre-surgical visit [] Trauma [] Long length of stay [x] ICU visit [] Other: Relational/Emotional Strength [] Patient feels connected with others/family/visitors/staff [] Distress [] Loneliness/isolation [] Abandonment Spirituality of Patient [] Person of Miracle [] Attends Quaker of their Miracle [] Believes in Prayer [] Reads Bible or Amish materials [] There are Spiritual issues to be addressed Reinstatement Clerk Interventions [x] Prayer [] Active listening [] Non-anxious presence [] Spiritual/emotional support [] Crisis/trauma care [] Spiritual counseling [] Bereavement support [] Provided bereavement packet [] Provided Bible/devotional materials [] Provided toy/stuffed animal, coloring book to patient or family member [] Provided Communion [] Anointing/[place] [] Salvation [x] Completed spiritual assessment [] Other: Impact on Illness or Injury [] Angry [] Fearful [] Anxious [] Often cries [] Exhaustion [] Unable to work [] Unable to attend religion [] Unable to walk/stand [] Unable to read [] Unable to drive [] Unable to eat/drink [] Unable to sleep [] Unable to be with family [] Patient intubated [] Other: Summary Time spent with patient
--- NOTE | 2021-05-05 10:32 | PC.NURSE ---
Starting weaning trial. Started reducing sedation after morning rounds with Dr Burk. Nurse turned fentanyl and versed off at 10am. Precedex continues to run at 0.7.
--- NOTE | 2021-05-05 11:10 | PC.NURSE ---
Nurse attempted to elicit a response to painful stimuli. Nail bed pressure, trap pinch, and sternal rub performed. No response.
[2021-05-05 11:41] LABS: Basophils # 0.1 10^3/uL (0.0-0.1); Basophils % 0.3 %; Hematocrit 41.6 % (37.0-47.0); Hemoglobin 12.7 g/dL (11.5-15.3); Lymphocytes # 0.6 10^3/uL (0.8-4.8); Mean Corpuscular HGB Conc 30.5 g/dL (30.0-36.0); Mean Corpuscular Hemoglobin 28.2 pg (28.0-34.0); Mean Corpuscular Volume 92.2 fL (81-99); Mean Platelet Volume 10.8 fL (7.4-10.4); Monocytes # 1.1 10^3/uL (0.2-0.9); Monocytes % 5.3 %; Neutrophils # 17.96 10^3/uL (1.8-7.7); Neutrophils % 89.9 %; Nucleated Red Blood Cells % 0 %; Platelet Count 229 10^3/cmm (130-400); Red Blood Count 4.51 10^6/uL (4.1-5.3); Red Cell Distribution Width 14.3 % (12.1-15.1)
--- NOTE | 2021-05-05 12:09 | P.PN_ITS ---
Subjective Subjective: Interval history: Patient was seen this morning, she is on Precedex for sedation, she is undergoing weaning trial, she does not follow commands, but does have spontaneous head movement, is moving her upper extremities, does have low-grade temperatures this morning, normotensive, on 50% FiO2 Vitals/I&O/Wt Last Vital Signs Temp 100 F H 05/05/21 09:00 Pulse 85 05/05/21 10:15 Resp 33 H 05/05/21 10:49 BP 122/81 05/05/21 10:15 Pulse Ox 92 05/05/21 10:49 05/04/21 05/05/21 05/05/21 22:59 06:59 14:59 Intake Total 450 / 676.083 735.579 / 1411.662 178.033 / 178.033 Output Total 2049 / 2049 425 / 2475 200 / 200 Balance -1600 / -1373.917 310.579 / -1063.338 -21.967 / -21.967 Physical Exam Narrative: EXAM NARRATIVE: He is on weaning protocol, has spontaneous movement of head, spontaneous movement of upper extremities Const: COMMON NORMALS: no acute distress Resp: COMMON NORMALS: normal respiratory effort, No retractions, No use of accessory muscles and clear to auscultation bilaterally AUSCULTATION: clear to auscultation bilaterally Cardio: COMMON NORMALS: regular rate, regular rhythm, S1 normal heart sound present and S2 normal heart sound present RATE: regular rate RHYTHM: regular rhythm HEART SOUNDS: S1 normal heart sound present and S2 normal heart sound present GI: COMMON NORMALS: Normal to inspection, nondistended, normoactive bowel sounds present, Soft to palpation and non-tender PALPATION: Yes Soft to palpation Extremity: COMMON NORMALS: no pedal edema Urinary Catheter Management^: Robb: Cath Placed During This Visit: yes Reason for Continuing Indwelling Catheter: Accurate Measurement of Urinary Output in Critically Ill Patients Urinary Catheter Date of Insertion: 04/24/21 Urinary Catheter Time of Insertion: 11:55 Data : 05/05/21 11:30 05/04/21 03:49 A&P Assessment and plan (1) Pneumonia due to COVID-19 virus: Severe COVID-19 pneumonia, acute hypoxic respiratory failure, acute encephalopathy, acute respiratory distress requiring high flow oxygen -BiPAP, 100% FiO2, then intubation Agree with pulmonary critical care Intubated 04/27/2021 Has finished her fourth session of proning On vent, 50% FiO2, minimize tidal volume, minimize FiO2, optimize PEEP On Precedex for sedation Off Levophed for vasodilatory, pressor support wean as tolerated maintain MAP in the 65 Continues to have good urine output off nimbex for paralytic Plan on weaning trial today Remdesivir initiated 04/24 Dexamethasone initiated 04/25 Combivent every 6 hours Advair every 12 hours IV levothyroxine Lasix as needed Is on trickle feeds MRSA, Legionella, bacterial antigens all negative Continue Zosyn empirically, started 04/24, start azithromycin 04/27/2021 Tocilizumab given 04/24 Blood cultures from 04/24 negative to date Monitor inflammatory markers Encourage prone positioning Vitamin C, zinc, incentive spirometer, flutter valve Echocardiogram shows EF of 60%, grade 1 out of 4 diastolic dysfunction Will hold Flexeril, gabapentin for now Lovenox for DVT prophylaxis Protonix for GI prophylaxis Full code Status: Acute (2) Acute respiratory failure with hypoxia: See above Status: Acute (3) Hypothyroidism: TSH checked and normal On home levothyroxine Status: Chronic (4) Hypertension: Home amlodipine currently held , blood pressure normal Status: Chronic (5) GERD (gastroesophageal reflux disease): Status: Chronic (6) Chronic back pain greater than 3 months duration: Baclofen resumed at half home dose 04/26 Remains on home gabapentin and as needed Flexeril Off of home Celebrex As needed hydrocodone added 04/26 Status: Chronic (7) Acute encephalopathy: Likely secondary to COVID-19, hypoxia Status: Acute Additional A&P Information Off of home Linzess On home oxybutynin On home Topamax On home trazodone prn Has Robb catheter GI prophylaxis Lovenox for DVT prophylaxis Disposition dependent on clinical course Full code Attestations Medical Necessity Statement*: Patient requires hospitalization for acute respiratory failure, pneumonia secondary to COVID-19 Coding Level of Care Code Acute Pharmaceutical Botanist for [facility] Fwd Diagnoses Pneumonia due to COVID-19 virus U07.1; J12.82 Acute respiratory failure with hypoxia J96.01 Hypothyroidism E03.9 Hypertension I10 GERD (gastroesophageal reflux disease) K21.9 Chronic back pain greater than 3 months duration M54.9; G89.29 Acute encephalopathy G93.40
[2021-05-05 12:16] LABS: Alanine Aminotransferase 14 U/L (0-33); Albumin Level 3.2 g/dL (3.5-5.2); Alkaline Phosphatase 135 IU/L (35-105); Anion Gap 12.9 (5-19); Aspartate Amino Transferase 20 U/L (0-32); Blood Urea Nitrogen 29 mg/dL (8-23); Calcium 9.4 mg/dL (8.5-10.5); Carbon Dioxide 31 mmol/L (22-29); Chloride 106 mmol/L (98-107); Globulin 2.6 g/dL (1.3-4.6); Glomerular Filtration Rate 125.9 mL/min (90-130); Glucose 185 mg/dL (65-115); Osmolality Calculated 313 mOsm/kg (285-295); Potassium 3.9 mmol/L (3.5-5.1); Sodium 146 mmol/L (136-145); Total Bilirubin 0.8 mg/dL (0.15-1.2); Total Protein 5.8 g/dL (6.6-8.7)
--- NOTE | 2021-05-05 12:54 | PC.SOCIAL ---
IMM NOT GIVEN IMM update not given due to patient being intubated at this time.
[2021-05-05 13:47] LABS: ABG PCO2 35.7 mmHg (35-45); ABG PH Result 7.55 (7.35-7.45); Alveolar-Arterial Oxygen Gradi 33.6 mmHg (5-10); Arterial Blood Gas Hematocrit 41.6 % (37-47); Base Excess ABG 8.2 mmol/L (-2.0-2.0); Blood Gas Allen Test Pos; Blood Gas Operator Identificat CAK; Blood Gas Sample Site Radial, left; Blood Gas Sample Type Arterial; Blood Gas Tidal Volume 0.37; Carboxyhemoglobin 1.3 %THgb (0.4-20.1); HCO3 ABG 30.9 mmol/L (22-26); Ionized Calcium Level - ABG 1.3 mmol/L (1.1-1.4); Methemoglobin 0.7 % (0.4-1.5); Oxygen Device VENT; Oxygen Saturation ABG 90.9; PO2 ABG 52.9 mmHg (80.0-100.0); Potassium Level - ABG 3.7 mmol/L (3.5-5.0); Total Hemoglobin 13.6 g/dL (12-16)
--- NOTE | 2021-05-05 13:52 | PC.NURSE ---
During weaning trial, patient continued to be unresponsive to pain and unable to follow direction. Per datatalisha, restarting fentanyl, and starting propofol instead of versed. wants us to stay at 50 fentanyl or less.
[2021-05-05] MEDS: propofol 1,000 MG/100 ML INJ 2.31 MG IV (14:04)
[2021-05-05] MEDS: dexmedetomidine 400 MCG in sodium chloride 0.9% (100 ml) 100 ML 14.03 MCG IV ×2 (15:29→21:57)
[2021-05-05 15:52] LABS: Glucose Point of Care 182 mg/dL (70-110)
--- NOTE | 2021-05-05 17:04 | PC.NURSE ---
Nurse Lorena Law witnessed waste of 45 mL of versed.
[2021-05-05] MEDS: enoxaparin 40 mg/0.4 mL Syringe SUBCUT (17:30)
[2021-05-05 18:21] LABS: Glucose Point of Care 165 mg/dL (70-110)
--- NOTE | 2021-05-05 18:21 | PC.NURSE ---
Shift Note Frequent safety and comfort rounds continue. Orders and/or nursing care completed as indicated. Patient monitored for response to intervention and treatments. Weaning trial/extubation was attempted today, however we were unable to remove ET tube. Fentanyl and versed was turned off for about 4 hours. Patient was breathing on her own, but remained unable to follow commands and was unresponsive to verbal and painful stimuli. Patient would move head side to side, but no purposeful movement. Per Dr aguero, nurse restarted fentanyl, and started propofol instead of versed. WIll try a weaning trial again tommorow. if patient remains unresponsive, will do a CT. Dr aguero wants us to not use versed for sedation, Versed has been discontinued, and keep fentanyl at 50mcg or less.
--- NOTE | 2021-05-05 19:18 | P.PN_ITS ---
Subjective Subjective: Interval history: seen pt multiple times at bedside on versed and Fentanyl - did not wake up even after turning off sedation will continue awakening trial tomorrow; do not start her on versed if no improvement in mentation - will do CT head Medications: Reviewed: Yes Vitals/I&O/Wt Last Vital Signs Temp 99.3 F 05/05/21 16:45 Pulse 82 05/05/21 18:30 Resp 31 H 05/05/21 18:30 BP 107/79 05/05/21 18:30 Pulse Ox 90 05/05/21 18:30 05/05/21 05/05/21 05/05/21 06:59 14:59 22:59 Intake Total 735.579 / 1411.662 338.532 / 338.532 33.250 / 371.782 Output Total 425 / 2475 200 / 200 300 / 500 Balance 310.579 / -1063.338 138.532 / 138.532 -266.750 / -128.218 Physical Exam Narrative: EXAM NARRATIVE: PHYSICAL EXAM: General: lying in bed, sedated and intubated. HEENT:NCAT, PERRLA, EOMI Neck: Supple Lungs: Clear, Heart: s1/s2, RRR Abd: soft, NT, ND, BS + Normoactive Extremities: No edema PRODUCTION ENGINE REPAIRER: sedated and limited PRODUCTION ENGINE REPAIRER exam possible. SKIN: no rash Urinary Catheter Management^: Robb: Cath Placed During This Visit: yes Reason for Continuing Indwelling Catheter: Accurate Measurement of Urinary Output in Critically Ill Patients Urinary Catheter Date of Insertion: 04/24/21 Urinary Catheter Time of Insertion: 11:55 Data : 05/06/21 06:00 05/06/21 06:00 Other Labs: Laboratory Results WBC 23.2 10^3/uL (4.0-10.0) H 05/06/21 06:00 RBC 4.66 10^6/uL (4.1-5.3) 05/06/21 06:00 Hgb 13.2 g/dL (11.5-15.3) 05/06/21 06:00 Hct 43.8 % (37.0-47.0) 05/06/21 06:00 MCV 94.0 fL (81-99) 05/06/21 06:00 MCH 28.3 pg (28.0-34.0) 05/06/21 06:00 MCHC 30.1 g/dL (30.0-36.0) 05/06/21 06:00 RDW 14.5 % (12.1-15.1) 05/06/21 06:00 Plt Count 323 10^3/cmm (130-400) 05/06/21 06:00 MPV 11.3 fL (7.4-10.4) H 05/06/21 06:00 Neut % (Auto) 81.2 % 05/06/21 06:00 Lymph % (Auto) 6.9 % 05/06/21 06:00 [place] % (Auto) 8.3 % 05/06/21 06:00 Eos % (Auto) 0.3 % 05/06/21 06:00 Baso % (Auto) 0.6 % 05/06/21 06:00 Neut # (Auto) 18.81 10^3/uL (1.8-7.7) H 05/06/21 06:00 Lymph # (Auto) 1.6 10^3/uL (0.8-4.8) 05/06/21 06:00 [place] # (Auto) 1.9 10^3/uL (0.2-0.9) H 05/06/21 06:00 Eos # (Auto) 0.1 10^3/uL (0.0-0.8) 05/06/21 06:00 Baso # (Auto) 0.1 10^3/uL (0.0-0.1) 05/06/21 06:00 Nucleated RBC % (auto) 0 % 05/06/21 06:00 Nucleated RBCs # 0.0 /100WBC 05/06/21 06:00 PT 14.70 SECONDS (12.1-14.9) 04/30/21 05:25 INR 1.12 (0.8-1.2) 04/30/21 05:25 APTT 26.2 SECONDS (23.9-36.7) 04/24/21 07:55 Fibrinogen 497 mg/dL (174-498) 04/24/21 07:55 D-Dimer 19.94 ug/mIFEU (0-0.59) H 04/29/21 05:55 Specimen Type Arterial 05/05/21 13:35 Sample Site Radial, left 05/05/21 13:35 ABG pH 7.55 (7.35-7.45) H 05/05/21 13:35 ABG pCO2 35.7 mmHg (35-45) 05/05/21 13:35 ABG pO2 52.9 mmHg (80.0-100.0) L 05/05/21 13:35 ABG HCO3 30.9 mmol/L (22-26) H 05/05/21 13:35 ABG O2 Saturation 90.9 05/05/21 13:35 ABG Base Excess 8.2 mmol/L (-2.0-2.0) H 05/05/21 13:35 Dejan Test Pos 05/05/21 13:35 A-a O2 Gradient 33.6 mmHg (5-10) H 05/05/21 13:35 Hematocrit 41.6 % (37-47) 05/05/21 13:35 Hgb O2 Saturation 89.0 % (95-100) L 05/05/21 13:35 Carboxyhemoglobin 1.3 %THgb (0.4-20.1) 05/05/21 13:35 Methemoglobin 0.7 % (0.4-1.5) 05/05/21 13:35 Total Hemoglobin 13.6 g/dL (12-16) 05/05/21 13:35 Sodium 149.0 mmol/L (131-143) H 05/05/21 13:35 Potassium 3.7 mmol/L (3.5-5.0) 05/05/21 13:35 Glucose 206.0 mg/dL (70-115) H 05/05/21 13:35 Ionized Calcium 1.3 mmol/L (1.1-1.4) 05/05/21 13:35 O2 Delivery Device Vent 05/05/21 13:35 O2 Liters/Min 50.0 % 04/24/21 06:25 FiO2 50.0 % 05/05/21 13:35 Tidal Volume 0.37 05/05/21 13:35 PEEP 8.0 cmH20 05/05/21 13:35 Electrician'S Helper ID Cak 05/05/21 13:35 Sodium 147 mmol/L (136-145) H 05/06/21 06:00 Potassium 3.5 mmol/L (3.5-5.1) 05/06/21 06:00 Chloride 108 mmol/L (98-107) H 05/06/21 06:00 Carbon Dioxide 27 mmol/L (22-29) 05/06/21 06:00 Anion Gap 15.5 (5-19) 05/06/21 06:00 BUN 31 mg/dL (8-23) H 05/06/21 06:00 Creatinine 0.7 mg/dL (0.5-0.9) 05/06/21 06:00 GFR Calculation 85.4 mL/min (90-130) L 05/06/21 06:00 Glucose 194 mg/dL (65-115) H 05/06/21 06:00 POC Glucose 181 mg/dL (70-110) H 05/06/21 06:21 Calculated Osmolality 316 mOsm/kg (285-295) H 05/06/21 06:00 Lactic Acid 1.6 mmol/L (0.5-2.2) 04/24/21 07:45 Lactate 2.5 mmol/L (0.5-2.2) H 04/29/21 05:55 Calcium 9.2 mg/dL (8.5-10.5) 05/06/21 06:00 Phosphorus 3.1 mg/dL (2.5-4.5) 05/04/21 03:49 Magnesium 2.2 mg/dL (1.7-2.3) 05/04/21 03:49 Ferritin 359 ng/mL (15-150) H 04/29/21 05:55 Total Bilirubin 0.8 mg/dL (0.15-1.2) 05/06/21 06:00 AST 21 U/L (0-32) 05/06/21 06:00 ALT 16 U/L (0-33) 05/06/21 06:00 Alkaline Phosphatase 135 IU/L (35-105) H 05/06/21 06:00 Lactate Dehydrogenase 720 U/L (135-214) H 04/24/21 07:45 Creatine Kinase 226 U/L (26-192) H 04/29/21 05:55 Troponin T Gen 5 ng/L 13 ng/L (0-10) H 04/24/21 08:05 C-Reactive Protein 16.0 mg/L (0.0-4.9) H 04/29/21 05:55 NT-Pro-B Natriuret Pep 819 pg/mL (0-125) H 04/29/21 05:55 Total Protein 5.7 g/dL (6.6-8.7) L 05/06/21 06:00 Albumin 3.1 g/dL (3.5-5.2) L 05/06/21 06:00 Globulin 2.6 g/dL (1.3-4.6) 05/06/21 06:00 Triglycerides 763 mg/dL (0-150) H 05/02/21 05:51 LDL Cholesterol Direct 39 mg/dL (0-100) 05/02/21 05:51 Interleukin 6 27.80 pg/mL (<5.00) H 04/24/21 07:45 Procalcitonin 0.19 ng/mL (0-0.5) 04/30/21 05:25 TSH 0.53 uIU/mL (0.27-4.20) 04/24/21 07:45 Urine Color Yellow (Yellow) 04/24/21 17:24 Urine Appearance Clear (CLEAR) 04/24/21 17:24 Urine pH 5 (5-7) 04/24/21 17:24 Ur Specific [place] 1.020 (1.005-1.030) 04/24/21 17:24 Urine Protein 1+ (Negative) H 04/24/21 17:24 Urine Glucose (UA) Norm (Normal) 04/24/21 17:24 Urine Ketones Negative (Negative) 04/24/21 17:24 Urine Blood 3+ (Negative) H 04/24/21 17:24 Urine Nitrate Negative (Negative) 04/24/21 17:24 Urine Bilirubin Neg (Negative) 04/24/21 17:24 Urine Urobilinogen 4 mg/dL (Negative) H 04/24/21 17:24 Ur Leukocyte Esterase Negative (Negative) 04/24/21 17:24 Urine RBC 50-80 /hpf (0-2) H 04/24/21 17:24 Urine WBC 0-4 /hpf (0-5) H 04/24/21 17:24 Ur Squamous Epith Cells 0-4 /hpf (0-5) H 04/24/21 17:24 Amorphous Sediment Not Reportable 04/24/21 17:24 Urine Bacteria Trace /hpf (NONE) 04/24/21 17:24 Hepatitis A IgM Ab Non-reactive (Nonreactive) 04/24/21 07:45 Hep Bs Antigen Non-reactive (Nonreactive) 04/24/21 07:45 Hep B Core IgM Ab Non-reactive (Nonreactive) 04/24/21 07:45 Hepatitis C Antibody Non-reactive (Nonreactive) 04/24/21 07:45 Influenza Type A Ag Negative (Negative) 04/24/21 06:46 Influenza Type B Ag Negative (Negative) 04/24/21 06:46 Impressions Chest X-Ray 05/06/21 04:58 IMPRESSION: 1. Right-sided chest tube has been placed. 2. Small residual right-sided pneumothorax. 3. Hazy left basilar opacity which could be secondary to atelectasis or pneumonia. 4. Nasogastric tube side port is at the GE junction and should be advanced approximately 8.4 cm. A&P Assessment and plan (1) ARDS (adult respiratory distress syndrome): Status: Acute (2) Acute encephalopathy: Status: Acute (3) GERD (gastroesophageal reflux disease): Status: Chronic Qualifiers: Esophagitis presence: esophagitis presence not specified Qualified Code(s): K21.9 - Gastro-esophageal reflux disease without esophagitis (4) Acute respiratory failure with hypoxia: Status: Acute (5) Pneumonia due to COVID-19 virus: Status: Acute (6) Hypoxia: Status: Acute #Acute hypoxic respiratory failure secondary to ARDS due to COVID-19 pneumonia #Hypothyroidism #Hypertension -Currently intubated (04/27)and sedated with fentanyl 100, Versed 5, Precedex 0.7 -Recommended to DC Versed and start awakening trial if successful followed by breathing trial -If no response after tomorrow's awakening trial-we will plan for CT head -On CMV mode 370/10/45% -s/p 5-day remdesivir protocol and 1 dose Tocilizumab 04/24/2021 and proned 4 times -On Levophed 2 for hypotension intermittently -Completed 10 days dexamethasone - Combivent every 6 hours -Advair every 12 hours -IV levothyroxine 40 mg -Lasix as needed - trickle feeds - MRSA, Legionella, bacterial antigens all negative - Continue Zosyn empirically, started 04/24, start azithromycin 04/27/2021 - Blood cultures from 04/24 negative to date - Monitor inflammatory markers - incentive spirometer, flutter valve - Echocardiogram shows EF of 60%, grade 1 out of 4 diastolic dysfunction - Lovenox for DVT prophylaxis - Protonix for GI prophylaxis - Full code Recommendations conveyed to hospitalist, RN, RT covering the patient Attestations Medical Necessity Statement*: Patient requires hospitalization for acute respiratory failure, pneumonia secondary to COVID-19 Time Spent in Patient Care: Greater than 35 minutes (>than 50% of time spent in counselling and/or direct pt care on unit) . Critical Care Time: The high probability of a clinically significant, sudden or life threatening deterioration of the patient's [neurologic and respiratory] system(s) required my full and direct attention, intervention and personal management. The critical care time is as shown. 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
[2021-05-05] MEDS: propofol 1,000 MG/100 ML INJ 13.88 MG IV (21:31)
[2021-05-06] VITALS (102 sets, daily range): BP systolic 70–126; BP diastolic 51–83; PULSE 64–131; RESP 20–75; TEMP 37.2–38.8; O2SAT 77–100; BMI 30.1
--- NOTE | 2021-05-06 04:23 | XRR_ITS ---
PROCEDURE INFORMATION: Exam: XR Chest Exam date and time: 05/06/2021 4:23 AM Age: 60 years old Clinical indication: Other: Sats dropping on vent; Additional info: Resp distress TECHNIQUE: Imaging protocol: XR of the chest. Views: 1 view. COMPARISON: CR XR chest 1V portable [id number] 05/05/2021 9:26 AM FINDINGS: Tubes, catheters and devices: Stable right central venous catheter and endotracheal tube. Nasogastric tube side port is just above the GE junction and should be advanced approximately 5.6 cm. Lungs: Large right tension pneumothorax occupying approximately 70% of the right hemithorax. There is mild shift of the mediastinum from right to left with diffuse left lung atelectasis. Pleural spaces: See Lungs finding. Heart/Mediastinum: See Lungs finding. Bones/joints: Unremarkable. XR/XR chest 1V [id number] IMPRESSION: 1. Large right tension pneumothorax occupying approximately 70% of the right hemithorax. 2. Nasogastric tube side port is just above the GE junction and should be advanced approximately 5.6 cm.
[2021-05-06] MEDS: propofol 1,000 MG/100 ML INJ 13.88 MG IV ×3 (04:44→16:33)
--- NOTE | 2021-05-06 04:58 | XRR_ITS ---
PROCEDURE INFORMATION: Exam: XR Chest Exam date and time: 05/06/2021 4:58 AM Age: 60 years old Clinical indication: Device placement; Chest tube TECHNIQUE: Imaging protocol: XR of the chest. Views: 1 view. COMPARISON: CR (CHEST, ) 05/06/2021 4:29 AM FINDINGS: Tubes, catheters and devices: Right-sided chest tube has been placed. Spinal cord stimulator leads overlie the thoracic spine. Endotracheal tube and right-sided central venous catheter are stable. Nasogastric tube side port is at the GE junction and should be advanced approximately 8.4 cm. Lungs: Hazy left basilar opacity which could be secondary to atelectasis or pneumonia. Pleural spaces: Small residual right-sided pneumothorax. Heart/Mediastinum: Unremarkable. No cardiomegaly. Bones/joints: Unremarkable. Soft tissues: Small amounts of subcutaneous gas along the right chest wall. XR/XR chest 1V portable [id number] IMPRESSION: 1. Right-sided chest tube has been placed. 2. Small residual right-sided pneumothorax. 3. Hazy left basilar opacity which could be secondary to atelectasis or pneumonia. 4. Nasogastric tube side port is at the GE junction and should be advanced approximately 8.4 cm.
--- NOTE | 2021-05-06 05:18 | PC.RESP ---
Called to patient room at approximately 0445 by nurse for ventilator alarm and decrease in spo2 into the low 80's. Increased fio2 to 100%. Noted increased increase peak inspiratory pressures, and decreased breath sounds on the right. Requested nurse to call DR. Kline and call for a stat xray. Xray obtained and Dr. Choudhary requested to come to bedside. Dr. Choudhary placed right sided chest tube. Patient Spo2 increased to 95%.
[2021-05-06] MEDS: dexmedetomidine 400 MCG in sodium chloride 0.9% (100 ml) 100 ML 14.03 MCG IV ×3 (05:22→20:18)
--- NOTE | 2021-05-06 05:45 | ED_ITS ---
HPI - SOB/Dyspnea General: Chief Complaint: ER Hold Stated Complaint: covid + Time Seen by Provider: 04/24/21 05:56 PFSH ED PFSH: Medical History Arthritis of left knee Bursitis of right shoulder DDD (degenerative disc disease) cervical and lumbar Diverticulosis Encounter for long-term opiate analgesic use GERD (gastroesophageal reflux disease) Hypertension Hypothyroidism Opioid contract exists Spondylitis Surgical History History of ankle surgery Tarsal release-bilat ankle repair 1991 History of back surgery HERNIATED DISC 12/2003 Hx of abdominal surgery exploratory Hx of carpal tunnel repair bilat wrists 1981 Hx of cholecystectomy 2006 Hx of laparoscopy X4 S/P shoulder replacement RIGHT SHOULDER REPLACEMENT 04/2016 Family History Sister Diabetes paternal grandmother Family/Other Heart disease paternal uncle Unknown Hypercholesteremia family members in general Brother Cancer prostate Sister Thyroid disease Social History Smoking and tobacco status: former smoker Second hand smoke exposure: Yes Alcohol intake: never History of recent travel: No Procedures Chest Tube Chest Tube 1: Chest Tube Location: right, mid axillary line and fifth interspace Size of Tube (cm): 28 Chest Tube Prep: Yes betadine prep and sterile drapes applied Incision Made With: #11 blade Post Procedure: sutured to skin and sterile dressing applied Tube Drainage: fluid Post Procedure CXR?: Yes Patient Tolerated Procedure: Yes Complications: tube needs to be repositioned Progress: I did reposition the tube and pulled it back 5 cm with good placement Course Vital Signs: Vital signs: Vital Signs Temperature 100.6 F H 05/06/21 00:00 Pulse Rate 64 05/06/21 03:00 Respiratory Rate 23 H 05/06/21 02:49 Blood Pressure 89/59 05/06/21 03:00 Pulse Oximetry 93 05/06/21 03:00 MDM - SOB/Dyspnea MDM Narrative: Medical decision making narrative: I got called over to the ICU for patient desaturation and had a tension pneumothorax. I sterilely prepped patient placed drapes and placed a 20 [place] chest tube with good resolution of the pneumothorax. Patient saturations were up from 60s percent to 94%. She tolerated procedure well. Lab Data: Labs: Lab Results 04/24/21 04/24/21 04/24/21 Range/Units 06:25 06:40 06:40 WBC 5.6 (4.0-10.0) 10^3/ uL RBC 4.34 (4.1-5.3) 10^6/u L Hgb 12.3 (11.5-15.3) g/dL Hct 39.2 (37.0-47.0) % MCV 90.3 (81-99) fL MCH 28.3 (28.0-34.0) pg MCHC 31.4 (30.0-36.0) g/dL RDW 13.4 (12.1-15.1) % Plt Count 182 (130-400) 10^3/c mm MPV 12.2 H (7.4-10.4) fL Neut % (Auto) 70.8 % Lymph % (Auto) 18.8 % [place] % (Auto) 9.8 % Eos % (Auto) 0.0 % Baso % (Auto) 0.2 % Neut # (Auto) 3.97 (1.8-7.7) 10^3/u L Lymph # (Auto) 1.1 (0.8-4.8) 10^3/u L [place] # (Auto) 0.6 (0.2-0.9) 10^3/u L Eos # (Auto) 0.0 (0.0-0.8) 10^3/u L Baso # (Auto) 0.0 (0.0-0.1) 10^3/u L Nucleated RBC % (a uto) 0 % Nucleated RBCs # 0.0 /100WBC PT Cancelled INR Cancelled APTT Cancelled Fibrinogen Cancelled D-Dimer Cancelled Specimen Type Arterial Sample Site Radial, right ABG pH 7.43 (7.35-7.45) ABG pCO2 34.6 L (35-45) mmHg ABG pO2 63.6 L (80.0-100.0) mmH g ABG HCO3 22.9 (22-26) mmol/L ABG Base Excess -1.0 (-2.0-2.0) mmol/ L Dejan Test Pos Hematocrit 37.9 (37-47) % O2 Delivery Device Hag O2 Liters/Min 50.0 % FiO2 90.0 % Aerial Photograph Interpreter ID Posjo Sodium Potassium Chloride Carbon Dioxide Anion Gap BUN Creatinine GFR Calculation Glucose Calculated Osmolal ity Lactic Acid Calcium Total Bilirubin AST ALT Alkaline Phosphata se Lactate Dehydrogen ase Troponin T Gen 5 n g/L C-Reactive Protein NT-Pro-B Natriuret Pep Total Protein Albumin Globulin Interleukin 6 (<5.00) pg/mL TSH (0.27-4.20) uIU/ mL Hepatitis A IgM Ab (Nonreactive) Hep Bs Antigen (Nonreactive) Hep B Core IgM Ab (Nonreactive) Hepatitis C Antibo dy (Nonreactive) Influenza Type A A g (Negative) Influenza Type B A g (Negative) 04/24/21 04/24/21 04/24/21 Range/Units 06:40 06:40 06:40 WBC (4.0-10.0) 10^3/ uL RBC (4.1-5.3) 10^6/u L Hgb (11.5-15.3) g/dL Hct (37.0-47.0) % MCV (81-99) fL MCH (28.0-34.0) pg MCHC (30.0-36.0) g/dL RDW (12.1-15.1) % Plt Count (130-400) 10^3/c mm MPV (7.4-10.4) fL Neut % (Auto) % Lymph % (Auto) % [place] % (Auto) % Eos % (Auto) % Baso % (Auto) % Neut # (Auto) (1.8-7.7) 10^3/u L Lymph # (Auto) (0.8-4.8) 10^3/u L [place] # (Auto) (0.2-0.9) 10^3/u L Eos # (Auto) (0.0-0.8) 10^3/u L Baso # (Auto) (0.0-0.1) 10^3/u L Nucleated RBC % (a uto) % Nucleated RBCs # /100WBC PT INR APTT Fibrinogen D-Dimer Specimen Type Sample Site ABG pH (7.35-7.45) ABG pCO2 (35-45) mmHg ABG pO2 (80.0-100.0) mmH g ABG HCO3 (22-26) mmol/L ABG Base Excess (-2.0-2.0) mmol/ L Dejan Test Hematocrit (37-47) % O2 Delivery Device O2 Liters/Min % FiO2 % Aerial Photograph Interpreter ID Sodium Cancelled Potassium Cancelled Chloride Cancelled Carbon Dioxide Cancelled Anion Gap Cancelled BUN Cancelled Creatinine Cancelled GFR Calculation Cancelled Glucose Cancelled Calculated Osmolal ity Cancelled Lactic Acid Cancelled Calcium Cancelled Total Bilirubin Cancelled AST Cancelled ALT Cancelled Alkaline Phosphata se Cancelled Lactate Dehydrogen ase Cancelled Troponin T Gen 5 n g/L Cancelled C-Reactive Protein Cancelled NT-Pro-B Natriuret Pep Cancelled Total Protein Cancelled Albumin Cancelled Globulin Cancelled Interleukin 6 (<5.00) pg/mL TSH (0.27-4.20) uIU/ mL Hepatitis A IgM Ab (Nonreactive) Hep Bs Antigen (Nonreactive) Hep B Core IgM Ab (Nonreactive) Hepatitis C Antibo dy (Nonreactive) Influenza Type A A g (Negative) Influenza Type B A g (Negative) 04/24/21 04/24/21 04/24/21 Range/Units 06:46 07:45 07:45 WBC (4.0-10.0) 10^3/ uL RBC (4.1-5.3) 10^6/u L Hgb (11.5-15.3) g/dL Hct (37.0-47.0) % MCV (81-99) fL MCH (28.0-34.0) pg MCHC (30.0-36.0) g/dL RDW (12.1-15.1) % Plt Count (130-400) 10^3/c mm MPV (7.4-10.4) fL Neut % (Auto) % Lymph % (Auto) % [place] % (Auto) % Eos % (Auto) % Baso % (Auto) % Neut # (Auto) (1.8-7.7) 10^3/u L Lymph # (Auto) (0.8-4.8) 10^3/u L [place] # (Auto) (0.2-0.9) 10^3/u L Eos # (Auto) (0.0-0.8) 10^3/u L Baso # (Auto) (0.0-0.1) 10^3/u L Nucleated RBC % (a uto) % Nucleated RBCs # /100WBC PT INR APTT Fibrinogen D-Dimer Specimen Type Sample Site ABG pH (7.35-7.45) ABG pCO2 (35-45) mmHg ABG pO2 (80.0-100.0) mmH g ABG HCO3 (22-26) mmol/L ABG Base Excess (-2.0-2.0) mmol/ L Dejan Test Hematocrit (37-47) % O2 Delivery Device O2 Liters/Min % FiO2 % Aerial Photograph Interpreter ID Sodium Potassium Chloride Carbon Dioxide Anion Gap BUN Creatinine GFR Calculation Glucose Calculated Osmolal ity Lactic Acid 1.6 Calcium Total Bilirubin AST ALT Alkaline Phosphata se Lactate Dehydrogen ase Troponin T Gen 5 n g/L C-Reactive Protein NT-Pro-B Natriuret Pep Total Protein Albumin Globulin Interleukin 6 27.80 H (<5.00) pg/mL TSH (0.27-4.20) uIU/ mL Hepatitis A IgM Ab (Nonreactive) Hep Bs Antigen (Nonreactive) Hep B Core IgM Ab (Nonreactive) Hepatitis C Antibo dy (Nonreactive) Influenza Type A A g Negative (Negative) Influenza Type B A g Negative (Negative) 04/24/21 04/24/21 04/24/21 Range/Units 07:45 07:45 07:45 WBC (4.0-10.0) 10^3/ uL RBC (4.1-5.3) 10^6/u L Hgb (11.5-15.3) g/dL Hct (37.0-47.0) % MCV (81-99) fL MCH (28.0-34.0) pg MCHC (30.0-36.0) g/dL RDW (12.1-15.1) % Plt Count (130-400) 10^3/c mm MPV (7.4-10.4) fL Neut % (Auto) % Lymph % (Auto) % [place] % (Auto) % Eos % (Auto) % Baso % (Auto) % Neut # (Auto) (1.8-7.7) 10^3/u L Lymph # (Auto) (0.8-4.8) 10^3/u L [place] # (Auto) (0.2-0.9) 10^3/u L Eos # (Auto) (0.0-0.8) 10^3/u L Baso # (Auto) (0.0-0.1) 10^3/u L Nucleated RBC % (a uto) % Nucleated RBCs # /100WBC PT INR APTT Fibrinogen D-Dimer Specimen Type Sample Site ABG pH (7.35-7.45) ABG pCO2 (35-45) mmHg ABG pO2 (80.0-100.0) mmH g ABG HCO3 (22-26) mmol/L ABG Base Excess (-2.0-2.0) mmol/ L Dejan Test Hematocrit (37-47) % O2 Delivery Device O2 Liters/Min % FiO2 % Aerial Photograph Interpreter ID Sodium 136 Potassium 4.1 Chloride 103 Carbon Dioxide 21 L Anion Gap 16.1 BUN 16 Creatinine 0.9 GFR Calculation 63.9 L Glucose 160 H Calculated Osmolal ity 287 Lactic Acid Calcium 8.5 Total Bilirubin 0.4 AST 56 H ALT 41 H Alkaline Phosphata se 121 H Lactate Dehydrogen ase 720 H Troponin T Gen 5 n g/L C-Reactive Protein 105.3 H NT-Pro-B Natriuret Pep 163 H Total Protein 6.4 L Albumin 3.7 Globulin 2.7 Interleukin 6 (<5.00) pg/mL TSH 0.53 (0.27-4.20) uIU/ mL Hepatitis A IgM Ab Non-reactive (Nonreactive) Hep Bs Antigen Non-reactive (Nonreactive) Hep B Core IgM Ab Non-reactive (Nonreactive) Hepatitis C Antibo dy Non-reactive (Nonreactive) Influenza Type A A g (Negative) Influenza Type B A g (Negative) 04/24/21 04/24/21 Range/Units 07:55 08:05 WBC (4.0-10.0) 10^3/ uL RBC (4.1-5.3) 10^6/u L Hgb (11.5-15.3) g/dL Hct (37.0-47.0) % MCV (81-99) fL MCH (28.0-34.0) pg MCHC (30.0-36.0) g/dL RDW (12.1-15.1) % Plt Count (130-400) 10^3/c mm MPV (7.4-10.4) fL Neut % (Auto) % Lymph % (Auto) % [place] % (Auto) % Eos % (Auto) % Baso % (Auto) % Neut # (Auto) (1.8-7.7) 10^3/u L Lymph # (Auto) (0.8-4.8) 10^3/u L [place] # (Auto) (0.2-0.9) 10^3/u L Eos # (Auto) (0.0-0.8) 10^3/u L Baso # (Auto) (0.0-0.1) 10^3/u L Nucleated RBC % (a uto) % Nucleated RBCs # /100WBC PT 13.50 INR 1.00 APTT 26.2 Fibrinogen 497 D-Dimer 0.62 H Specimen Type Sample Site ABG pH (7.35-7.45) ABG pCO2 (35-45) mmHg ABG pO2 (80.0-100.0) mmH g ABG HCO3 (22-26) mmol/L ABG Base Excess (-2.0-2.0) mmol/ L Dejan Test Hematocrit (37-47) % O2 Delivery Device O2 Liters/Min % FiO2 % Aerial Photograph Interpreter ID Sodium Potassium Chloride Carbon Dioxide Anion Gap BUN Creatinine GFR Calculation Glucose Calculated Osmolal ity Lactic Acid Calcium Total Bilirubin AST ALT Alkaline Phosphata se Lactate Dehydrogen ase Troponin T Gen 5 n g/L 13 H C-Reactive Protein NT-Pro-B Natriuret Pep Total Protein Albumin Globulin Interleukin 6 (<5.00) pg/mL TSH (0.27-4.20) uIU/ mL Hepatitis A IgM Ab (Nonreactive) Hep Bs Antigen (Nonreactive) Hep B Core IgM Ab (Nonreactive) Hepatitis C Antibo dy (Nonreactive) Influenza Type A A g (Negative) Influenza Type B A g (Negative) Discharge Plan Discharge Patient Disposition: Admitted As Inpatient Admit Provider: Juwan Hylton Clinical Impression: Suspected severe acute respiratory syndrome coronavirus 2 (SARS-CoV-2) infection, Upper respiratory infection, Hypoxia Condition: Stable Coding Level of Care Code ED [employer] Services Manager for [facility] Luis
[2021-05-06] MEDS: famotidine 20 mg/2 mL INJ IVP ×2 (06:01→16:32)
[2021-05-06] MEDS: piperacillin-tazobactam 3.375 GM in sodium chloride 0.9% (plus) 100 ML IV ×3 (06:02→22:43)
--- NOTE | 2021-05-06 06:30 | PC.NURSE ---
Chest Tube Supplies Supplies used; drainage sponges-2, Vaseline gauze-2, 1 pack 4x4s, were used for the right chest tube dressing this morning at 0600.
[2021-05-06 06:31] LABS: Basophils # 0.1 10^3/uL (0.0-0.1); Basophils % 0.6 %; Eosinophils # 0.1 10^3/uL (0.0-0.8); Eosinophils % 0.3 %; Hematocrit 43.8 % (37.0-47.0); Hemoglobin 13.2 g/dL (11.5-15.3); Lymphocytes # 1.6 10^3/uL (0.8-4.8); Lymphocytes % 6.9 %; Mean Corpuscular HGB Conc 30.1 g/dL (30.0-36.0); Mean Corpuscular Hemoglobin 28.3 pg (28.0-34.0); Mean Platelet Volume 11.3 fL (7.4-10.4); Monocytes # 1.9 10^3/uL (0.2-0.9); Monocytes % 8.3 %; Neutrophils # 18.81 10^3/uL (1.8-7.7); Neutrophils % 81.2 %; Nucleated Red Blood Cells % 0 %; Platelet Count 323 10^3/cmm (130-400); Red Blood Count 4.66 10^6/uL (4.1-5.3); Red Cell Distribution Width 14.5 % (12.1-15.1); White Blood Count 23.2 10^3/uL (4.0-10.0)
[2021-05-06 06:34] LABS: Glucose Point of Care 181 mg/dL (70-110)
[2021-05-06 06:52] LABS: Alanine Aminotransferase 16 U/L (0-33); Albumin Level 3.1 g/dL (3.5-5.2); Alkaline Phosphatase 135 IU/L (35-105); Aspartate Amino Transferase 21 U/L (0-32); Blood Urea Nitrogen 31 mg/dL (8-23); Calcium 9.2 mg/dL (8.5-10.5); Carbon Dioxide 27 mmol/L (22-29); Chloride 108 mmol/L (98-107); Globulin 2.6 g/dL (1.3-4.6); Glomerular Filtration Rate 85.4 mL/min (90-130); Glucose 194 mg/dL (65-115); Osmolality Calculated 316 mOsm/kg (285-295); Sodium 147 mmol/L (136-145); Total Bilirubin 0.8 mg/dL (0.15-1.2); Total Protein 5.7 g/dL (6.6-8.7)
[2021-05-06 06:58] LABS: Anion Gap 15.5 (5-19); Potassium 3.5 mmol/L (3.5-5.1)
--- NOTE | 2021-05-06 07:19 | XRR_ITS ---
PROCEDURE INFORMATION: Exam: XR Chest Exam date and time: 05/06/2021 7:19 AM Age: 60 years old Clinical indication: Device placement; Chest tube; Additional info: Post chest tube adjustment TECHNIQUE: Imaging protocol: XR of the chest. Views: 1 view. COMPARISON: CR XR chest 1V portable [id number] 05/06/2021 4:54 AM FINDINGS: Tubes, catheters and devices: An endotracheal tube, nasogastric tube and central venous catheter projects in satisfactory position. A right chest tube is present. It appears partially withdrawn since the previous chest radiograph so that the side port is now along the outside margin of the rib cage. Stimulator wires are present in the thoracic spinal canal. Lungs: Bilateral interstitial pulmonary infiltrates with basilar consolidation greater on the left side. These infiltrates are fairly stable. Pleural spaces: There is a small right apical pneumothorax which has decreased since previous examination. No pneumothorax is seen on the left side. Heart/Mediastinum: Unremarkable. No cardiomegaly. Bones/joints: Unremarkable. Soft tissues: There is mild subcutaneous emphysema over the right side of the chest. XR/XR chest 1V portable [id number] IMPRESSION: 1. When compared to the previous study the right chest tube has been partially withdrawn so that the side port now lies outside of the pleural cavity. 2. Decreasing small right pneumothorax. 3. Stable bilateral pulmonary infiltrates.
[2021-05-06 07:40] LABS: Glucose Point of Care 173 mg/dL (70-110)
[2021-05-06] MEDS: dexamethasone 10 mg/mL INJ 6 MG IVP (09:06)
[2021-05-06] MEDS: potassium chloride ER 20 mEq Tablet 40 MEQ PO (09:06)
[2021-05-06] MEDS: gabapentin 400 mg Capsule PO ×3 (09:06→22:42)
[2021-05-06] MEDS: FUROsemide 10 mg/mL SDV 2mL 20 MG IVP (09:06)
--- NOTE | 2021-05-06 09:15 | PC.NURSE ---
Shift Note Frequent safety and comfort rounds continue. Orders and/or nursing care completed as indicated. Patient monitored for response to intervention and treatment(s). Education provided includes chest tube management. Patient is unable to to comprehend teaching due to being intubated and sedated at this time. Patient is currently still intubated and sedated and does not respond to verbal command or stimulation. Vent settings are as follows; mode-CMV, Rate-14, FiO2-90%, VT-370, Peep-10, tube size-8.0, ET tube @ lip-22. She is in bilateral soft wrist restraints due to attempting removal of ET tube, restraints were released and reapplied throughout the night. Patient has a stage 1 pressure injury that is open to air on the upper buttock. No other wounds or skin issues noted at this time. Right hand IV is saline locked at this time. Right IJ central line has Zosyn infusing @ 25mls/hr, Propofol infusing @ 30 mcg/kg/min, Fentanyl infusing @ 50mcg/hr, Precedex infusing @ 0.7mcg/kg/hr, and Levophed infusing @ 2mcg/min. Tube feedings were running at 15 mls/hr with 200 ml free water flushes Q6 until 0445 this morning, when they were turned off. Tube feedings were stopped due to patient decrease in O2 sats and need for immediate chest tube placement. Received verbal orders from Dr. Burk to hold the tube feedings until further notice. Patient received a right mid axillary line chest tube this morning due to a right side tension pneumothorax. Chest tube connected to [place] suction kit as well as low wall suction @ [address] Burk orders. Chest tube had 184 mls of bright red fluid out. During procedure patient had an episode of emesis and had 100 mls of yellow gastric content out. Robb catheter had 320 mls of brown urine with sediment out overnight. Will continue to monitor.
[2021-05-06] MEDS: levothyroxine 100 mcg SDV 40 MCG IVP (10:18)
[2021-05-06 12:06] LABS: Glucose Point of Care 179 mg/dL (70-110)
[2021-05-06 15:44] LABS: Glucose Point of Care 199 mg/dL (70-110)
--- NOTE | 2021-05-06 15:44 | XRR_ITS ---
PROCEDURE INFORMATION: Exam: XR Chest Exam date and time: 05/06/2021 3:44 PM Age: 60 years old Clinical indication: Device placement; Chest tube; Additional info: Chest tube placement TECHNIQUE: Imaging protocol: XR of the chest. Views: 1 view. COMPARISON: CR XR chest 1V portable [id number] 05/06/2021 7:46 AM FINDINGS: Tubes, catheters and devices: Right-sided pleural drainage catheter is unchanged in position. Mid trachea positioning of endotracheal tube. Enteric tube within the gastric body. Right neck central venous catheter within distal SVC. Thoracic spine stimulator device unchanged in position. Lungs: Diffusely increased interstitial opacities and patchy alveolar ground-glass opacities in both lungs similar to comparison. Pleural spaces: Small volume right apical pneumothorax stable from prior. Small volume bilateral pleural effusions layer dependently. Heart/Mediastinum: Unremarkable cardiac silhouette. Bones/joints: Right shoulder arthroplasty. Severe productive osteoarthritis changes of the left glenohumeral articulation. Soft tissues: Resolved right lateral chest wall soft tissue air. XR/XR chest 1V portable [id number] IMPRESSION: No significant changes in exam of chest.
[2021-05-06] MEDS: enoxaparin 40 mg/0.4 mL Syringe SUBCUT (17:42)
--- NOTE | 2021-05-06 17:51 | P.PN_ITS ---
Subjective Subjective: Interval history: Overnight patient did have a pneumothorax requiring chest tube. Medications: Reviewed: Yes Vitals/I&O/Wt Last Vital Signs Temp 98.9 F 05/06/21 16:00 Pulse 76 05/06/21 16:00 Resp 28 H 05/06/21 17:17 BP 100/72 05/06/21 16:00 Pulse Ox 95 05/06/21 17:17 05/06/21 05/06/21 05/06/21 06:59 14:59 22:59 Intake Total 942.77 / 1605.279 457.821 / 457.821 100 / 557.821 Output Total 604 / 1104 Balance 338.77 / 501.279 457.821 / 457.821 100 / 557.821 Weight last 48 hrs Weight 77.111 kg Physical Exam Narrative: EXAM NARRATIVE: visual examination remained on vent chest tube in place sedated Urinary Catheter Management^: Robb: Cath Placed During This Visit: yes Reason for Continuing Indwelling Catheter: Accurate Measurement of Urinary Output in Critically Ill Patients Urinary Catheter Date of Insertion: 04/24/21 Urinary Catheter Time of Insertion: 11:55 Data : 05/06/21 06:00 05/06/21 06:00 Micro: Microbiology 05/05/21 18:30 Gram Stain - Final Sputum - Endotracheal Tube Aspirate A&P Assessment and plan (1) Pneumonia due to COVID-19 virus: Severe COVID-19 pneumonia, acute hypoxic respiratory failure, acute encephalopathy, acute respiratory distress requiring high flow oxygen -BiPAP, 100% FiO2, then intubation Agree with pulmonary critical care Intubated 04/27/2021 Has finished her fourth session of proning On vent, 50% FiO2, minimize tidal volume, minimize FiO2, optimize PEEP On Precedex for sedation Off Levophed for vasodilatory, pressor support wean as tolerated maintain MAP in the 65 Continues to have good urine output off nimbex for paralytic Plan on weaning trial today Remdesivir initiated 04/24 Dexamethasone initiated 04/25 Combivent every 6 hours Advair every 12 hours IV levothyroxine Lasix as needed Is on trickle feeds MRSA, Legionella, bacterial antigens all negative Continue Zosyn empirically, started 04/24, start azithromycin 04/27/2021 Tocilizumab given 04/24 Blood cultures from 04/24 negative to date Monitor inflammatory markers Encourage prone positioning Vitamin C, zinc, incentive spirometer, flutter valve Echocardiogram shows EF of 60%, grade 1 out of 4 diastolic dysfunction Will hold Flexeril, gabapentin for now Lovenox for DVT prophylaxis Protonix for GI prophylaxis Full code Status: Acute (2) Acute respiratory failure with hypoxia: See above Status: Acute (3) Hypothyroidism: TSH checked and normal On home levothyroxine Status: Chronic (4) Hypertension: Home amlodipine currently held , blood pressure normal Status: Chronic (5) GERD (gastroesophageal reflux disease): Status: Chronic Qualifiers: Esophagitis presence: esophagitis presence not specified Qualified Code(s): K21.9 - Gastro-esophageal reflux disease without esophagitis (6) Chronic back pain greater than 3 months duration: Baclofen resumed at half home dose 04/26 Remains on home gabapentin and as needed Flexeril Off of home Celebrex As needed hydrocodone added 04/26 Status: Chronic (7) Acute encephalopathy: Likely secondary to COVID-19, hypoxia Status: Acute Additional A&P Information Off of home Linzess On home oxybutynin On home Topamax On home trazodone prn Has Robb catheter GI prophylaxis Lovenox for DVT prophylaxis Disposition dependent on clinical course Full code Attestations Medical Necessity Statement*: Require further hospitalization for management of COVID-19 related respiratory failure requiring mechanical ventilation. Coding Level of Care Code Acute Multigraph Operator for [facility] Fwd Diagnoses Pneumonia due to COVID-19 virus U07.1; J12.82 Acute respiratory failure with hypoxia J96.01 Hypothyroidism E03.9 Hypertension I10 GERD (gastroesophageal reflux disease) K21.9 Esophagitis presence: esophagitis presence not specified Chronic back pain greater than 3 months duration M54.9; G89.29 Acute encephalopathy G93.40
--- NOTE | 2021-05-06 22:45 | P.PN_ITS ---
Subjective Subjective: Interval history: -Patient desaturated overnight and will chest x- ray showed a large right-sided pneumothorax -Chest tube was placed during early hours and and later retracted to reposition the chest tube along the lateral border of the right lung -Connected to waterseal and patient has grade 3 persistent air leak -Continue to reduce sedation and patient started moving her limbs -Other labs and imaging reviewed Medications: Reviewed: Yes Vitals/I&O/Wt Last Vital Signs Temp 98.9 F 05/06/21 18:00 Pulse 76 05/06/21 18:00 Resp 26 H 05/06/21 20:53 BP 100/72 05/06/21 18:00 Pulse Ox 91 05/06/21 20:53 05/06/21 05/06/21 05/06/21 06:59 14:59 22:59 Intake Total 942.77 / 1605.279 457.821 / 457.821 800 / 1257.821 Output Total 604 / 1104 820 / 820 Balance 338.77 / 501.279 457.821 / 457.821 -20 / 437.821 Weight last 48 hrs Weight 170 lb Physical Exam Narrative: EXAM NARRATIVE: General: lying in bed, sedated and intubated. HEENT:NCAT, PERRLA, EOMI Neck: Supple Lungs: Bilateral diffuse crepitations, right-sided chest tube in place and sterile dressing applied Heart: s1/s2, RRR Abd: soft, NT, ND, BS + Normoactive Extremities: No edema OPS ANALYST: sedated and limited OPS ANALYST exam possible. SKIN: no rash Urinary Catheter Management^: Robb: Cath Placed During This Visit: yes Reason for Continuing Indwelling Catheter: Accurate Measurement of Urinary Output in Critically Ill Patients Urinary Catheter Date of Insertion: 04/24/21 Urinary Catheter Time of Insertion: 11:55 Data : 05/06/21 06:00 05/06/21 06:00 Other Labs: Laboratory Results WBC 23.2 10^3/uL (4.0-10.0) H 05/06/21 06:00 RBC 4.66 10^6/uL (4.1-5.3) 05/06/21 06:00 Hgb 13.2 g/dL (11.5-15.3) 05/06/21 06:00 Hct 43.8 % (37.0-47.0) 05/06/21 06:00 MCV 94.0 fL (81-99) 05/06/21 06:00 MCH 28.3 pg (28.0-34.0) 05/06/21 06:00 MCHC 30.1 g/dL (30.0-36.0) 05/06/21 06:00 RDW 14.5 % (12.1-15.1) 05/06/21 06:00 Plt Count 323 10^3/cmm (130-400) 05/06/21 06:00 MPV 11.3 fL (7.4-10.4) H 05/06/21 06:00 Neut % (Auto) 81.2 % 05/06/21 06:00 Lymph % (Auto) 6.9 % 05/06/21 06:00 [place] % (Auto) 8.3 % 05/06/21 06:00 Eos % (Auto) 0.3 % 05/06/21 06:00 Baso % (Auto) 0.6 % 05/06/21 06:00 Neut # (Auto) 18.81 10^3/uL (1.8-7.7) H 05/06/21 06:00 Lymph # (Auto) 1.6 10^3/uL (0.8-4.8) 05/06/21 06:00 [place] # (Auto) 1.9 10^3/uL (0.2-0.9) H 05/06/21 06:00 Eos # (Auto) 0.1 10^3/uL (0.0-0.8) 05/06/21 06:00 Baso # (Auto) 0.1 10^3/uL (0.0-0.1) 05/06/21 06:00 Nucleated RBC % (auto) 0 % 05/06/21 06:00 Nucleated RBCs # 0.0 /100WBC 05/06/21 06:00 PT 14.70 SECONDS (12.1-14.9) 04/30/21 05:25 INR 1.12 (0.8-1.2) 04/30/21 05:25 APTT 26.2 SECONDS (23.9-36.7) 04/24/21 07:55 Fibrinogen 497 mg/dL (174-498) 04/24/21 07:55 D-Dimer 19.94 ug/mIFEU (0-0.59) H 04/29/21 05:55 Specimen Type Arterial 05/05/21 13:35 Sample Site Radial, left 05/05/21 13:35 ABG pH 7.55 (7.35-7.45) H 05/05/21 13:35 ABG pCO2 35.7 mmHg (35-45) 05/05/21 13:35 ABG pO2 52.9 mmHg (80.0-100.0) L 05/05/21 13:35 ABG HCO3 30.9 mmol/L (22-26) H 05/05/21 13:35 ABG O2 Saturation 90.9 05/05/21 13:35 ABG Base Excess 8.2 mmol/L (-2.0-2.0) H 05/05/21 13:35 Dejan Test Pos 05/05/21 13:35 A-a O2 Gradient 33.6 mmHg (5-10) H 05/05/21 13:35 Hematocrit 41.6 % (37-47) 05/05/21 13:35 Hgb O2 Saturation 89.0 % (95-100) L 05/05/21 13:35 Carboxyhemoglobin 1.3 %THgb (0.4-20.1) 05/05/21 13:35 Methemoglobin 0.7 % (0.4-1.5) 05/05/21 13:35 Total Hemoglobin 13.6 g/dL (12-16) 05/05/21 13:35 Sodium 149.0 mmol/L (131-143) H 05/05/21 13:35 Potassium 3.7 mmol/L (3.5-5.0) 05/05/21 13:35 Glucose 206.0 mg/dL (70-115) H 05/05/21 13:35 Ionized Calcium 1.3 mmol/L (1.1-1.4) 05/05/21 13:35 O2 Delivery Device Vent 05/05/21 13:35 O2 Liters/Min 50.0 % 04/24/21 06:25 FiO2 50.0 % 05/05/21 13:35 Tidal Volume 0.37 05/05/21 13:35 PEEP 8.0 cmH20 05/05/21 13:35 Student Admissions Clerk ID Cak 05/05/21 13:35 Sodium 147 mmol/L (136-145) H 05/06/21 06:00 Potassium 3.5 mmol/L (3.5-5.1) 05/06/21 06:00 Chloride 108 mmol/L (98-107) H 05/06/21 06:00 Carbon Dioxide 27 mmol/L (22-29) 05/06/21 06:00 Anion Gap 15.5 (5-19) 05/06/21 06:00 BUN 31 mg/dL (8-23) H 05/06/21 06:00 Creatinine 0.7 mg/dL (0.5-0.9) 05/06/21 06:00 GFR Calculation 85.4 mL/min (90-130) L 05/06/21 06:00 Glucose 194 mg/dL (65-115) H 05/06/21 06:00 POC Glucose 199 mg/dL (70-110) H 05/06/21 15:18 Calculated Osmolality 316 mOsm/kg (285-295) H 05/06/21 06:00 Lactic Acid 1.6 mmol/L (0.5-2.2) 04/24/21 07:45 Lactate 2.5 mmol/L (0.5-2.2) H 04/29/21 05:55 Calcium 9.2 mg/dL (8.5-10.5) 05/06/21 06:00 Phosphorus 3.1 mg/dL (2.5-4.5) 05/04/21 03:49 Magnesium 2.2 mg/dL (1.7-2.3) 05/04/21 03:49 Ferritin 359 ng/mL (15-150) H 04/29/21 05:55 Total Bilirubin 0.8 mg/dL (0.15-1.2) 05/06/21 06:00 AST 21 U/L (0-32) 05/06/21 06:00 ALT 16 U/L (0-33) 05/06/21 06:00 Alkaline Phosphatase 135 IU/L (35-105) H 05/06/21 06:00 Lactate Dehydrogenase 720 U/L (135-214) H 04/24/21 07:45 Creatine Kinase 226 U/L (26-192) H 04/29/21 05:55 Troponin T Gen 5 ng/L 13 ng/L (0-10) H 04/24/21 08:05 C-Reactive Protein 16.0 mg/L (0.0-4.9) H 04/29/21 05:55 NT-Pro-B Natriuret Pep 819 pg/mL (0-125) H 04/29/21 05:55 Total Protein 5.7 g/dL (6.6-8.7) L 05/06/21 06:00 Albumin 3.1 g/dL (3.5-5.2) L 05/06/21 06:00 Globulin 2.6 g/dL (1.3-4.6) 05/06/21 06:00 Triglycerides 763 mg/dL (0-150) H 05/02/21 05:51 LDL Cholesterol Direct 39 mg/dL (0-100) 05/02/21 05:51 Interleukin 6 27.80 pg/mL (<5.00) H 04/24/21 07:45 Procalcitonin 0.19 ng/mL (0-0.5) 04/30/21 05:25 TSH 0.53 uIU/mL (0.27-4.20) 04/24/21 07:45 Urine Color Yellow (Yellow) 04/24/21 17:24 Urine Appearance Clear (CLEAR) 04/24/21 17:24 Urine pH 5 (5-7) 04/24/21 17:24 Ur Specific Angie 1.020 (1.005-1.030) 04/24/21 17:24 Urine Protein 1+ (Negative) H 04/24/21 17:24 Urine Glucose (UA) Norm (Normal) 04/24/21 17:24 Urine Ketones Negative (Negative) 04/24/21 17:24 Urine Blood 3+ (Negative) H 04/24/21 17:24 Urine Nitrate Negative (Negative) 04/24/21 17:24 Urine Bilirubin Neg (Negative) 04/24/21 17:24 Urine Urobilinogen 4 mg/dL (Negative) H 04/24/21 17:24 Ur Leukocyte Esterase Negative (Negative) 04/24/21 17:24 Urine RBC 50-80 /hpf (0-2) H 04/24/21 17:24 Urine WBC 0-4 /hpf (0-5) H 04/24/21 17:24 Ur Squamous Epith Cells 0-4 /hpf (0-5) H 04/24/21 17:24 Amorphous Sediment Not Reportable 04/24/21 17:24 Urine Bacteria Trace /hpf (NONE) 04/24/21 17:24 Hepatitis A IgM Ab Non-reactive (Nonreactive) 04/24/21 07:45 Hep Bs Antigen Non-reactive (Nonreactive) 04/24/21 07:45 Hep B Core IgM Ab Non-reactive (Nonreactive) 04/24/21 07:45 Hepatitis C Antibody Non-reactive (Nonreactive) 04/24/21 07:45 Influenza Type A Ag Negative (Negative) 04/24/21 06:46 Influenza Type B Ag Negative (Negative) 04/24/21 06:46 Impressions Chest X-Ray 05/06/21 15:44 IMPRESSION: No significant changes in exam of chest. Micro: Microbiology 05/05/21 18:30 Gram Stain - Final Sputum - Endotracheal Tube Aspirate A&P Assessment and plan (1) ARDS (adult respiratory distress syndrome): Status: Acute (2) Acute encephalopathy: Status: Acute (3) GERD (gastroesophageal reflux disease): Status: Chronic Qualifiers: Esophagitis presence: esophagitis presence not specified Qualified Code(s): K21.9 - Gastro-esophageal reflux disease without esophagitis (4) Acute respiratory failure with hypoxia: Status: Acute (5) Pneumonia due to COVID-19 virus: Status: Acute (6) Hypoxia: Status: Acute (7) Pneumothorax on right: Status: Acute (8) Persistent air leak: Status: Acute #Acute hypoxic respiratory failure secondary to ARDS due to COVID-19 pneumonia complicated by large right pneumothorax with persistent air leak #Hypothyroidism #Hypertension -Currently intubated (04/27)and sedated with fentanyl 100, Versed 5, Precedex 0.7 -Recommended to DC Versed and start awakening trial if successful followed by breathing trial -Patient started moving her limbs while tapering down sedation -S/p chest tube insertion 05/06/2021 early hours for large right-sided pneumothorax -Connected to waterseal-persistent air leak noted -On CMV mode 370/8/50% -s/p 5-day remdesivir protocol and 1 dose Tocilizumab 04/24/2021 and proned 4 times -On Levophed 2 for hypotension intermittently -Echo during this admission EF 60% grade 1 diastolic dysfunction -Completed 10 days dexamethasone - Combivent every 6 hours -Advair every 12 hours -IV levothyroxine 40 mg -I/os/N-+100 cc in last 24 hours and +2.4 L since admission, -Sodium 147-we will follow - trickle feeds - MRSA, Legionella, bacterial antigens all negative - Continue Zosyn empirically, started 04/24, start azithromycin 04/27/2021 - Blood cultures from 04/24 negative to date - Monitor inflammatory markers - incentive spirometer, flutter valve - Lovenox for DVT prophylaxis - Protonix for GI prophylaxis - Full code Recommendations conveyed to hospitalist, RN, RT covering the patient Attestations Medical Necessity Statement*: Patient requires hospitalization for acute respiratory failure, pneumonia secondary to COVID-19 Time Spent in Patient Care: Greater than 35 minutes (>than 50% of time spent in counselling and/or direct pt care on unit) . Critical Care Time: The high probability of a clinically significant, sudden or life threatening deterioration of the patient's [neurologic and respiratory] system(s) required my full and direct attention, intervention and personal ma nagement. The critical care time is as shown. This time is in addition to time spent performing any reported procedures but includes the following: [x] Data and vital sign review and interpretation [x] Patient assessment, examination and intervention [x] Documentation [x] Medication orders and management Critical Care Time (min): 75 Coding Level of Care Code Established Pt Acute Accounts Payable Representative for Chg Fwd Patient Type Established History Comprehensive Exam Comprehensive Medical Decision Making High Complexity Diagnoses ARDS (adult respiratory distress syndrome) J80 Acute encephalopathy G93.40 GERD (gastroesophageal reflux disease) K21.9 Esophagitis presence: esophagitis presence not specified Acute respiratory failure with hypoxia J96.01 Pneumonia due to COVID-19 virus U07.1; J12.82 Hypoxia R09.02 Pneumothorax on right J93.9 Persistent air leak Time Spent (min) 75
[2021-05-07] VITALS (76 sets, daily range): BP systolic 80–126; BP diastolic 54–82; PULSE 67–111; RESP 18–37; TEMP 37.2–38.8; O2SAT 86–98; BMI 30.1
[2021-05-07 00:34] LABS: Glucose Point of Care 150 mg/dL (70-110)
[2021-05-07] MEDS: propofol 1,000 MG/100 ML INJ 13.88 MG IV ×2 (01:00→07:39)
[2021-05-07] MEDS: dexmedetomidine 400 MCG in sodium chloride 0.9% (100 ml) 100 ML 14.03 MCG IV ×3 (03:43→21:50)
[2021-05-07 04:07] LABS: Glucose Point of Care 144 mg/dL (70-110)
[2021-05-07] MEDS: famotidine 20 mg/2 mL INJ IVP ×2 (04:09→17:07)
[2021-05-07 05:10] LABS: Basophils % 0.3 %; Hematocrit 41.8 % (37.0-47.0); Hemoglobin 12.6 g/dL (11.5-15.3); Lymphocytes # 1.2 10^3/uL (0.8-4.8); Lymphocytes % 7.9 %; Mean Corpuscular HGB Conc 30.1 g/dL (30.0-36.0); Mean Corpuscular Hemoglobin 28.3 pg (28.0-34.0); Mean Corpuscular Volume 93.7 fL (81-99); Mean Platelet Volume 10.9 fL (7.4-10.4); Monocytes % 12.9 %; Neutrophils % 77.9 %; Nucleated Red Blood Cells % 0 %; Platelet Count 330 10^3/cmm (130-400); Red Blood Count 4.46 10^6/uL (4.1-5.3); Red Cell Distribution Width 14.4 % (12.1-15.1); White Blood Count 15.6 10^3/uL (4.0-10.0)
[2021-05-07 05:27] LABS: Alanine Aminotransferase 15 U/L (0-33); Albumin Level 2.8 g/dL (3.5-5.2); Alkaline Phosphatase 172 IU/L (35-105); Anion Gap 10.9 (5-19); Aspartate Amino Transferase 19 U/L (0-32); Blood Urea Nitrogen 28 mg/dL (8-23); Calcium 8.7 mg/dL (8.5-10.5); Carbon Dioxide 30 mmol/L (22-29); Chloride 113 mmol/L (98-107); Glucose 149 mg/dL (65-115); Osmolality Calculated 318 mOsm/kg (285-295); Potassium 3.9 mmol/L (3.5-5.1); Sodium 150 mmol/L (136-145); Total Bilirubin 0.8 mg/dL (0.15-1.2); Total Protein 5.8 g/dL (6.6-8.7)
[2021-05-07 05:51] LABS: Slide Review Slide Review Perform
--- NOTE | 2021-05-07 06:00 | XRR_ITS ---
PROCEDURE INFORMATION: Exam: XR Chest Exam date and time: 05/07/2021 6:00 AM Age: 60 years old Clinical indication: Device placement; Chest tube; Patient HX: F/u R pneumo; Additional info: Recent chest tube insertion TECHNIQUE: Imaging protocol: XR of the chest. Views: 1 view. COMPARISON: CR XR chest 1V portable [id number] 05/06/2021 3:57 PM FINDINGS: Tubes, catheters and devices: Endotracheal tube, tip 4.6 cm above anusha. Nasogastric tube, tip below diaphragm and off image. Right chest tube with tip overlying the right upper to mid thorax laterally, similar to prior position. Right internal jugular central venous line, tip overlying the mid superior vena cava. Lungs: Marked mixed interstitial/alveolar opacities throughout both lungs, slightly increased from prior study. These may represent any combination of pulmonary edema and pneumonia. Pleural spaces: Small right apical pneumothorax, similar to prior study. Small right pleural effusion, similar to prior study. Moderate left pleural effusion, similar prior study. Heart/Mediastinum: Heart size within normal limits. Bones/joints: Status post right shoulder arthroplasty. Marked degenerative changes of the left glenohumeral joint. Soft tissues: Small amount of subcutaneous emphysema in the right hemithorax laterally, increased from prior study. XR/XR chest 1V portable [id number] IMPRESSION: 1. Marked mixed interstitial/alveolar opacities throughout both lungs, slightly increased from prior study. These may represent any combination of pulmonary edema and pneumonia. 2. Small right apical pneumothorax, similar to prior study. Small right pleural effusion, similar to prior study. Moderate left pleural effusion, similar prior study. 3. Small amount of subcutaneous emphysema in the right hemithorax laterally, increased from prior study.
[2021-05-07] MEDS: piperacillin-tazobactam 3.375 GM in sodium chloride 0.9% (plus) 100 ML IV ×3 (06:22→22:06)
[2021-05-07] MEDS: dexamethasone 10 mg/mL INJ 6 MG IVP (08:21)
[2021-05-07] MEDS: gabapentin 400 mg Capsule PO ×3 (08:21→22:06)
[2021-05-07] MEDS: levothyroxine 100 mcg SDV 40 MCG IVP (08:21)
--- NOTE | 2021-05-07 08:30 | PC.NURSE ---
Fentanyl gtt wasted with Ayesha Brown, RN aprox. 65cc wasted.
[2021-05-07] MEDS: FUROsemide 10 mg/mL SDV 4mL 40 MG IVP (09:10)
--- NOTE | 2021-05-07 10:46 | PC.CHAP ---
Pastoral Care Encounter/Spiritual Assessment Type of Contact [] Declined metallographer visit [] Patient/Family/Request visit [] Outpatient visit [] Follow-up visit [] Physician referral [] Code/Alert [x] Routine visit [] Staff referral [] Actively dying [] Patient sleeping [] Family support [] [] Out of room [] Palliative care [] [x] Receiving care in room [] Pre-surgical visit [] Trauma [] Long length of stay [x] ICU visit [x] Other: ventilator Relational/Emotional Strength [] Patient feels connected with others/family/visitors/staff [] Distress [] Loneliness/isolation [] Abandonment Spirituality of Patient [] Person of Miracle [] Attends Anabaptism of their Miracle [] Believes in Prayer [] Reads Bible or Jew materials [] There are Spiritual issues to be addressed Picker Tender Interventions [x] Prayer [] Active listening [] Non-anxious presence [] Spiritual/emotional support [] Crisis/trauma care [] Spiritual counseling [] Bereavement support [] Provided bereavement packet [] Provided Bible/devotional materials [] Provided toy/stuffed animal, coloring book to patient or family member [] Provided Communion [] Anointing/[place] [] Salvation [x] Completed spiritual assessment [] Other: Impact on Illness or Injury [] Angry [] Fearful [] Anxious [] Often cries [] Exhaustion [] Unable to work [] Unable to attend confucianism [] Unable to walk/stand [] Unable to read [] Unable to drive [] Unable to eat/drink [] Unable to sleep [] Unable to be with family [] Patient intubated [] Other: Summary Time spent with patient
[2021-05-07] MEDS: propofol 1,000 MG/100 ML INJ 23.13 MG IV ×4 (10:49→22:31)
--- NOTE | 2021-05-07 13:37 | PC.SOCIAL ---
IMM NOT GIVEN IMM update not given due to patient being intubated at this time.
--- NOTE | 2021-05-07 13:44 | PC.NUTR ---
Tube feeding recommendations: TF at 15 ml/hr X past 3 days providing 432 kcal, meeting only 24% estimated kcal needs. Noted propofol currently providing additional 611 kcal per day. Per nurse, no plan to increase TF at this time. Would recommend increase in H2O flushes per MD discretion to better meet fluid needs. If able to tolerate at later time, would recommend goal of Glucerna 1.2 at 55 ml/hr, with 130 ml H2O flushes q 6 hours, to provide 1584 kcal, 79 g protein, and 1583 ml H2O. If propofol remaining at current rate, recommend hold at 40 ml/hr until decreased. See full RD assessment for further details.
[2021-05-07] MEDS: ipratropium-albuterol 3 mL Neb INHALATION ×2 (15:29→21:48)
[2021-05-07] MEDS: enoxaparin 40 mg/0.4 mL Syringe SUBCUT (17:07)
--- NOTE | 2021-05-07 17:35 | XRR_ITS ---
PROCEDURE INFORMATION: Exam: XR Chest Exam date and time: 05/07/2021 5:35 PM Age: 60 years old Clinical indication: Shortness of breath; Additional info: SOB TECHNIQUE: Imaging protocol: XR of the chest. Views: 1 view. COMPARISON: CR XR chest 1V portable [id number] 05/07/2021 5:07 AM FINDINGS: Tubes, catheters and devices: Mid trachea positioning of endotracheal tube stable from prior. NG tube in the proximal gastric body is stable from prior. Central venous catheter in the right neck terminates mid SVC stable from prior. Right pleural drain position is unchanged. Thoracic epidural stimulator device noted. Lungs: Lucent cavitary changes in the right upper lobe are redemonstrated. Prominent increased interstitial lung markings diffusely persist similar to prior. Pleural spaces: Small to moderate volume right lateral pneumothorax is slightly larger in volume than the comparison. Heart/Mediastinum: Unremarkable. No cardiomegaly. Bones/joints: Right shoulder arthroplasty. Advanced arthritis changes of left shoulder. Soft tissues: Mild increase in the volume of air in the soft tissues of the right lateral chest wall. XR/XR chest 1V portable [id number] IMPRESSION: Mild increase in size of right-sided pneumothorax.
--- NOTE | 2021-05-07 19:24 | PM.PN ---
Subjective Subjective: Interval history: Patient seen multiple times at bedside today Labs and imaging reviewed Patient was on Precedex 0.7 fentanyl 75 propofol 30 and Levophed 2; moving extremities but not following commands Plan was to taper down sedation and assess her mentation Chest tube clamped in the a.m. Medications: Reviewed: Yes Vitals/I&O/Wt Last Vital Signs Temp 98.9 F 05/07/21 16:00 Pulse 88 05/07/21 16:00 Resp 28 H 05/07/21 17:33 BP 98/64 05/07/21 16:00 Pulse Ox 91 05/07/21 17:33 05/07/21 05/07/21 05/07/21 06:59 14:59 22:59 Intake Total 347.75 / 1767.071 677.904 / 677.904 84.81 / 762.714 Output Total 450 / 1270 Balance -102.25 / 497.071 677.904 / 677.904 84.81 / 762.714 Weight last 48 hrs Weight 170 lb Weight 170 lb Physical Exam Narrative: EXAM NARRATIVE: General: lying in bed, sedated and intubated. HEENT:NCAT, PERRLA, EOMI Neck: Supple Lungs: Bilateral diffuse crepitations, right-sided chest tube in place and sterile dressing applied Heart: s1/s2, RRR Abd: soft, NT, ND, BS + Normoactive Extremities: No edema VOLLEYBALL ASSEMBLER: sedated and limited VOLLEYBALL ASSEMBLER exam possible. SKIN: no rash Urinary Catheter Management^: Robb: Cath Placed During This Visit: yes Reason for Continuing Indwelling Catheter: Accurate Measurement of Urinary Output in Critically Ill Patients Urinary Catheter Date of Insertion: 04/24/21 Urinary Catheter Time of Insertion: 11:55 Data : 05/07/21 04:35 05/07/21 04:35 Micro: Microbiology 05/05/21 18:30 Gram Stain - Final Sputum - Endotracheal Tube Aspirate Sputum Culture - Preliminary A&P Assessment and plan (1) ARDS (adult respiratory distress syndrome): Status: Acute (2) Acute encephalopathy: Status: Acute (3) GERD (gastroesophageal reflux disease): Status: Chronic Qualifiers: Esophagitis presence: esophagitis presence not specified Qualified Code(s): K21.9 - Gastro-esophageal reflux disease without esophagitis (4) Acute respiratory failure with hypoxia: Status: Acute (5) Pneumonia due to COVID-19 virus: Status: Acute (6) Hypoxia: Status: Acute (7) Pneumothorax on right: Status: Acute (8) Persistent air leak: Status: Acute #Acute hypoxic respiratory failure secondary to ARDS due to COVID-19 pneumonia complicated by large right pneumothorax with persistent air leak #Hypothyroidism #Hypertension -Currently intubated (04/27)and sedated with Precedex 0.7, fentanyl 75 and propofol 30 -Patient was moving her limbs but not following commands -Plan is to taper down sedation as much as possible and assess mental status, if successful followed by breathing trial -Today evening-patient still not following commands -S/p chest tube insertion 05/06/2021 early hours for large right-sided pneumothorax -Chest tube clamped today morning and chest x-ray repeated in the evening which showed worsening of right-sided pneumothorax -Connected back to suction and persistent air leak noted -I will do CT chest tonight to assess for pneumothorax and will order CT head for altered mental status -Bedside ultrasound showed small left pleural effusion -On AC mode 14/370/ percent -s/p 5-day remdesivir protocol and 1 dose Tocilizumab 04/24/2021 and proned 4 times -On Levophed 2 for hypotension intermittently -Echo during this admission EF 60% grade 1 diastolic dysfunction -Completed 10 days dexamethasone - Combivent every 6 hours/Advair every 12 hours -IV levothyroxine 40 mg -I/O/N-+500 cc in last 24 hours and +2.9 L since admission, -Sodium 150-Free water 250 every 6 hour, renal functions are improving today -Continue tube feeding -Sugars better controlled-currently on scale coverage - MRSA, Legionella, bacterial antigens all negative -Febrile with T-max 101.9 but WBC down to 15 K -Blood cultures from 04/24 negative to date - Continue Zosyn empirically, started 04/24, start azithromycin 04/27/2021 - Monitor inflammatory markers - incentive spirometer, flutter valve - Lovenox for DVT prophylaxis - Protonix for GI prophylaxis - Full code Recommendations conveyed to hospitalist, RN, RT covering the patient Attestations Medical Necessity Statement*: Patient requires hospitalization for acute respiratory failure, pneumothorax for persistent air leak, pneumonia secondary to COVID-19 Time Spent in Patient Care: Greater than 35 minutes (>than 50% of time spent in counselling and/or direct pt care on unit). Critical Care Time: The high probability of a clinically significant, sudden or life threatening deterioration of the patient's [neurologic and respiratory] system(s) required my full and direct attention, intervention and personal management. The critical care time is as shown. This time is in addition to time spent performing any reported procedures but includes the following: [x] Data and vital sign review and interpretation [x] Patient assessment, examination and intervention [x] Documentation [x] Medication orders and management Critical Care Time (min): 75 Coding Level of Care Code Established Pt Acute Process Engineering Intern for Chg Fwd Patient Type Established History Comprehensive Exam Comprehensive Medical Decision Making High Complexity Diagnoses ARDS (adult respiratory distress syndrome) J80 Acute encephalopathy G93.40 GERD (gastroesophageal reflux disease) K21.9 Esophagitis presence: esophagitis presence not specified Acute respiratory failure with hypoxia J96.01 Pneumonia due to COVID-19 virus U07.1; J12.82 Hypoxia R09.02 Pneumothorax on right J93.9 Persistent air leak Time Spent (min) 75
[2021-05-07 20:28] LABS: Glucose Point of Care 199 mg/dL (70-110)
--- NOTE | 2021-05-07 22:01 | P.PN_ITS ---
Subjective Subjective: Interval history: Patients chestTube was clamped after which she was noted to have a small pneumothorax. Otherwise no changes. Chest tube was unclamped afterwards. FiO2 was decreasing. Medications: Reviewed: Yes Vitals/I&O/Wt Last Vital Signs Temp 98.9 F 05/07/21 16:00 Pulse 80 05/07/21 21:48 Resp 28 H 05/07/21 21:58 BP 80/55 05/07/21 21:00 Pulse Ox 93 05/07/21 21:58 05/07/21 05/07/21 05/07/21 06:59 14:59 22:59 Intake Total 347.75 / 1767.071 677.904 / 677.904 193.643 / 871.547 Output Total 450 / 1270 Balance -102.25 / 497.071 677.904 / 677.904 193.643 / 871.547 Weight last 48 hrs Weight 77.111 kg Weight 77.111 kg Physical Exam Narrative: EXAM NARRATIVE: visual examination remained on vent chest tube in place sedated Urinary Catheter Management^: Robb: Cath Placed During This Visit: yes Reason for Continuing Indwelling Catheter: Accurate Measurement of Urinary Output in Critically Ill Patients Urinary Catheter Date of Insertion: 04/24/21 Urinary Catheter Time of Insertion: 11:55 Data : 05/07/21 04:35 05/07/21 04:35 Micro: Microbiology 05/05/21 18:30 Gram Stain - Final Sputum - Endotracheal Tube Aspirate Sputum Culture - Preliminary A&P Assessment and plan (1) Pneumonia due to COVID-19 virus: Severe COVID-19 pneumonia, acute hypoxic respiratory failure, acute encephalopathy, acute respiratory distress requiring high flow oxygen -BiPAP, 100% FiO2, then intubation Agree with pulmonary critical care Intubated 04/27/2021 Has finished her fourth session of proning On vent, 50% FiO2, minimize tidal volume, minimize FiO2, optimize PEEP On Precedex for sedation Off Levophed for vasodilatory, pressor support wean as tolerated maintain MAP in the 65 Continues to have good urine output Remdesivir initiated 04/24 Dexamethasone initiated 04/25 Combivent every 6 hours Advair every 12 hours IV levothyroxine Lasix as needed MRSA, Legionella, bacterial antigens all negative Continue Zosyn empirically, started 04/24, start azithromycin 04/27/2021 Tocilizumab given 04/24 Blood cultures from 04/24 negative to date Monitor inflammatory markers Encourage prone positioning Vitamin C, zinc, incentive spirometer, flutter valve Echocardiogram shows EF of 60%, grade 1 out of 4 diastolic dysfunction Management per Critical Care Status: Acute (2) Acute respiratory failure with hypoxia: See above Status: Acute (3) Hypothyroidism: TSH checked and normal On home levothyroxine Status: Chronic (4) Hypertension: Home amlodipine currently held , blood pressure normal Status: Chronic (5) GERD (gastroesophageal reflux disease): Status: Chronic Qualifiers: Esophagitis presence: esophagitis presence not specified Qualified Code(s): K21.9 - Gastro-esophageal reflux disease without esophagitis (6) Chronic back pain greater than 3 months duration: Baclofen resumed at half home dose 04/26 Remains on home gabapentin and as needed Flexeril Off of home Celebrex As needed hydrocodone added 04/26 Status: Chronic (7) Acute encephalopathy: Likely secondary to COVID-19, hypoxia Status: Acute Additional A&P Information DVT prophylaxis- Lovenox Attestations Medical Necessity Statement*: Will require further hospitalizationFor management of respiratory failure due to COVID-19 pneumonia Time Spent in Patient Care: Greater than 35 minutes (>than 50% of time spent in counselling and/or direct pt care on unit) . Coding Level of Care Code Acute Grievance Coordinator for [facility] Fwd Diagnoses Pneumonia due to COVID-19 virus U07.1; J12.82 Acute respiratory failure with hypoxia J96.01 Hypothyroidism E03.9 Hypertension I10 GERD (gastroesophageal reflux disease) K21.9 Esophagitis presence: esophagitis presence not specified Chronic back pain greater than 3 months duration M54.9; G89.29 Acute encephalopathy G93.40
[2021-05-07 22:37] LABS: Glucose Point of Care 202 mg/dL (70-110)
[2021-05-08] VITALS (37 sets, daily range): BP systolic 77–135; BP diastolic 51–80; PULSE 64–118; RESP 20–29; TEMP 36.5–39.2; O2SAT 91–97
[2021-05-08] MEDS: ipratropium-albuterol 3 mL Neb INHALATION ×7 (00:10→23:49)
[2021-05-08] MEDS: propofol 1,000 MG/100 ML INJ 23.13 MG IV ×5 (02:25→23:01)
[2021-05-08 04:04] LABS: Glucose Point of Care 162 mg/dL (70-110)
[2021-05-08] MEDS: famotidine 20 mg/2 mL INJ IVP ×2 (04:09→20:04)
[2021-05-08] MEDS: dexmedetomidine 400 MCG in sodium chloride 0.9% (100 ml) 100 ML 14.03 MCG IV ×3 (05:04→22:38)
[2021-05-08] MEDS: acetaminophen 325 mg Tablet 650 MG PO (05:18)
[2021-05-08] MEDS: piperacillin-tazobactam 3.375 GM in sodium chloride 0.9% (plus) 100 ML IV (05:34)
--- NOTE | 2021-05-08 05:51 | PC.NURSE ---
RT Shift Note Dr. Burk consulted at start of shift. Doctor ordered chest tube to be unclamped and suction turned back on. Fentanyl was restarted per verbal order as well. Frequent safety and respiratory rounds continue. Orders completed as indicated. Patient body temperature slowly mariam throughout the shift. Ice packs were placed on groin and under arms. Once temperature hit 102.5, nurse administered tylenol (see MAR). Patient monitored pre and post treatments throughout shift. Condition Did Not Change. Will continue to monitor patient progress.
[2021-05-08 05:54] LABS: Basophils # 0.1 10^3/uL (0.0-0.1); Basophils % 0.4 %; Eosinophils % 0.2 %; Hematocrit 38.3 % (37.0-47.0); Hemoglobin 11.3 g/dL (11.5-15.3); Lymphocytes # 1.3 10^3/uL (0.8-4.8); Lymphocytes % 9.2 %; Mean Corpuscular HGB Conc 29.5 g/dL (30.0-36.0); Mean Platelet Volume 11.5 fL (7.4-10.4); Monocytes % 14.3 %; Neutrophils # 10.65 10^3/uL (1.8-7.7); Neutrophils % 74.9 %; Nucleated Red Blood Cells % 0 %; Platelet Count 280 10^3/cmm (130-400); Red Blood Count 4.03 10^6/uL (4.1-5.3); Red Cell Distribution Width 14.5 % (12.1-15.1); White Blood Count 14.2 10^3/uL (4.0-10.0)
[2021-05-08 06:11] LABS: Alanine Aminotransferase 12 U/L (0-33); Albumin Level 2.8 g/dL (3.5-5.2); Alkaline Phosphatase 79 IU/L (35-105); Anion Gap 11.8 (5-19); Aspartate Amino Transferase 14 U/L (0-32); Blood Urea Nitrogen 36 mg/dL (8-23); Calcium 8.5 mg/dL (8.5-10.5); Carbon Dioxide 30 mmol/L (22-29); Chloride 111 mmol/L (98-107); Globulin 2.5 g/dL (1.3-4.6); Glomerular Filtration Rate 85.4 mL/min (90-130); Glucose 162 mg/dL (65-115); Osmolality Calculated 320 mOsm/kg (285-295); Potassium 3.8 mmol/L (3.5-5.1); Sodium 149 mmol/L (136-145); Total Bilirubin 0.5 mg/dL (0.15-1.2); Total Protein 5.3 g/dL (6.6-8.7)
--- NOTE | 2021-05-08 08:20 | XR_ITS ---
WS: [id number] Portable AP upright chest, 05/08/2021 Clinical Data: pneumothorax Comparison: Portable chest, 05/07/2021 Findings: The right apical pneumothorax has resolved. The right chest tube remains in the same positi on. The patchy bilateral pulmonary opacities have not changed. There is subcutaneous emphysema over t he right chest wall which has diminished slightly. The right internal jugular venous catheter, endotr acheal tube and nasogastric tube remain in the same position. The heart has not changed. There are mo nitor leads on the chest wall. There is an epidural stimulator wires unchanged. There are clips in th e right upper quadrant from a cholecystectomy. There is a right shoulder arthroplasty in osteoarthrit is of the left shoulder. XR/XR chest 1V portable [id number] Impression: 1. No residual right pneumothorax. 2. No change in position of multiple tubes. 3. No change in bilateral pulmonary opacities. 4. Decrease in right chest wall subcutaneous emphysema.
[2021-05-08] MEDS: dexamethasone 10 mg/mL INJ 6 MG IVP (08:49)
[2021-05-08 09:48] LABS: Glucose Point of Care 191 mg/dL (70-110)
[2021-05-08] MEDS: levothyroxine 100 mcg SDV 40 MCG IVP (10:07)
[2021-05-08] MEDS: gabapentin 400 mg Capsule PO ×2 (10:15→21:18)
[2021-05-08] MEDS: vancomycin 1,250 MG/250 ML PIGGYBACK 250 MG IV ×2 (14:32→23:52)
--- NOTE | 2021-05-08 17:08 | P.PN_ITS ---
Subjective Subjective: Interval history: Patient was noted to have purulent drainage from chest tube. Was started on empiric antibiotics. Noted to have a fever of 101. Remained on mechanical ventilation. Sedation was weaned to fentanyl. Medications: Reviewed: Yes Vitals/I&O/Wt Last Vital Signs Temp 101.1 F H 05/08/21 12:00 Pulse 76 05/08/21 17:04 Resp 22 H 05/08/21 17:04 BP 96/56 05/08/21 12:00 Pulse Ox 97 05/08/21 17:04 05/08/21 05/08/21 05/08/21 06:59 14:59 22:59 Intake Total 1392.651 / 2450.238 202.303 / 202.303 Output Total 450 / 450 Balance 942.651 / 2000.238 202.303 / 202.303 Weight last 48 hrs Weight 77.111 kg Physical Exam Narrative: EXAM NARRATIVE: General : Critcally ill appearing HEENT: ET tube ChestL R sided Chest tube CVS: NSR ABD : Non distende - Robb Ext Edema Urinary Catheter Management^: Robb: Cath Placed During This Visit: yes Reason for Continuing Indwelling Catheter: Accurate Measurement of Urinary Output in Critically Ill Patients Urinary Catheter Date of Insertion: 04/24/21 Urinary Catheter Time of Insertion: 11:55 Data : 05/08/21 04:44 05/08/21 04:44 Micro: Microbiology 05/05/21 18:30 Gram Stain - Final Sputum - Endotracheal Tube Aspirate Sputum Culture - Final 05/08/21 12:38 Blood Culture - Preliminary Blood SPECIMEN COLLECTED 05/08/21 12:36 Blood Culture - Preliminary Blood SPECIMEN COLLECTED A&P Assessment and plan (1) Pneumonia due to COVID-19 virus: Severe COVID-19 pneumonia, acute hypoxic respiratory failure, acute encephalopathy, acute respiratory distress requiring high flow oxygen Intubated 04/27/2021 Has finished her fourth session of proning Weaning sedation Pressor support wean as tolerated maintain MAP in the 65 Remdesivir initiated 04/24 Toclizumab given 04/24 Dexamethasone initiated 04/25 Combivent every 6 hours Advair every 12 hours IV levothyroxine Lasix as needed MRSA, Legionella, bacterial antigens all negative Continue Zosyn empirically, started 04/24, start azithromycin 04/27/2021 Vancomycin pharmacy to dose Blood cultures from 04/24 negative to date Echocardiogram shows EF of 60%, grade 1 out of 4 diastolic dysfunction Follow-up on CT chest -may require cardiothoracic surgery consult if empyema noted Pneumothorax -management of chest tube per Pulmonary Status: Acute (2) Acute respiratory failure with hypoxia: See above Status: Acute (3) Hypothyroidism: TSH checked and normal On home levothyroxine Status: Chronic (4) Hypertension: Home amlodipine currently held , blood pressure normal Status: Chronic (5) GERD (gastroesophageal reflux disease): Status: Chronic Qualifiers: Esophagitis presence: esophagitis presence not specified Qualified Code(s): K21.9 - Gastro-esophageal reflux disease without esophagitis (6) Chronic back pain greater than 3 months duration: Status: Chronic (7) Acute encephalopathy: Likely secondary to COVID-19, hypoxia Status: Acute Additional A&P Information DVT prophylaxis- Lovenox Attestations Medical Necessity Statement*: Continue hospitalization for managementOf respiratory failure currently on mechanical ventilation and IV antibiotics Time Spent in Patient Care: Greater than 35 minutes (>than 50% of time spent in counselling and/or direct pt care on unit) . Coding Level of Care Code Acute Client Support Representative for Chg Fwd Diagnoses Pneumonia due to COVID-19 virus U07.1; J12.82 Acute respiratory failure with hypoxia J96.01 Hypothyroidism E03.9 Hypertension I10 GERD (gastroesophageal reflux disease) K21.9 Esophagitis presence: esophagitis presence not specified Chronic back pain greater than 3 months duration M54.9; G89.29 Acute encephalopathy G93.40
--- NOTE | 2021-05-08 17:48 | PC.RESP ---
RT Shift Note Frequent safety and respiratory rounds continue. Orders completed as indicated. Patient monitored pre and post treatments throughout shift. Patient [Did.] tolerate treatments appropriately. Condition .DidNotChange]. Patient and/or sales promotion representative educated on respiratory treatment and medications. Patient and/or sales promotion representative [unable to comprehend]. Will continue to monitor patient progress.
[2021-05-08 18:03] LABS: Glucose Point of Care 230 mg/dL (70-110)
[2021-05-08] MEDS: enoxaparin 40 mg/0.4 mL Syringe SUBCUT (18:23)
[2021-05-08 21:33] LABS: Glucose Point of Care 205 mg/dL (70-110)
--- NOTE | 2021-05-08 21:45 | XRR_ITS ---
PROCEDURE INFORMATION: Exam: XR Chest Exam date and time: 05/08/2021 9:45 PM Age: 60 years old Clinical indication: Device placement; Chest tube; Additional info: RT chest tube TECHNIQUE: Imaging protocol: XR of the chest. Views: 1 view. COMPARISON: CR XR chest 1V portable [id number] 05/08/2021 8:50 AM FINDINGS: Tubes, catheters and devices: Right-sided chest tube side port is outside of the thoracic cavity and should be advanced approximately 6 cm. Endotracheal tube, right central venous catheter, nasogastric tube in good position. Lungs: Stable bilateral pulmonary opacities. Pleural spaces: No residual pneumothorax. Heart/Mediastinum: Unremarkable. No cardiomegaly. Bones/joints: Unremarkable. Soft tissues: Stable subcutaneous emphysema along the right chest wall. XR/XR chest 1V portable [id number] IMPRESSION: Right-sided chest tube side port is outside of the thoracic cavity and should be advanced approximately 6 cm.
--- NOTE | 2021-05-08 23:01 | PM.PN ---
Subjective Subjective: Interval history: Patient seen at bedside multiple times today Labs and imaging reviewed Plan is to Medications: Reviewed: Yes Vitals/I&O/Wt Last Vital Signs Temp 97.7 F 05/08/21 22:00 Pulse 101 H 05/08/21 22:00 Resp 24 H 05/08/21 22:00 BP 135/74 05/08/21 22:00 Pulse Ox 96 05/08/21 21:01 05/08/21 05/08/21 05/09/21 14:59 22:59 06:59 Intake Total 402.303 / 402.303 401.894 / 804.197 9.835 / 814.032 Output Total 720 / 720 Balance 402.303 / 402.303 -318.106 / 84.197 9.835 / 94.032 Weight last 48 hrs Weight 170 lb Physical Exam Narrative: EXAM NARRATIVE: General: lying in bed, sedated and intubated. HEENT:NCAT, PERRLA, EOMI Neck: Supple Lungs: Bilateral diffuse crepitations, right-sided chest tube in place and sterile dressing applied Heart: s1/s2, RRR Abd: soft, NT, ND, BS + Normoactive Extremities: No edema ASSISTANT RESEARCH SCIENTIST: sedated and limited ASSISTANT RESEARCH SCIENTIST exam possible. SKIN: no rash Urinary Catheter Management^: Robb: Cath Placed During This Visit: yes Reason for Continuing Indwelling Catheter: Accurate Measurement of Urinary Output in Critically Ill Patients Urinary Catheter Date of Insertion: 04/24/21 Urinary Catheter Time of Insertion: 11:55 Data : 05/08/21 04:44 05/08/21 04:44 Other Labs: Laboratory Results WBC 14.2 10^3/uL (4.0-10.0) H 05/08/21 04:44 RBC 4.03 10^6/uL (4.1-5.3) L 05/08/21 04:44 Hgb 11.3 g/dL (11.5-15.3) L 05/08/21 04:44 Hct 38.3 % (37.0-47.0) 05/08/21 04:44 MCV 95.0 fL (81-99) 05/08/21 04:44 MCH 28.0 pg (28.0-34.0) 05/08/21 04:44 MCHC 29.5 g/dL (30.0-36.0) L 05/08/21 04:44 RDW 14.5 % (12.1-15.1) 05/08/21 04:44 Plt Count 280 10^3/cmm (130-400) 05/08/21 04:44 MPV 11.5 fL (7.4-10.4) H 05/08/21 04:44 Neut % (Auto) 74.9 % 05/08/21 04:44 Lymph % (Auto) 9.2 % 05/08/21 04:44 [place] % (Auto) 14.3 % 05/08/21 04:44 Eos % (Auto) 0.2 % 05/08/21 04:44 Baso % (Auto) 0.4 % 05/08/21 04:44 Neut # (Auto) 10.65 10^3/uL (1.8-7.7) H 05/08/21 04:44 Lymph # (Auto) 1.3 10^3/uL (0.8-4.8) 05/08/21 04:44 [place] # (Auto) 2.0 10^3/uL (0.2-0.9) H 05/08/21 04:44 Eos # (Auto) 0.0 10^3/uL (0.0-0.8) 05/08/21 04:44 Baso # (Auto) 0.1 10^3/uL (0.0-0.1) 05/08/21 04:44 Nucleated RBC % (auto) 0 % 05/08/21 04:44 Nucleated RBCs # 0.0 /100WBC 05/08/21 04:44 PT 14.70 SECONDS (12.1-14.9) 04/30/21 05:25 INR 1.12 (0.8-1.2) 04/30/21 05:25 APTT 26.2 SECONDS (23.9-36.7) 04/24/21 07:55 Fibrinogen 497 mg/dL (174-498) 04/24/21 07:55 D-Dimer 19.94 ug/mIFEU (0-0.59) H 04/29/21 05:55 Specimen Type Arterial 05/05/21 13:35 Sample Site Radial, left 05/05/21 13:35 ABG pH 7.55 (7.35-7.45) H 05/05/21 13:35 ABG pCO2 35.7 mmHg (35-45) 05/05/21 13:35 ABG pO2 52.9 mmHg (80.0-100.0) L 05/05/21 13:35 ABG HCO3 30.9 mmol/L (22-26) H 05/05/21 13:35 ABG O2 Saturation 90.9 05/05/21 13:35 ABG Base Excess 8.2 mmol/L (-2.0-2.0) H 05/05/21 13:35 Dejan Test Pos 05/05/21 13:35 A-a O2 Gradient 33.6 mmHg (5-10) H 05/05/21 13:35 Hematocrit 41.6 % (37-47) 05/05/21 13:35 Hgb O2 Saturation 89.0 % (95-100) L 05/05/21 13:35 Carboxyhemoglobin 1.3 %THgb (0.4-20.1) 05/05/21 13:35 Methemoglobin 0.7 % (0.4-1.5) 05/05/21 13:35 Total Hemoglobin 13.6 g/dL (12-16) 05/05/21 13:35 Sodium 149.0 mmol/L (131-143) H 05/05/21 13:35 Potassium 3.7 mmol/L (3.5-5.0) 05/05/21 13:35 Glucose 206.0 mg/dL (70-115) H 05/05/21 13:35 Ionized Calcium 1.3 mmol/L (1.1-1.4) 05/05/21 13:35 O2 Delivery Device Vent 05/05/21 13:35 O2 Liters/Min 50.0 % 04/24/21 06:25 FiO2 50.0 % 05/05/21 13:35 Tidal Volume 0.37 05/05/21 13:35 PEEP 8.0 cmH20 05/05/21 13:35 Brand Recorder ID Cak 05/05/21 13:35 Sodium 149 mmol/L (136-145) H 05/08/21 04:44 Potassium 3.8 mmol/L (3.5-5.1) 05/08/21 04:44 Chloride 111 mmol/L (98-107) H 05/08/21 04:44 Carbon Dioxide 30 mmol/L (22-29) H 05/08/21 04:44 Anion Gap 11.8 (5-19) 05/08/21 04:44 BUN 36 mg/dL (8-23) H 05/08/21 04:44 Creatinine 0.7 mg/dL (0.5-0.9) 05/08/21 04:44 GFR Calculation 85.4 mL/min (90-130) L 05/08/21 04:44 Glucose 162 mg/dL (65-115) H 05/08/21 04:44 POC Glucose 205 mg/dL (70-110) H 05/08/21 21:27 Calculated Osmolality 320 mOsm/kg (285-295) H 05/08/21 04:44 Lactic Acid 1.6 mmol/L (0.5-2.2) 04/24/21 07:45 Lactate 2.5 mmol/L (0.5-2.2) H 04/29/21 05:55 Calcium 8.5 mg/dL (8.5-10.5) 05/08/21 04:44 Phosphorus 3.1 mg/dL (2.5-4.5) 05/04/21 03:49 Magnesium 2.2 mg/dL (1.7-2.3) 05/04/21 03:49 Ferritin 359 ng/mL (15-150) H 04/29/21 05:55 Total Bilirubin 0.5 mg/dL (0.15-1.2) 05/08/21 04:44 AST 14 U/L (0-32) 05/08/21 04:44 ALT 12 U/L (0-33) 05/08/21 04:44 Alkaline Phosphatase 79 IU/L (35-105) 05/08/21 04:44 Lactate Dehydrogenase 720 U/L (135-214) H 04/24/21 07:45 Creatine Kinase 226 U/L (26-192) H 04/29/21 05:55 Troponin T Gen 5 ng/L 13 ng/L (0-10) H 04/24/21 08:05 C-Reactive Protein 16.0 mg/L (0.0-4.9) H 04/29/21 05:55 NT-Pro-B Natriuret Pep 819 pg/mL (0-125) H 04/29/21 05:55 Total Protein 5.3 g/dL (6.6-8.7) L 05/08/21 04:44 Albumin 2.8 g/dL (3.5-5.2) L 05/08/21 04:44 Globulin 2.5 g/dL (1.3-4.6) 05/08/21 04:44 Triglycerides 763 mg/dL (0-150) H 05/02/21 05:51 LDL Cholesterol Direct 39 mg/dL (0-100) 05/02/21 05:51 Interleukin 6 27.80 pg/mL (<5.00) H 04/24/21 07:45 Procalcitonin 0.19 ng/mL (0-0.5) 04/30/21 05:25 TSH 0.53 uIU/mL (0.27-4.20) 04/24/21 07:45 Urine Color Yellow (Yellow) 04/24/21 17:24 Urine Appearance Clear (CLEAR) 04/24/21 17:24 Urine pH 5 (5-7) 04/24/21 17:24 Ur Specific [place] 1.020 (1.005-1.030) 04/24/21 17:24 Urine Protein 1+ (Negative) H 04/24/21 17:24 Urine Glucose (UA) Norm (Normal) 04/24/21 17:24 Urine Ketones Negative (Negative) 04/24/21 17:24 Urine Blood 3+ (Negative) H 04/24/21 17:24 Urine Nitrate Negative (Negative) 04/24/21 17:24 Urine Bilirubin Neg (Negative) 04/24/21 17:24 Urine Urobilinogen 4 mg/dL (Negative) H 04/24/21 17:24 Ur Leukocyte Esterase Negative (Negative) 04/24/21 17:24 Urine RBC 50-80 /hpf (0-2) H 04/24/21 17:24 Urine WBC 0-4 /hpf (0-5) H 04/24/21 17:24 Ur Squamous Epith Cells 0-4 /hpf (0-5) H 04/24/21 17:24 Amorphous Sediment Not Reportable 04/24/21 17:24 Urine Bacteria Trace /hpf (NONE) 04/24/21 17:24 Hepatitis A IgM Ab Non-reactive (Nonreactive) 04/24/21 07:45 Hep Bs Antigen Non-reactive (Nonreactive) 04/24/21 07:45 Hep B Core IgM Ab Non-reactive (Nonreactive) 04/24/21 07:45 Hepatitis C Antibody Non-reactive (Nonreactive) 04/24/21 07:45 Influenza Type A Ag Negative (Negative) 04/24/21 06:46 Influenza Type B Ag Negative (Negative) 04/24/21 06:46 Impressions Chest X-Ray 05/08/21 21:45 IMPRESSION: Right-sided chest tube side port is outside of the thoracic cavity and should be advanced approximately 6 cm. Micro: Microbiology 05/05/21 18:30 Gram Stain - Final Sputum - Endotracheal Tube Aspirate Sputum Culture - Final 05/08/21 12:38 Blood Culture - Preliminary Blood SPECIMEN COLLECTED 05/08/21 12:36 Blood Culture - Preliminary Blood SPECIMEN COLLECTED A&P Assessment and plan (1) ARDS (adult respiratory distress syndrome): Status: Acute (2) Acute encephalopathy: Status: Acute (3) GERD (gastroesophageal reflux disease): Status: Chronic Qualifiers: Esophagitis presence: esophagitis presence not specified Qualified Code(s): K21.9 - Gastro-esophageal reflux disease without esophagitis (4) Acute respiratory failure with hypoxia: Status: Acute (5) Pneumonia due to COVID-19 virus: Status: Acute (6) Hypoxia: Status: Acute (7) Pneumothorax on right: Status: Acute (8) Persistent air leak: Status: Acute #Acute hypoxic respiratory failure secondary to ARDS due to COVID-19 pneumonia complicated by large right pneumothorax with persistent air leak #Hypothyroidism #Hypertension -Currently intubated (04/27)and sedated with Precedex 0.7, fentanyl 75 and propofol 30 -Patient was moving her limbs but not following commands -Plan is to taper down sedation as much as possible and assess mental status, if successful followed by breathing trial -Today -patient still not following commands-plan is to obtain CT head which unfortunately could not be done today as it was very busy in ICU with limited staff invested in taking care of patients having even more acuity -S/p chest tube insertion 05/06/2021 early hours for large right-sided pneumothorax -No more air leak noted in the chamber and chest tube clamped -CT chest ordered yesterday night to assess for pneumothorax-could not be done due to limited staff invested in taking care of patients having even more acuity; repeat chest x-ray today evening did not show any residual pneumothorax but the side-port appeared to come out of the chest wall; also chest tube showed pus drainage-likely developed infection -I will -Bedside ultrasound showed small left pleural effusion -On AC mode 14/370/8/60 percent -s/p 5-day remdesivir protocol and 1 dose Tocilizumab 04/24/2021 and proned 4 times -On Levophed 2 for hypotension intermittently -Echo during this admission EF 60% grade 1 diastolic dysfunction -Completed 10 days dexamethasone - Combivent every 6 hours/Advair every 12 hours -IV levothyroxine 40 mg -+4 L since admission, -Sodium 150-Free water 250 every 6 hour, renal functions are improving today -Continue tube feeding -Sugars better controlled-currently on scale coverage - MRSA, Legionella, bacterial antigens all negative -Febrile with T-max 101.9 but WBC down to 14 K -Blood cultures from 04/24 negative to date -Persistent spiking fevers-broadened antibiotic coverage to vancomycin, imipenem - Monitor inflammatory markers - incentive spirometer, flutter valve - Lovenox for DVT prophylaxis - Protonix for GI prophylaxis - Full code Recommendations conveyed to hospitalist, RN, RT covering the patient Attestations Medical Necessity Statement*: Patient requires hospitalization for acute respiratory failure, pneumothorax for persistent air leak, pneumonia secondary to COVID-19 Time Spent in Patient Care: Greater than 35 minutes (>than 50% of time spent in counselling and/or direct pt care on unit). Critical Care Time: The high probability of a clinically significant, sudden or life threatening deterioration of the patient's [neurologic and respiratory] system(s) required my full and direct attention, intervention and personal management. The critical care time is as shown. This time is in addition to time spent performing any reported procedures but includes the following: [x] Data and vital sign review and interpretation [x] Patient assessment, examination and intervention [x] Documentation [x] Medication orders and management Critical Care Time (min): 75 Coding Level of Care Code Established Pt Acute Jewish History Professor for g Fwd Patient Type Established History Comprehensive Exam Comprehensive Medical Decision Making High Complexity Diagnoses ARDS (adult respiratory distress syndrome) J80 Acute encephalopathy G93.40 GERD (gastroesophageal reflux disease) K21.9 Esophagitis presence: esophagitis presence not specified Acute respiratory failure with hypoxia J96.01 Pneumonia due to COVID-19 virus U07.1; J12.82 Hypoxia R09.02 Pneumothorax on right J93.9 Persistent air leak Time Spent (min) 60
[2021-05-09] VITALS (29 sets, daily range): BP systolic 96–145; BP diastolic 60–87; PULSE 73–114; RESP 15–30; TEMP 36.9–38.3; O2SAT 86–100
[2021-05-09] MEDS: acetaminophen 325 mg Tablet 650 MG PO (01:47)
--- NOTE | 2021-05-09 01:49 | PC.NURSE ---
Right chest tube removed by Dr. Monreal Datar. Total of 110mls purulent fluid with blood streaks drained. Site sutured, dressing applied. Patient for CXR at 0400 as per MD order. Order placed.Patient remains stable.
--- NOTE | 2021-05-09 02:38 | XRR_ITS ---
PROCEDURE INFORMATION: Exam: XR Chest Exam date and time: 05/09/2021 2:38 AM Age: 60 years old Clinical indication: Shortness of breath; Prior surgery; Surgery type: Shoulder; Patient HX: Increasing oxygen requirements S/P RT chest tube removed approx 1.5 hours ago. ; Additional info: New chest tube TECHNIQUE: Imaging protocol: XR of the chest. Views: 1 view. COMPARISON: CR XR chest 1V portable [id number] 05/09/2021 2:10 AM FINDINGS: Tubes, catheters and devices: Removal of right-sided chest tube. Support tubes and lines are in good position. Lungs: Unremarkable. No consolidation. Pleural spaces: Interval development of a 60% right-sided pneumothorax. Heart/Mediastinum: Unremarkable. No cardiomegaly. Bones/joints: Unremarkable. Soft tissues: Interval development of a large amount of right-sided subcutaneous gas. XR/XR chest 1V portable [id number] IMPRESSION: 1. Interval development of a 60% right-sided pneumothorax. 2. Support tubes and lines are in good position.
--- NOTE | 2021-05-09 02:39 | PC.RESP ---
chest tube removed by Dr. Wm foreman 2 hours ago. Called to room by nurse, due to change in vital signs. Patient spo2 81% on 55% with an increase of peak inspiratory pressures. Sub cutanous emphysema noted on the right upper chest appears to be increased from prior observation. requested Nurse to call for a stat chest xray and dr. Burk and hospitlist notified of changes. decreased peep to 8 and increased fio2 to 100%. Post chest xray, Emergency room doctor called to bedside to place right side chest tube.
--- NOTE | 2021-05-09 03:24 | XRR_ITS ---
PROCEDURE INFORMATION: Exam: XR Chest Exam date and time: 05/09/2021 3:24 AM Age: 60 years old Clinical indication: Device placement; Prior surgery; Surgery type: Shoulder. Spinal stimulator. ; Patient HX: Check S/P new chest tube to RT lung. ; Additional info: Post chest tube placement TECHNIQUE: Imaging protocol: XR of the chest. Views: 1 view. COMPARISON: CR (CHEST, ) 05/09/2021 2:35 AM FINDINGS: Tubes, catheters and devices: Right sided chest tube has been placed. Endotracheal tube, right central venous catheter and nasogastric tube are stable. Lungs: Stable bilateral pulmonary opacities. Pleural spaces: No residual pneumothorax. Heart/Mediastinum: Unremarkable. No cardiomegaly. Bones/joints: Unremarkable. Soft tissues: Stable large amount of right-sided subcutaneous gas. XR/XR chest 1V portable [id number] IMPRESSION: 1. Right sided chest tube has been placed. 2. No residual pneumothorax.
[2021-05-09] MEDS: ipratropium-albuterol 3 mL Neb INHALATION ×6 (03:37→23:47)
[2021-05-09 03:52] LABS: Glucose Point of Care 155 mg/dL (70-110)
--- NOTE | 2021-05-09 04:00 | XR_ITS ---
WS: [id number] Portable AP semiupright chest, 05/09/2021 Clinical Data: Post chest tube removal Comparison: Portable chest, 05/08/2021. Findings: The right chest tube has been removed and there is a 25% right pneumothorax. There is an in creased amount of subcutaneous emphysema over the right chest wall and right supraclavicular region. The patchy opacities throughout both lungs again are seen. The endotracheal tube, nasogastric tube an d right internal jugular venous catheter remain the same. Epidural stimulator leads are seen again. T here are monitor leads on the chest wall. The right shoulder prosthesis remains same. XR/XR chest 1V portable [id number] Impression: 1. Recurrent right pneumothorax of 25%. 2. Removal of right chest tube. 3. Increased subcutaneous emphysema along the right chest wall. 4. No change in bilateral pulmonary opacities and position of the remainder of the tubes.
--- NOTE | 2021-05-09 04:19 | PC.NURSE ---
Patient chest expansion was noted to be unequal. [id number]%. High peak pressures noted on vent. Patient was suctioned numerous times. SPO2 stayed in the 80s. CXR done. Dr. Burk was made aware of patient's status and ordered to call ER MD Gonzalez to perform stat chest tube placement. Chest tube was placed by ED Dr. Gonzalez. Procedure was uneventful. Rt. chest tube in place with suction set at 20mmHg. Post CXR done and reviewed by MD.Patient SPO2 came back up from 80%-999%. Nil distress noted. Patient remains stable.
[2021-05-09] MEDS: propofol 1,000 MG/100 ML INJ 11.57 MG IV (04:26)
[2021-05-09 05:12] LABS: ABG PCO2 49.3 mmHg (35-45); Alveolar-Arterial Oxygen Gradi 40.1 mmHg (5-10); Base Excess ABG 4.5 mmol/L (-2.0-2.0); Blood Gas Allen Test Pos; Blood Gas Operator Identificat JB; Blood Gas Sample Site Radial, right; Blood Gas Sample Type Arterial; Blood Gas Tidal Volume 0.37; Carboxyhemoglobin 1.2 %THgb (0.4-20.1); HCO3 ABG 30.3 mmol/L (22-26); HGB O2 Sat 89.4 % (95-100); Ionized Calcium Level - ABG 1.3 mmol/L (1.1-1.4); Methemoglobin 0.9 % (0.4-1.5); Oxygen Device VENT; Oxygen Saturation ABG 91.3; PO2 ABG 60.8 mmHg (80.0-100.0); Potassium Level - ABG 3.2 mmol/L (3.5-5.0); Total Hemoglobin 11.4 g/dL (12-16)
[2021-05-09 06:21] LABS: Basophils % 0.3 %; Hematocrit 34.7 % (37.0-47.0); Hemoglobin 10.1 g/dL (11.5-15.3); Lymphocytes # 0.9 10^3/uL (0.8-4.8); Lymphocytes % 6.8 %; Mean Corpuscular HGB Conc 29.1 g/dL (30.0-36.0); Mean Corpuscular Hemoglobin 28.2 pg (28.0-34.0); Mean Corpuscular Volume 96.9 fL (81-99); Mean Platelet Volume 11.1 fL (7.4-10.4); Monocytes # 1.4 10^3/uL (0.2-0.9); Monocytes % 11.2 %; Neutrophils # 10.23 10^3/uL (1.8-7.7); Neutrophils % 80.9 %; Nucleated Red Blood Cells % 0 %; Platelet Count 249 10^3/cmm (130-400); Red Blood Count 3.58 10^6/uL (4.1-5.3); Red Cell Distribution Width 14.2 % (12.1-15.1); White Blood Count 12.7 10^3/uL (4.0-10.0)
[2021-05-09 06:43] LABS: Alanine Aminotransferase 15 U/L (0-33); Albumin Level 2.5 g/dL (3.5-5.2); Alkaline Phosphatase 97 IU/L (35-105); Aspartate Amino Transferase 18 U/L (0-32); Blood Urea Nitrogen 23 mg/dL (8-23); C Reactive Protein 89.2 mg/L (0.0-4.9); Calcium 8.7 mg/dL (8.5-10.5); Carbon Dioxide 28 mmol/L (22-29); Chloride 109 mmol/L (98-107); Glomerular Filtration Rate 162.8 mL/min (90-130); Glucose 149 mg/dL (65-115); Osmolality Calculated 304 mOsm/kg (285-295); Sodium 144 mmol/L (136-145); Total Bilirubin 0.5 mg/dL (0.15-1.2); Total Protein 5.5 g/dL (6.6-8.7)
[2021-05-09 06:44] LABS: Anion Gap 10.6 (5-19); Potassium 3.6 mmol/L (3.5-5.1)
[2021-05-09] MEDS: dexmedetomidine 400 MCG in sodium chloride 0.9% (100 ml) 100 ML 14.03 MCG IV ×2 (06:45→16:49)
[2021-05-09 06:48] LABS: Procalcitonin 0.25 ng/mL (0-0.5)
--- NOTE | 2021-05-09 07:00 | XR_ITS ---
WS: [id number] Portable AP upright chest, 05/09/2021, 0525 hours Clinical Data: respiratory failure Comparison: Portable chest, today, 0331 hours Findings: The right chest tube has reinflated the right lung. No right pneumothorax is noted. The aditi st tube ends near the apex of the right pleural space. The subcutaneous emphysema has reduced slightl y adjacent to the right chest wall. The bilateral pulmonary opacities remain the same. The multiple t ubes are in the same position. XR/XR chest 1V portable [id number] Impression: 1. Reinsertion of a right chest tube with reinflation of right lung. 2. No change in multiple tubes and bilateral pulmonary opacities.
[2021-05-09 07:05] LABS: Ferritin 335 ng/mL (15-150)
--- NOTE | 2021-05-09 07:06 | PC.NURSE ---
Patient spent an uneventful shift last pm. Remains on sedation. On vent peep 8 and FiO2 60%. SPO2-96%. Tube feed Glucerna 1.2 maintained. Rt. chest tube remains in place set at 20mmHg. 55 mls drained over night. Ni distress noted. Robb remains in place. Restraints remains in place. Tried to wean sedation medications, however patient started to become dysnychronous with vent, unable to wean sedations. Bath given. Bed scale not working, unable to weight patient. Observation continues.
[2021-05-09 08:03] LABS: Glucose Point of Care 138 mg/dL (70-110)
--- NOTE | 2021-05-09 08:27 | P.PNCC_ITS ---
Critical Care Event Note Critical Care Event The high probability of a clinically significant, sudden or life threatening deterioration of the patient's [] system(s) required my full and direct attention, intervention and personal management. The critical care time is as shown. This time is in addition to time spent performing any reported procedures but includes the following: [x] Data and vital sign review and interpretation [x] Patient assessment, examination and intervention [x] Documentation [x] Medication orders and management Critical Care Time Critical Care Time: Code activated: No Critical Care Time (min): 15 Procedures Chest Tube^ Chest Tube 1: Chest tube location: Anterior Chest Size of tube: 28 Chest tube procedure: Yes betadine prep and sterile drapes applied Tube sutured to skin: Yes Sterile dressing applied: Yes Incision made with: #10 blade Post procedure: sutured to skin Pack of air heard: Yes Tube Drainage: none Post procedure CXR?: Yes Patient tolerated procedure: Yes Coding Level of Care Code Acute Microfilming Document Preparer for Scott Smith
[2021-05-09] MEDS: gabapentin 400 mg Capsule PO ×3 (08:58→22:22)
[2021-05-09] MEDS: dexamethasone 10 mg/mL INJ 6 MG IVP (09:03)
[2021-05-09] MEDS: famotidine 20 mg/2 mL INJ IVP ×2 (09:03→22:21)
[2021-05-09] MEDS: propofol 1,000 MG/100 ML INJ 23.13 MG IV (09:16)
[2021-05-09] MEDS: vancomycin 1,250 MG/250 ML PIGGYBACK 250 MG IV (11:39)
[2021-05-09] MEDS: levothyroxine 100 mcg SDV 40 MCG IVP (11:44)
[2021-05-09] MEDS: FUROsemide 10 mg/mL SDV 4mL 40 MG IVP (12:01)
[2021-05-09 14:36] LABS: Glucose Point of Care 218 mg/dL (70-110)
--- NOTE | 2021-05-09 14:40 | PC.NURSE ---
called sister who is listed as next of kin because daughter ivy called requesting pt phone autherization obtained to release phone with witness of Amira shabazz
--- NOTE | 2021-05-09 15:00 | PC.SOCIAL ---
IMM update IMM not updated as patient is still intubated and not expected to dc in the next 24-48 hours.
[2021-05-09] MEDS: propofol 1,000 MG/100 ML INJ 13.88 MG IV ×2 (15:02→16:02)
--- NOTE | 2021-05-09 15:21 | PC.RESP ---
RT Shift Note Frequent safety and respiratory rounds continue. Orders completed as indicated. Patient monitored pre and post treatments throughout shift. Patient [Did.] tolerate treatments appropriately. Condition [.DidNotChange]. Patient and/or sales representative health insurance educated on respiratory treatment and medications. Patient and/or sales representative health insurance [unable to comprehend]. Will continue to monitor patient progress.
--- NOTE | 2021-05-09 16:25 | XRR_ITS ---
PROCEDURE INFORMATION: Exam: XR Chest Exam date and time: 05/09/2021 4:25 PM Age: 60 years old Clinical indication: Device placement; Other: Post bronchoscopy; Prior surgery; Surgery date: Post-operative (0-2 days) TECHNIQUE: Imaging protocol: XR of the chest. Views: 1 view. COMPARISON: CT chest [facility] [id number] 05/09/2021 10:59 AM FINDINGS: Tubes, catheters and devices: Mid trachea positioning of the endotracheal tube. Enteric tube in the proximal stomach. Thoracic epidural stimulator device in place. Right neck central venous catheter in the proximal SVC. Right lateral pleural drainage catheter present. Lungs: Coarsened reticular interstitial lung changes diffusely with patchy parenchymal opacities peripherally in both lungs. Pleural spaces: Small right-sided pneumothorax. Small volume bilateral pleural effusions layer dependently. Heart/Mediastinum: Unremarkable. No cardiomegaly. 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 Right shoulder arthroplasty surgical change. Soft tissues: Soft tissue gas throughout right lateral chest wall. Intraperitoneal space: Right upper quadrant surgical clips. XR/XR chest 1V portable [id number] IMPRESSION: No significant change from comparison.
[2021-05-09] MEDS: LORazepam 2 mg/mL INJ 1 mL 1 MG IVP (16:28)
[2021-05-09] MEDS: enoxaparin 40 mg/0.4 mL Syringe SUBCUT (17:46)
--- NOTE | 2021-05-09 18:37 | PC.NURSE ---
Shift Note Frequent safety and comfort rounds continue. Orders and nursing care completed as indicated. Pt taken to CT this am. Linens changed. Difficulty ventilating pt on vent. Dr. Hylton and RT at bedside. Dr. Burk order ativan, chest x-ray, and to turn off suction to chest tube. See physician's note. Patient monitored for response to intervention and treatment. Unable to educate pt at this time due to pt on ventilator and sedated. Patient family updated on pt care. Will continue to monitor.
[2021-05-09 18:46] LABS: ABG PCO2 45.7 mmHg (35-45); ABG PH Result 7.47 (7.35-7.45); Alveolar-Arterial Oxygen Gradi 38.4 mmHg (5-10); Arterial Blood Gas Hematocrit 36.3 % (37-47); Base Excess ABG 8.8 mmol/L (-2.0-2.0); Blood Gas Operator Identificat GD; Blood Gas Sample Site Brachial, left; Blood Gas Sample Type Arterial; Blood Gas Tidal Volume 0.37; Carboxyhemoglobin 1.3 %THgb (0.4-20.1); HCO3 ABG 33.5 mmol/L (22-26); HGB O2 Sat 94.6 % (95-100); Ionized Calcium Level - ABG 1.3 mmol/L (1.1-1.4); Methemoglobin 1.1 % (0.4-1.5); Oxygen Device VENT; PO2 ABG 77.6 mmHg (80.0-100.0); Potassium Level - ABG 3.5 mmol/L (3.5-5.0); Total Hemoglobin 11.9 g/dL (12-16)
--- NOTE | 2021-05-09 19:00 | CT_ITS ---
WS: [id number] CT HEAD NONCONTRAST HISTORY: altered mental status TECHNIQUE: Contiguous axial imaging performed through the brain in 2.5 mm imaging. Bone and soft tiss ue windows. Sagittal and coronal reformats reviewed. All CT scans at [facility] use at le ast one of these dose optimization techniques: automated exposure control; mA and/or kV adjustment pe r patient size (includes targeted exams where dose is matched to clinical indication); or iterative r econstruction. DLP: 1041.61 mGy.cm COMPARISON: 04/01/2020 No acute intracranial hemorrhage, midline shift or mass effect. No atrophy or prior infarcts or herniation. Ventricles: Normal size with no hydrocephalus. There is air noted along the RIGHT neck and also within the RIGHT retropharyngeal space at the skull base. Paranasal sinuses: Small air-fluid level LEFT maxillary sinus. Mastoid air cells: Well pneumatized. Calvarium and scalp: Skull is intact with no soft tissue edema or swelling. CT/CT head wo con* [id number] IMPRESSION: 1. No acute intracranial hemorrhage or edema. 2. Subcutaneous air along the RIGHT neck and in the RIGHT retropharyngeal spac e is new. Significant amount of subcutaneous emphysema is noted on the chest ra diograph obtained on 05/09/2021.
--- NOTE | 2021-05-09 19:00 | CT_ITS ---
WS: [id number] CT CHEST WITHOUT INTRAVENOUS CONTRAST HISTORY: pneumothorax TECHNIQUE: Contiguous 5 mm axial imaging performed on the thorax. Coronal and sagittal reformats are submitted. All CT scans at [facility] use at least one of these dose optimization techniq ues: automated exposure control; mA and/or kV adjustment per patient size (includes targeted exams wh ere dose is matched to clinical indication); or iterative reconstruction. CONTRAST: None DLP: 957.55 mGy.cm COMPARISON: None available. Patient is intubated. Endotracheal tube in good position. Nasogastric tube in good position. There is extensive bilateral groundglass attenuation and consolidations and very small bilateral pleural effu sions. Small to moderate RIGHT pneumothorax approximately 20%. There is a chest tube present with tip extending towards the RIGHT apex. There are a few loculated collections of air posteriorly in the mi d RIGHT lung and at the lingula. These may be pneumatoceles or focal small pneumothoraces. There is extensive subcutaneous emphysema over the RIGHT thorax extending posteriorly and into the ne ck. This air tracts along the soft tissues of neck. There is also a RIGHT jugular line which appears in good position. Mild prominence of the heart. No pericardial effusion. Upper abdomen: Prior cholecystectomy. Osseous structures: Thoracolumbar scoliosis. CT/CT chest wo con [id number] IMPRESSION: 1. Small to moderate RIGHT pneumothorax of approximately 20% with no tension. 2. Single right-sided chest tube is present with tip directed towards the apex . 3. Endotracheal and nasogastric tubes and RIGHT IJ line are in good positions. 4. Large amount of subcutaneous emphysema over the RIGHT chest wall extending into the neck. 5. Extensive bilateral groundglass and pulmonary consolidations consistent wit h a history of Covid 19.
--- NOTE | 2021-05-09 20:38 | P.PN_ITS ---
Subjective Subjective: Interval history: -Patient was seen multiple times at bedside today morning -Yesterday her chest tube was clamped for 12 hours and chest x-ray at 10 PM showed no residual pneumothorax, stable subcutaneous emphysema and one port of the chest tube was out. There were some thick purulent secretions noted around the site of chest tube-and patient spiking fevers?chest tube was taken out as there was no residual pneumothorax after clamping for the 12 hours; within the next 2 hours patient developed significant subcutaneous emphysema and tension pneumothorax-another chest tube was placed emergently by ED physician -Currently she is sedated and ventilated with FiO2 65% -Still significant air leak noted in the chamber -Labs and imaging reviewed Medications: Reviewed: Yes Vitals/I&O/Wt Last Vital Signs Temp 98.5 F 05/09/21 08:00 Pulse 86 05/09/21 18:00 Resp 22 H 05/09/21 17:57 BP 110/69 05/09/21 18:00 Pulse Ox 95 05/09/21 18:00 05/09/21 05/09/21 05/09/21 06:59 14:59 22:59 Intake Total 637.032 / 1691.229 656.370 / 656.370 165.922 / 822.292 Output Total 620 / 1340 1999 Balance 17.032 / 351.229 656.370 / 656.370 -1834.078 / -1177.708 Physical Exam Narrative: EXAM NARRATIVE: General: lying in bed, sedated and intubated. HEENT:NCAT, PERRLA, EOMI Neck: Supple Lungs: Bilateral diffuse crepitations, right-sided chest tube in place and sterile dressing applied but purulent secretions noted Heart: s1/s2, RRR Abd: soft, NT, ND, BS + Normoactive Extremities: No edema LIGHTHOUSE KEEPER: sedated and limited LIGHTHOUSE KEEPER exam possible. SKIN: no rash Urinary Catheter Management^: Robb: Cath Placed During This Visit: yes Reason for Continuing Indwelling Catheter: Accurate Measurement of Urinary Output in Critically Ill Patients Urinary Catheter Date of Insertion: 04/24/21 Urinary Catheter Time of Insertion: 11:55 Data : 05/10/21 03:40 05/10/21 03:40 Micro: Microbiology 05/08/21 12:38 Blood Culture - Preliminary Blood NEGATIVE TO DATE 05/08/21 12:36 Blood Culture - Preliminary Blood NEGATIVE TO DATE 05/05/21 18:30 Gram Stain - Final Sputum - Endotracheal Tube Aspirate Sputum Culture - Final A&P Assessment and plan (1) ARDS (adult respiratory distress syndrome): Status: Acute (2) Acute encephalopathy: Status: Acute (3) GERD (gastroesophageal reflux disease): Status: Chronic Qualifiers: Esophagitis presence: esophagitis presence not specified Qualified Code(s): K21.9 - Gastro-esophageal reflux disease without esophagitis (4) Acute respiratory failure with hypoxia: Status: Acute (5) Pneumonia due to COVID-19 virus: Status: Acute (6) Hypoxia: Status: Acute (7) Pneumothorax on right: Status: Acute (8) Persistent air leak: Status: Acute #Acute hypoxic respiratory failure secondary to ARDS due to COVID-19 pneumonia complicated by large right pneumothorax with persistent air leak #Possible right-sided empyema #Hypothyroidism #Hypertension -Currently intubated (04/27)and sedated with Precedex 0.7, fentanyl 75 and propofol 30 -Patient was moving her limbs but not following commands -Plan is to taper down sedation and assess mental status, if successful followed by breathing trial -CT head 05/09/2021 no acute intracranial hemorrhage or edema, subcutaneous air a long the right neck and right retropharyngeal spaces is new. -Chest CT 05/09/2021: Showed [id number] right pneumothorax of approximately 20% with no tension. single right-sided chest tube is present with tip directed towards the apex. Large amounts of subcutaneous emphysema over the right chest wall extending into the neck. Extensive bilateral GGO's and pulmonary consolidations consistent with COVID-19 -Today -patient still not following commands -Initial chest tube 05/06/2021-reinserted 05/09/2021 -Bedside ultrasound showed small left pleural effusion -On AC mode 14/370/8/60 percent -s/p 5-day remdesivir protocol and 1 dose Tocilizumab 04/24/2021 and proned 4 times -On Levophed 2 for hypotension intermittently -Echo during this admission EF 60% grade 1 diastolic dysfunction -Completed 10 days dexamethasone - Combivent every 6 hours/Advair every 12 hours -IV levothyroxine 40 mg -+4 L since admission, -Sodium 150-Free water 250 every 6 hour, renal functions are improving today -Continue tube feeding -Sugars better controlled-currently on scale coverage - MRSA, Legionella, bacterial antigens all negative -Febrile with T-max 101.9 but WBC down to 14 K -Blood cultures from 04/24 negative to date -fevers subsided today-broadened antibiotic coverage to vancomycin, imipenem - Monitor inflammatory markers - incentive spirometer, flutter valve - Lovenox for DVT prophylaxis - Protonix for GI prophylaxis - Full code - Daughter karen updated Recommendations conveyed to hospitalist, RN, RT covering the patient Attestations 2 Medical Necessity Statement*: Patient requires hospitalization for acute respiratory failure, pneumothorax for persistent air leak, pneumonia secondary to COVID-19 Time Spent in Patient Care: Greater than 35 minutes (>than 50% of time spent in counselling and/or direct pt care on unit) . Critical Care Time: The high probability of a clinically significant, sudden or life threatening deterioration of the patient's [neurologic and respiratory] system(s) required my full and direct attention, intervention and personal management. The critical care time is as shown. This time is in addition to time spent performing any reported procedures but includes the following: [x] Data and vital sign review and interpretation [x] Patient assessment, examination and intervention [x] Documentation [x] Medication orders and management Critical Care Time (min): 75 Coding Level of Care Code Acute Pheresis Nurse for [facility] Fwd Diagnoses ARDS (adult respiratory distress syndrome) J80 Acute encephalopathy G93.40 GERD (gastroesophageal reflux disease) K21.9 Esophagitis presence: esophagitis presence not specified Acute respiratory failure with hypoxia J96.01 Pneumonia due to COVID-19 virus U07.1; J12.82 Hypoxia R09.02 Pneumothorax on right J93.9 Persistent air leak
[2021-05-09 22:51] LABS: Glucose Point of Care 148 mg/dL (70-110)
--- NOTE | 2021-05-09 23:51 | PM.PN ---
Subjective Subjective: Interval history: discussed with pulmonary critical care Medications: Reviewed: Yes Vitals/I&O/Wt Last Vital Signs Temp 99 F 05/09/21 20:00 Pulse 92 05/09/21 23:47 Resp 21 H 05/09/21 23:47 BP 116/65 05/09/21 20:00 Pulse Ox 92 05/09/21 23:47 05/09/21 05/09/21 05/10/21 14:59 22:59 06:59 Intake Total 656.370 / 656.370 165.922 / 822.292 Output Total 1999 Balance 656.370 / 656.370 -1834.078 / -1177.708 Physical Exam Narrative: EXAM NARRATIVE: General : Critcally ill appearing HEENT: ET tube ChestL R sided Chest tube CVS: NSR ABD : Non distende - Robb Ext Edema Urinary Catheter Management^: Robb: Cath Placed During This Visit: yes Reason for Continuing Indwelling Catheter: Accurate Measurement of Urinary Output in Critically Ill Patients Urinary Catheter Date of Insertion: 04/24/21 Urinary Catheter Time of Insertion: 11:55 Data : 05/10/21 03:40 05/10/21 03:40 Micro: Microbiology 05/08/21 12:38 Blood Culture - Preliminary Blood NEGATIVE TO DATE 05/08/21 12:36 Blood Culture - Preliminary Blood NEGATIVE TO DATE A&P Assessment and plan (1) Pneumonia due to COVID-19 virus: Severe COVID-19 pneumonia, acute hypoxic respiratory failure, acute encephalopathy, acute respiratory distress requiring high flow oxygen Intubated 04/27/2021 Has finished her fourth session of proning Weaning sedation Pressor support wean as tolerated maintain MAP in the 65 Remdesivir initiated 04/24 Toclizumab given 04/24 Dexamethasone initiated 04/25 Combivent every 6 hours Advair every 12 hours IV levothyroxine Lasix as needed MRSA, Legionella, bacterial antigens all negative Continue Zosyn empirically, started 04/24, start azithromycin 04/27/2021 Vancomycin pharmacy to dose Blood cultures from 04/24 negative to date Echocardiogram shows EF of 60%, grade 1 out of 4 diastolic dysfunction Follow-up on CT chest -may require cardiothoracic surgery consult if empyema noted Pneumothorax -management of chest tube per Pulmonary Status: Acute (2) Acute respiratory failure with hypoxia: See above Status: Acute (3) Hypothyroidism: TSH checked and normal On home levothyroxine Status: Chronic (4) Hypertension: Home amlodipine currently held , blood pressure normal Status: Chronic (5) GERD (gastroesophageal reflux disease): Status: Chronic Qualifiers: Esophagitis presence: esophagitis presence not specified Qualified Code(s): K21.9 - Gastro-esophageal reflux disease without esophagitis (6) Chronic back pain greater than 3 months duration: Status: Chronic (7) Acute encephalopathy: Likely secondary to COVID-19, hypoxia Status: Acute Additional A&P Information DVT prophylaxis- Lovenox Attestations Medical Necessity Statement*: Require further hospitalization for management ofRespiratory failure, vent dependent Coding Level of Care Code Acute Weight Reduction Specialist for [facility] Fwd Diagnoses Pneumonia due to COVID-19 virus U07.1; J12.82 Acute respiratory failure with hypoxia J96.01 Hypothyroidism E03.9 Hypertension I10 GERD (gastroesophageal reflux disease) K21.9 Esophagitis presence: esophagitis presence not specified Chronic back pain greater than 3 months duration M54.9; G89.29 Acute encephalopathy G93.40
[2021-05-09 23:54] LABS: Vancomycin Trough 13.6 ug/mL (10-15)
[2021-05-10] VITALS (53 sets, daily range): BP systolic 71–161; BP diastolic 55–109; PULSE 78–151; RESP 18–39; TEMP 36.9–39.4; O2SAT 82–99
[2021-05-10] MEDS: vancomycin 1,250 MG/250 ML PIGGYBACK 250 MG IV ×2 (00:08→11:53)
--- NOTE | 2021-05-10 00:30 | PC.NURSE ---
Notified hospitalist engineering production liaison of increasing temp
[2021-05-10] MEDS: acetaminophen 325 mg Tablet 650 MG PO (01:31)
--- NOTE | 2021-05-10 03:16 | PC.NURSE ---
Spoke with Dr Kline about increasing temp despite efforts to decrease. Received orders for IV tylenol
[2021-05-10 03:17] LABS: Glucose Point of Care 124 mg/dL (70-110)
[2021-05-10] MEDS: propofol 1,000 MG/100 ML INJ 13.88 MG IV ×3 (03:56→16:08)
[2021-05-10] MEDS: acetaminophen 1,000 MG/100 ML PIGGYBACK 400 MG IV (03:57)
[2021-05-10 04:09] LABS: Basophils # 0.1 10^3/uL (0.0-0.1); Basophils % 0.4 %; Eosinophils # 0.1 10^3/uL (0.0-0.8); Eosinophils % 0.6 %; Hematocrit 37.5 % (37.0-47.0); Hemoglobin 11.2 g/dL (11.5-15.3); Lymphocytes # 0.8 10^3/uL (0.8-4.8); Lymphocytes % 5.7 %; Mean Corpuscular HGB Conc 29.9 g/dL (30.0-36.0); Mean Corpuscular Hemoglobin 28.5 pg (28.0-34.0); Mean Corpuscular Volume 95.4 fl (81-99); Mean Platelet Volume 11.1 fL (7.4-10.4); Monocytes # 1.3 10^3/uL (0.2-0.9); Monocytes % 9.2 %; Neutrophils # 12.09 10^3/uL (1.8-7.7); Neutrophils % 83.1 %; Nucleated Red Blood Cells % 0 %; Platelet Count 316 10^3/cmm (130-400); Red Blood Count 3.93 10^6/uL (4.1-5.3); White Blood Count 14.6 10^3/uL (4.0-10.0)
[2021-05-10 04:29] LABS: Alanine Aminotransferase 13 U/L (0-33); Albumin Level 2.7 g/dL (3.5-5.2); Alkaline Phosphatase 93 IU/L (35-105); Anion Gap 12.5 (5-19); Aspartate Amino Transferase 13 U/L (0-32); Blood Urea Nitrogen 18 mg/dL (8-23); Calcium 9.1 mg/dL (8.5-10.5); Carbon Dioxide 29 mmol/L (22-29); Chloride 108 mmol/L (98-107); Globulin 2.9 g/dL (1.3-4.6); Glomerular Filtration Rate 162.8 mL/min (90-130); Glucose 122 mg/dL (65-115); Osmolality Calculated 305 mOsm/kg (285-295); Potassium 3.5 mmol/L (3.5-5.1); Sodium 146 mmol/L (136-145); Total Bilirubin 0.5 mg/dL (0.15-1.2); Total Protein 5.6 g/dL (6.6-8.7)
--- NOTE | 2021-05-10 04:30 | PC.NURSE ---
unable to obtain cooling blanket at this time. Ice packs placed on patient
[2021-05-10] MEDS: dexmedetomidine 400 MCG in sodium chloride 0.9% (100 ml) 100 ML 14.03 MCG IV ×2 (05:00→17:23)
[2021-05-10 05:04] LABS: Procalcitonin 0.19 ng/mL (0-0.5)
--- NOTE | 2021-05-10 05:13 | PC.NURSE ---
Bath completed at this time. Wound to left buttock cleansed and dressed with a optifoam dressing. optifoam placed to right buttocks.
--- NOTE | 2021-05-10 06:42 | PC.NURSE ---
Shift Note Frequent safety and comfort rounds continue. Orders and nursing care completed as indicated. Patient monitored for response to intervention and treatments. Education provided including disease process and infection prevention. Patient continues to need reinforcement due to sedation. Will continue to monitor.
[2021-05-10] MEDS: famotidine 20 mg/2 mL INJ IVP ×2 (08:18→20:37)
[2021-05-10] MEDS: dexamethasone 10 mg/mL INJ 6 MG IVP (08:19)
--- NOTE | 2021-05-10 08:39 | PC.NURSE ---
recieved restless and agitated shacking head with any stimulus noted does occasional follow commands head of bed elevated chest tube right side to water seal leak noted drainage grayish white subq crepitis noted right upper chest fio2 on vent at 65%
[2021-05-10] MEDS: gabapentin 400 mg Capsule PO ×3 (09:39→20:37)
[2021-05-10] MEDS: levothyroxine 100 mcg SDV 40 MCG IVP (09:39)
[2021-05-10] MEDS: ipratropium-albuterol 3 mL Neb INHALATION ×4 (09:41→21:07)
[2021-05-10 10:08] LABS: Glucose Point of Care 172 mg/dL (70-110)
--- NOTE | 2021-05-10 10:23 | P.PN_ITS ---
Subjective Subjective: Interval history: - pt seen at bedside multiples times today - sedated and intubated - moves all limbs - persistent fever spikes - most recent blood cultures negative so far - still purulent secretions noted through chest tube - persistent air leaks noted; + 4L since admission - labs and imagning reviewed Vitals/I&O/Wt Last Vital Signs Temp 98.4 F 05/10/21 08:00 Pulse 80 05/10/21 08:59 Resp 25 H 05/10/21 08:53 BP 103/61 05/10/21 08:00 Pulse Ox 95 05/10/21 08:53 05/09/21 05/10/21 05/10/21 22:59 06:59 14:59 Intake Total 265.922 / 922.292 554 / 1476.292 243.491 / 243.491 Output Total 1999 970 / 2970 Balance -1734.078 / -1077.708 -416 / -1493.708 243.491 / 243.491 Physical Exam Narrative: EXAM NARRATIVE: General: lying in bed, sedated and intubated, septic appearing. HEENT:NCAT, PERRLA, EOMI Neck: Supple Lungs: Bilateral diffuse crepitations, right-sided chest tube in place and sterile dressing applied but purulent secretions noted and air leak noted under water suction Heart: s1/s2, RRR Abd: soft, NT, ND, BS + Normoactive Extremities: No edema TECHNICAL SUPERVISOR: sedated and limited TECHNICAL SUPERVISOR exam possible. SKIN: no rash Urinary Catheter Management^: Robb: Cath Placed During This Visit: yes Reason for Continuing Indwelling Catheter: Accurate Measurement of Urinary Output in Critically Ill Patients Urinary Catheter Date of Insertion: 04/24/21 Urinary Catheter Time of Insertion: 11:55 Data : 05/10/21 03:40 05/10/21 03:40 Other Labs: Laboratory Results WBC 14.6 10^3/uL (4.0-10.0) H 05/10/21 03:40 RBC 3.93 10^6/uL (4.1-5.3) L 05/10/21 03:40 Hgb 11.2 g/dL (11.5-15.3) L 05/10/21 03:40 Hct 37.5 % (37.0-47.0) 05/10/21 03:40 MCV 95.4 fl (81-99) 05/10/21 03:40 MCH 28.5 pg (28.0-34.0) 05/10/21 03:40 MCHC 29.9 g/dL (30.0-36.0) L 05/10/21 03:40 RDW 14.0 % (12.1-15.1) 05/10/21 03:40 Plt Count 316 10^3/cmm (130-400) 05/10/21 03:40 MPV 11.1 fL (7.4-10.4) H 05/10/21 03:40 Neut % (Auto) 83.1 % 05/10/21 03:40 Lymph % (Auto) 5.7 % 05/10/21 03:40 [place] % (Auto) 9.2 % 05/10/21 03:40 Eos % (Auto) 0.6 % 05/10/21 03:40 Baso % (Auto) 0.4 % 05/10/21 03:40 Neut # (Auto) 12.09 10^3/uL (1.8-7.7) H 05/10/21 03:40 Lymph # (Auto) 0.8 10^3/uL (0.8-4.8) 05/10/21 03:40 [place] # (Auto) 1.3 10^3/uL (0.2-0.9) H 05/10/21 03:40 Eos # (Auto) 0.1 10^3/uL (0.0-0.8) 05/10/21 03:40 Baso # (Auto) 0.1 10^3/uL (0.0-0.1) 05/10/21 03:40 Nucleated RBC % (auto) 0 % 05/10/21 03:40 Nucleated RBCs # 0.0 /100WBC 05/10/21 03:40 PT 14.70 SECONDS (12.1-14.9) 04/30/21 05:25 INR 1.12 (0.8-1.2) 04/30/21 05:25 APTT 26.2 SECONDS (23.9-36.7) 04/24/21 07:55 Fibrinogen 497 mg/dL (174-498) 04/24/21 07:55 D-Dimer 19.94 ug/mIFEU (0-0.59) H 04/29/21 05:55 Specimen Type Arterial 05/10/21 13:53 Sample Site Brachial, right 05/10/21 13:53 ABG pH 7.39 (7.35-7.45) 05/10/21 13:53 ABG pCO2 52.5 mmHg (35-45) H 05/10/21 13:53 ABG pO2 65.7 mmHg (80.0-100.0) L 05/10/21 13:53 ABG HCO3 32.0 mmol/L (22-26) H 05/10/21 13:53 ABG O2 Saturation 93.7 05/10/21 13:53 ABG Base Excess 6.0 mmol/L (-2.0-2.0) H 05/10/21 13:53 Dejan Test N/a 05/10/21 13:53 A-a O2 Gradient 39.2 mmHg (5-10) H 05/10/21 13:53 Hematocrit 34.6 % (37-47) L 05/10/21 13:53 Hgb O2 Saturation 91.5 % (95-100) L 05/10/21 13:53 Carboxyhemoglobin 1.4 %THgb (0.4-20.1) 05/10/21 13:53 Methemoglobin 1.0 % (0.4-1.5) 05/10/21 13:53 Total Hemoglobin 11.3 g/dL (12-16) L 05/10/21 13:53 Sodium 149.0 mmol/L (131-143) H 05/10/21 13:53 Potassium 3.4 mmol/L (3.5-5.0) L 05/10/21 13:53 Glucose 190.0 mg/dL (70-115) H 05/10/21 13:53 Ionized Calcium 1.4 mmol/L (1.1-1.4) 05/10/21 13:53 O2 Delivery Device Vent 05/10/21 13:53 O2 Liters/Min 50.0 % 04/24/21 06:25 FiO2 60.0 % 05/10/21 13:53 Tidal Volume 0.37 05/10/21 13:53 PEEP 8.0 cmH20 05/10/21 13:53 Specialist Wound Care ID Jn 05/10/21 13:53 Sodium 146 mmol/L (136-145) H 05/10/21 03:40 Potassium 3.5 mmol/L (3.5-5.1) 05/10/21 03:40 Chloride 108 mmol/L (98-107) H 05/10/21 03:40 Carbon Dioxide 29 mmol/L (22-29) 05/10/21 03:40 Anion Gap 12.5 (5-19) 05/10/21 03:40 BUN 18 mg/dL (8-23) 05/10/21 03:40 Creatinine 0.4 mg/dL (0.5-0.9) L 05/10/21 03:40 GFR Calculation 162.8 mL/min (90-130) H 05/10/21 03:40 Glucose 122 mg/dL (65-115) H 05/10/21 03:40 POC Glucose 169 mg/dL (70-110) H 05/10/21 14:34 Calculated Osmolality 305 mOsm/kg (285-295) H 05/10/21 03:40 Lactic Acid 1.6 mmol/L (0.5-2.2) 04/24/21 07:45 Lactate 2.5 mmol/L (0.5-2.2) H 04/29/21 05:55 Calcium 9.1 mg/dL (8.5-10.5) 05/10/21 03:40 Phosphorus 3.1 mg/dL (2.5-4.5) 05/04/21 03:49 Magnesium 2.2 mg/dL (1.7-2.3) 05/04/21 03:49 Ferritin 335 ng/mL (15-150) H 05/09/21 05:43 Total Bilirubin 0.5 mg/dL (0.15-1.2) 05/10/21 03:40 AST 13 U/L (0-32) 05/10/21 03:40 ALT 13 U/L (0-33) 05/10/21 03:40 Alkaline Phosphatase 93 IU/L (35-105) 05/10/21 03:40 Lactate Dehydrogenase 720 U/L (135-214) H 04/24/21 07:45 Creatine Kinase 226 U/L (26-192) H 04/29/21 05:55 Troponin T Gen 5 ng/L 13 ng/L (0-10) H 04/24/21 08:05 C-Reactive Protein 89.2 mg/L (0.0-4.9) H 05/09/21 05:43 NT-Pro-B Natriuret Pep 819 pg/mL (0-125) H 04/29/21 05:55 Total Protein 5.6 g/dL (6.6-8.7) L 05/10/21 03:40 Albumin 2.7 g/dL (3.5-5.2) L 05/10/21 03:40 Globulin 2.9 g/dL (1.3-4.6) 05/10/21 03:40 Triglycerides 763 mg/dL (0-150) H 05/02/21 05:51 LDL Cholesterol Direct 39 mg/dL (0-100) 05/02/21 05:51 Interleukin 6 27.80 pg/mL (<5.00) H 04/24/21 07:45 Procalcitonin 0.19 ng/mL (0-0.5) 05/10/21 03:40 TSH 0.53 uIU/mL (0.27-4.20) 04/24/21 07:45 Urine Color Yellow (Yellow) 04/24/21 17:24 Urine Appearance Clear (CLEAR) 04/24/21 17:24 Urine pH 5 (5-7) 04/24/21 17:24 Ur Specific [place] 1.020 (1.005-1.030) 04/24/21 17:24 Urine Protein 1+ (Negative) H 04/24/21 17:24 Urine Glucose (UA) Norm (Normal) 04/24/21 17:24 Urine Ketones Negative (Negative) 04/24/21 17:24 Urine Blood 3+ (Negative) H 04/24/21 17:24 Urine Nitrate Negative (Negative) 04/24/21 17:24 Urine Bilirubin Neg (Negative) 04/24/21 17:24 Urine Urobilinogen 4 mg/dL (Negative) H 04/24/21 17:24 Ur Leukocyte Esterase Negative (Negative) 04/24/21 17:24 Urine RBC 50-80 /hpf (0-2) H 04/24/21 17:24 Urine WBC 0-4 /hpf (0-5) H 04/24/21 17:24 Ur Squamous Epith Cells 0-4 /hpf (0-5) H 04/24/21 17:24 Amorphous Sediment Not Reportable 04/24/21 17:24 Urine Bacteria Trace /hpf (NONE) 04/24/21 17:24 Vancomycin Trough 13.6 ug/mL (10-15) 05/09/21 23:11 Hepatitis A IgM Ab Non-reactive (Nonreactive) 04/24/21 07:45 Hep Bs Antigen Non-reactive (Nonreactive) 04/24/21 07:45 Hep B Core IgM Ab Non-reactive (Nonreactive) 04/24/21 07:45 Hepatitis C Antibody Non-reactive (Nonreactive) 04/24/21 07:45 Influenza Type A Ag Negative (Negative) 04/24/21 06:46 Influenza Type B Ag Negative (Negative) 04/24/21 06:46 Impressions Chest X-Ray 05/09/21 16:25 IMPRESSION: No significant change from comparison. Chest CT 05/09/21 19:00 IMPRESSION: 1. Small to moderate RIGHT pneumothorax of approximately 20% with no tension. 2. Single right-sided chest tube is present with tip directed towards the apex. 3. Endotracheal and nasogastric tubes and RIGHT IJ line are in good positions. 4. Large amount of subcutaneous emphysema over the RIGHT chest wall extending into the neck. 5. Extensive bilateral groundglass and pulmonary consolidations consistent with a history of Covid 19. Head CT 05/09/21 19:00 IMPRESSION: 1. No acute intracranial hemorrhage or edema. 2. Subcutaneous air along the RIGHT neck and in the RIGHT retropharyngeal space is new. Significant amount of subcutaneous emphysema is noted on the chest ra diograph obtained on 05/09/2021. Micro: Microbiology 05/08/21 12:38 Blood Culture - Preliminary Blood NEGATIVE TO DATE 05/08/21 12:36 Blood Culture - Preliminary Blood NEGATIVE TO DATE A&P Assessment and plan (1) ARDS (adult respiratory distress syndrome): Status: Acute (2) Acute encephalopathy: Status: Acute (3) GERD (gastroesophageal reflux disease): Status: Chronic Qualifiers: Esophagitis presence: esophagitis presence not specified Qualified Code(s): K21.9 - Gastro-esophageal reflux disease without esophagitis (4) Acute respiratory failure with hypoxia: Status: Acute (5) Pneumonia due to COVID-19 virus: Status: Acute (6) Hypoxia: Status: Acute (7) Pneumothorax on right: Status: Acute (8) Persistent air leak: Status: Acute (9) Empyema lung: Status: Acute #Acute hypoxic respiratory failure secondary to ARDS due to COVID-19 pneumonia complicated by large right pneumothorax with persistent air leak #Possible right-sided empyema #Hypothyroidism #Hypertension -Currently intubated (04/27)and sedated with Precedex 0.7, fentanyl 75 and propofol 30 -Patient was moving her limbs but not following commands -Plan is to taper down sedation and assess mental status, if successful followed by breathing trial - CMV 60%/370/8 - 7.39/52/65/32/93 % saturation -CT head 05/09/2021 no acute intracranial hemorrhage or edema, subcutaneous air along the right neck and right retropharyngeal spaces is new. -Chest CT 05/09/2021: Showed gaiow-fk-[id number] right pneumothorax of approximately 20% with no tension. single right-sided chest tube is present with tip directed towards the apex. Large amounts of subcutaneous emphysema over the right chest wall extending into the neck. Extensive bilateral GGO's a nd pulmonary consolidations consistent with COVID-19 -Today -patient still not following commands -Initial chest tube 05/06/2021-reinserted 05/09/2021 -Bedside ultrasound showed small left pleural effusion -On AC mode 14/370/8/60 percent -s/p 5-day remdesivir protocol and 1 dose Tocilizumab 04/24/2021 and proned 4 times -On Levophed 2 for hypotension intermittently -Echo during this admission EF 60% grade 1 diastolic dysfunction -Completed 10 days dexamethasone - Combivent every 6 hours/Advair every 12 hours -IV levothyroxine 40 mg -+4 L since admission, -Sodium 150-Free water 250 every 6 hour, renal functions are improving today -Continue tube feeding -Sugars better controlled-currently on scale coverage - MRSA, Legionella, bacterial antigens all negative -Febrile with T-max 101.9 but WBC down to 14 K -Blood cultures from 04/24 negative to date; 05/08 pending -on vancomycin, imipenem for possible empyema - Monitor inflammatory markers - Lovenox for DVT prophylaxis - Protonix for GI prophylaxis - Full code - Daughter karen updated Recommendations conveyed to hospitalist, RN, RT covering the patient Attestations Medical Necessity Statement*: Patient requires hospitalization for acute respiratory failure, pneumothorax for persistent air leak, pneumonia secondary to COVID-19 Time Spent in Patient Care: Greater than 35 minutes (>than 50% of time spent in counselling and/or direct pt care on unit) . Critical Care Time: The high probability of a clinically significant, sudden or life threatening deterioration of the patient's [neurologic and respiratory] system(s) required my full and direct attention, intervention and personal management. The critical care time is as shown. This time is in addition to time spent performing any reported procedures but includes the following: [x] Data and vital sign review and interpretation [x] Patient assessment, examination and intervention [x] Documentation [x] Medication orders and management Critical Care Time (min): 45 Coding Level of Care Code Established Pt Acute Process Safety Management Engineer for [facility] Patient Type Established History Comprehensive Exam Comprehensive Medical Decision Making High Complexity Diagnoses ARDS (adult respiratory distress syndrome) J80 Acute encephalopathy G93.40 GERD (gastroesophageal reflux disease) K21.9 Esophagitis presence: esophagitis presence not specified Acute respiratory failure with hypoxia J96.01 Pneumonia due to COVID-19 virus U07.1; J12.82 Hypoxia R09.02 Pneumothorax on right J93.9 Persistent air leak Empyema lung J86.9 Time Spent (min) 45
[2021-05-10] MEDS: LORazepam 2 mg/mL INJ 1 mL 1 MG IVP ×3 (10:53→18:44)
--- NOTE | 2021-05-10 10:53 | PC.NURSE ---
Ativan PRN Due to increased agitation, Ativan prn given at this time.
--- NOTE | 2021-05-10 12:41 | PC.NURSE ---
Position Patient left in side-lying left position to facilitate chest tube drainage and relieve pressure off of backside. Additional wedge placed.
[2021-05-10 14:10] LABS: ABG PCO2 52.5 mmHg (35-45); ABG PH Result 7.39 (7.35-7.45); Alveolar-Arterial Oxygen Gradi 39.2 mmHg (5-10); Arterial Blood Gas Hematocrit 34.6 % (37-47); Blood Gas Sample Site Brachial, right; Blood Gas Sample Type Arterial; Blood Gas Tidal Volume 0.37; Carboxyhemoglobin 1.4 %THgb (0.4-20.1); HGB O2 Sat 91.5 % (95-100); Ionized Calcium Level - ABG 1.4 mmol/L (1.1-1.4); Oxygen Device VENT; Oxygen Saturation ABG 93.7; PO2 ABG 65.7 mmHg (80.0-100.0); Potassium Level - ABG 3.4 mmol/L (3.5-5.0); Total Hemoglobin 11.3 g/dL (12-16)
[2021-05-10 14:39] LABS: Glucose Point of Care 169 mg/dL (70-110)
--- NOTE | 2021-05-10 14:56 | PC.NURSE ---
Ativan patient noted to be moving head and extremities in an agitated manner. Ativan PRN administered per orders. Will continue to monitor.
--- NOTE | 2021-05-10 15:10 | PC.NURSE ---
Position Patient remains in side-lying position to relieve further pressure off of coccyx and facilitate draining of the chest tube. Airway remains secure.
--- NOTE | 2021-05-10 16:58 | PC.NURSE ---
used i pad to talk with daughter so was able to status of mother ..
[2021-05-10] MEDS: enoxaparin 40 mg/0.4 mL Syringe SUBCUT (17:49)
--- NOTE | 2021-05-10 19:03 | PC.NURSE ---
Anxiety Patient found to be moving her head and lower extremities in an agitated manner; ativan 1 mg given per PRN order.
--- NOTE | 2021-05-10 19:08 | PC.NURSE ---
Shift Note Frequent safety and comfort rounds continue. Orders and/or nursing care completed as indicated. Patient monitored for response to intervention and treatment(s). Education provided includes[]. Patient unable to comprehend at this time. Will continue to monitor.
[2021-05-10 20:14] LABS: Glucose Point of Care 195 mg/dL (70-110)
--- NOTE | 2021-05-10 21:08 | XRR_ITS ---
PROCEDURE INFORMATION: Exam: XR Chest Exam date and time: 05/10/2021 9:08 PM Age: 60 years old Clinical indication: Shortness of breath; Prior surgery; Surgery type: Stimulator. RT side chest tube. ; Patient HX: Sudden decrease in 02 sats. Multiple episodes of RT side pneumothorax while in icu. ; Additional info: Resp distress TECHNIQUE: Imaging protocol: XR of the chest. Views: 1 view. COMPARISON: CR XR chest 1V portable [id number] 05/09/2021 4:35 PM FINDINGS: Tubes, catheters and devices: The right pleural drain is retracted slightly compared with prior. Endotracheal tube in the midtrachea. Right neck central venous catheter terminates in the mid SVC. Enteric tube in the stomach. A thoracic epidural stimulator device is unchanged in position. Lungs: Emphysema of the right lateral chest wall. Diffuse opacities of the right lung. Volume loss of the right lung. The left lung is compressed. Pleural spaces: There is a massive pneumothorax of the left chest which is new from prior. Heart/Mediastinum: There is rightward mediastinal shift. Bones/joints: Unremarkable. XR/XR chest 1V [id number] IMPRESSION: Massive left-sided tension pneumothorax.
--- NOTE | 2021-05-10 21:48 | XRR_ITS ---
PROCEDURE INFORMATION: Exam: XR Chest Exam date and time: 05/10/2021 9:48 PM Age: 60 years old Clinical indication: Device placement; Prior surgery; Surgery type: RT side chest tube. Stimulator; Patient HX: Check S/P lt chest tube placement TECHNIQUE: Imaging protocol: XR of the chest. Views: 1 view. COMPARISON: CR (CHEST, ) 05/10/2021 9:09 PM FINDINGS: Tubes, catheters and devices: There is placement of a left-sided pleural drainage catheter. Right pleural drain position is unchanged. Mid trachea positioning of endotracheal tube. Enteric tube in the stomach. Central venous catheter in the mid SVC. Thoracic epidural stimulator device noted. Lungs: There is a small degree of re-expansion of the left lung. Opacities throughout right lung are unchanged. Pleural spaces: A very large left pneumothorax persists. There may be a small residual right apical pneumothorax. Heart/Mediastinum: Grossly unremarkable cardiomediastinal borders. Bones/joints: There is a mild degree of white rib mediastinal shift although somewhat improved from the comparison. Right shoulder arthroplasty. Severe degenerative joint changes of left shoulder. Soft tissues: Soft tissue emphysema bilaterally in the chest wall. XR/XR chest 1V portable [id number] IMPRESSION: 1. Placement of a left pleural drainage catheter with unremarkable radiographic positioning. 2. A large left-sided pneumothorax persists, although slightly smaller in volume than before the tube placement. 3. There is slight re-expansion of the left lung compared with prior.
[2021-05-10] MEDS: lidocaine 1% INJ 20 mL INJECTION (22:14)
--- NOTE | 2021-05-10 22:30 | PC.NURSE ---
procedure note Dr. kline notified of decreased sats, BP, and increased tachycardia. Levophed started and quickly increased to 12 mcg. stat chest xray obtained. large left pneumo noted. Dr. kline notified [phone]- dr kline at bedside. on the phone with daughter who wants to procede with chest tube placement Dr. Sandy called [phone]- Dr. Sandy at bedside for left chest tube placement. Time out performed Chest tube placed and maintained at water seal at this time. immediate output of purulent drainage repeat chest tube obtained for confirmation [phone]- daughter arrived at this time. Dr. Kline in waiting room with daughter.
--- NOTE | 2021-05-10 23:00 | PM.CCN ---
Critical Care Time Critical Care Time: Code activated: No Critical Care Time (min): 0 Procedures Chest Tube^ Chest Tube 1: Chest tube location: Mid-Axillary Chest Chest tube procedure: Yes betadine prep and sterile drapes applied Tube sutured to skin: Yes Sterile dressing applied: Yes Anesthesia: 1% Lidocaine Volume anesthetic (ml): 6 Incision made with: #10 blade Post procedure: sutured to skin Pack of air heard: Yes Tube Drainage: fluid Amount of initial drainage (ml): 20 Post procedure CXR?: Yes Patient tolerated procedure: Yes Progress: Called from ER due to tension pneumothorax with need for chest tube placement. Patient was on the ventilator, so tube with waterseal Pleur-evac as opposed to thoracic vent was suggested by critical care. Placed without complication. Repeat chest x-ray shows improvement in pneumothorax from near full pneumothorax to 50 to 60% immediately following. Coding Level of Care Code Acute Political Science Faculty Member for Scott Smith
--- NOTE | 2021-05-10 23:31 | PC.NURSE ---
2300 used IPAD to video with nikkita and patient at this time. recent events discussed
--- NOTE | 2021-05-10 23:32 | PC.NURSE ---
Sister shar at bedside events over night discussed. She is considering DNR vs comfort care measures
[2021-05-11] VITALS (71 sets, daily range): BP systolic 69–139; BP diastolic 51–97; PULSE 86–138; RESP 20–45; TEMP 37.3–39.1; O2SAT 86–100
[2021-05-11] MEDS: vancomycin 1,250 MG/250 ML PIGGYBACK 250 MG IV ×2 (00:53→11:31)
--- NOTE | 2021-05-11 01:10 | P.EN_ITS ---
Event Note Event Note: at ~9 Pm today patient started desaturating, HR climbed to 160s sinus rhythm with associated BP drop needing levophed 12. Stat CXR revealed left sided tension pneumothorax. Left sided chest tube was placed by Dr. Sandy emergently with noted partial re expansion. Chest tube connected to suction. Vit als stabilized after placement of chest tube. Off levophed, 02 sat improved to 88-90%, tachycardia improved at 110-120 bpm. Patient's family updated about acute events. Requested to see patient tonight and have a GOC discussion. 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 Family wishes to continue current level ICU care, however agreeable to changing code status to limited resuscitation with NO CHEST COMPRESSIONS as the latter is unlikely to contribute to meaningful recovery and will precipitate further chest wall trauma. They wish to continue all medical management as appropriate including use of pressors for now. Dr. Burk updated regarding acute overnight events.
--- NOTE | 2021-05-11 02:00 | PC.NURSE ---
bath and linen change completed right CT dressing reinforced left chest tube dressing reinforced optifoam x2 applied to buttocks
[2021-05-11 03:08] LABS: Glucose Point of Care 161 mg/dL (70-110)
[2021-05-11 04:12] LABS: Basophils # 0.2 10^3/uL (0.0-0.1); Basophils % 0.8 %; Hematocrit 39.8 % (37.0-47.0); Lymphocytes % 4.8 %; Mean Corpuscular HGB Conc 30.2 g/dL (30.0-36.0); Mean Corpuscular Hemoglobin 28.6 pg (28.0-34.0); Mean Platelet Volume 11.1 fL (7.4-10.4); Monocytes # 1.1 10^3/uL (0.2-0.9); Monocytes % 5.2 %; Neutrophils # 17.76 10^3/uL (1.8-7.7); Neutrophils % 88.2 %; Nucleated Red Blood Cells % 0 %; Platelet Count 379 10^3/cmm (130-400); Red Blood Count 4.19 10^6/uL (4.1-5.3); Red Cell Distribution Width 13.9 % (12.1-15.1); White Blood Count 20.2 10^3/uL (4.0-10.0)
[2021-05-11 04:27] LABS: Alanine Aminotransferase 18 U/L (0-33); Albumin Level 2.5 g/dL (3.5-5.2); Alkaline Phosphatase 103 IU/L (35-105); Anion Gap 11.8 (5-19); Aspartate Amino Transferase 31 U/L (0-32); Blood Urea Nitrogen 23 mg/dL (8-23); Calcium 9.4 mg/dL (8.5-10.5); Carbon Dioxide 28 mmol/L (22-29); Chloride 110 mmol/L (98-107); Globulin 2.9 g/dL (1.3-4.6); Glomerular Filtration Rate 125.9 mL/min (90-130); Glucose 150 mg/dL (65-115); Osmolality Calculated 309 mOsm/kg (285-295); Potassium 3.8 mmol/L (3.5-5.1); Sodium 146 mmol/L (136-145); Total Bilirubin 0.5 mg/dL (0.15-1.2); Total Protein 5.4 g/dL (6.6-8.7)
[2021-05-11 04:30] LABS: Procalcitonin 3.97 ng/mL (0-0.5)
[2021-05-11] MEDS: dexmedetomidine 400 MCG in sodium chloride 0.9% (100 ml) 100 ML 6.02 MCG IV ×2 (04:45→17:18)
[2021-05-11 04:55] LABS: Slide Review Slide Review Perform
[2021-05-11] MEDS: propofol 1,000 MG/100 ML INJ 11.57 MG IV ×2 (05:48→17:17)
[2021-05-11 05:53] LABS: Blood Gas Allen Test Pos; Blood Gas Sample Type Arterial
[2021-05-11 05:58] LABS: Blood Gas Sample Site Radial, left; Blood Gas Tidal Volume 0.37
[2021-05-11 05:59] LABS: ABG PCO2 58.5 mmHg (35-45); ABG PH Result 7.33 (7.35-7.45); Arterial Blood Gas Hematocrit 40.4 % (37-47); Base Excess ABG 3.5 mmol/L (-2.0-2.0); HCO3 ABG 30.9 mmol/L (22-26)
[2021-05-11 06:00] LABS: Oxygen Device VENT
--- NOTE | 2021-05-11 06:21 | PC.NURSE ---
Shift Note Frequent safety and comfort rounds continue. Orders and nursing care completed as indicated. Patient monitored for response to intervention and treatments. Education provided including ventilator management and chest tube therapy. Patients daughter shar verbalizes understanding. Will continue to monitor.
--- NOTE | 2021-05-11 07:00 | XRR_ITS ---
PROCEDURE INFORMATION: Exam: XR Chest Exam date and time: 05/11/2021 7:00 AM Age: 60 years old Clinical indication: Shortness of breath; Additional info: Respiratory failure TECHNIQUE: Imaging protocol: XR of the chest. Views: 1 view. Total images: 1 COMPARISON: CR (CHEST, ) 05/10/2021 9:50 PM FINDINGS: Tubes, catheters and devices: Intraspinal nerve stimulator electrodes noted. Left chest tube has been repositioned laterally. Tubes and catheters are otherwise unchanged from the prior exam. Lungs: Stable right pleuroparenchymal disease. Left pulmonary opacity is again noted and has shown interval worsening from the prior exam. Pleural spaces: Improved left pneumothorax. No pneumothorax. Heart/Mediastinum: Unremarkable. No cardiomegaly. Bones/joints: Right shoulder arthroplasty. Osseous structures are unchanged from the prior exam. Soft tissues: Subcutaneous emphysema in the chest wall is again noted and appears unchanged. XR/XR chest 1V portable [id number] IMPRESSION: 1. Left chest tube has been repositioned laterally. Tubes and catheters are otherwise unchanged from the prior exam. 2. Improved left pneumothorax. 3. Stable right pleuroparenchymal disease. 4. Left pulmonary opacity is again noted and has shown interval worsening from the prior exam.
[2021-05-11] MEDS: dexamethasone 10 mg/mL INJ 3 MG IVP (07:24)
[2021-05-11] MEDS: famotidine 20 mg/2 mL INJ IVP ×2 (07:25→20:58)
[2021-05-11] MEDS: gabapentin 400 mg Capsule PO ×3 (08:01→20:58)
[2021-05-11] MEDS: levothyroxine 100 mcg SDV 40 MCG IVP (08:01)
[2021-05-11] MEDS: ipratropium-albuterol 3 mL Neb INHALATION ×4 (08:54→19:59)
[2021-05-11 11:02] LABS: ABG PCO2 54.4 mmHg (35-45); ABG PH Result 7.37 (7.35-7.45); Alveolar-Arterial Oxygen Gradi 67.9 mmHg (5-10); Arterial Blood Gas Hematocrit 39.6 % (37-47); Base Excess ABG 4.4 mmol/L (-2.0-2.0); Blood Gas Allen Test Pos; Blood Gas Operator Identificat CAK; Blood Gas Sample Site Radial, right; Blood Gas Sample Type Arterial; Carboxyhemoglobin 0.9 %THgb (0.4-20.1); HCO3 ABG 31.1 mmol/L (22-26); HGB O2 Sat 97.3 % (95-100); Ionized Calcium Level - ABG 1.3 mmol/L (1.1-1.4); Methemoglobin 1.1 % (0.4-1.5); Oxygen Device VENT; Oxygen Saturation ABG 99.3; Potassium Level - ABG 3.6 mmol/L (3.5-5.0); Total Hemoglobin 12.9 g/dL (12-16)
--- NOTE | 2021-05-11 11:24 | PC.NURSE ---
0730- recd. with eyes open. fentanyl on hold for new bag. rolling head side to side. febrile.
--- NOTE | 2021-05-11 11:28 | PC.NURSE ---
remainsfebrile but temp going down. fans on in room and ice lorraine to groin and left neck.
--- NOTE | 2021-05-11 12:42 | PC.SOCIAL ---
IMM not updated IMM not updated. Patient is still intubated and not expected to D/c in the next 24-48 hours.
[2021-05-11] MEDS: acetaminophen 325 mg Tablet 650 MG PO ×2 (15:10→21:21)
--- NOTE | 2021-05-11 15:35 | PC.NURSE ---
1530-temp up again. tylenol given.fans on in room.
[2021-05-11 16:09] LABS: Glucose Point of Care 155 mg/dL (70-110)
[2021-05-11 16:09] LABS: Glucose Point of Care 155 mg/dL (70-110)
[2021-05-11 16:09] LABS: Glucose Point of Care 147 mg/dL (70-110)
[2021-05-11] MEDS: enoxaparin 40 mg/0.4 mL Syringe SUBCUT (17:17)
--- NOTE | 2021-05-11 18:30 | PC.NURSE ---
ELEATED TEMP. THROUGHOUT DAY, AFFECTED VERY LITTLE WITH TYLENOL. FANS AND COOL CLOTHS applied.
--- NOTE | 2021-05-11 18:54 | P.PN_ITS ---
Subjective Subjective: Interval history: Overnight patient was noted to again have a pneumothorax. Left-sided chest tube was placed. Continued to have fevers with a T-max of a 102. Medications: Reviewed: Yes Vitals/I&O/Wt Last Vital Signs Temp 102.4 F H 05/11/21 17:00 Pulse 117 H 05/11/21 17:00 Resp 32 H 05/11/21 18:36 BP 104/70 05/11/21 17:00 Pulse Ox 97 05/11/21 18:36 05/11/21 05/11/21 05/11/21 06:59 14:59 22:59 Intake Total 186.556 / 1348.046 550 / 550 525.551 / 1075.551 Output Total 750 / 1545 600 / 600 Balance -563.444 / -196.954 550 / 550 -74.449 / 475.551 Physical Exam Narrative: EXAM NARRATIVE: General : Critcally ill appearing HEENT: ET tube ChestL b/l sided Chest tube CVS: NSR ABD : Non distende - Robb Ext Edema Urinary Catheter Management^: Robb: Cath Placed During This Visit: yes Reason for Continuing Indwelling Catheter: Accurate Measurement of Urinary Output in Critically Ill Patients Urinary Catheter Date of Insertion: 04/24/21 Urinary Catheter Time of Insertion: 11:55 Data : 05/11/21 03:30 05/11/21 03:30 Micro: Microbiology 05/11/21 08:50 Gram Stain - Final Sputum - Endotracheal Tube Aspirate 05/11/21 Unknown Blood Culture - Preliminary Blood SPECIMEN COLLECTED 05/11/21 Unknown Blood Culture - Preliminary Blood SPECIMEN COLLECTED A&P Assessment and plan (1) Pneumonia due to COVID-19 virus: Severe COVID-19 pneumonia, acute hypoxic respiratory failure, acute encephalopathy, acute respiratory distress requiring high flow oxygen Intubated 04/27/2021 Has finished her fourth session of proning Weaning sedation Pressor support wean as tolerated maintain MAP in the 65 Remdesivir initiated 04/24 Toclizumab given 04/24 Dexamethasone initiated 04/25 Combivent every 6 hours Advair every 12 hours IV levothyroxine Lasix as needed MRSA, Legionella, bacterial antigens all negative Continue Zosyn empirically, started 04/24, start azithromycin 04/27/2021 Vancomycin pharmacy to dose Blood cultures from 04/24 negative to date Echocardiogram shows EF of 60%, grade 1 out of 4 diastolic dysfunction Follow-up on CT chest -may require cardiothoracic surgery consult if empyema noted Pneumothorax -management of chest tube per Pulmonary Status: Acute (2) Acute respiratory failure with hypoxia: See above Status: Acute (3) Hypothyroidism: TSH checked and normal On home levothyroxine Status: Chronic (4) Hypertension: Home amlodipine currently held , blood pressure normal Status: Chronic (5) GERD (gastroesophageal reflux disease): Status: Chronic Qualifiers: Esophagitis presence: esophagitis presence not specified Qualified Code(s): K21.9 - Gastro-esophageal reflux disease without esophagitis (6) Chronic back pain greater than 3 months duration: Status: Chronic (7) Acute encephalopathy: Likely secondary to COVID-19, hypoxia Status: Acute (8) Empyema lung: Status: Acute (9) Persistent air leak: Status: Acute (10) Pneumothorax on right: chest tube in place Status: Acute (11) Pneumothorax on left: chest tube in place Status: Acute Additional A&P Information DVT prophylaxis- Lovenox Attestations Medical Necessity Statement*: continue management of critically ill patient with bilateral pneumothorax requiring mechanical ventilation Time Spent in Patient Care: Greater than 35 minutes (>than 50% of time spent in counselling and/or direct pt care on unit) . Critical Care Time: Critical Care Time (min): 45 Coding Level of Care Code Acute Tumbling Instructor for Chg Fwd Diagnoses Pneumonia due to COVID-19 virus U07.1; J12.82 Acute respiratory failure with hypoxia J96.01 Hypothyroidism E03.9 Hypertension I10 GERD (gastroesophageal reflux disease) K21.9 Esophagitis presence: esophagitis presence not specified Chronic back pain greater than 3 months duration M54.9; G89.29 Acute encephalopathy G93.40 Empyema lung J86.9 Persistent air leak Pneumothorax on right J93.9 Pneumothorax on left J93.9
--- NOTE | 2021-05-11 19:06 | P.PN_ITS ---
Subjective Subjective: Interval history: -Patient seen at bedside today morning - Overnight she developed new left tension pneumothorax for which chest tube was placed -Persistent fevers -Purulent drainage through left chest tube during insertion as per ED physician -Patient placed on PCV with PIP 100% -Labs and imaging reviewed Medications: Reviewed: Yes Vitals/I&O/Wt Last Vital Signs Temp 102.4 F H 05/11/21 17:00 Pulse 117 H 05/11/21 17:00 Resp 32 H 05/11/21 18:36 BP 104/70 05/11/21 17:00 Pulse Ox 97 05/11/21 18:36 05/11/21 05/11/21 05/11/21 06:59 14:59 22:59 Intake Total 186.556 / 1348.046 550 / 550 525.551 / 1075.551 Output Total 750 / 1545 600 / 600 Balance -563.444 / -196.954 550 / 550 -74.449 / 475.551 Physical Exam 2 Narrative: EXAM NARRATIVE: General: lying in bed, sedated and intubated, septic appearing. HEENT:NCAT, PERRLA, EOMI Neck: Supple Lungs: Bilateral diffuse crepitations, right-sided chest tube in place and sterile dressing applied but purulent secretions noted and air leak noted under water seal; new left-sided chest tube connected to low suction Heart: s1/s2, RRR Abd: soft, NT, ND, BS + Normoactive Extremities: No edema STAFF PHARMACIST: sedated and limited STAFF PHARMACIST exam possible. SKIN: no rash Urinary Catheter Management^: Orbb: Cath Placed During This Visit: yes Reason for Continuing Indwelling Catheter: Accurate Measurement of Urinary Output in Critically Ill Patients Urinary Catheter Date of Insertion: 04/24/21 Urinary Catheter Time of Insertion: 11:55 Data : 05/11/21 03:30 05/11/21 03:30 Other Labs: Laboratory Results WBC 20.2 10^3/uL (4.0-10.0) H 05/11/21 03:30 RBC 4.19 10^6/uL (4.1-5.3) 05/11/21 03:30 Hgb 12.0 g/dL (11.5-15.3) 05/11/21 03:30 Hct 39.8 % (37.0-47.0) 05/11/21 03:30 MCV 95.0 fl (81-99) 05/11/21 03:30 MCH 28.6 pg (28.0-34.0) 05/11/21 03:30 MCHC 30.2 g/dL (30.0-36.0) 05/11/21 03:30 RDW 13.9 % (12.1-15.1) 05/11/21 03:30 Plt Count 379 10^3/cmm (130-400) 05/11/21 03:30 MPV 11.1 fL (7.4-10.4) H 05/11/21 03:30 Neut % (Auto) 88.2 % 05/11/21 03:30 Lymph % (Auto) 4.8 % 05/11/21 03:30 [place] % (Auto) 5.2 % 05/11/21 03:30 Eos % (Auto) 0.0 % 05/11/21 03:30 Baso % (Auto) 0.8 % 05/11/21 03:30 Neut # (Auto) 17.76 10^3/uL (1.8-7.7) H 05/11/21 03:30 Lymph # (Auto) 1.0 10^3/uL (0.8-4.8) 05/11/21 03:30 [place] # (Auto) 1.1 10^3/uL (0.2-0.9) H 05/11/21 03:30 Eos # (Auto) 0.0 10^3/uL (0.0-0.8) 05/11/21 03:30 Baso # (Auto) 0.2 10^3/uL (0.0-0.1) H 05/11/21 03:30 Nucleated RBC % (auto) 0 % 05/11/21 03:30 Nucleated RBCs # 0.0 /100WBC 05/11/21 03:30 PT 14.70 SECONDS (12.1-14.9) 04/30/21 05:25 INR 1.12 (0.8-1.2) 04/30/21 05:25 APTT 26.2 SECONDS (23.9-36.7) 04/24/21 07:55 Fibrinogen 497 mg/dL (174-498) 04/24/21 07:55 D-Dimer 19.94 ug/mIFEU (0-0.59) H 04/29/21 05:55 Specimen Type Arterial 05/11/21 10:49 Sample Site Radial, right 05/11/21 10:49 ABG pH 7.37 (7.35-7.45) 05/11/21 10:49 ABG pCO2 54.4 mmHg (35-45) H 05/11/21 10:49 ABG pO2 127.0 mmHg (80.0-100.0) H 05/11/21 10:49 ABG HCO3 31.1 mmol/L (22-26) H 05/11/21 10:49 ABG O2 Saturation 99.3 05/11/21 10:49 ABG Base Excess 4.4 mmol/L (-2.0-2.0) H 05/11/21 10:49 Dejan Test Pos 05/11/21 10:49 A-a O2 Gradient 67.9 mmHg (5-10) H 05/11/21 10:49 Hematocrit 39.6 % (37-47) 05/11/21 10:49 Hgb O2 Saturation 97.3 % (95-100) 05/11/21 10:49 Carboxyhemoglobin 0.9 %THgb (0.4-20.1) 05/11/21 10:49 Methemoglobin 1.1 % (0.4-1.5) 05/11/21 10:49 Total Hemoglobin 12.9 g/dL (12-16) 05/11/21 10:49 Sodium 153.0 mmol/L (131-143) H 05/11/21 10:49 Potassium 3.6 mmol/L (3.5-5.0) 05/11/21 10:49 Glucose 168.0 mg/dL (70-115) H 05/11/21 10:49 Ionized Calcium 1.3 mmol/L (1.1-1.4) 05/11/21 10:49 O2 Delivery Device Vent 05/11/21 10:49 O2 Liters/Min 50.0 % 04/24/21 06:25 FiO2 100.0 % 05/11/21 10:49 Tidal Volume 0.37 05/11/21 05:26 PEEP 8.0 cmH20 05/11/21 10:49 Follow Up Clerk ID Cak 05/11/21 10:49 Sodium 146 mmol/L (136-145) H 05/11/21 03:30 Potassium 3.8 mmol/L (3.5-5.1) 05/11/21 03:30 Chloride 110 mmol/L (98-107) H 05/11/21 03:30 Carbon Dioxide 28 mmol/L (22-29) 05/11/21 03:30 Anion Gap 11.8 (5-19) 05/11/21 03:30 BUN 23 mg/dL (8-23) 05/11/21 03:30 Creatinine 0.5 mg/dL (0.5-0.9) 05/11/21 03:30 GFR Calculation 125.9 mL/min (90-130) 05/11/21 03:30 Glucose 150 mg/dL (65-115) H 05/11/21 03:30 POC Glucose 147 mg/dL (70-110) H 05/11/21 15:10 Calculated Osmolality 309 mOsm/kg (285-295) H 05/11/21 03:30 Lactic Acid 1.6 mmol/L (0.5-2.2) 04/24/21 07:45 Lactate 2.5 mmol/L (0.5-2.2) H 04/29/21 05:55 Calcium 9.4 mg/dL (8.5-10.5) 05/11/21 03:30 Phosphorus 3.1 mg/dL (2.5-4.5) 05/04/21 03:49 Magnesium 2.2 mg/dL (1.7-2.3) 05/04/21 03:49 Ferritin 335 ng/mL (15-150) H 05/09/21 05:43 Total Bilirubin 0.5 mg/dL (0.15-1.2) 05/11/21 03:30 AST 31 U/L (0-32) 05/11/21 03:30 ALT 18 U/L (0-33) 05/11/21 03:30 Alkaline Phosphatase 103 IU/L (35-105) 05/11/21 03:30 Lactate Dehydrogenase 720 U/L (135-214) H 04/24/21 07:45 Creatine Kinase 226 U/L (26-192) H 04/29/21 05:55 Troponin T Gen 5 ng/L 13 ng/L (0-10) H 04/24/21 08:05 C-Reactive Protein 89.2 mg/L (0.0-4.9) H 05/09/21 05:43 NT-Pro-B Natriuret Pep 819 pg/mL (0-125) H 04/29/21 05:55 Total Protein 5.4 g/dL (6.6-8.7) L 05/11/21 03:30 Albumin 2.5 g/dL (3.5-5.2) L 05/11/21 03:30 Globulin 2.9 g/dL (1.3-4.6) 05/11/21 03:30 Triglycerides 763 mg/dL (0-150) H 05/02/21 05:51 LDL Cholesterol Direct 39 mg/dL (0-100) 05/02/21 05:51 Interleukin 6 27.80 pg/mL (<5.00) H 04/24/21 07:45 Procalcitonin 3.97 ng/mL (0-0.5) H 05/11/21 03:30 TSH 0.53 uIU/mL (0.27-4.20) 04/24/21 07:45 Urine Color Yellow (Yellow) 04/24/21 17:24 Urine Appearance Clear (CLEAR) 04/24/21 17:24 Urine pH 5 (5-7) 04/24/21 17:24 Ur Specific [place] 1.020 (1.005-1.030) 04/24/21 17:24 Urine Protein 1+ (Negative) H 04/24/21 17:24 Urine Glucose (UA) Norm (Normal) 04/24/21 17:24 Urine Ketones Negative (Negative) 04/24/21 17:24 Urine Blood 3+ (Negative) H 04/24/21 17:24 Urine Nitrate Negative (Negative) 04/24/21 17:24 Urine Bilirubin Neg (Negative) 04/24/21 17:24 Urine Urobilinogen 4 mg/dL (Negative) H 04/24/21 17:24 Ur Leukocyte Esterase Negative (Negative) 04/24/21 17:24 Urine RBC 50-80 /hpf (0-2) H 04/24/21 17:24 Urine WBC 0-4 /hpf (0-5) H 04/24/21 17:24 Ur Squamous Epith Cells 0-4 /hpf (0-5) H 04/24/21 17:24 Amorphous Sediment Not Reportable 04/24/21 17:24 Urine Bacteria Trace /hpf (NONE) 04/24/21 17:24 Vancomycin Trough 13.6 ug/mL (10-15) 05/09/21 23:11 Hepatitis A IgM Ab Non-reactive (Nonreactive) 04/24/21 07:45 Hep Bs Antigen Non-reactive (Nonreactive) 04/24/21 07:45 Hep B Core IgM Ab Non-reactive (Nonreactive) 04/24/21 07:45 Hepatitis C Antibody Non-reactive (Nonreactive) 04/24/21 07:45 Influenza Type A Ag Negative (Negative) 04/24/21 06:46 Influenza Type B Ag Negative (Negative) 04/24/21 06:[address] 05/09/21 19:00 IMPRESSION: 1. Small to moderate RIGHT pneumothorax of approximately 20% with no tension. 2. Single right-sided chest tube is present with tip directed towards the apex. 3. Endotracheal and nasogastric tubes and RIGHT IJ line are in good positions. 4. Large amount of subcutaneous emphysema over the RIGHT chest wall extending into the neck. 5. Extensive bilateral groundglass and pulmonary consolidations consistent with a history of Covid 19. Head CT 05/09/21 19:00 IMPRESSION: 1. No acute intracranial hemorrhage or edema. 2. Subcutaneous air along the RIGHT neck and in the RIGHT retropharyngeal space is new. Significant amount of subcutaneous emphysema is noted on the chest radiograph obtained on 05/09/2021. Chest X-Ray 05/11/21 07:00 IMPRESSION: 1. Left chest tube has been repositioned laterally. Tubes and catheters are otherwise unchanged from the prior exam. 2. Improved left pneumothorax. 3. Stable right pleuroparenchymal disease. 4. Left pulmonary opacity is again noted and has shown interval worsening from the prior exam. Micro: Microbiology 05/11/21 08:50 Gram Stain - Final Sputum - Endotracheal Tube Aspirate 05/11/21 Unknown Blood Culture - Preliminary Blood SPECIMEN COLLECTED 05/11/21 Unknown Blood Culture - Preliminary Blood SPECIMEN COLLECTED A&P Assessment and plan (1) ARDS (adult respiratory distress syndrome): Status: Acute (2) Acute encephalopathy: Status: Acute (3) GERD (gastroesophageal reflux disease): Status: Chronic Qualifiers: Esophagitis presence: esophagitis presence not specified Qualified Code(s): K21.9 - Gastro-esophageal reflux disease without esophagitis (4) Acute respiratory failure with hypoxia: Status: Acute (5) Pneumonia due to COVID-19 virus: Status: Acute (6) Hypoxia: Status: Acute (7) Pneumothorax on right: Status: Acute (8) Persistent air leak: Status: Acute (9) Empyema lung: Status: Acute (10) Pneumothorax on left: Status: Acute #Acute hypoxic respiratory failure secondary to ARDS due to COVID-19 pneumonia complicated by large right pneumothorax with persistent air leak #Possible right-sided empyema #Left tension pneumothorax-s/p chest tube placement on 05/11/2021 #Hypothyroidism #Hypertension -Currently intubated (04/27)and sedated with Precedex 0.7, fentanyl 75 and propofol 30 -Patient moving her limbs but not following commands -Plan is to taper down sedation and assess mental status, if successful followed by breathing trial -Placed on pressure control PIP 20/respiratory rate 18/PEEP 8/FiO2 100%; ABG 7.3 7/54/127/30 1/99%-Taper down FiO2 to keep target sats greater than 92% -CT head 05/09/2021 no acute intracranial hemorrhage or edema, subcutaneous air along the right neck and right retropharyngeal spaces is new. -Chest CT 05/09/2021: Showed [id number] right pneumothorax of approximately 20% with no tension. single right-sided chest tube is present with tip directed towards the apex. Large amounts of subcutaneous emphysema over the right chest wall extending into the neck. Extensive bilateral GGO's and pulmonary consolidations consistent with COVID-19 -Initial right chest tube 05/06/2021-removed on 05/08/2021 after clamping for 24 hours with no air leak-within 2 hours recurrence of tension pneumothorax-r einserted 05/09/2021 -s/p 5-day remdesivir protocol and 1 dose Tocilizumab 04/24/2021 and proned 4 an es -On Levophed 2 for hypotension intermittently -Echo during this admission EF 60% grade 1 diastolic dysfunction -Completed 10 days dexamethasone 6 mg daily-tapered down to 3 mg daily - Combivent every 6 hours/Advair every 12 hours -IV levothyroxine 40 mg --200 cc last 24 hours / +3.7 L since admission -Sodium 146 -Free water 250 every 6 hour, renal functions are improving today -Continue tube feeding -Sugars better controlled-currently on scale coverage - MRSA, Legionella, bacterial antigens all negative -Febrile with T-max 101.9 but WBC increased to 20 K; procalcitonin high -Blood cultures from 04/24 negative to date; 05/08 pending ; recultured today again -on vancomycin, imipenem for possible empyema ; still spiking fevers-changed in vancomycin to linezolid - Monitor inflammatory markers - Lovenox for DVT prophylaxis - Protonix for GI prophylaxis - Daughter karen and patient sister updated -they wanted to continue care but wanted DNR Recommendations conveyed to hospitalist, RN, RT covering the patient Attestations Medical Necessity Statement*: Patient requires hospitalization for acute respiratory failure, pneumothorax for persistent air leak, pneumonia secondary to COVID-19 Time Spent in Patient Care: Greater than 35 minutes (>than 50% of time spent in counselling and/or direct pt care on unit) . Critical Care Time: The high probability of a clinically significant, sudden or life threatening deterioration of the patient's [neurologic, infectious, renal and respiratory] system(s) required my full and direct attention, intervention and personal management. The critical care time is as shown. 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
[2021-05-11] MEDS: norepinephrine 8 MG in dextrose 5 % 500 ML 7.62 MG IV (22:09)
[2021-05-11 22:27] LABS: Glucose Point of Care 124 mg/dL (70-110)
[2021-05-11] MEDS: linezolid premix 600 MG/300 ML PREMIX 300 MG IV (23:05)
[2021-05-12] VITALS (94 sets, daily range): BP systolic 77–146; BP diastolic 54–110; PULSE 71–105; RESP 20–32; TEMP 37–37.7; O2SAT 90–100
[2021-05-12] MEDS: ipratropium-albuterol 3 mL Neb INHALATION ×6 (00:44→20:24)
[2021-05-12] MEDS: dexmedetomidine 400 MCG in sodium chloride 0.9% (100 ml) 100 ML 14.03 MCG IV ×3 (02:25→19:31)
[2021-05-12] MEDS: propofol 1,000 MG/100 ML INJ 16.19 MG IV ×3 (02:29→19:30)
[2021-05-12 03:02] LABS: Glucose Point of Care 203 mg/dL (70-110)
--- NOTE | 2021-05-12 04:00 | XRR_ITS ---
PROCEDURE INFORMATION: Exam: XR Chest Exam date and time: 05/12/2021 4:00 AM Age: 60 years old Clinical indication: Condition or disease; Lung condition and disease; Spontaneous; Patient HX: Bilat pneumothorax; Additional info: Pneumonia TECHNIQUE: Imaging protocol: XR of the chest. Views: 1 view. COMPARISON: CR (CHEST, ) 05/11/2021 7:49 AM FINDINGS: Tubes, catheters and devices: Tip of the ET tube about 3.6 cm above the relatively poorly-visualized anusha suggesting interval mild advancement. No change in positioning of the right IJ catheter. No definite change in positioning of the chest tube in each hemithorax. Extension of an enteric tube below the diaphragm still conceivable despite electrodes overlying the mediastinum. Continued stimulating electrodes in the thoracic spine. Lungs: No obvious change in the patchy densities in the lower lungs, at least partially due to atelectasis. Pleural spaces: Interval disappearance of the left pneumothorax. No interval enlarging right pneumothorax. Slight right pleural fluid still likely. No interval large left pleural effusion. Heart/Mediastinum: Still no apparent cardiomegaly. Bones/joints: No apparent change in the bones. Soft tissues: Probable interval decrease in the soft tissue emphysema bilaterally. XR/XR chest 1V portable [id number] IMPRESSION: 1. Possible interval mild advancement of the ET tube, but good positioning still present. No obvious change in the other life-supporting tubes. 2. Interval disappearance of the left pneumothorax. Interval decrease in the chest wall emphysema. No significant change in the rest of the chest, with other findings detailed above.
--- NOTE | 2021-05-12 04:08 | PC.NURSE ---
Shift Note Frequent safety and comfort rounds continue. Orders and/or nursing care completed as indicated. Patient monitored for response to intervention and treatment(s). Education provided includes[]. Patient and/or business development representative [ResponseToTeaching]. Patient intubated and sedated, not able to comprehend education at this time. Chest tube output was serosanguineous at beginning of shift and turn purulent towards end of shift. Patient had a temperature of 101.8'F, after applying ice packs and giving Tylenol, temperature decreased to <100.0'F. Will continue to monitor.
[2021-05-12 05:00] LABS: ABG PCO2 47.7 mmHg (35-45); ABG PH Result 7.42 (7.35-7.45); Arterial Blood Gas Hematocrit 39.7 % (37-47); Base Excess ABG 5.6 mmol/L (-2.0-2.0); Blood Gas Allen Test Pos; Blood Gas Sample Site Radial, right; Blood Gas Sample Type Arterial; Oxygen Device VENT; PO2 ABG 72.3 mmHg (80.0-100.0)
[2021-05-12 06:35] LABS: Alanine Aminotransferase 14 U/L (0-33); Albumin Level 2.2 g/dL (3.5-5.2); Alkaline Phosphatase 82 IU/L (35-105); Anion Gap 8.9 (5-19); Aspartate Amino Transferase 26 U/L (0-32); Blood Urea Nitrogen 23 mg/dL (8-23); Calcium 9.1 mg/dL (8.5-10.5); Carbon Dioxide 30 mmol/L (22-29); Chloride 114 mmol/L (98-107); Globulin 2.6 g/dL (1.3-4.6); Glomerular Filtration Rate 125.9 mL/min (90-130); Glucose 156 mg/dL (65-115); Osmolality Calculated 317 mOsm/kg (285-295); Sodium 150 mmol/L (136-145); Total Bilirubin 0.5 mg/dL (0.15-1.2); Total Protein 4.8 g/dL (6.6-8.7)
[2021-05-12 06:36] LABS: Basophils # 0.1 10^3/uL (0.0-0.1); Basophils % 0.4 %; Hematocrit 33.6 % (37.0-47.0); Hemoglobin 10.1 g/dL (11.5-15.3); Lactate (Lactic Acid level) 1.6 mmol/L (0.5-2.2); Lymphocytes # 0.9 10^3/uL (0.8-4.8); Lymphocytes % 6.9 %; Mean Corpuscular HGB Conc 30.1 g/dL (30.0-36.0); Mean Corpuscular Hemoglobin 28.7 pg (28.0-34.0); Mean Corpuscular Volume 95.5 fl (81-99); Mean Platelet Volume 10.7 fL (7.4-10.4); Monocytes # 0.8 10^3/uL (0.2-0.9); Monocytes % 6.2 %; Neutrophils # 11.32 10^3/uL (1.8-7.7); Neutrophils % 85.4 %; Nucleated Red Blood Cells % 0 %; Platelet Count 324 10^3/cmm (130-400); Red Blood Count 3.52 10^6/uL (4.1-5.3); Red Cell Distribution Width 14.2 % (12.1-15.1); White Blood Count 13.3 10^3/uL (4.0-10.0)
[2021-05-12 06:40] LABS: Potassium 2.9 mmol/L (3.5-5.1)
[2021-05-12 07:39] LABS: Procalcitonin 3.81 ng/mL (0-0.5)
[2021-05-12 07:43] LABS: Glucose Point of Care 132 mg/dL (70-110)
[2021-05-12] MEDS: gabapentin 400 mg Capsule PO ×3 (08:16→22:07)
[2021-05-12] MEDS: dexamethasone 10 mg/mL INJ 3 MG IVP (08:16)
[2021-05-12] MEDS: famotidine 20 mg/2 mL INJ IVP ×2 (08:16→19:30)
--- NOTE | 2021-05-12 08:54 | PC.CHAP ---
Pastoral Care Encounter/Spiritual Assessment Type of Contact [] Declined crime scene examiner visit [] Patient/Family/Request visit [] Outpatient visit [] Follow-up visit [] Physician referral [] Code/Alert [x] Routine visit [] Staff referral [] Actively dying [] Patient sleeping [] Family support [] [] Out of room [] Palliative care [] [] Receiving care in room [] Pre-surgical visit [] Trauma [] Long length of stay [x] ICU visit [x] Other: vent Relational/Emotional Strength [] Patient feels connected with others/family/visitors/staff [] Distress [] Loneliness/isolation [] Abandonment Spirituality of Patient [] Person of Miracle [] Attends Scientology of their Miracle [] Believes in Prayer [] Reads Bible or Baptist materials [] There are Spiritual issues to be addressed Rn Telemetry Interventions [x] Prayer [] Active listening [] Non-anxious presence [] Spiritual/emotional support [] Crisis/trauma care [] Spiritual counseling [] Bereavement support [] Provided bereavement packet [] Provided Bible/devotional materials [] Provided toy/stuffed animal, coloring book to patient or family member [] Provided Communion [] Anointing/[place] [] Salvation [x] Completed spiritual assessment [] Other: Impact on Illness or Injury [] Angry [] Fearful [] Anxious [] Often cries [] Exhaustion [] Unable to work [] Unable to attend alevism [] Unable to walk/stand [] Unable to read [] Unable to drive [] Unable to eat/drink [] Unable to sleep [] Unable to be with family [] Patient intubated [] Other: Summary Time spent with patient
[2021-05-12] MEDS: levothyroxine 100 mcg SDV 40 MCG IVP (09:13)
[2021-05-12] MEDS: linezolid premix 600 MG/300 ML PREMIX 300 MG IV ×2 (09:19→22:07)
[2021-05-12 10:12] LABS: Magnesium 2.2 mg/dL (1.7-2.3)
[2021-05-12] MEDS: potassium chloride premix 100 ML 25 MEQ IV ×2 (10:30→14:25)
[2021-05-12 12:18] LABS: Vancomycin Trough 10.1 ug/mL (10-15)
[2021-05-12 14:26] LABS: Glucose Point of Care 177 mg/dL (70-110)
--- NOTE | 2021-05-12 16:10 | PC.NURSE ---
Report received from STEPHEN Ragland.
--- NOTE | 2021-05-12 18:10 | PC.NURSE ---
C[facility] tube [facility] In both the right and left tube yellowish white froth noted.
[2021-05-12] MEDS: enoxaparin 40 mg/0.4 mL Syringe SUBCUT (18:35)
--- NOTE | 2021-05-12 19:05 | PC.NURSE ---
Shift Note Frequent safety and comfort rounds continue. Orders and nursing care completed as indicated. Pt given 80meq IV Potassium due to potassium being 2.9 this am. Chest Tubes off to suction per physician's orders. Pt family called and undated. Patient monitored for response to intervention and treatments. Unable to educate due to pt sedated and on ventilator. Will continue to monitor.
[2021-05-12 19:30] LABS: Glucose Point of Care 143 mg/dL (70-110)
[2021-05-12 19:46] LABS: Anion Gap 10.4 (5-19); Blood Urea Nitrogen 23 mg/dL (8-23); Calcium 9.4 mg/dL (8.5-10.5); Carbon Dioxide 29 mmol/L (22-29); Chloride 114 mmol/L (98-107); Glomerular Filtration Rate 226.9 mL/min (90-130); Glucose 154 mg/dL (65-115); Osmolality Calculated 313 mOsm/kg (285-295); Potassium 5.4 mmol/L (3.5-5.1); Sodium 148 mmol/L (136-145)
--- NOTE | 2021-05-12 20:19 | PC.NURSE ---
Shift Note Frequent safety and comfort rounds continue. Orders and/or nursing care completed as indicated. Patient monitored for response to intervention and treatment(s). Education provided includes[]. Patient and/or contracts representative [ResponseToTeaching]. Patient sedated and intubated without meaningful movement or responses. Other neurological assessments include agitation with aggressive movement of head back and forth that seems to gets worse with fevers. Bilateral chest tubes in place with campos colored purulent drainage, sites without crepitus. Lungs sounds coarse. Will continue to monitor.
[2021-05-12 21:20] LABS: Glucose Point of Care 137 mg/dL (70-110)
--- NOTE | 2021-05-12 23:15 | PM.PN ---
Subjective Subjective: Interval history: -patient seen at bedside today -Clinically unchanged -Opens eyes and moves her head but does not follow commands -Bilateral chest tubes has persistent air leak -Fever started subsiding -Labs and imaging reviewed Medications: Reviewed: Yes Vitals/I&O/Wt Last Vital Signs Temp 98.9 F 05/12/21 20:00 Pulse 83 05/12/21 23:00 Resp 22 H 05/12/21 20:27 BP 121/86 05/12/21 23:00 Pulse Ox 95 05/12/21 23:00 05/12/21 05/12/21 05/13/21 14:59 22:59 06:59 Intake Total 898.417 / 898.417 504 / 1402.417 Output Total 740 / 740 Balance 898.417 / 898.417 -236 / 662.417 Physical Exam Narrative: EXAM NARRATIVE: General: lying in bed, sedated and intubated, septic appearing. HEENT:NCAT, PERRLA, EOMI Neck: Supple Lungs: Bilateral diffuse crepitations, right-sided chest tube in place and sterile dressing applied but purulent secretions noted and air leak noted under water seal; left-sided chest tube connected to underwater seal Heart: s1/s2, RRR Abd: soft, NT, ND, BS + Normoactive Extremities: No edema INSPECTOR MACHINE PARTS: sedated and limited INSPECTOR MACHINE PARTS exam possible. SKIN: no rash Urinary Catheter Management^: Robb: Cath Placed During This Visit: yes Reason for Continuing Indwelling Catheter: Accurate Measurement of Urinary Output in Critically Ill Patients Urinary Catheter Date of Insertion: 04/24/21 Urinary Catheter Time of Insertion: 11:55 Data : 05/14/21 03:45 05/14/21 03:45 Other Labs: Laboratory Results WBC 13.3 10^3/uL (4.0-10.0) H 05/12/21 06:06 RBC 3.52 10^6/uL (4.1-5.3) L 05/12/21 06:06 Hgb 10.1 g/dL (11.5-15.3) L 05/12/21 06:06 Hct 33.6 % (37.0-47.0) L 05/12/21 06:06 MCV 95.5 fl (81-99) 05/12/21 06:06 MCH 28.7 pg (28.0-34.0) 05/12/21 06:06 MCHC 30.1 g/dL (30.0-36.0) 05/12/21 06:06 RDW 14.2 % (12.1-15.1) 05/12/21 06:06 Plt Count 324 10^3/cmm (130-400) 05/12/21 06:06 MPV 10.7 fL (7.4-10.4) H 05/12/21 06:06 Neut % (Auto) 85.4 % 05/12/21 06:06 Lymph % (Auto) 6.9 % 05/12/21 06:06 [place] % (Auto) 6.2 % 05/12/21 06:06 Eos % (Auto) 0.0 % 05/12/21 06:06 Baso % (Auto) 0.4 % 05/12/21 06:06 Neut # (Auto) 11.32 10^3/uL (1.8-7.7) H 05/12/21 06:06 Lymph # (Auto) 0.9 10^3/uL (0.8-4.8) 05/12/21 06:06 [place] # (Auto) 0.8 10^3/uL (0.2-0.9) 05/12/21 06:06 Eos # (Auto) 0.0 10^3/uL (0.0-0.8) 05/12/21 06:06 Baso # (Auto) 0.1 10^3/uL (0.0-0.1) 05/12/21 06:06 Nucleated RBC % (auto) 0 % 05/12/21 06:06 Nucleated RBCs # 0.0 /100WBC 05/12/21 06:06 PT 14.70 SECONDS (12.1-14.9) 04/30/21 05:25 INR 1.12 (0.8-1.2) 04/30/21 05:25 APTT 26.2 SECONDS (23.9-36.7) 04/24/21 07:55 Fibrinogen 497 mg/dL (174-498) 04/24/21 07:55 D-Dimer 19.94 ug/mIFEU (0-0.59) H 04/29/21 05:55 Specimen Type Arterial 05/12/21 04:27 Sample Site Radial, right 05/12/21 04:27 ABG pH 7.42 (7.35-7.45) 05/12/21 04:27 ABG pCO2 47.7 mmHg (35-45) H 05/12/21 04:27 ABG pO2 72.3 mmHg (80.0-100.0) L 05/12/21 04:27 ABG HCO3 31.0 mmol/L (22-26) H 05/12/21 04:27 ABG O2 Saturation 99.3 05/11/21 10:49 ABG Base Excess 5.6 mmol/L (-2.0-2.0) H 05/12/21 04:27 Dejan Test Pos 05/12/21 04:27 A-a O2 Gradient 67.9 mmHg (5-10) H 05/11/21 10:49 Hematocrit 39.7 % (37-47) 05/12/21 04:27 Hgb O2 Saturation 97.3 % (95-100) 05/11/21 10:49 Carboxyhemoglobin 0.9 %THgb (0.4-20.1) 05/11/21 10:49 Methemoglobin 1.1 % (0.4-1.5) 05/11/21 10:49 Total Hemoglobin 12.9 g/dL (12-16) 05/11/21 10:49 Sodium 153.0 mmol/L (131-143) H 05/11/21 10:49 Potassium 3.6 mmol/L (3.5-5.0) 05/11/21 10:49 Glucose 168.0 mg/dL (70-115) H 05/11/21 10:49 Ionized Calcium 1.3 mmol/L (1.1-1.4) 05/11/21 10:49 O2 Delivery Device Vent 05/12/21 04:27 O2 Liters/Min 50.0 % 04/24/21 06:25 FiO2 75.0 % 05/12/21 04:27 Tidal Volume 0.37 05/11/21 05:26 PEEP 8.0 cmH20 05/12/21 04:27 Living Skills Advisor ID Hinja 05/12/21 04:27 Sodium 148 mmol/L (136-145) H 05/12/21 18:55 Potassium 5.4 mmol/L (3.5-5.1) H 05/12/21 18:55 Chloride 114 mmol/L (98-107) H 05/12/21 18:55 Carbon Dioxide 29 mmol/L (22-29) 05/12/21 18:55 Anion Gap 10.4 (5-19) 05/12/21 18:55 BUN 23 mg/dL (8-23) 05/12/21 18:55 Creatinine 0.3 mg/dL (0.5-0.9) L 05/12/21 18:55 GFR Calculation 226.9 mL/min (90-130) H 05/12/21 18:55 Glucose 154 mg/dL (65-115) H 05/12/21 18:55 POC Glucose 137 mg/dL (70-110) H 05/12/21 21:17 Calculated Osmolality 313 mOsm/kg (285-295) H 05/12/21 18:55 Lactic Acid 1.6 mmol/L (0.5-2.2) 04/24/21 07:45 Lactate 1.6 mmol/L (0.5-2.2) 05/12/21 06:06 Calcium 9.4 mg/dL (8.5-10.5) 05/12/21 18:55 Phosphorus 3.1 mg/dL (2.5-4.5) 05/04/21 03:49 Magnesium 2.2 mg/dL (1.7-2.3) 05/12/21 06:06 Ferritin 335 ng/mL (15-150) H 05/09/21 05:43 Total Bilirubin 0.5 mg/dL (0.15-1.2) 05/12/21 06:06 AST 26 U/L (0-32) 05/12/21 06:06 ALT 14 U/L (0-33) 05/12/21 06:06 Alkaline Phosphatase 82 IU/L (35-105) 05/12/21 06:06 Lactate Dehydrogenase 720 U/L (135-214) H 04/24/21 07:45 Creatine Kinase 226 U/L (26-192) H 04/29/21 05:55 Troponin T Gen 5 ng/L 13 ng/L (0-10) H 04/24/21 08:05 C-Reactive Protein 89.2 mg/L (0.0-4.9) H 05/09/21 05:43 NT-Pro-B Natriuret Pep 819 pg/mL (0-125) H 04/29/21 05:55 Total Protein 4.8 g/dL (6.6-8.7) L 05/12/21 06:06 Albumin 2.2 g/dL (3.5-5.2) L 05/12/21 06:06 Globulin 2.6 g/dL (1.3-4.6) 05/12/21 06:06 Triglycerides 763 mg/dL (0-150) H 05/02/21 05:51 LDL Cholesterol Direct 39 mg/dL (0-100) 05/02/21 05:51 Interleukin 6 27.80 pg/mL (<5.00) H 04/24/21 07:45 Procalcitonin 3.81 ng/mL (0-0.5) H 05/12/21 06:06 TSH 0.53 uIU/mL (0.27-4.20) 04/24/21 07:45 Urine Color Yellow (Yellow) 04/24/21 17:24 Urine Appearance Clear (CLEAR) 04/24/21 17:24 Urine pH 5 (5-7) 04/24/21 17:24 Ur Specific [place] 1.020 (1.005-1.030) 04/24/21 17:24 Urine Protein 1+ (Negative) H 04/24/21 17:24 Urine Glucose (UA) Norm (Normal) 04/24/21 17:24 Urine Ketones Negative (Negative) 04/24/21 17:24 Urine Blood 3+ (Negative) H 04/24/21 17:24 Urine Nitrate Negative (Negative) 04/24/21 17:24 Urine Bilirubin Neg (Negative) 04/24/21 17:24 Urine Urobilinogen 4 mg/dL (Negative) H 04/24/21 17:24 Ur Leukocyte Esterase Negative (Negative) 04/24/21 17:24 Urine RBC 50-80 /hpf (0-2) H 04/24/21 17:24 Urine WBC 0-4 /hpf (0-5) H 04/24/21 17:24 Ur Squamous Epith Cells 0-4 /hpf (0-5) H 04/24/21 17:24 Amorphous Sediment Not Reportable 04/24/21 17:24 Urine Bacteria Trace /hpf (NONE) 04/24/21 17:24 Vancomycin Trough 10.1 ug/mL (10-15) 05/12/21 11:41 Hepatitis A IgM Ab Non-reactive (Nonreactive) 04/24/21 07:45 Hep Bs Antigen Non-reactive (Nonreactive) 04/24/21 07:45 Hep B Core IgM Ab Non-reactive (Nonreactive) 04/24/21 07:45 Hepatitis C Antibody Non-reactive (Nonreactive) 04/24/21 07:45 Influenza Type A Ag Negative (Negative) 04/24/21 06:46 Influenza Type B Ag Negative (Negative) 04/24/21 06:[address] 05/09/21 19:00 IMPRESSION: 1. Small to moderate RIGHT pneumothorax of approximately 20% with no tension. 2. Single right-sided chest tube is present with tip directed towards the apex. 3. Endotracheal and nasogastric tubes and RIGHT IJ line are in good positions. 4. Large amount of subcutaneous emphysema over the RIGHT chest wall extending into the neck. 5. Extensive bilateral groundglass and pulmonary consolidations consistent with a history of Covid 19. Head CT 05/09/21 19:00 IMPRESSION: 1. No acute intracranial hemorrhage or edema. 2. Subcutaneous air along the RIGHT neck and in the RIGHT retropharyngeal space is new. Significant amount of subcutaneous emphysema is noted on the chest radiograph obtained on 05/09/2021. Chest X-Ray 05/12/21 04:00 IMPRESSION: 1. Possible interval mild advancement of the ET tube, but good positioning still present. No obvious change in the other life-supporting tubes. 2. Interval disappearance of the left pneumothorax. Interval decrease in the chest wall emphysema. No significant change in the rest of the chest, with other findings detailed above. Micro: Microbiology 05/11/21 Unknown Blood Culture - Preliminary Blood NEGATIVE TO DATE 05/11/21 Unknown Blood Culture - Preliminary Blood NEGATIVE TO DATE 05/11/21 08:50 Gram Stain - Final Sputum - Endotracheal Tube Aspirate Sputum Culture - Preliminary Gram Negative Rods Gram Negative Rods#2 A&P Assessment and plan (1) ARDS (adult respiratory distress syndrome): Status: Acute (2) Acute encephalopathy: Status: Acute (3) GERD (gastroesophageal reflux disease): Status: Chronic Qualifiers: Esophagitis presence: esophagitis presence not specified Qualified Code(s): K21.9 - Gastro-esophageal reflux disease without esophagitis (4) Acute respiratory failure with hypoxia: Status: Acute (5) Pneumonia due to COVID-19 virus: Status: Acute (6) Hypoxia: Status: Acute (7) Pneumothorax on right: Status: Acute (8) Persistent air leak: Status: Acute (9) Empyema lung: Status: Acute (10) Pneumothorax on left: Status: Acute #Acute hypoxic respiratory failure secondary to ARDS due to COVID-19 pneumonia complicated by large right pneumothorax with persistent air leak #Possible right-sided empyema #Left tension pneumothorax-s/p chest tube placement on 05/11/2021 #Hypothyroidism #Hypertension -Currently intubated (04/27)and sedated with Precedex 0.7, fentanyl 75 and propofol 30 -Patient moving her limbs but not following commands -Plan is to taper down sedation and assess mental status, if successful followed by breathing trial -ABG 7.4 2/47/72/30 1/92% on CMV 75%/370 -CT head 05/09/2021 no acute intracranial hemorrhage or edema, subcutaneous air along the right neck and right retropharyngeal spaces is new. -Chest CT 05/09/2021: Showed [id number] right pneumothorax of approximately 20% with no tension. single right-sided chest tube is present with tip directed towards the apex. Large amounts of subcutaneous emphysema over the right chest wall extending into the neck. Extensive bilateral GGO's and pulmonary consolidations consistent with COVID-19 -Initial right chest tube 05/06/2021-removed on 05/08/2021 after clamping for 24 hours with no air leak-within 2 hours recurrence of tension pneumothorax-reinserted 05/09/2021 -Left-sided pneumothorax-chest tube placed 05/11/2021-persistent air leak and connected to underwater seal -s/p 5-day remdesivir protocol and 1 dose Tocilizumab 04/24/2021 and proned 4 times -On Levophed 2 for hypotension intermittently -Echo during this admission EF 60% grade 1 diastolic dysfunction -Completed 10 days dexamethasone 6 mg daily-tapered down to 3 mg daily - Combivent every 6 hours/Advair every 12 hours -IV levothyroxine 40 mg -Sodium 146 -Free water 250 every 6 hour, renal functions are improving today -Continue tube feeding -Sugars better controlled-currently on scale coverage - MRSA, Legionella, bacterial antigens all negative-fever spike started subsiding and WBC improved to 13 K -Blood cultures from 04/24 negative to date; 05/08 pending ; rec cultures from 815 pending -on linezolid and imipenem - Monitor inflammatory markers - Lovenox for DVT prophylaxis - Protonix for GI prophylaxis - Daughter karen and patient sister updated -they wanted to continue care but wanted DNR Recommendations conveyed to hospitalist, RN, RT covering the patient Attestations Medical Necessity Statement*: Patient requires hospitalization for acute respiratory failure, pneumothorax for persistent air leak, pneumonia secondary to COVID-19 Time Spent in Patient Care: Greater than 35 minutes (>than 50% of time spent in counselling and/or direct pt care on unit). Critical Care Time: The high probability of a clinically significant, sudden or life threatening deterioration of the patient's [neurologic, infectious, renal and respiratory] system(s) required my full and direct attention, intervention and personal management. The critical care time is as shown. This time is in addition to time spent performing any reported procedures but includes the following: [x] Data and vital sign review and interpretation [x] Patient assessment, examination and intervention [x] Documentation [x] Medication orders and management Critical Care Time (min): 45 Coding Level of Care Code Established Pt Acute Certified Home Health Aide for Chg Fwd Patient Type Established History Comprehensive Exam Comprehensive Medical Decision Making High Complexity Diagnoses ARDS (adult respiratory distress syndrome) J80 Acute encephalopathy G93.40 GERD (gastroesophageal reflux disease) K21.9 Esophagitis presence: esophagitis presence not specified Acute respiratory failure with hypoxia J96.01 Pneumonia due to COVID-19 virus U07.1; J12.82 Hypoxia R09.02 Pneumothorax on right J93.9 Persistent air leak Empyema lung J86.9 Pneumothorax on left J93.9 Time Spent (min) 45
[2021-05-13] VITALS (60 sets, daily range): BP systolic 83–170; BP diastolic 54–107; PULSE 56–94; RESP 20–33; TEMP 36.2–37.7; O2SAT 91–100
[2021-05-13] MEDS: ipratropium-albuterol 3 mL Neb INHALATION ×6 (00:22→21:05)
[2021-05-13 03:03] LABS: Basophils % 0.5 %; Eosinophils % 0.2 %; Hematocrit 34.3 % (37.0-47.0); Hemoglobin 10.2 g/dL (11.5-15.3); Lymphocytes # 0.7 10^3/uL (0.8-4.8); Lymphocytes % 7.3 %; Mean Corpuscular HGB Conc 29.7 g/dL (30.0-36.0); Mean Corpuscular Hemoglobin 28.5 pg (28.0-34.0); Mean Corpuscular Volume 95.8 fl (81-99); Mean Platelet Volume 10.5 fL (7.4-10.4); Monocytes # 0.9 10^3/uL (0.2-0.9); Monocytes % 9.7 %; Neutrophils # 7.21 10^3/uL (1.8-7.7); Neutrophils % 81.3 %; Nucleated Red Blood Cells % 0 %; Platelet Count 298 10^3/cmm (130-400); Red Blood Count 3.58 10^6/uL (4.1-5.3); Red Cell Distribution Width 14.3 % (12.1-15.1); White Blood Count 8.9 10^3/uL (4.0-10.0)
[2021-05-13 03:24] LABS: Alanine Aminotransferase 18 U/L (0-33); Albumin Level 2.2 g/dL (3.5-5.2); Alkaline Phosphatase 86 IU/L (35-105); Anion Gap 8.1 (5-19); Aspartate Amino Transferase 18 U/L (0-32); Blood Urea Nitrogen 22 mg/dL (8-23); Calcium 9.7 mg/dL (8.5-10.5); Carbon Dioxide 30 mmol/L (22-29); Chloride 112 mmol/L (98-107); Globulin 3.1 g/dL (1.3-4.6); Glomerular Filtration Rate 226.9 mL/min (90-130); Glucose 162 mg/dL (65-115); Magnesium 2.2 mg/dL (1.7-2.3); Osmolality Calculated 309 mOsm/kg (285-295); Potassium 4.1 mmol/L (3.5-5.1); Sodium 146 mmol/L (136-145); Total Bilirubin 0.4 mg/dL (0.15-1.2); Total Protein 5.3 g/dL (6.6-8.7)
[2021-05-13] MEDS: dexmedetomidine 400 MCG in sodium chloride 0.9% (100 ml) 100 ML 14.03 MCG IV ×3 (03:28→22:34)
[2021-05-13] MEDS: propofol 1,000 MG/100 ML INJ 16.19 MG IV ×2 (03:29→20:43)
--- NOTE | 2021-05-13 04:00 | XRR_ITS ---
PROCEDURE INFORMATION: Exam: XR Chest Exam date and time: 05/13/2021 4:00 AM Age: 60 years old Clinical indication: Condition or disease; Lung condition and disease; Pneumonia; Patient HX: F/u covid. Bilateral chest tubes. Intubated. TECHNIQUE: Imaging protocol: XR of the chest. Views: 1 view. COMPARISON: CR XR chest 1V portable [id number] 05/12/2021 4:38 AM FINDINGS: Tubes, catheters and devices: Endotracheal tube is in satisfactory position. High position of feeding tube with proximal hole adjacent to the GE junction.Right IJ approach central line is in satisfactory position, with distal tip in the SVC, approximately 3 cm above the SVC/RA junction. Neurostimulator leads project over the lower thoracic spine. Lungs: Persistent bilateral airspace opacities. Possible trace right pleural effusion. The left costophrenic angle is excluded. Left-sided chest tube remains in satisfactory position. There is a [id number] left-sided pneumothorax. Pleural spaces: See Lungs finding. Heart/Mediastinum: Stable cardiomediastinal silhouette. Bones/joints: No acute osseous injury identified. Right shoulder arthroplasty hardware seen. Degenerative changes of the left shoulder joint identified. XR/XR chest 1V portable [id number] IMPRESSION: 1. Persistent bilateral airspace opacities. 2. Xaom-ix-lokxzabl left-sided pneumothorax. Left-sided chest tube remains in satisfactory position.
[2021-05-13 05:14] LABS: ABG PCO2 53.5 mmHg (35-45); ABG PH Result 7.36 (7.35-7.45); Base Excess ABG 3.9 mmol/L (-2.0-2.0); Blood Gas Allen Test Pos; Blood Gas Sample Type Arterial; Carboxyhemoglobin 1.1 %THgb (0.4-20.1); HCO3 ABG 30.3 mmol/L (22-26); HGB O2 Sat 91.1 % (95-100); Ionized Calcium Level - ABG 1.5 mmol/L (1.1-1.4); Oxygen Saturation ABG 93.1; PO2 ABG 64.5 mmHg (80.0-100.0); Potassium Level - ABG 4.1 mmol/L (3.5-5.0); Total Hemoglobin 11.4 g/dL (12-16)
[2021-05-13 05:16] LABS: Alveolar-Arterial Oxygen Gradi 43.4 mmHg (5-10); Blood Gas Operator Identificat HARKR; Blood Gas Sample Site Radial, left; Oxygen Device VENT
[2021-05-13 08:29] LABS: Glucose Point of Care 120 mg/dL (70-110)
[2021-05-13] MEDS: famotidine 20 mg/2 mL INJ IVP ×2 (08:30→20:43)
[2021-05-13] MEDS: dexamethasone 10 mg/mL INJ 3 MG IVP (08:31)
[2021-05-13] MEDS: gabapentin 400 mg Capsule PO ×3 (08:31→20:43)
[2021-05-13] MEDS: levothyroxine 100 mcg SDV 40 MCG IVP (08:54)
--- NOTE | 2021-05-13 09:06 | PC.SOCIAL ---
IMM update IMM not updated as patient is still intubated and not expected to Dc in the next 24-48 hours.
[2021-05-13] MEDS: linezolid premix 600 MG/300 ML PREMIX 300 MG IV ×2 (09:11→21:50)
--- NOTE | 2021-05-13 09:40 | PC.CHAP ---
Pastoral Care Encounter/Spiritual Assessment Type of Contact [] Declined print color matcher visit [] Patient/Family/Request visit [] Outpatient visit [] Follow-up visit [] Physician referral [] Code/Alert [x] Routine visit [] Staff referral [] Actively dying [] Patient sleeping [] Family support [] [] Out of room [] Palliative care [] [] Receiving care in room [] Pre-surgical visit [] Trauma [] Long length of stay [x] ICU visit [x] Other: vent... comfort care.. permission given to enter room for prayer Relational/Emotional Strength [] Patient feels connected with others/family/visitors/staff [] Distress [] Loneliness/isolation [] Abandonment Spirituality of Patient [] Person of Miracle [] Attends Muslim of their Miracle [] Believes in Prayer [] Reads Bible or Christianity materials [] There are Spiritual issues to be addressed Recreational Aide Interventions [x] Prayer [] Active listening [] Non-anxious presence [] Spiritual/emotional support [] Crisis/trauma care [] Spiritual counseling [] Bereavement support [] Provided bereavement packet [] Provided Bible/devotional materials [] Provided toy/stuffed animal, coloring book to patient or family member [] Provided Communion [] Anointing/[place] [] Salvation [x] Completed spiritual assessment [] Other: Impact on Illness or Injury [] Angry [] Fearful [] Anxious [] Often cries [] Exhaustion [] Unable to work [] Unable to attend scientologist [] Unable to walk/stand [] Unable to read [] Unable to drive [] Unable to eat/drink [] Unable to sleep [] Unable to be with family [] Patient intubated [] Other: Summary Time spent with patient
[2021-05-13] MEDS: propofol 1,000 MG/100 ML INJ 18.51 MG IV (11:47)
[2021-05-13 14:29] LABS: Glucose Point of Care 192 mg/dL (70-110)
--- NOTE | 2021-05-13 15:02 | P.PN_ITS ---
Subjective Subjective: Interval history: patient remained critical condition overnight. Remained on mechanical ventilation. Bilateral chest tubes in place. Discussed with pulmonary medicine. Medications: Reviewed: Yes Vitals/I&O/Wt Last Vital Signs Temp 100.0 F H 05/10/21 14:30 Pulse 86 05/10/21 14:30 Resp 21 H 05/10/21 14:30 BP 133/96 05/10/21 14:30 Pulse Ox 92 05/10/21 14:30 05/10/21 05/10/21 05/10/21 06:59 14:59 22:59 Intake Total 654 / 1576.292 593.491 / 593.491 Output Total 970 / 2970 Balance -316 / -1393.708 593.491 / 593.491 Physical Exam Narrative: EXAM NARRATIVE: General : Critcally ill appearing HEENT: ET tube ChestL b/l sided Chest tube CVS: NSR ABD : Non distende - Robb Ext Edema Urinary Catheter Management^: Robb: Cath Placed During This Visit: yes Reason for Continuing Indwelling Catheter: Accurate Measurement of Urinary Output in Critically Ill Patients Urinary Catheter Date of Insertion: 04/24/21 Urinary Catheter Time of Insertion: 11:55 Data : 05/14/21 03:45 05/14/21 03:45 Micro: Microbiology 05/08/21 12:38 Blood Culture - Preliminary Blood NEGATIVE TO DATE 05/08/21 12:36 Blood Culture - Preliminary Blood NEGATIVE TO DATE A&P Assessment and plan (1) Pneumonia due to COVID-19 virus: Severe COVID-19 pneumonia, acute hypoxic respiratory failure, acute encephalopathy, acute respiratory distress requiring high flow oxygen Intubated 04/27/2021 Has finished her fourth session of proning Weaning sedation Pressor support wean as tolerated maintain MAP in the 65 Remdesivir initiated 04/24 Toclizumab given 04/24 Dexamethasone initiated 04/25 Combivent every 6 hours Advair every 12 hours IV levothyroxine Lasix as needed MRSA, Legionella, bacterial antigens all negative Continue Zosyn empirically, started 04/24, start azithromycin 04/27/2021 Vancomycin pharmacy to dose Blood cultures from 04/24 negative to date Echocardiogram shows EF of 60%, grade 1 out of [address] chest noted Pneumothorax -management of chest tube per Pulmonary Repeat chest x-ray in a.m. Status: Acute (2) Acute respiratory failure with hypoxia: See above Status: Acute (3) Hypothyroidism: TSH checked and normal On home levothyroxine Status: Chronic (4) Hypertension: Home amlodipine currently held , blood pressure normal Status: Chronic (5) GERD (gastroesophageal reflux disease): Status: Chronic Qualifiers: Esophagitis presence: esophagitis presence not specified Qualified Code(s): K21.9 - Gastro-esophageal reflux disease without esophagitis (6) Chronic back pain greater than 3 months duration: Status: Chronic (7) Acute encephalopathy: Likely secondary to COVID-19, hypoxia Status: Acute (8) Empyema lung: Status: Acute (9) Persistent air leak: Status: Acute (10) Pneumothorax on right: chest tube in place Status: Acute (11) Pneumothorax on left: chest tube in place Status: Acute Additional A&P Information DVT prophylaxis- Lovenox Attestations Medical Necessity Statement*: continue hospitalization for management of respiratory failure due to COVID-19, sepsis on IV antibiotics and bilateral pneumothorax status post bilateral chest tube placement Time Spent in Patient Care: Greater than 35 minutes (>than 50% of time spent in counselling and/or direct pt care on unit) . Coding Level of Care Code Acute Associate Financial Representative for g Fwd Diagnoses Pneumonia due to COVID-19 virus U07.1; J12.82 Acute respiratory failure with hypoxia J96.01 Hypothyroidism E03.9 Hypertension I10 GERD (gastroesophageal reflux disease) K21.9 Esophagitis presence: esophagitis presence not specified Chronic back pain greater than 3 months duration M54.9; G89.29 Acute encephalopathy G93.40 Empyema lung J86.9 Persistent air leak Pneumothorax on right J93.9 Pneumothorax on left J93.9
--- NOTE | 2021-05-13 15:17 | PC.NUTR ---
Tube feeding follow up: Feedings currently held, with unclear provision over past few days per chart. Spoke with Dr. Burk who denies reason for feedings being held currently. Recommend to resume feeding at 15 ml/hr, and increase by 10 ml/hr as tolerated to goal rate of 35 ml/hr, with 200 ml H2O flushes q 4 hrs, to provide 1008 kcal, 50 g protein, and 1886 ml H2O. Receiving additional 489 kcal/day from propofol at current rate. Noted when propofol decreased, would recommend goal of 50 ml/hr. See full RD assessment for further details.
[2021-05-13] MEDS: enoxaparin 40 mg/0.4 mL Syringe SUBCUT (17:15)
[2021-05-13] MEDS: LORazepam 2 mg/mL INJ 1 mL 1 MG IVP (17:19)
--- NOTE | 2021-05-13 18:14 | PC.NURSE ---
Shift Note Frequent safety and comfort rounds continue. Orders and/or nursing care completed as indicated. Patient monitored for response to intervention and treatment(s). Education provided includes treatment plan and medications. Family verbalizes understanding of current condition. Ativan 1 mg given d/t increased s/s of anxiety, pt shaking head back and forth and raising head. BP soft after ativan administration. Robb cath draining freely. Gtts infusing per orders. Vent settings per RT. No other issues noted. Will continue to monitor.
[2021-05-13 19:52] LABS: Glucose Point of Care 140 mg/dL (70-110)
--- NOTE | 2021-05-13 23:15 | P.PN_ITS ---
Subjective Subjective: Interval history: Patient seen at bedside today morning Clinically appeared as improving Bilateral chest tubes persistent air leak under waterseal Labs and imaging reviewed Medications: Reviewed: Yes Vitals/I&O/Wt Last Vital Signs Temp 97.2 F L 05/13/21 19:30 Pulse 90 05/13/21 22:30 Resp 33 H 05/13/21 21:09 BP 170/91 05/13/21 22:30 Pulse Ox 96 05/13/21 22:30 05/13/21 05/13/21 05/14/21 14:59 22:59 06:59 Intake Total 655.43 / 655.43 764 / 1419.43 Output Total 775 / 775 Balance 655.43 / 655.43 -11 / 644.43 Physical Exam Narrative: EXAM NARRATIVE: General: lying in bed, sedated and intubated, septic appearing. HEENT:NCAT, PERRLA, EOMI Neck: Supple Lungs: Bilateral diffuse crepitations, right-sided chest tube in place and sterile dressing applied but purulent secretions noted and air leak noted under water seal; left-sided chest tube connected to underwater seal Heart: s1/s2, RRR Abd: soft, NT, ND, BS + Normoactive Extremities: No edema COMMUNITY PRODUCT SPECIALIST: sedated and limited COMMUNITY PRODUCT SPECIALIST exam possible. SKIN: no rash Urinary Catheter Management^: Robb: Cath Placed During This Visit: yes Reason for Continuing Indwelling Catheter: Accurate Measurement of Urinary Output in Critically Ill Patients Urinary Catheter Date of Insertion: 04/24/21 Urinary Catheter Time of Insertion: 11:55 Data : 05/14/21 03:45 05/14/21 03:45 Other Labs: Laboratory Results WBC 8.9 10^3/uL (4.0-10.0) 05/13/21 02:45 RBC 3.58 10^6/uL (4.1-5.3) L 05/13/21 02:45 Hgb 10.2 g/dL (11.5-15.3) L 05/13/21 02:45 Hct 34.3 % (37.0-47.0) L 05/13/21 02:45 MCV 95.8 fl (81-99) 05/13/21 02:45 MCH 28.5 pg (28.0-34.0) 05/13/21 02:45 MCHC 29.7 g/dL (30.0-36.0) L 05/13/21 02:45 RDW 14.3 % (12.1-15.1) 05/13/21 02:45 Plt Count 298 10^3/cmm (130-400) 05/13/21 02:45 MPV 10.5 fL (7.4-10.4) H 05/13/21 02:45 Neut % (Auto) 81.3 % 05/13/21 02:45 Lymph % (Auto) 7.3 % 05/13/21 02:45 Reeves % (Auto) 9.7 % 05/13/21 02:45 Eos % (Auto) 0.2 % 05/13/21 02:45 Baso % (Auto) 0.5 % 05/13/21 02:45 Neut # (Auto) 7.21 10^3/uL (1.8-7.7) 05/13/21 02:45 Lymph # (Auto) 0.7 10^3/uL (0.8-4.8) L 05/13/21 02:45 Reeves # (Auto) 0.9 10^3/uL (0.2-0.9) 05/13/21 02:45 Eos # (Auto) 0.0 10^3/uL (0.0-0.8) 05/13/21 02:45 Baso # (Auto) 0.0 10^3/uL (0.0-0.1) 05/13/21 02:45 Nucleated RBC % (auto) 0 % 05/13/21 02:45 Nucleated RBCs # 0.0 /100WBC 05/13/21 02:45 PT 14.70 SECONDS (12.1-14.9) 04/30/21 05:25 INR 1.12 (0.8-1.2) 04/30/21 05:25 APTT 26.2 SECONDS (23.9-36.7) 04/24/21 07:55 Fibrinogen 497 mg/dL (174-498) 04/24/21 07:55 D-Dimer 19.94 ug/mIFEU (0-0.59) H 04/29/21 05:55 Specimen Type Arterial 05/13/21 05:03 Sample Site Radial, left 05/13/21 05:03 ABG pH 7.36 (7.35-7.45) 05/13/21 05:03 ABG pCO2 53.5 mmHg (35-45) H 05/13/21 05:03 ABG pO2 64.5 mmHg (80.0-100.0) L 05/13/21 05:03 ABG HCO3 30.3 mmol/L (22-26) H 05/13/21 05:03 ABG O2 Saturation 93.1 05/13/21 05:03 ABG Base Excess 3.9 mmol/L (-2.0-2.0) H 05/13/21 05:03 Dejan Test Pos 05/13/21 05:03 A-a O2 Gradient 43.4 mmHg (5-10) H 05/13/21 05:03 Hematocrit 35.0 % (37-47) L 05/13/21 05:03 Hgb O2 Saturation 91.1 % (95-100) L 05/13/21 05:03 Carboxyhemoglobin 1.1 %THgb (0.4-20.1) 05/13/21 05:03 Methemoglobin 1.0 % (0.4-1.5) 05/13/21 05:03 Total Hemoglobin 11.4 g/dL (12-16) L 05/13/21 05:03 Sodium 150.0 mmol/L (131-143) H 05/13/21 05:03 Potassium 4.1 mmol/L (3.5-5.0) 05/13/21 05:03 Glucose 157.0 mg/dL (70-115) H 05/13/21 05:03 Ionized Calcium 1.5 mmol/L (1.1-1.4) H 05/13/21 05:03 O2 Delivery Device Vent 05/13/21 05:03 O2 Liters/Min 50.0 % 04/24/21 06:25 FiO2 65.0 % 05/13/21 05:03 Tidal Volume 0.37 05/11/21 05:26 PEEP 5.0 cmH20 05/13/21 05:03 Service Aide ID Harkr 05/13/21 05:03 Sodium 146 mmol/L (136-145) H 05/13/21 02:45 Potassium 4.1 mmol/L (3.5-5.1) 05/13/21 02:45 Chloride 112 mmol/L (98-107) H 05/13/21 02:45 Carbon Dioxide 30 mmol/L (22-29) H 05/13/21 02:45 Anion Gap 8.1 (5-19) 05/13/21 02:45 BUN 22 mg/dL (8-23) 05/13/21 02:45 Creatinine 0.3 mg/dL (0.5-0.9) L 05/13/21 02:45 GFR Calculation 226.9 mL/min (90-130) H 05/13/21 02:45 Glucose 162 mg/dL (65-115) H 05/13/21 02:45 POC Glucose 140 mg/dL (70-110) H 05/13/21 19:35 Calculated Osmolality 309 mOsm/kg (285-295) H 05/13/21 02:45 Lactic Acid 1.6 mmol/L (0.5-2.2) 04/24/21 07:45 Lactate 1.6 mmol/L (0.5-2.2) 05/12/21 06:06 Calcium 9.7 mg/dL (8.5-10.5) 05/13/21 02:45 Phosphorus 3.1 mg/dL (2.5-4.5) 05/04/21 03:49 Magnesium 2.2 mg/dL (1.7-2.3) 05/13/21 02:45 Ferritin 335 ng/mL (15-150) H 05/09/21 05:43 Total Bilirubin 0.4 mg/dL (0.15-1.2) 05/13/21 02:45 AST 18 U/L (0-32) 05/13/21 02:45 ALT 18 U/L (0-33) 05/13/21 02:45 Alkaline Phosphatase 86 IU/L (35-105) 05/13/21 02:45 Lactate Dehydrogenase 720 U/L (135-214) H 04/24/21 07:45 Creatine Kinase 226 U/L (26-192) H 04/29/21 05:55 Troponin T Gen 5 ng/L 13 ng/L (0-10) H 04/24/21 08:05 C-Reactive Protein 89.2 mg/L (0.0-4.9) H 05/09/21 05:43 NT-Pro-B Natriuret Pep 819 pg/mL (0-125) H 04/29/21 05:55 Total Protein 5.3 g/dL (6.6-8.7) L 05/13/21 02:45 Albumin 2.2 g/dL (3.5-5.2) L 05/13/21 02:45 Globulin 3.1 g/dL (1.3-4.6) 05/13/21 02:45 Triglycerides 763 mg/dL (0-150) H 05/02/21 05:51 LDL Cholesterol Direct 39 mg/dL (0-100) 05/02/21 05:51 Interleukin 6 27.80 pg/mL (<5.00) H 04/24/21 07:45 Procalcitonin 3.81 ng/mL (0-0.5) H 05/12/21 06:06 TSH 0.53 uIU/mL (0.27-4.20) 04/24/21 07:45 Urine Color Yellow (Yellow) 04/24/21 17:24 Urine Appearance Clear (CLEAR) 04/24/21 17:24 Urine pH 5 (5-7) 04/24/21 17:24 Ur Specific [place] 1.020 (1.005-1.030) 04/24/21 17:24 Urine Protein 1+ (Negative) H 04/24/21 17:24 Urine Glucose (UA) Norm (Normal) 04/24/21 17:24 Urine Ketones Negative (Negative) 04/24/21 17:24 Urine Blood 3+ (Negative) H 04/24/21 17:24 Urine Nitrate Negative (Negative) 04/24/21 17:24 Urine Bilirubin Neg (Negative) 04/24/21 17:24 Urine Urobilinogen 4 mg/dL (Negative) H 04/24/21 17:24 Ur Leukocyte Esterase Negative (Negative) 04/24/21 17:24 Urine RBC 50-80 /hpf (0-2) H 04/24/21 17:24 Urine WBC 0-4 /hpf (0-5) H 04/24/21 17:24 Ur Squamous Epith Cells 0-4 /hpf (0-5) H 04/24/21 17:24 Amorphous Sediment Not Reportable 04/24/21 17:24 Urine Bacteria Trace /hpf (NONE) 04/24/21 17:24 Vancomycin Trough 10.1 ug/mL (10-15) 05/12/21 11:41 Hepatitis A IgM Ab Non-reactive (Nonreactive) 04/24/21 07:45 Hep Bs Antigen Non-reactive (Nonreactive) 04/24/21 07:45 Hep B Core IgM Ab Non-reactive (Nonreactive) 04/24/21 07:45 Hepatitis C Antibody Non-reactive (Nonreactive) 04/24/21 07:45 Influenza Type A Ag Negative (Negative) 04/24/21 06:46 Influenza Type B Ag Negative (Negative) 04/24/21 06:[address] 05/09/21 19:00 IMPRESSION: 1. Small to moderate RIGHT pneumothorax of approximately 20% with no tension. 2. Single right-sided chest tube is present with tip directed towards the apex. 3. Endotracheal and nasogastric tubes and RIGHT IJ line are in good positions. 4. Large amount of subcutaneous emphysema over the RIGHT chest wall extending into the neck. 5. Extensive bilateral groundglass and pulmonary consolidations consistent with a history of Covid 19. Head CT 05/09/21 19:00 IMPRESSION: 1. No acute intracranial hemorrhage or edema. 2. Subcutaneous air along the RIGHT neck and in the RIGHT retropharyngeal space is new. Significant amount of subcutaneous emphysema is noted on the chest radiograph obtained on 05/09/2021. Chest X-Ray 05/13/21 04:00 IMPRESSION: 1. Persistent bilateral airspace opacities. 2. [id number] left-sided pneumothorax. Left-sided chest tube remains in satisfactory position. Micro: Microbiology 05/08/21 12:38 Blood Culture - Final Blood NO GROWTH AFTER 5 DAYS 05/08/21 12:36 Blood Culture - Final Blood NO GROWTH AFTER 5 DAYS A&P Assessment and plan (1) ARDS (adult respiratory distress syndrome): Status: Acute (2) Acute encephalopathy: Status: Acute (3) GERD (gastroesophageal reflux disease): Status: Chronic Qualifiers: Esophagitis presence: esophagitis presence not specified Qualified Code(s): K21.9 - Gastro-esophageal reflux disease without esophagitis (4) Acute respiratory failure with hypoxia: Status: Acute (5) Pneumonia due to COVID-19 virus: Status: Acute (6) Hypoxia: Status: Acute (7) Pneumothorax on right: Status: Acute (8) Persistent air leak: Status: Acute (9) Empyema lung: Status: Acute (10) Pneumothorax on left: Status: Acute #Acute hypoxic respiratory failure secondary to ARDS due to COVID-19 pneumonia complicated by large right pneumothorax with persistent air leak #Possible right-sided empyema #Left tension pneumothorax-s/p chest tube placement on 05/11/2021 #Hypothyroidism #Hypertension -Currently intubated (04/27)and sedated with Precedex 0.7, fentanyl 75 and propofol 30 -Patient moving her limbs but not following commands-appears visibly upset but does not follow commands -Plan is to taper down sedation and assess mental status, if successful followed by breathing trial -ABG 7.3 6/53/64/30/92% on CMV 65 %/5/370 -CT head 05/09/2021 no acute intracranial hemorrhage or edema, subcutaneous air along the right neck and right retropharyngeal spaces is new. -Chest CT 05/09/2021: Showed [id number] right pneumothorax of approxi mately 20% with no tension. single right-sided chest tube is present with tip directed towards the apex. Large amounts of subcutaneous emphysema over the right chest wall extending into the neck. Extensive bilateral GGO's and pulmonary consolidations consistent with COVID-19 -Initial right chest tube 05/06/2021-removed on 05/08/2021 after clamping for 24 hours with no air leak-within 2 hours recurrence of tension pneumothorax- reinserted 05/09/2021 -Left-sided pneumothorax-chest tube placed 05/11/2021-persistent air leak and connected to underwater seal -PEEP reduced to 5 yesterday and both chest tubes were left under waterseal-but still has persistent air leak -chest x-ray did not show any pneumothorax -s/p 5-day remdesivir protocol and 1 dose Tocilizumab 04/24/2021 and proned 4 times -On Levophed 2 for hypotension intermittently -Echo during this admission EF 60% grade 1 diastolic dysfunction -Completed 10 days dexamethasone 6 mg daily-tapered down to 3 mg daily - Combivent every 6 hours/Advair every 12 hours -IV levothyroxine 40 mg -Sodium 146 -Free water 250 every 6 hour, renal functions are improving today -Continue tube feeding -Sugars better controlled-currently on scale coverage - MRSA, Legionella, bacterial antigens all negative-fever spike started subsiding and WBC improved to 8.9 K -Blood cultures from 04/24 negative to date; 05/08 negative; -Sputum cultures 05/11/20211856-[id number] rods -on linezolid and imipenem - Monitor inflammatory markers - Lovenox for DVT prophylaxis - Protonix for GI prophylaxis - Daughter karen and patient sister updated -they wanted to continue care but wanted DNR Recommendations conveyed to hospitalist, RN, RT covering the patient Attestations Medical Necessity Statement*: Patient requires hospitalization for acute respiratory failure, pneumothorax for persistent air leak, pneumonia secondary to COVID-19 Time Spent in Patient Care: Greater than 35 minutes (>than 50% of time spent in counselling and/or direct pt care on unit) . Critical Care Time: The high probability of a clinically significant, sudden or life threatening deterioration of the patient's [neurologic, infectious, renal and respiratory] system(s) required my full and direct attention, intervention and personal management. The critical care time is as shown. This time is in addition to time spent performing any reported procedures but includ es the following: [x] Data and vital sign review and interpretation [x] Patient assessment, examination and intervention [x] Documentation [x] Medication orders and management Critical Care Time (min): 45 Coding Level of Care Code Established Pt Acute Pie Bottomer for Chg Fwd Patient Type Established History Comprehensive Exam Comprehensive Medical Decision Making High Complexity Diagnoses ARDS (adult respiratory distress syndrome) J80 Acute encephalopathy G93.40 GERD (gastroesophageal reflux disease) K21.9 Esophagitis presence: esophagitis presence not specified Acute respiratory failure with hypoxia J96.01 Pneumonia due to COVID-19 virus U07.1; J12.82 Hypoxia R09.02 Pneumothorax on right J93.9 Persistent air leak Empyema lung J86.9 Pneumothorax on left J93.9 Time Spent (min) 45
[2021-05-14] VITALS (64 sets, daily range): BP systolic 88–186; BP diastolic 58–118; PULSE 54–99; RESP 19–27; TEMP 36.6–37.3; O2SAT 91–99
[2021-05-14] MEDS: ipratropium-albuterol 3 mL Neb INHALATION ×6 (00:06→22:04)
[2021-05-14] MEDS: dexmedetomidine 400 MCG in sodium chloride 0.9% (100 ml) 100 ML 14.03 MCG IV ×2 (02:08→10:10)
--- NOTE | 2021-05-14 02:32 | PC.NURSE ---
Shift Note Frequent safety and comfort rounds continue. Orders and/or nursing care completed as indicated. Patient monitored for response to intervention and treatment(s). Education provided includes treatment plan and medication. Patient unable to comprehend due to acute illness and being [facility] ventilated. Family called about 9pm while nurse at bedside in [address] room giving patient medications. They stated they would call back, did not leave name or call back number to return call. Gtt's infusing and titrated per protocol. Patient intermittently gets agitated and shakes head back and forth, opens eyes but doesn't make eye contact or meaningful movements. Robb and chest tubes draining freely. Will continue to monitor.
[2021-05-14 03:50] LABS: Glucose Point of Care 140 mg/dL (70-110)
[2021-05-14] MEDS: propofol 1,000 MG/100 ML INJ 16.19 MG IV (04:17)
[2021-05-14 04:18] LABS: Basophils % 0.3 %; Hematocrit 30.5 % (37.0-47.0); Lymphocytes # 0.7 10^3/uL (0.8-4.8); Lymphocytes % 10.6 %; Mean Corpuscular HGB Conc 29.5 g/dL (30.0-36.0); Mean Corpuscular Hemoglobin 28.5 pg (28.0-34.0); Mean Corpuscular Volume 96.5 fl (81-99); Mean Platelet Volume 10.8 fL (7.4-10.4); Monocytes # 0.6 10^3/uL (0.2-0.9); Monocytes % 8.6 %; Neutrophils # 5.14 10^3/uL (1.8-7.7); Neutrophils % 78.5 %; Nucleated Red Blood Cells % 0 %; Platelet Count 266 10^3/cmm (130-400); Red Blood Count 3.16 10^6/uL (4.1-5.3); Red Cell Distribution Width 14.2 % (12.1-15.1); White Blood Count 6.5 10^3/uL (4.0-10.0)
[2021-05-14 04:40] LABS: Alanine Aminotransferase 15 U/L (0-33); Albumin Level 2.1 g/dL (3.5-5.2); Alkaline Phosphatase 77 IU/L (35-105); Aspartate Amino Transferase 17 U/L (0-32); Blood Urea Nitrogen 18 mg/dL (8-23); Calcium 9.2 mg/dL (8.5-10.5); Carbon Dioxide 28 mmol/L (22-29); Chloride 111 mmol/L (98-107); Globulin 2.6 g/dL (1.3-4.6); Glomerular Filtration Rate 362.3 mL/min (90-130); Glucose 149 mg/dL (65-115); Magnesium 2.1 mg/dL (1.7-2.3); Osmolality Calculated 303 mOsm/kg (285-295); Sodium 144 mmol/L (136-145); Total Bilirubin 0.3 mg/dL (0.15-1.2); Total Protein 4.7 g/dL (6.6-8.7)
[2021-05-14 05:17] LABS: ABG PCO2 46.6 mmHg (35-45); ABG PH Result 7.42 (7.35-7.45); Arterial Blood Gas Hematocrit 31.1 % (37-47); Base Excess ABG 5.4 mmol/L (-2.0-2.0); Blood Gas Allen Test Pos; Blood Gas Sample Site Radial, right; Blood Gas Sample Type Arterial; Carboxyhemoglobin 0.9 %THgb (0.4-20.1); HCO3 ABG 30.5 mmol/L (22-26); Ionized Calcium Level - ABG 1.5 mmol/L (1.1-1.4); Methemoglobin 0.8 % (0.4-1.5); Oxygen Saturation ABG 96.6; PO2 ABG 78.5 mmHg (80.0-100.0); Potassium Level - ABG 3.9 mmol/L (3.5-5.0); Total Hemoglobin 10.2 g/dL (12-16)
[2021-05-14 05:18] LABS: Blood Gas Operator Identificat JB; Oxygen Device VENT
--- NOTE | 2021-05-14 06:00 | XR_ITS ---
WS: [id number] Portable AP semiupright chest, 05/14/2021 Clinical Data: pneumonia Comparison: Portable chest, 05/13/2021 Findings: The nasogastric tube has retreated and the tip ends in the mid esophagus. The endotracheal tube, right internal jugular venous catheter and bilateral chest tubes remain in good position. The b ilateral patchy opacities have not changed. There are small bilateral effusions. No pneumothorax is s een. There is epidural stimulator leads over the mid thoracic epidural space. There is a right should er arthroplasty. Monitor leads on the chest wall. XR/XR chest 1V portable [id number] Impression: 1. No change in bilateral patchy opacities. 2. Nasogastric tube ends in mid esophagus. 3. Remainder of the tubes have not changed.
[2021-05-14 08:07] LABS: Glucose Point of Care 143 mg/dL (70-110)
[2021-05-14] MEDS: dexamethasone 10 mg/mL INJ 3 MG IVP (08:49)
[2021-05-14] MEDS: gabapentin 400 mg Capsule PO ×3 (08:49→22:07)
[2021-05-14] MEDS: famotidine 20 mg/2 mL INJ IVP ×2 (08:51→22:07)
[2021-05-14] MEDS: levothyroxine 100 mcg SDV 40 MCG IVP (08:53)
[2021-05-14] MEDS: linezolid premix 600 MG/300 ML PREMIX 300 MG IV (09:58)
--- NOTE | 2021-05-14 10:50 | XR_ITS ---
WS: [id number] Right shoulder, AP view, 05/14/2021 Clinical Data: shoulder pain Comparison: Right shoulder, 04/01/2020. Findings: The right shoulder arthroplasty remains in position. There is a right internal jugular venous cathete r. There is patchy opacity in the right lung. Monitor leads are on the chest wall. XR/XR shoulder RT 1V [id number] Impression: No change in right shoulder arthroplasty.
--- NOTE | 2021-05-14 10:50 | XR_ITS ---
WS: [id number] Lateral cervical spine, 05/14/2021 Clinical Data: neck pain Comparison: None. Findings: There is an endotracheal tube and an endogastric tube in position. There is a 0.3 subluxation of C4 o n C5 which is probably arthritic. There is degenerative disc narrowing at C5-C6. No compression fract ures are seen. XR/XR cervical spine 1ort 01500 Impression: Insertion of endotracheal tube and endogastric tube.
--- NOTE | 2021-05-14 10:50 | XR_ITS ---
WS: [id number] Left shoulder, AP view, 05/14/2021 Clinical Data: shoulder pain Comparison: Left shoulder, 04/01/2020. Findings: Sclerosis of the left humeral head and adjacent left glenoid rim indicates severe osteoarthritic sam ge. There are probable synovial calcifications inferior to the shoulder joint. There are calcificatio ns superior to the humeral head. The AC joint is intact. The left chest shows patchy opacities with a left chest tube ending near the apex of the left pleural space. Monitor leads are on the chest wall. XR/XR shoulder LT 1V [id number] Impression: Severe osteoarthritis of the left shoulder.
[2021-05-14 11:26] LABS: Glucose Point of Care 196 mg/dL (70-110)
--- NOTE | 2021-05-14 14:01 | P.PN_ITS ---
Subjective Subjective: Interval history: Patient was noted to be hypertensive. Was on FiO2 of 60%. Bilateral chest tubes are in place. Medications: Reviewed: Yes Vitals/I&O/Wt Last Vital Signs Temp 98.2 F 05/14/21 08:00 Pulse 81 05/14/21 13:00 Resp 23 H 05/14/21 12:01 BP 132/93 05/14/21 13:00 Pulse Ox 92 05/14/21 13:00 05/13/21 05/14/21 05/14/21 22:59 06:59 14:59 Intake Total 864 / 1519.43 250.04 / 1769.47 692.565 / 692.565 Output Total 775 / 775 395 / 1170 Balance 89 / 744.43 -144.96 / 599.47 692.565 / 692.565 Physical Exam Narrative: EXAM NARRATIVE: General : Critcally ill appearing HEENT: ET tube ChestL b/l sided Chest tube CVS: NSR ABD : Non distende - Robb Ext Edema Urinary Catheter Management^: Robb: Cath Placed During This Visit: yes Reason for Continuing Indwelling Catheter: Accurate Measurement of Urinary Output in Critically Ill Patients Urinary Catheter Date of Insertion: 04/24/21 Urinary Catheter Time of Insertion: 11:55 Data : 05/14/21 03:45 05/14/21 03:45 Micro: Microbiology 05/11/21 08:50 Gram Stain - Final Sputum - Endotracheal Tube Aspirate Sputum Culture - Final Klebsiella pneumoniae Enterobacter cloacae 05/08/21 12:38 Blood Culture - Final Blood NO GROWTH AFTER 5 DAYS 05/08/21 12:36 Blood Culture - Final Blood NO GROWTH AFTER 5 DAYS A&P Assessment and plan (1) Pneumonia due to COVID-19 virus: Severe COVID-19 pneumonia, acute hypoxic respiratory failure, acute encephalopathy, acute respiratory distress requiring high flow oxygen Intubated 04/27/2021 Has finished her fourth session of proning Weaning sedation Pressor support wean as tolerated maintain MAP in the 65 Remdesivir initiated 04/24 Toclizumab given 04/24 Dexamethasone initiated 04/25 Combivent every 6 hours Advair every 12 hours IV levothyroxine Lasix as needed MRSA, Legionella, bacterial antigens all negative Continue broad-spectrum antibiotics Blood cultures from 7/29 negative to date Echocardiogram shows EF of 60%, grade 1 out of [address] chest noted Pneumothorax -management of chest tube per Pulmonary Repeat chest x-ray in a.m. Status: Acute (2) Acute respiratory failure with hypoxia: Wean vent as tolerated FiO2 of 60% ABG and chest x-ray in a.m. Status: Acute (3) Hypothyroidism: TSH checked and normal On home levothyroxine Status: Chronic (4) Hypertension: Home amlodipine currently held , blood pressure normal Status: Chronic (5) GERD (gastroesophageal reflux disease): Status: Chronic Qualifiers: Esophagitis presence: esophagitis presence not specified Qualified Code(s): K21.9 - Gastro-esophageal reflux disease without esophagitis (6) Chronic back pain greater than 3 months duration: Status: Chronic (7) Acute encephalopathy: Likely secondary to COVID-19, hypoxia Status: Acute (8) Empyema lung: Status: Acute (9) Persistent air leak: Status: Acute (10) Pneumothorax on right: chest tube in place Status: Acute (11) Pneumothorax on left: chest tube in place Status: Acute Additional A&P Information DVT prophylaxis- Lovenox Attestations Medical Necessity Statement*: Continue hospitalizationFor management of respiratory failure on mechanical ventilation, bilateral pneumothorax with chest tubes in place and sepsis with IV antibiotics. Time Spent in Patient Care: Greater than 35 minutes (>than 50% of time spent in counselling and/or direct pt care on unit) . Coding Level of Care Code Acute Bath Solution Maker for Chg Fwd Diagnoses Pneumonia due to COVID-19 virus U07.1; J12.82 Acute respiratory failure with hypoxia J96.01 Hypothyroidism E03.9 Hypertension I10 GERD (gastroesophageal reflux disease) K21.9 Esophagitis presence: esophagitis presence not specified Chronic back pain greater than 3 months duration M54.9; G89.29 Acute encephalopathy G93.40 Empyema lung J86.9 Persistent air leak Pneumothorax on right J93.9 Pneumothorax on left J93.9
--- NOTE | 2021-05-14 15:41 | PC.RESP ---
RT Shift Note Frequent safety and respiratory rounds continue. Orders completed as indicated. Patient monitored pre and post treatments throughout shift. Patient [Did.] tolerate treatments appropriately. Condition [I.DidNotChange]. Patient and/or front office representative educated on respiratory treatment and medications. Patient and/or front office representative [unable to comprehend]. Will continue to monitor patient progress.
[2021-05-14 15:48] LABS: Glucose Point of Care 183 mg/dL (70-110)
[2021-05-14] MEDS: propofol 1,000 MG/100 ML INJ 11.57 MG IV (16:30)
[2021-05-14] MEDS: dexmedetomidine 400 MCG in sodium chloride 0.9% (100 ml) 100 ML 10.02 MCG IV (17:32)
[2021-05-14] MEDS: enoxaparin 40 mg/0.4 mL Syringe SUBCUT (17:40)
--- NOTE | 2021-05-14 18:10 | PC.NURSE ---
Shift Note Frequent safety and comfort rounds continue. Orders and nursing care completed as indicated. Attempted to wean patient down on sedation, pt blood pressure and heart rate increased. See documented vitals. Physician notified, will attempt again tomorrow. Family updated on patient status. Patient monitored for response to intervention and treatment. Unable to provide education at this time due to pt ventilated and sedated. Will continue to monitor.
--- NOTE | 2021-05-14 20:11 | PM.PN ---
Subjective Subjective: Interval history: -Patient seen multiple times at bedside today -Sputum cultures grew Klebsiella and Enterobacteriaceae both sensitive to imipenem -Clinically appeared improving with improving white count and no fever spikes -Labs and imaging reviewed Medications: Reviewed: Yes Vitals/I&O/Wt Last Vital Signs Temp 98.4 F 05/14/21 17:30 Pulse 91 05/14/21 18:00 Resp 20 H 05/14/21 17:06 BP 144/87 05/14/21 18:00 Pulse Ox 95 05/14/21 18:00 05/14/21 05/14/21 05/14/21 06:59 14:59 22:59 Intake Total 250.04 / 1769.47 696.266 / 696.266 140.247 / 836.513 Output Total 395 / 1170 400 / 400 Balance -144.96 / 599.47 696.266 / 696.266 -259.753 / 436.513 Physical Exam Narrative: EXAM NARRATIVE: General: lying in bed, sedated and intubated, moves her head but does not follow commands HEENT:NCAT, PERRLA, EOMI Neck: Supple Lungs: Bilateral diffuse crepitations, right-sided chest tube in place and sterile dressing applied but purulent secretions noted and air leak noted under water seal; left-sided chest tube connected to underwater seal Heart: s1/s2, RRR Abd: soft, NT, ND, BS + Normoactive Extremities: No edema FIRE OBSERVER: sedated and limited FIRE OBSERVER exam possible. SKIN: no rash Urinary Catheter Management^: Robb: Cath Placed During This Visit: yes Reason for Continuing Indwelling Catheter: Accurate Measurement of Urinary Output in Critically Ill Patients Urinary Catheter Date of Insertion: 04/24/21 Urinary Catheter Time of Insertion: 11:55 Data : 05/14/21 03:45 05/14/21 03:45 Other Labs: Laboratory Results WBC 6.5 10^3/uL (4.0-10.0) 05/14/21 03:45 RBC 3.16 10^6/uL (4.1-5.3) L 05/14/21 03:45 Hgb 9.0 g/dL (11.5-15.3) L 05/14/21 03:45 Hct 30.5 % (37.0-47.0) L 05/14/21 03:45 MCV 96.5 fl (81-99) 05/14/21 03:45 MCH 28.5 pg (28.0-34.0) 05/14/21 03:45 MCHC 29.5 g/dL (30.0-36.0) L 05/14/21 03:45 RDW 14.2 % (12.1-15.1) 05/14/21 03:45 Plt Count 266 10^3/cmm (130-400) 05/14/21 03:45 MPV 10.8 fL (7.4-10.4) H 05/14/21 03:45 Neut % (Auto) 78.5 % 05/14/21 03:45 Lymph % (Auto) 10.6 % 05/14/21 03:45 [place] % (Auto) 8.6 % 05/14/21 03:45 Eos % (Auto) 0.0 % 05/14/21 03:45 Baso % (Auto) 0.3 % 05/14/21 03:45 Neut # (Auto) 5.14 10^3/uL (1.8-7.7) 05/14/21 03:45 Lymph # (Auto) 0.7 10^3/uL (0.8-4.8) L 05/14/21 03:45 [place] # (Auto) 0.6 10^3/uL (0.2-0.9) 05/14/21 03:45 Eos # (Auto) 0.0 10^3/uL (0.0-0.8) 05/14/21 03:45 Baso # (Auto) 0.0 10^3/uL (0.0-0.1) 05/14/21 03:45 Nucleated RBC % (auto) 0 % 05/14/21 03:45 Nucleated RBCs # 0.0 /100WBC 05/14/21 03:45 PT 14.70 SECONDS (12.1-14.9) 04/30/21 05:25 INR 1.12 (0.8-1.2) 04/30/21 05:25 APTT 26.2 SECONDS (23.9-36.7) 04/24/21 07:55 Fibrinogen 497 mg/dL (174-498) 04/24/21 07:55 D-Dimer 19.94 ug/mIFEU (0-0.59) H 04/29/21 05:55 Specimen Type Arterial 05/14/21 05:04 Sample Site Radial, right 05/14/21 05:04 ABG pH 7.42 (7.35-7.45) 05/14/21 05:04 ABG pCO2 46.6 mmHg (35-45) H 05/14/21 05:04 ABG pO2 78.5 mmHg (80.0-100.0) L 05/14/21 05:04 ABG HCO3 30.5 mmol/L (22-26) H 05/14/21 05:04 ABG O2 Saturation 96.6 05/14/21 05:04 ABG Base Excess 5.4 mmol/L (-2.0-2.0) H 05/14/21 05:04 Dejan Test Pos 05/14/21 05:04 A-a O2 Gradient 38.0 mmHg (5-10) H 05/14/21 05:04 Hematocrit 31.1 % (37-47) L 05/14/21 05:04 Hgb O2 Saturation 95.0 % (95-100) 05/14/21 05:04 Carboxyhemoglobin 0.9 %THgb (0.4-20.1) 05/14/21 05:04 Methemoglobin 0.8 % (0.4-1.5) 05/14/21 05:04 Total Hemoglobin 10.2 g/dL (12-16) L 05/14/21 05:04 Sodium 147.0 mmol/L (131-143) H 05/14/21 05:04 Potassium 3.9 mmol/L (3.5-5.0) 05/14/21 05:04 Glucose 142.0 mg/dL (70-115) H 05/14/21 05:04 Ionized Calcium 1.5 mmol/L (1.1-1.4) H 05/14/21 05:04 O2 Delivery Device Vent 05/14/21 05:04 O2 Liters/Min 50.0 % 04/24/21 06:25 FiO2 60.0 % 05/14/21 05:04 Tidal Volume 0.37 05/11/21 05:26 PEEP 5.0 cmH20 05/13/21 05:03 CPAP 5.0 cmH20 05/14/21 05:04 Historical Interpreter ID Rodriguez 05/14/21 05:04 Sodium 144 mmol/L (136-145) 05/14/21 03:45 Potassium 4.0 mmol/L (3.5-5.1) 05/14/21 03:45 Chloride 111 mmol/L (98-107) H 05/14/21 03:45 Carbon Dioxide 28 mmol/L (22-29) 05/14/21 03:45 Anion Gap 9.0 (5-19) 05/14/21 03:45 BUN 18 mg/dL (8-23) 05/14/21 03:45 Creatinine 0.2 mg/dL (0.5-0.9) L 05/14/21 03:45 GFR Calculation 362.3 mL/min (90-130) H 05/14/21 03:45 Glucose 149 mg/dL (65-115) H 05/14/21 03:45 POC Glucose 183 mg/dL (70-110) H 05/14/21 15:44 Calculated Osmolality 303 mOsm/kg (285-295) H 05/14/21 03:45 Lactic Acid 1.6 mmol/L (0.5-2.2) 04/24/21 07:45 Lactate 1.6 mmol/L (0.5-2.2) 05/12/21 06:06 Calcium 9.2 mg/dL (8.5-10.5) 05/14/21 03:45 Phosphorus 3.1 mg/dL (2.5-4.5) 05/04/21 03:49 Magnesium 2.1 mg/dL (1.7-2.3) 05/14/21 03:45 Ferritin 335 ng/mL (15-150) H 05/09/21 05:43 Total Bilirubin 0.3 mg/dL (0.15-1.2) 05/14/21 03:45 AST 17 U/L (0-32) 05/14/21 03:45 ALT 15 U/L (0-33) 05/14/21 03:45 Alkaline Phosphatase 77 IU/L (35-105) 05/14/21 03:45 Lactate Dehydrogenase 720 U/L (135-214) H 04/24/21 07:45 Creatine Kinase 226 U/L (26-192) H 04/29/21 05:55 Troponin T Gen 5 ng/L 13 ng/L (0-10) H 04/24/21 08:05 C-Reactive Protein 89.2 mg/L (0.0-4.9) H 05/09/21 05:43 NT-Pro-B Natriuret Pep 819 pg/mL (0-125) H 04/29/21 05:55 Total Protein 4.7 g/dL (6.6-8.7) L 05/14/21 03:45 Albumin 2.1 g/dL (3.5-5.2) L 05/14/21 03:45 Globulin 2.6 g/dL (1.3-4.6) 05/14/21 03:45 Triglycerides 763 mg/dL (0-150) H 05/02/21 05:51 LDL Cholesterol Direct 39 mg/dL (0-100) 05/02/21 05:51 Interleukin 6 27.80 pg/mL (<5.00) H 04/24/21 07:45 Procalcitonin 3.81 ng/mL (0-0.5) H 05/12/21 06:06 TSH 0.53 uIU/mL (0.27-4.20) 04/24/21 07:45 Urine Color Yellow (Yellow) 04/24/21 17:24 Urine Appearance Clear (CLEAR) 04/24/21 17:24 Urine pH 5 (5-7) 04/24/21 17:24 Ur Specific [place] 1.020 (1.005-1.030) 04/24/21 17:24 Urine Protein 1+ (Negative) H 04/24/21 17:24 Urine Glucose (UA) Norm (Normal) 04/24/21 17:24 Urine Ketones Negative (Negative) 04/24/21 17:24 Urine Blood 3+ (Negative) H 04/24/21 17:24 Urine Nitrate Negative (Negative) 04/24/21 17:24 Urine Bilirubin Neg (Negative) 04/24/21 17:24 Urine Urobilinogen 4 mg/dL (Negative) H 04/24/21 17:24 Ur Leukocyte Esterase Negative (Negative) 04/24/21 17:24 Urine RBC 50-80 /hpf (0-2) H 04/24/21 17:24 Urine WBC 0-4 /hpf (0-5) H 04/24/21 17:24 Ur Squamous Epith Cells 0-4 /hpf (0-5) H 04/24/21 17:24 Amorphous Sediment Not Reportable 04/24/21 17:24 Urine Bacteria Trace /hpf (NONE) 04/24/21 17:24 Vancomycin Trough 10.1 ug/mL (10-15) 05/12/21 11:41 Hepatitis A IgM Ab Non-reactive (Nonreactive) 04/24/21 07:45 Hep Bs Antigen Non-reactive (Nonreactive) 04/24/21 07:45 Hep B Core IgM Ab Non-reactive (Nonreactive) 04/24/21 07:45 Hepatitis C Antibody Non-reactive (Nonreactive) 04/24/21 07:45 Influenza Type A Ag Negative (Negative) 04/24/21 06:46 Influenza Type B Ag Negative (Negative) 04/24/21 06:[address] 05/09/21 19:00 IMPRESSION: 1. Small to moderate RIGHT pneumothorax of approximately 20% with no tension. 2. Single right-sided chest tube is present with tip directed towards the apex. 3. Endotracheal and nasogastric tubes and RIGHT IJ line are in good positions. 4. Large amount of subcutaneous emphysema over the RIGHT chest wall extending into the neck. 5. Extensive bilateral groundglass and pulmonary consolidations consistent with a history of Covid 19. Head CT 05/09/21 19:00 IMPRESSION: 1. No acute intracranial hemorrhage or edema. 2. Subcutaneous air along the RIGHT neck and in the RIGHT retropharyngeal space is new. Significant amount of subcutaneous emphysema is noted on the chest radiograph obtained on 05/09/2021. Chest X-Ray 05/14/21 06:00 Impression: 1. No change in bilateral patchy opacities. 2. Nasogastric tube ends in mid esophagus. 3. Remainder of the tubes have not changed. Cervical Spine X-Ray 05/14/21 10:50 Impression: Insertion of endotracheal tube and endogastric tube. Shoulder X-Ray 05/14/21 10:50 Impression: Severe osteoarthritis of the left shoulder. Micro: Microbiology 05/11/21 08:50 Gram Stain - Final Sputum - Endotracheal Tube Aspirate Sputum Culture - Final Klebsiella pneumoniae Enterobacter cloacae A&P Assessment and plan (1) ARDS (adult respiratory distress syndrome): Status: Acute (2) Acute encephalopathy: Status: Acute (3) GERD (gastroesophageal reflux disease): Status: Chronic Qualifiers: Esophagitis presence: esophagitis presence not specified Qualified Code(s): K21.9 - Gastro-esophageal reflux disease without esophagitis (4) Acute respiratory failure with hypoxia: Status: Acute (5) Pneumonia due to COVID-19 virus: Status: Acute (6) Hypoxia: Status: Acute (7) Pneumothorax on right: Status: Acute (8) Persistent air leak: Status: Acute (9) Empyema lung: Status: Acute (10) Pneumothorax on left: Status: Acute #Acute hypoxic respiratory failure secondary to ARDS due to COVID-19 pneumonia complicated bilateral pneumothorax with persistent air leak s/p bilateral chest tubes under waterseal #Possible right-sided empyema #Hypothyroidism #Hypertension -Currently intubated (04/27)and sedated with Precedex 0.7, fentanyl 75 and propofol 30 -Patient moving her limbs but not following commands-appears visibly upset but does not follow commands -Plan is to taper down sedation and assess mental status, if successful followed by breathing trial -ABG 7.4 2/46/78/30/96% on CMV 370/5/50 percent -CT head 05/09/2021 no acute intracranial hemorrhage or edema, subcutaneous air along the right neck and right retropharyngeal spaces is new. -Chest CT 05/09/2021: Showed [id number] right pneumothorax of approximately 20% with no tension. single right-sided chest tube is present with tip directed towards the apex. Large amounts of subcutaneous emphysema over the right chest wall extending into the neck. Extensive bilateral GGO's and pulmonary consolidations consistent with COVID-19 -Initial right chest tube 05/06/2021-removed on 05/08/2021 after clamping for 24 hours with no air leak-within 2 hours recurrence of tension pneumothorax-reinserted 05/09/2021 -Left-sided pneumothorax-chest tube placed 05/11/2021-persistent air leak and connected to underwater seal -PEEP reduced to 5 and both chest tubes were left under waterseal-but still has persistent air leak -chest x-ray did not show any pneumothorax -s/p 5-day remdesivir protocol and 1 dose Tocilizumab 04/24/2021 and proned 4 times -On Levophed 2 for hypotension intermittently -Echo during this admission EF 60% grade 1 diastolic dysfunction -Completed 10 days dexamethasone 6 mg daily-tapered down to 3 mg daily - Combivent every 6 hours/Advair every 12 hours -IV levothyroxine 40 mg -+600 cc last 24 hours / +5.8 L since admission-Lasix 40 mg 1 dose -Sodium 144-DC free water -Continue tube feeding -Sugars better controlled-currently on scale coverage - MRSA, Legionella, bacterial antigens all negative- -Blood cultures from 04/24 negative to date; 05/08 negative; -Sputum cultures 05/11/2021-Klebsiella pneumonia and Enterobacter cloacae sensitive to imipenem -DC linezolid and continue imipenem started 05/11/2021 - no more fever spikes and WBC improved to 6.8 K - Monitor inflammatory markers - Lovenox for DVT prophylaxis - Protonix for GI prophylaxis - Daughter karen and patient sister updated -they wanted to continue care but wanted DNR -We will plan for LTAC for trach and PEG ; she might benefit from Endobronchial valves for bilateral Pneumothoraces Recommendations conveyed to hospitalist, RN, RT covering the patient Attestations Medical Necessity Statement*: Patient requires hospitalization for acute respiratory failure, pneumothorax for persistent air leak, pneumonia secondary to COVID-19 Time Spent in Patient Care: Greater than 35 minutes (>than 50% of time spent in counselling and/or direct pt care on unit). Critical Care Time: The high probability of a clinically significant, sudden or life threatening deterioration of the patient's [neurologic, infectious, renal and respiratory] system(s) required my full and direct attention, intervention and personal management. The critical care time is as shown. This time is in addition to time spent performing any reported procedures but includes the following: [x] Data and vital sign review and interpretation [x] Patient assessment, examination and intervention [x] Documentation [x] Medication orders and management Critical Care Time (min): 45 Coding Level of Care Code Established Pt Acute Computer Aide for [place] Fwd Patient Type Established History Comprehensive Exam Comprehensive Medical Decision Making High Complexity Diagnoses ARDS (adult respiratory distress syndrome) J80 Acute encephalopathy G93.40 GERD (gastroesophageal reflux disease) K21.9 Esophagitis presence: esophagitis presence not specified Acute respiratory failure with hypoxia J96.01 Pneumonia due to COVID-19 virus U07.1; J12.82 Hypoxia R09.02 Pneumothorax on right J93.9 Persistent air leak Empyema lung J86.9 Pneumothorax on left J93.9 Time Spent (min) 45
[2021-05-14 22:05] LABS: Glucose Point of Care 117 mg/dL (70-110)
[2021-05-15] VITALS (64 sets, daily range): BP systolic 80–162; BP diastolic 51–101; PULSE 74–114; RESP 18–31; TEMP 36.8–37.8; O2SAT 90–99
[2021-05-15] MEDS: ipratropium-albuterol 3 mL Neb INHALATION ×7 (00:51→23:13)
[2021-05-15 02:38] LABS: Glucose Point of Care 104 mg/dL (70-110)
[2021-05-15 05:26] LABS: Basophils # 0.1 10^3/uL (0.0-0.1); Basophils % 0.6 %; Eosinophils # 0.1 10^3/uL (0.0-0.8); Hematocrit 36.3 % (37.0-47.0); Hemoglobin 10.5 g/dL (11.5-15.3); Lymphocytes # 1.1 10^3/uL (0.8-4.8); Lymphocytes % 9.9 %; Mean Corpuscular HGB Conc 28.9 g/dL (30.0-36.0); Mean Corpuscular Hemoglobin 27.8 pg (28.0-34.0); Neutrophils # 8.37 10^3/uL (1.8-7.7); Neutrophils % 76.5 %; Nucleated Red Blood Cells % 0.3 %; Platelet Count 380 10^3/cmm (130-400); Red Blood Count 3.78 10^6/uL (4.1-5.3); Red Cell Distribution Width 14.5 % (12.1-15.1)
[2021-05-15 05:47] LABS: ABG PCO2 55.5 mmHg (35-45); ABG PH Result 7.36 (7.35-7.45); Arterial Blood Gas Hematocrit 34.3 % (37-47); Base Excess ABG 4.6 mmol/L (-2.0-2.0); Blood Gas Allen Test Pos; Blood Gas Sample Site Radial, right; Blood Gas Sample Type Arterial; Blood Gas Tidal Volume 0.37; HCO3 ABG 31.3 mmol/L (22-26); Oxygen Device VENT; PO2 ABG 77.5 mmHg (80.0-100.0)
[2021-05-15 05:48] LABS: Alanine Aminotransferase 14 U/L (0-33); Albumin Level 2.4 g/dL (3.5-5.2); Alkaline Phosphatase 92 IU/L (35-105); Aspartate Amino Transferase 14 U/L (0-32); Blood Urea Nitrogen 14 mg/dL (8-23); Calcium 9.7 mg/dL (8.5-10.5); Carbon Dioxide 29 mmol/L (22-29); Chloride 109 mmol/L (98-107); Glomerular Filtration Rate 362.3 mL/min (90-130); Glucose 111 mg/dL (65-115); Osmolality Calculated 299 mOsm/kg (285-295); Procalcitonin 0.53 ng/mL (0-0.5); Sodium 144 mmol/L (136-145); Total Bilirubin 0.3 mg/dL (0.15-1.2); Total Protein 5.4 g/dL (6.6-8.7)
[2021-05-15] MEDS: dexmedetomidine 400 MCG in sodium chloride 0.9% (100 ml) 100 ML 10.02 MCG IV (05:59)
[2021-05-15] MEDS: propofol 1,000 MG/100 ML INJ 11.57 MG IV (05:59)
--- NOTE | 2021-05-15 06:00 | PC.NURSE ---
Addendum entered by Ceferino Merchant RN 05/15/21 07:03: No new changes occurred with the patient during the night. Vitals were stable and the patient had about 425 mL of urine output. Original Note: Shift Note Frequent safety and comfort rounds continue. Orders and/or nursing care completed as indicated. Patient monitored for response to intervention and treatment(s). Education provided includes[]. Patient and/or real estate representative [ResponseToTeaching]. Will continue to monitor.
--- NOTE | 2021-05-15 07:00 | XR_ITS ---
WS: [id number] Portable AP semiupright chest, 05/15/2021 Clinical Data: respiratory failure Comparison: Portable chest, 05/14/2021 Findings: The 2 chest tubes, right internal jugular venous catheter, nasogastric tube and endotrachea l tube remain in the same position. The bilateral pulmonary opacities have not changed. The heart siz e remains the same. There is a right shoulder prosthesis and osteoarthritis of the left shoulder. Mon itor leads are on the chest wall. XR/XR chest 1V portable 55032 Impression: 1. No change in multiple tubes. 2. No change in bilateral pulmonary opacities.
[2021-05-15 08:00] LABS: Glucose Point of Care 137 mg/dL (70-110)
[2021-05-15] MEDS: gabapentin 400 mg Capsule PO ×3 (08:01→20:22)
[2021-05-15] MEDS: famotidine 20 mg/2 mL INJ IVP ×2 (08:01→19:57)
[2021-05-15] MEDS: levothyroxine 50 mcg Tablet OG-TUBE (09:13)
--- NOTE | 2021-05-15 09:42 | PC.NURSE ---
0700 Pt report received, assessment completed. Pt repositioned and oral care performed q2h and PRN. Robb care completed. ETT in place, vent settings per RT. GTTs infusing per orders. VSS. R and L CT in place, no leak noted. Dressings c/d/i. Will monitor.
[2021-05-15] MEDS: midazolam 1 mg/mL INJ 2 mL 2 MG IVP (13:47)
--- NOTE | 2021-05-15 14:08 | PC.SOCIAL ---
IMM not Updated IMM not updated. Pt is still intubated & not expected to discharge within the next 24-48hrs.
--- NOTE | 2021-05-15 14:36 | XR_ITS ---
WS: [id number] Portable AP semiupright chest, 05/15/2021, 1516 hours Clinical Data: subclavian central line placement Comparison: Portable chest, today, 0516 hours Findings: A right subclavian catheter has been inserted and ends in the superior vena cava. All the t ubes remain the same. There are bilaterally patchy opacities in both lungs along with pleural effusio ns unchanged. XR/XR chest 1V portable 14042 Impression: Satisfactory insertion of right subclavian catheter.
[2021-05-15] MEDS: propofol 1,000 MG/100 ML INJ 16.19 MG IV (14:39)
[2021-05-15 14:55] LABS: Glucose Point of Care 133 mg/dL (70-110)
--- NOTE | 2021-05-15 15:01 | PC.RESP ---
RT Shift Note Frequent safety and respiratory rounds continue. Orders completed as indicated. Patient monitored pre and post treatments throughout shift. Patient [Did.] tolerate treatments appropriately. Condition [IDidNotChange]. Patient and/or customer retention representative educated on respiratory treatment and medications. Patient and/or customer retention representative [UNABLE TO COMPREHEND]. Will continue to monitor patient progress.
[2021-05-15] MEDS: dexmedetomidine 400 MCG in sodium chloride 0.9% (100 ml) 100 ML 14.03 MCG IV (15:20)
--- NOTE | 2021-05-15 16:43 | PC.NURSE ---
1415 R subclavian catheter placed by Dr. Burk, tolerated well. 2mg versed IVP given prior to procedure. CXR ordered to verify placement. 1440 CXR performed, MD at bedside to look at film. Placement verified and ok given to use line and remove R IJ CVL. All gtts moved to R SC line. RIJ removed without difficulty. Pressure held, pressure dressing applied, no s/s of active bleeding noted.
[2021-05-15] MEDS: enoxaparin 40 mg/0.4 mL Syringe SUBCUT (17:31)
--- NOTE | 2021-05-15 17:46 | PC.NURSE ---
Shift Note Frequent safety and comfort rounds continue. Orders and/or nursing care completed as indicated. Patient monitored for response to intervention and treatment(s). Education provided includes need for new CVL, consent obtained from NOK sister. Sister verbalizes understanding and spoke with MD at length concerning the plan of care for patient and the next steps in her recovery. R SC placed and tolerated well. Pt moves head back and forth and opens eyes but parker not move extremities or follow commands. Gtts infusing per orders. Vent settings per RT. R and L CT to water seal. No issues noted. Will continue to monitor.
--- NOTE | 2021-05-15 19:55 | P.PN_ITS ---
Subjective Subjective: Interval history: Patient remained on vent overnight. Continued on fentanyl, propofol for sedation Outtput from CT decreasing Low grade fever overnight Medications: Reviewed: Yes Vitals/I&O/Wt Last Vital Signs Temp 99.1 F 05/15/21 16:00 Pulse 109 H 05/15/21 18:00 Resp 30 H 05/15/21 17:17 BP 127/95 05/15/21 18:00 Pulse Ox 92 05/15/21 18:00 05/15/21 05/15/21 05/15/21 06:59 14:59 22:59 Intake Total 304 / 1240.513 475.333 / 475.333 95.375 / 570.708 Output Total 425 / 825 430 / 430 Balance -121 / 415.513 475.333 / 475.333 -334.625 / 140.708 Physical Exam Narrative: EXAM NARRATIVE: General : Critcally ill appearing HEENT: ET tube ChestL b/l sided Chest tube CVS: NSR ABD : Non distende - Robb Ext Edema Urinary Catheter Management^: Robb: Cath Placed During This Visit: yes Reason for Continuing Indwelling Catheter: Accurate Measurement of Urinary Output in Critically Ill Patients Urinary Catheter Date of Insertion: 04/24/21 Urinary Catheter Time of Insertion: 11:55 Data : 05/15/21 04:00 05/15/21 04:00 A&P Assessment and plan (1) Pneumonia due to COVID-19 virus: Severe COVID-19 pneumonia, acute hypoxic respiratory failure, acute encephalopathy, acute respiratory distress requiring high flow oxygen Intubated 04/27/2021 Has finished her fourth session of proning Weaning sedation Pressor support wean as tolerated maintain MAP in the 65 Remdesivir initiated 04/24 Toclizumab given 04/24 Dexamethasone initiated 04/25 Combivent every 6 hours Advair every 12 hours IV levothyroxine Lasix as needed MRSA, Legionella, bacterial antigens all negative Continue broad-spectrum antibiotics Blood cultures from 04/24 negative to date Echocardiogram shows EF of 60%, grade 1 out of [address] chest noted Pneumothorax -management of chest tube per Pulmonary Klebsiella and Enterobacteriaceae Continue current management as per literacy education professor Status: Acute (2) Acute respiratory failure with hypoxia: Wean vent as tolerated FiO2 of 55% ABG and chest x-ray in a.m. Status: Acute (3) Hypothyroidism: TSH checked and normal On home levothyroxine Status: Chronic (4) Hypertension: Home amlodipine currently held , blood pressure normal Status: Chronic (5) GERD (gastroesophageal reflux disease): Status: Chronic Qualifiers: Esophagitis presence: esophagitis presence not specified Qualified Code(s): K21.9 - Gastro-esophageal reflux disease without esophagitis (6) Chronic back pain greater than 3 months duration: Status: Chronic (7) Acute encephalopathy: Likely secondary to COVID-19, hypoxia Status: Acute (8) Empyema lung: Status: Acute (9) Persistent air leak: Status: Acute (10) Pneumothorax on right: chest tube in place Status: Acute (11) Pneumothorax on left: chest tube in place Status: Acute Additional A&P Information DVT prophylaxis- Lovenox Attestations Medical Necessity Statement*: Continue hospitalization management of vent dependent respiratory failure sepsis Time Spent in Patient Care: 16 - 35 minutes (>than 50% of time spent in counselling and/or direct pt care on unit) . Coding Level of Care Code Acute Vocational Nurse for g Fwd Diagnoses Pneumonia due to COVID-19 virus U07.1; J12.82 Acute respiratory failure with hypoxia J96.01 Hypothyroidism E03.9 Hypertension I10 GERD (gastroesophageal reflux disease) K21.9 Esophagitis presence: esophagitis presence not specified Chronic back pain greater than 3 months duration M54.9; G89.29 Acute encephalopathy G93.40 Empyema lung J86.9 Persistent air leak Pneumothorax on right J93.9 Pneumothorax on left J93.9
[2021-05-15 20:28] LABS: Glucose Point of Care 115 mg/dL (70-110)
--- NOTE | 2021-05-15 22:53 | P.PN_ITS ---
Subjective Subjective: Interval history: - Patient seen at bedside today - He had an IJ line placed on April 28-day -changed to right subclavian line - Clinically unchanged with persistent air leak in bilateral chest tubes and requiring FiO2 60% on ventilator -Attempt to wean off sedation-patient opens eyes but no meaningful communication and does not seem my following commands -Continues to be critically ill with ventilator associated pneumonia with MDR Enterobacter cloacae and Klebsiella sensitive to imipenem. -Gradually worsening of white counts and patient is afebrile -Other labs and imaging reviewed Medications: Reviewed: Yes Vitals/I&O/Wt Last Vital Signs Temp 99.1 F 05/15/21 16:00 Pulse 101 H 05/15/21 20:14 Resp 21 H 05/15/21 20:09 BP 127/95 05/15/21 18:00 Pulse Ox 92 05/15/21 20:09 05/15/21 05/15/21 05/15/21 06:59 14:59 22:59 Intake Total 304 / 1240.513 475.333 / 475.333 340.667 / 816.000 Output Total 425 / 825 430 / 430 Balance -121 / 415.513 475.333 / 475.333 -89.333 / 386.000 Physical Exam Narrative: EXAM NARRATIVE: General: lying in bed, sedated and intubated, moves her head but does not follow commands HEENT:NCAT, PERRLA, EOMI Neck: Supple Lungs: Bilateral diffuse crepitations, right-sided chest tube in place and sterile dressing applied but purulent secretions noted and air leak noted under water seal; left-sided chest tube connected to underwater seal Heart: s1/s2, RRR Abd: soft, NT, ND, BS + Normoactive Extremities: No edema TERRITORY SALES PROFESSIONAL: sedated and limited TERRITORY SALES PROFESSIONAL exam possible. SKIN: no rash Right subclavian venous line placed 05/15/2021 Urinary Catheter Management^: Robb: Cath Placed During This Visit: yes Reason for Continuing Indwelling Catheter: Accurate Measurement of Urinary Output in Critically Ill Patients Urinary Catheter Date of Insertion: 04/24/21 Urinary Catheter Time of Insertion: 11:55 Data : 05/16/21 03:00 05/16/21 03:00 Other Labs: Laboratory Results WBC 11.0 10^3/uL (4.0-10.0) H 05/15/21 04:00 RBC 3.78 10^6/uL (4.1-5.3) L 05/15/21 04:00 Hgb 10.5 g/dL (11.5-15.3) L 05/15/21 04:00 Hct 36.3 % (37.0-47.0) L 05/15/21 04:00 MCV 96.0 fl (81-99) 05/15/21 04:00 MCH 27.8 pg (28.0-34.0) L 05/15/21 04:00 MCHC 28.9 g/dL (30.0-36.0) L 05/15/21 04:00 RDW 14.5 % (12.1-15.1) 05/15/21 04:00 Plt Count 380 10^3/cmm (130-400) D 05/15/21 04:00 MPV 11.0 fL (7.4-10.4) H 05/15/21 04:00 Neut % (Auto) 76.5 % 05/15/21 04:00 Lymph % (Auto) 9.9 % 05/15/21 04:00 [place] % (Auto) 9.0 % 05/15/21 04:00 Eos % (Auto) 1.0 % 05/15/21 04:00 Baso % (Auto) 0.6 % 05/15/21 04:00 Neut # (Auto) 8.37 10^3/uL (1.8-7.7) H 05/15/21 04:00 Lymph # (Auto) 1.1 10^3/uL (0.8-4.8) 05/15/21 04:00 [place] # (Auto) 1.0 10^3/uL (0.2-0.9) H 05/15/21 04:00 Eos # (Auto) 0.1 10^3/uL (0.0-0.8) 05/15/21 04:00 Baso # (Auto) 0.1 10^3/uL (0.0-0.1) 05/15/21 04:00 Nucleated RBC % (auto) 0.3 % 05/15/21 04:00 Nucleated RBCs # 0.0 /100WBC 05/15/21 04:00 PT 14.70 SECONDS (12.1-14.9) 04/30/21 05:25 INR 1.12 (0.8-1.2) 04/30/21 05:25 APTT 26.2 SECONDS (23.9-36.7) 04/24/21 07:55 Fibrinogen 497 mg/dL (174-498) 04/24/21 07:55 D-Dimer 19.94 ug/mIFEU (0-0.59) H 04/29/21 05:55 Specimen Type Arterial 05/15/21 05:30 Sample Site Radial, right 05/15/21 05:30 ABG pH 7.36 (7.35-7.45) 05/15/21 05:30 ABG pCO2 55.5 mmHg (35-45) H 05/15/21 05:30 ABG pO2 77.5 mmHg (80.0-100.0) L 05/15/21 05:30 ABG HCO3 31.3 mmol/L (22-26) H 05/15/21 05:30 ABG O2 Saturation 96.6 05/14/21 05:04 ABG Base Excess 4.6 mmol/L (-2.0-2.0) H 05/15/21 05:30 Dejan Test Pos 05/15/21 05:30 A-a O2 Gradient 38.0 mmHg (5-10) H 05/14/21 05:04 Hematocrit 34.3 % (37-47) L 05/15/21 05:30 Hgb O2 Saturation 95.0 % (95-100) 05/14/21 05:04 Carboxyhemoglobin 0.9 %THgb (0.4-20.1) 05/14/21 05:04 Methemoglobin 0.8 % (0.4-1.5) 05/14/21 05:04 Total Hemoglobin 10.2 g/dL (12-16) L 05/14/21 05:04 Sodium 147.0 mmol/L (131-143) H 05/14/21 05:04 Potassium 3.9 mmol/L (3.5-5.0) 05/14/21 05:04 Glucose 142.0 mg/dL (70-115) H 05/14/21 05:04 Ionized Calcium 1.5 mmol/L (1.1-1.4) H 05/14/21 05:04 O2 Delivery Device Vent 05/15/21 05:30 O2 Liters/Min 50.0 % 04/24/21 06:25 FiO2 60.0 % 05/15/21 05:30 Tidal Volume 0.37 05/15/21 05:30 PEEP 5.0 cmH20 05/15/21 05:30 CPAP 5.0 cmH20 05/14/21 05:04 Dobie Man ID Mahnazja 05/15/21 05:30 Sodium 144 mmol/L (136-145) 05/15/21 04:00 Potassium 4.0 mmol/L (3.5-5.1) 05/15/21 04:00 Chloride 109 mmol/L (98-107) H 05/15/21 04:00 Carbon Dioxide 29 mmol/L (22-29) 05/15/21 04:00 Anion Gap 10.0 (5-19) 05/15/21 04:00 BUN 14 mg/dL (8-23) 05/15/21 04:00 Creatinine 0.2 mg/dL (0.5-0.9) L 05/15/21 04:00 GFR Calculation 362.3 mL/min (90-130) H 05/15/21 04:00 Glucose 111 mg/dL (65-115) 05/15/21 04:00 POC Glucose 115 mg/dL (70-110) H 05/15/21 19:24 Calculated Osmolality 299 mOsm/kg (285-295) H 05/15/21 04:00 Lactic Acid 1.6 mmol/L (0.5-2.2) 04/24/21 07:45 Lactate 1.6 mmol/L (0.5-2.2) 05/12/21 06:06 Calcium 9.7 mg/dL (8.5-10.5) 05/15/21 04:00 Phosphorus 3.1 mg/dL (2.5-4.5) 05/04/21 03:49 Magnesium 2.0 mg/dL (1.7-2.3) 05/15/21 04:00 Ferritin 335 ng/mL (15-150) H 05/09/21 05:43 Total Bilirubin 0.3 mg/dL (0.15-1.2) 05/15/21 04:00 AST 14 U/L (0-32) 05/15/21 04:00 ALT 14 U/L (0-33) 05/15/21 04:00 Alkaline Phosphatase 92 IU/L (35-105) 05/15/21 04:00 Lactate Dehydrogenase 720 U/L (135-214) H 04/24/21 07:45 Creatine Kinase 226 U/L (26-192) H 04/29/21 05:55 Troponin T Gen 5 ng/L 13 ng/L (0-10) H 04/24/21 08:05 C-Reactive Protein 89.2 mg/L (0.0-4.9) H 05/09/21 05:43 NT-Pro-B Natriuret Pep 819 pg/mL (0-125) H 04/29/21 05:55 Total Protein 5.4 g/dL (6.6-8.7) L 05/15/21 04:00 Albumin 2.4 g/dL (3.5-5.2) L 05/15/21 04:00 Globulin 3.0 g/dL (1.3-4.6) 05/15/21 04:00 Triglycerides 763 mg/dL (0-150) H 05/02/21 05:51 LDL Cholesterol Direct 39 mg/dL (0-100) 05/02/21 05:51 Interleukin 6 27.80 pg/mL (<5.00) H 04/24/21 07:45 Procalcitonin 0.53 ng/mL (0-0.5) H 05/15/21 04:00 TSH 0.53 uIU/mL (0.27-4.20) 04/24/21 07:45 Urine Color Yellow (Yellow) 04/24/21 17:24 Urine Appearance Clear (CLEAR) 04/24/21 17:24 Urine pH 5 (5-7) 04/24/21 17:24 Ur Specific [place] 1.020 (1.005-1.030) 04/24/21 17:24 Urine Protein 1+ (Negative) H 04/24/21 17:24 Urine Glucose (UA) Norm (Normal) 04/24/21 17:24 Urine Ketones Negative (Negative) 04/24/21 17:24 Urine Blood 3+ (Negative) H 04/24/21 17:24 Urine Nitrate Negative (Negative) 04/24/21 17:24 Urine Bilirubin Neg (Negative) 04/24/21 17:24 Urine Urobilinogen 4 mg/dL (Negative) H 04/24/21 17:24 Ur Leukocyte Esterase Negative (Negative) 04/24/21 17:24 Urine RBC 50-80 /hpf (0-2) H 04/24/21 17:24 Urine WBC 0-4 /hpf (0-5) H 04/24/21 17:24 Ur Squamous Epith Cells 0-4 /hpf (0-5) H 04/24/21 17:24 Amorphous Sediment Not Reportable 04/24/21 17:24 Urine Bacteria Trace /hpf (NONE) 04/24/21 17:24 Vancomycin Trough 10.1 ug/mL (10-15) 05/12/21 11:41 Hepatitis A IgM Ab Non-reactive (Nonreactive) 04/24/21 07:45 Hep Bs Antigen Non-reactive (Nonreactive) 04/24/21 07:45 Hep B Core IgM Ab Non-reactive (Nonreactive) 04/24/21 07:45 Hepatitis C Antibody Non-reactive (Nonreactive) 04/24/21 07:45 Influenza Type A Ag Negative (Negative) 04/24/21 06:46 Influenza Type B Ag Negative (Negative) 04/24/21 06:[address] 05/09/21 19:00 IMPRESSION: 1. Small to moderate RIGHT pneumothorax of approximately 20% with no tension. 2. Single right-sided chest tube is present with tip directed towards the apex. 3. Endotracheal and nasogastric tubes and RIGHT IJ line are in good positions. 4. Large amount of subcutaneous emphysema over the RIGHT chest wall extending into the neck. 5. Extensive bilateral groundglass and pulmonary consolidations consistent with a history of Covid 19. Head CT 05/09/21 19:00 IMPRESSION: 1. No acute intracranial hemorrhage or edema. 2. Subcutaneous air along the RIGHT neck and in the RIGHT retropharyngeal space is new. Significant amount of subcutaneous emphysema is noted on the chest radiograph obtained on 05/09/2021. Cervical Spine X-Ray 05/14/21 10:50 Impression: Insertion of endotracheal tube and endogastric tube. Shoulder X-Ray 05/14/21 10:50 Impression: Severe osteoarthritis of the left shoulder. Chest X-Ray 05/15/21 14:36 Impression: Satisfactory insertion of right subclavian catheter. A&P Assessment and plan (1) ARDS (adult respiratory distress syndrome): Status: Acute (2) Acute encephalopathy: Status: Acute (3) GERD (gastroesophageal reflux disease): Status: Chronic Qualifiers: Esophagitis presence: esophagitis presence not specified Qualified Code(s): K21.9 - Gastro-esophageal reflux disease without esophagitis (4) Acute respiratory failure with hypoxia: Status: Acute (5) Pneumonia due to COVID-19 virus: Status: Acute (6) Hypoxia: Status: Acute (7) Pneumothorax on right: Status: Acute (8) Persistent air leak: Status: Acute (9) Empyema lung: Status: Acute (10) Pneumothorax on left: Status: Acute (11) Ventilator associated pneumonia: Status: Acute #Acute hypoxic respiratory failure secondary to ARDS due to COVID-19 pneumonia complicated bilateral pneumothorax with persistent air leak s/p bilateral chest tubes under waterseal #Ventilator associated pneumonia-due to MDR Enterobacter cloacae and Klebsiella #Possible right-sided empyema #Hypothyroidism #Hypertension -Currently intubated (04/27)and sedated with Precedex 0.7, fentanyl 75 and propofol 30 -Patient moving her limbs but not following commands-appears visibly upset but does not follow commands -Still critically ill-clinically unchanged for the last several days-family wanted to continue everything except resuscitation -ABG 7.3 //31 on CMV 370/5/60 percent -CT head 05/09/2021 no acute intracranial hemorrhage or edema, subcutaneous air along the right neck and right retropharyngeal spaces is new. -Chest CT 05/09/2021: Showed [id number] right pneumothorax of approximately 20% with no tension. single right-sided chest tube is present with tip directed towards the apex. Large amounts of subcutaneous emphysema over the right chest wall extending into the neck. Extensive bilateral GGO's and pulmonary consolidations consistent with COVID-19 -Initial right chest tube 05/06/2021-removed on 05/08/2021 after clamping for 24 hours with no air leak-within 2 hours recurrence of tension pneumothorax- reinserted 05/09/2021 -Left-sided pneumothorax-chest tube placed 05/11/2021-persistent air leak and c onnected to underwater seal -PEEP reduced to 3 and both chest tubes were left under waterseal-but still has persistent air leak -chest x-ray did not show any pneumothorax -s/p 5-day remdesivir protocol; daily dexamethasone, and 1 dose Tocilizumab 04/24/2021 and proned 4 times -On Levophed 2 for hypotension intermittently -Echo during this admission EF 60% grade 1 diastolic dysfunction - Combivent every 6 hours/Advair every 12 hours -IV levothyroxine 40 mg -+415 cc last 24 hours / +6.8 L since admission-Lasix 40 mg 1 dose -Sodium 144 -Continue tube feeding -Sugars better controlled-currently on scale coverage - MRSA, Legionella, bacterial antigens all negative- -Blood cultures from 04/24 negative to date; 05/08 negative; -Sputum cultures 05/11/2021-Klebsiella pneumonia and Enterobacter cloacae sensitive to imipenem- started 05/11/2021 - no more fever spikes and initially WBC improved to 6.8 K but now continues to worsen again today 11 K - Monitor inflammatory markers - Lovenox for DVT prophylaxis - Protonix for GI prophylaxis - Extremely poor prognosis - Daughter karen and patient sister updated -they wanted to continue care but wanted DNR Recommendations conveyed to hospitalist, RN, RT covering the patient Attestations Medical Necessity Statement*: Patient requires hospitalization for acute respiratory failure, pneumothorax for persistent air leak, pneumonia secondary to COVID-19 Time Spent in Patient Care: Greater than 35 minutes (>than 50% of time spent in counselling and/or direct pt care on unit) . Critical Care Time: The high probability of a clinically significant, sudden or life threatening deterioration of the patient's [neurologic, infectious, renal and respiratory] system(s) required my full and direct attention, intervention and personal management. The critical care time is as shown. This time is in addition to time spent performing any reported procedures but includes the following: [x] Data and vital sign review and interpretation [x] Patient assessment, examination and intervention [x] Documentation [x] Medication orders and management Critical Care Time (min): 75 Coding Level of Care Code Established Pt Acute Borough Coordinator for Chg Fwd Patient Type Established History Comprehensive Exam Comprehensive Medical Decision Making High Complexity Diagnoses ARDS (adult respiratory distress syndrome) J80 Acute encephalopathy G93.40 GERD (gastroesophageal reflux disease) K21.9 Esophagitis presence: esophagitis presence not specified Acute respiratory failure with hypoxia J96.01 Pneumonia due to COVID-19 virus U07.1; J12.82 Hypoxia R09.02 Pneumothorax on right J93.9 Persistent air leak Empyema lung J86.9 Pneumothorax on left J93.9 Ventilator associated pneumonia J95.851 Time Spent (min) 75
--- NOTE | 2021-05-15 22:57 | P.PCN_ITS ---
Procedure/Consent Time out: Time Out Performed: Yes Consent: Consent for Procedure: Consent obtained from other (indicate) (sister), Risks & Benefits reviewed and Agrees to proceed with procedure Procedure Narrative: Procedure time: 5 Procedure: Central venous access placement Indication: Shock; Vasopressors infusion Act English Tutor(s): Rah Burk MD Consent: Consent taken over phone from next of kin listed and placed in chart Time out called. [place] precautions applied. Site: Right subclavian central line Catheter: 7 Fr, 20 cm, Triple Lumen Sutured at: 17 cm Anesthesia: 5 cc 1% lidocaine without epinephrine Description: Area prepped with chlorhexidine and draped in a universal sterile manner. The vessel anatomy and patency was examined by ultrasound probe which was covered with sterile probe cover. The needle was inserted into the vessel under ultrasound guidance, after venous blood aspirated the guidewire was inserted through the needle and kept in situ while the needle was removed. Placement of guidewire in the vein and in relation to the adjacent artery was verified by ultrasound. Catheter was then advanced over the guidewire after dilation and guidewire successfully removed.The catheter was sutured to the skin and sterile dressing with chlorhexidine patch placed. Number of attempts: 1 Dilator applied: 1 number of Dilations:1 Placement Verified by: Blood draw from all ports and Ultrasound exam and Chest Xray EBL: 5 cc Complications: None Ultrasound guidance used: Yes Acute Procedures Epistaxis Control: Time out performed: Yes
[2021-05-15] MEDS: propofol 1,000 MG/100 ML INJ 18.51 MG IV (23:30)
[2021-05-16] VITALS (57 sets, daily range): BP systolic 63–173; BP diastolic 40–122; PULSE 0–118; RESP 20–33; TEMP 36.7–37.7; O2SAT 35–97
[2021-05-16] MEDS: dexmedetomidine 400 MCG in sodium chloride 0.9% (100 ml) 100 ML 14.03 MCG IV ×2 (01:34→10:07)
[2021-05-16 03:14] LABS: Glucose Point of Care 110 mg/dL (70-110)
[2021-05-16] MEDS: ipratropium-albuterol 3 mL Neb INHALATION ×4 (03:41→16:38)
[2021-05-16 03:53] LABS: Basophils # 0.1 10^3/uL (0.0-0.1); Basophils % 0.5 %; Hematocrit 37.7 % (37.0-47.0); Hemoglobin 11.3 g/dL (11.5-15.3); Lymphocytes # 1.2 10^3/uL (0.8-4.8); Lymphocytes % 7.2 %; Mean Corpuscular Hemoglobin 28.7 pg (28.0-34.0); Mean Corpuscular Volume 95.7 fl (81-99); Mean Platelet Volume 10.7 fL (7.4-10.4); Monocytes # 1.3 10^3/uL (0.2-0.9); Monocytes % 7.6 %; Neutrophils # 13.48 10^3/uL (1.8-7.7); Neutrophils % 81.6 %; Nucleated Red Blood Cells % 0.1 %; Platelet Count 420 10^3/cmm (130-400); Red Blood Count 3.94 10^6/uL (4.1-5.3); Red Cell Distribution Width 14.4 % (12.1-15.1); White Blood Count 16.5 10^3/uL (4.0-10.0)
[2021-05-16 04:12] LABS: ABG PCO2 47.6 mmHg (35-45); ABG PH Result 7.43 (7.35-7.45); Arterial Blood Gas Hematocrit 39.1 % (37-47); Blood Gas Allen Test Pos; Blood Gas Operator Identificat JB; Blood Gas Sample Site Radial, right; Blood Gas Sample Type Arterial; Blood Gas Tidal Volume 0.37; HCO3 ABG 31.4 mmol/L (22-26); Oxygen Device VENT; PO2 ABG 61.7 mmHg (80.0-100.0)
[2021-05-16 04:12] LABS: Alanine Aminotransferase 13 U/L (0-33); Albumin Level 2.4 g/dL (3.5-5.2); Alkaline Phosphatase 174 IU/L (35-105); Anion Gap 10.2 (5-19); Aspartate Amino Transferase 21 U/L (0-32); Blood Urea Nitrogen 12 mg/dL (8-23); Calcium 9.4 mg/dL (8.5-10.5); Carbon Dioxide 31 mmol/L (22-29); Chloride 110 mmol/L (98-107); Globulin 3.1 g/dL (1.3-4.6); Glomerular Filtration Rate 226.9 mL/min (90-130); Glucose 112 mg/dL (65-115); Osmolality Calculated 305 mOsm/kg (285-295); Potassium 4.2 mmol/L (3.5-5.1); Sodium 147 mmol/L (136-145); Total Bilirubin 0.4 mg/dL (0.15-1.2); Total Protein 5.5 g/dL (6.6-8.7)
[2021-05-16] MEDS: levothyroxine 50 mcg Tablet OG-TUBE (05:19)
--- NOTE | 2021-05-16 07:07 | PC.NURSE ---
Shift Note Frequent safety and comfort rounds continue. Orders and/or nursing care completed as indicated. Patient monitored for response to intervention and treatment(s). Education provided includes[]. 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 Will continue to monitor. No new changes with the patient. The daughter, Leonardo, called in and expressed that she wanted her and the oldest brother to be contacted and made aware of medical decisions. She also wanted to know how they could legally become the POA for their mother and to take the sister off. During the shift the patients chest tube dressings were both changed and a new dual atrium replaced the two full atriums. The central line dressing was also change and a bath was given to the patient. There were a couple of times when the patient's blood pressure drop because of too much sedation, so that was adjusted periodically due to the hypotensive episodes. The patient at the beginning of shift also was breathing about 10-11 breaths over the ventilator rate, so sedation was increased to accommodate that occurrence. There was a sputum sample that was also sent down during the shift.
[2021-05-16] MEDS: famotidine 20 mg/2 mL INJ IVP (07:35)
[2021-05-16] MEDS: propofol 1,000 MG/100 ML INJ 16.19 MG IV (08:14)
--- NOTE | 2021-05-16 08:16 | PC.NURSE ---
Propofol At 0700, no propofol was infusing into patient. After turning patient, respiratory rate went up to 39, propofol was initiated again at 35 mcg/kg/minute.
[2021-05-16 08:29] LABS: Glucose Point of Care 116 mg/dL (70-110)
[2021-05-16] MEDS: gabapentin 400 mg Capsule PO ×2 (08:41→14:27)
--- NOTE | 2021-05-16 09:05 | CT_ITS ---
WS: [id number] CT CHEST TECHNIQUE: Noncontrast CT of the chest with coronal and sagittal reformatted images. CLINICAL INFORMATION: PNEUMOTHORAX COMPARISON: CT chest May 09, 2021 DLP: 817.[address] scans at [facility] use at least one of these dose optimization techniques: automat ed exposure control; mA and/or kV adjustment per patient size (includes targeted exams where dose is matched to clinical indication); or iterative reconstruction. FINDINGS: Small right apical pneumothorax slightly increased compared to the CT May 09, 2021. Right chest tu be in place. Small left anterior and apical pneumothorax with left chest tube in good position. Bilat eral low lung volumes. No evidence of mediastinal shift. Endotracheal tube with tip above the anusha. Small left greater than right pleural effusions. Diffuse bilateral interstitial and airspace infiltr ates consistent with COVID 19 pneumonia. Bilateral bulla formation. Endotracheal tube with tip above the anusha. Enteric tube with tip in the stomach. Cholecystectomy clips. Right central venous catheter with tip in the SVC. Dorsal spinal stim ulator. CT/CT chest con [id number] IMPRESSION: 1. Small bilateral pneumothoraces right greater than left. Right pneumothorax is slightly increased since May 09, 2021. 2. Bilateral chest tubes in good position. 3. Low lung volumes with stable bilateral diffuse interstitial and air space i nfiltrates consistent with COVID 19 pneumonia. 4. Endotracheal tube with tip above the anusha. Enteric tube with tip below th e diaphragm. 5. Previous described subcutaneous emphysema in the right chest wall and neck has resolved. Notified Rah Burk MD at 05/16/2021 12:10 PM.
--- NOTE | 2021-05-16 09:21 | PC.NURSE ---
Propofol Patient raised head and shook head multiple times. Propofol increased to 40 mcg/kg/min.
--- NOTE | 2021-05-16 10:10 | PC.NURSE ---
Chest Tube Per Datar's verbal order, the chest tube dual collection chamber was replaced with two separate collection chambers, one for each chest tube collectively. Drainage measured and documented. New chambers continue to have an air leak, tidaling present; is aware.
--- NOTE | 2021-05-16 11:03 | PC.NURSE ---
Position Patient turned at 1100 rather than 1000 due to possibility of going to CT scan.
[2021-05-16] MEDS: FUROsemide 10 mg/mL SDV 4mL 40 MG IVP (12:12)
[2021-05-16] MEDS: propofol 1,000 MG/100 ML INJ 18.51 MG IV (13:20)
--- NOTE | 2021-05-16 13:29 | PC.NURSE ---
Sedation and Suction Changes Patient's respiratory rate in the 40s-50s, while patient moving head forward repeatedly. Suction to right chest tube turned off, propofol turned up to 50 mcg/kg/min. Suction turned back on at 1350, vent settings altered, and Versed initiated; in result, respiratory rate lowered. Several vent settings changed from 1400 to 1500. End settings VCAC, Fio2 60, tidal volume 370, respiratory rate 20, peep 5. Beginning at 1420 and to 1444 hypotension occurred, propofol and fentanyl titrated down as indicated in the MAR. aware of all changes in patient status and settings.
[2021-05-16 14:46] LABS: Glucose Point of Care 118 mg/dL (70-110)
--- NOTE | 2021-05-16 15:04 | PC.NURSE ---
Position Position change contraindicated due to unstable blood pressure 77/49.
--- NOTE | 2021-05-16 16:06 | P.PN_ITS ---
Subjective Subjective: Interval history: Code status changed to limited Remained on vent Medications: Reviewed: Yes Vitals/I&O/Wt Last Vital Signs Temp 98.7 F 05/16/21 15:40 Pulse 95 05/16/21 15:40 Resp 20 H 05/16/21 15:40 BP 94/70 05/16/21 15:40 Pulse Ox 93 05/16/21 15:40 05/16/21 05/16/21 05/16/21 06:59 14:59 22:59 Intake Total 314.708 / 1234.708 476.529 / 476.529 Output Total 760 / 1190 948 / 948 Balance -445.292 / 44.708 -471.471 / -471.471 Physical Exam Narrative: EXAM NARRATIVE: General : Critcally ill appearing HEENT: ET tube ChestL b/l sided Chest tube CVS: NSR ABD : Non distende - Robb Ext Edema Urinary Catheter Management^: Robb: Cath Placed During This Visit: yes Reason for Continuing Indwelling Catheter: Accurate Measurement of Urinary Output in Critically Ill Patients Urinary Catheter Date of Insertion: 04/24/21 Urinary Catheter Time of Insertion: 11:55 Data : 05/16/21 03:00 05/16/21 03:00 Micro: Microbiology 05/11/21 Unknown Blood Culture - Final Blood NO GROWTH AFTER 5 DAYS 05/11/21 Unknown Blood Culture - Final Blood NO GROWTH AFTER 5 DAYS 05/16/21 10:40 Blood Culture - Preliminary Blood SPECIMEN COLLECTED 05/16/21 10:35 Blood Culture - Preliminary Blood SPECIMEN COLLECTED 05/15/21 21:50 Gram Stain - Final Sputum - Endotracheal Tube Aspirate A&P Assessment and plan (1) Pneumonia due to COVID-19 virus: Severe COVID-19 pneumonia, acute hypoxic respiratory failure, acute encephalopathy, acute respiratory distress requiring high flow oxygen Intubated 04/27/2021 Has finished her fourth session of proning Weaning sedation Pressor support wean as tolerated maintain MAP in the 65 Remdesivir initiated 04/24 Toclizumab given 04/24 Dexamethasone initiated 04/25 Combivent every 6 hours Advair every 12 hours IV levothyroxine Lasix as needed MRSA, Legionella, bacterial antigens all negative Continue Primixan Blood cultures from 04/24 negative to date Repeat cultures Echocardiogram shows EF of 60%, grade 1 out of [address] chest noted below Pneumothorax -management of chest tube per Pulmonary Klebsiella and Enterobacteriaceae Continue current management as per emergency management program specialist Line changed to NM Repeat CT chest today 1. Small bilateral pneumothoraces right greater than left. Right pneumothorax is slightly increased since May 09, 2021. 2. Bilateral chest tubes in good position. 3. Low lung volumes with stable bilateral diffuse interstitial and air space infiltrates consistent with COVID 19 pneumonia. 4. Endotracheal tube with tip above the anusha. Enteric tube with tip below the diaphragm. 5. Previous described subcutaneous emphysema in the right chest wall and neck has resolved. Status: Acute (2) Acute respiratory failure with hypoxia: Wean vent as tolerated FiO2 of 55% ABG and chest x-ray in a.m. Status: Acute (3) Hypothyroidism: TSH checked and normal On home levothyroxine Status: Chronic (4) Hypertension: Home amlodipine currently held , blood pressure normal Status: Chronic (5) GERD (gastroesophageal reflux disease): Status: Chronic Qualifiers: Esophagitis presence: esophagitis presence not specified Qualified Code(s): K21.9 - Gastro-esophageal reflux disease without esophagitis (6) Chronic back pain greater than 3 months duration: Status: Chronic (7) Acute encephalopathy: Likely secondary to COVID-19, hypoxia Status: Acute (8) Empyema lung: Status: Acute (9) Persistent air leak: Status: Acute (10) Pneumothorax on right: chest tube in place Status: Acute (11) Pneumothorax on left: chest tube in place Status: Acute Additional A&P Information DVT prophylaxis- Lovenox Attestations Medical Necessity Statement*: continue hospitalization for managment of COVID 19, pneumonia, sepsis. Time Spent in Patient Care: Greater than 35 minutes (>than 50% of time spent in counselling and/or direct pt care on unit) . Coding Level of Care Code Acute Construction Crew Member for [facility] Fwd Diagnoses Pneumonia due to COVID-19 virus U07.1; J12.82 Acute respiratory failure with hypoxia J96.01 Hypothyroidism E03.9 Hypertension I10 GERD (gastroesophageal reflux disease) K21.9 Esophagitis presence: esophagitis presence not specified Chronic back pain greater than 3 months duration M54.9; G89.29 Acute encephalopathy G93.40 Empyema lung J86.9 Persistent air leak Pneumothorax on right J93.9 Pneumothorax on left J93.9
--- NOTE | 2021-05-16 16:39 | PC.NUTR ---
Addendum entered by James Chaney 05/16/21 16:40: Noted no feeding 05/13-05/16, however also noted max daily provision of 432 kcal/day 05/07-05/12, with most days being lower. Original Note: Tube feeding follow up: Unsure of rationale for lack of TF provision since 05/12--suspect poor tolerance or hemodynamic instability. Receiving additional 122 kcal/day from propofol at current rate. If/when safe to resume feeding, would recommend goal rate of 50 ml/hr with 100 ml H2O flushes q 4 hrs to provide 1440 kcal, 72 g protein, 1566 ml H2O. If extubation/oral diet nor EN possible, and hemodynamically stable, recommend consideration of parenteral nutrition in accordance with ASPEN guidelines. See full RD assessment for further details.
[2021-05-16] MEDS: norepinephrine 8 MG in dextrose 5 % 500 ML 7.62 MG IV (16:53)
--- NOTE | 2021-05-16 17:22 | PC.NURSE ---
Sister in room with patient, grain oilseed or pasture farm worker contacted on request.
[2021-05-16] MEDS: enoxaparin 40 mg/0.4 mL Syringe SUBCUT (18:45)
--- NOTE | 2021-05-16 18:57 | P.PN_ITS ---
Subjective Subjective: Interval history: -Patient seen at bedside today multiple times -Despite being treated with imipenem for MDR Enterobacter cloacae and Klebsiella-patient leukocytosis started trending up and her O2 requirements are still at 60% -Despite tapering sedation patient mentation does not have any meaningful recovery -Bilateral chest tubes have persistent leaks from bilateral pneumothoraces for more than 1 week -CT chest today showed Small bilateral pneumothoraces right greater than left. Right pneumothorax is slightly increased since May 09, 2021.Bilateral chest tubes in good position.Also noted bilateral bullae. -Given her critical clinical condition-she is a poor surgical candidate -As per patient sister-patient had a previous history of opiate dependence and she is now sober -Labs and imaging reviewed Medications: Reviewed: Yes Vitals/I&O/Wt Last Vital Signs Temp 98.1 F 05/16/21 18:00 Pulse 111 H 05/16/21 18:20 Resp 29 H 05/16/21 18:00 BP 127/99 05/16/21 18:20 Pulse Ox 89 L 05/16/21 18:20 05/16/21 05/16/21 05/16/21 06:59 14:59 22:59 Intake Total 314.708 / 1234.708 476.529 / 476.529 0 / 476.529 Output Total 760 / 1190 948 / 948 1378 / 2326 Balance -445.292 / 44.708 -471.471 / -471.471 -1378 / -1849.471 Physical Exam Narrative: EXAM NARRATIVE: General: lying in bed, sedated and intubated, moves her head but does not follow commands HEENT:NCAT, PERRLA, EOMI Neck: Supple Lungs: Bilateral diffuse crepitations, right-sided chest tube in place and sterile dressing applied but purulent secretions noted and air leak noted under water seal; left-sided chest tube connected to underwater seal Heart: s1/s2, RRR Abd: soft, NT, ND, BS + Normoactive Extremities: No edema PASTER OPERATOR: sedated and limited PASTER OPERATOR exam possible. SKIN: no rash Right subclavian venous line placed 05/15/2021 Urinary Catheter Management^: Robb: Cath Placed During This Visit: yes Reason for Continuing Indwelling Catheter: Accurate Measurement of Urinary Output in Critically Ill Patients Urinary Catheter Date of Insertion: 04/24/21 Urinary Catheter Time of Insertion: 11:55 Data : 05/16/21 03:00 05/16/21 03:00 Other Labs: Laboratory Results WBC 16.5 10^3/uL (4.0-10.0) H 05/16/21 03:00 RBC 3.94 10^6/uL (4.1-5.3) L 05/16/21 03:00 Hgb 11.3 g/dL (11.5-15.3) L 05/16/21 03:00 Hct 37.7 % (37.0-47.0) 05/16/21 03:00 MCV 95.7 fl (81-99) 05/16/21 03:00 MCH 28.7 pg (28.0-34.0) 05/16/21 03:00 MCHC 30.0 g/dL (30.0-36.0) 05/16/21 03:00 RDW 14.4 % (12.1-15.1) 05/16/21 03:00 Plt Count 420 10^3/cmm (130-400) H 05/16/21 03:00 MPV 10.7 fL (7.4-10.4) H 05/16/21 03:00 Neut % (Auto) 81.6 % 05/16/21 03:00 Lymph % (Auto) 7.2 % 05/16/21 03:00 Price % (Auto) 7.6 % 05/16/21 03:00 Eos % (Auto) 0.0 % 05/16/21 03:00 Baso % (Auto) 0.5 % 05/16/21 03:00 Neut # (Auto) 13.48 10^3/uL (1.8-7.7) H 05/16/21 03:00 Lymph # (Auto) 1.2 10^3/uL (0.8-4.8) 05/16/21 03:00 Price # (Auto) 1.3 10^3/uL (0.2-0.9) H 05/16/21 03:00 Eos # (Auto) 0.0 10^3/uL (0.0-0.8) 05/16/21 03:00 Baso # (Auto) 0.1 10^3/uL (0.0-0.1) 05/16/21 03:00 Nucleated RBC % (auto) 0.1 % 05/16/21 03:00 Nucleated RBCs # 0.0 /100WBC 05/16/21 03:00 PT 14.70 SECONDS (12.1-14.9) 04/30/21 05:25 INR 1.12 (0.8-1.2) 04/30/21 05:25 APTT 26.2 SECONDS (23.9-36.7) 04/24/21 07:55 Fibrinogen 497 mg/dL (174-498) 04/24/21 07:55 D-Dimer 19.94 ug/mIFEU (0-0.59) H 04/29/21 05:55 Specimen Type Arterial 05/16/21 03:58 Sample Site Radial, right 05/16/21 03:58 ABG pH 7.43 (7.35-7.45) 05/16/21 03:58 ABG pCO2 47.6 mmHg (35-45) H 05/16/21 03:58 ABG pO2 61.7 mmHg (80.0-100.0) L 05/16/21 03:58 ABG HCO3 31.4 mmol/L (22-26) H 05/16/21 03:58 ABG O2 Saturation 96.6 05/14/21 05:04 ABG Base Excess 6.0 mmol/L (-2.0-2.0) H 05/16/21 03:58 Dejan Test Pos 05/16/21 03:58 A-a O2 Gradient 38.0 mmHg (5-10) H 05/14/21 05:04 Hematocrit 39.1 % (37-47) 05/16/21 03:58 Hgb O2 Saturation 95.0 % (95-100) 05/14/21 05:04 Carboxyhemoglobin 0.9 %THgb (0.4-20.1) 05/14/21 05:04 Methemoglobin 0.8 % (0.4-1.5) 05/14/21 05:04 Total Hemoglobin 10.2 g/dL (12-16) L 05/14/21 05:04 Sodium 147.0 mmol/L (131-143) H 05/14/21 05:04 Potassium 3.9 mmol/L (3.5-5.0) 05/14/21 05:04 Glucose 142.0 mg/dL (70-115) H 05/14/21 05:04 Ionized Calcium 1.5 mmol/L (1.1-1.4) H 05/14/21 05:04 O2 Delivery Device Vent 05/16/21 03:58 O2 Liters/Min 50.0 % 04/24/21 06:25 FiO2 55.0 % 05/16/21 03:58 Tidal Volume 0.37 05/16/21 03:58 PEEP 3.0 cmH20 05/16/21 03:58 CPAP 5.0 cmH20 05/14/21 05:04 Boomswing Operator ID Rodriguez 05/16/21 03:58 Sodium 147 mmol/L (136-145) H 05/16/21 03:00 Potassium 4.2 mmol/L (3.5-5.1) 05/16/21 03:00 Chloride 110 mmol/L (98-107) H 05/16/21 03:00 Carbon Dioxide 31 mmol/L (22-29) H 05/16/21 03:00 Anion Gap 10.2 (5-19) 05/16/21 03:00 BUN 12 mg/dL (8-23) 05/16/21 03:00 Creatinine 0.3 mg/dL (0.5-0.9) L 05/16/21 03:00 GFR Calculation 226.9 mL/min (90-130) H 05/16/21 03:00 Glucose 112 mg/dL (65-115) 05/16/21 03:00 POC Glucose 118 mg/dL (70-110) H 05/16/21 14:41 Calculated Osmolality 305 mOsm/kg (285-295) H 05/16/21 03:00 Lactic Acid 1.6 mmol/L (0.5-2.2) 04/24/21 07:45 Lactate 1.6 mmol/L (0.5-2.2) 05/12/21 06:06 Calcium 9.4 mg/dL (8.5-10.5) 05/16/21 03:00 Phosphorus 3.1 mg/dL (2.5-4.5) 05/04/21 03:49 Magnesium 2.0 mg/dL (1.7-2.3) 05/15/21 04:00 Ferritin 335 ng/mL (15-150) H 05/09/21 05:43 Total Bilirubin 0.4 mg/dL (0.15-1.2) 05/16/21 03:00 AST 21 U/L (0-32) 05/16/21 03:00 ALT 13 U/L (0-33) 05/16/21 03:00 Alkaline Phosphatase 174 IU/L (35-105) H 05/16/21 03:00 Lactate Dehydrogenase 720 U/L (135-214) H 04/24/21 07:45 Creatine Kinase 226 U/L (26-192) H 04/29/21 05:55 Troponin T Gen 5 ng/L 13 ng/L (0-10) H 04/24/21 08:05 C-Reactive Protein 89.2 mg/L (0.0-4.9) H 05/09/21 05:43 NT-Pro-B Natriuret Pep 819 pg/mL (0-125) H 04/29/21 05:55 Total Protein 5.5 g/dL (6.6-8.7) L 05/16/21 03:00 Albumin 2.4 g/dL (3.5-5.2) L 05/16/21 03:00 Globulin 3.1 g/dL (1.3-4.6) 05/16/21 03:00 Triglycerides 763 mg/dL (0-150) H 05/02/21 05:51 LDL Cholesterol Direct 39 mg/dL (0-100) 05/02/21 05:51 Interleukin 6 27.80 pg/mL (<5.00) H 04/24/21 07:45 Procalcitonin 0.53 ng/mL (0-0.5) H 05/15/21 04:00 TSH 0.53 uIU/mL (0.27-4.20) 04/24/21 07:45 Urine Color Yellow (Yellow) 04/24/21 17:24 Urine Appearance Clear (CLEAR) 04/24/21 17:24 Urine pH 5 (5-7) 04/24/21 17:24 Ur Specific [place] 1.020 (1.005-1.030) 04/24/21 17:24 Urine Protein 1+ (Negative) H 04/24/21 17:24 Urine Glucose (UA) Norm (Normal) 04/24/21 17:24 Urine Ketones Negative (Negative) 04/24/21 17:24 Urine Blood 3+ (Negative) H 04/24/21 17:24 Urine Nitrate Negative (Negative) 04/24/21 17:24 Urine Bilirubin Neg (Negative) 04/24/21 17:24 Urine Urobilinogen 4 mg/dL (Negative) H 04/24/21 17:24 Ur Leukocyte Esterase Negative (Negative) 04/24/21 17:24 Urine RBC 50-80 /hpf (0-2) H 04/24/21 17:24 Urine WBC 0-4 /hpf (0-5) H 04/24/21 17:24 Ur Squamous Epith Cells 0-4 /hpf (0-5) H 04/24/21 17:24 Amorphous Sediment Not Reportable 04/24/21 17:24 Urine Bacteria Trace /hpf (NONE) 04/24/21 17:24 Vancomycin Trough 10.1 ug/mL (10-15) 05/12/21 11:41 Hepatitis A IgM Ab Non-reactive (Nonreactive) 04/24/21 07:45 Hep Bs Antigen Non-reactive (Nonreactive) 04/24/21 07:45 Hep B Core IgM Ab Non-reactive (Nonreactive) 04/24/21 07:45 Hepatitis C Antibody Non-reactive (Nonreactive) 04/24/21 07:45 Influenza Type A Ag Negative (Negative) 04/24/21 06:46 Influenza Type B Ag Negative (Negative) 04/24/21 06:[address] 05/09/21 19:00 IMPRESSION: 1. No acute intracranial hemorrhage or edema. 2. Subcutaneous air along the RIGHT neck and in the RIGHT retropharyngeal space is new. Significant amount of subcutaneous emphysema is noted on the chest radiograph obtained on 05/09/2021. Cervical Spine X-Ray 05/14/21 10:50 Impression: Insertion of endotracheal tube and endogastric tube. Shoulder X-Ray 05/14/21 10:50 Impression: Severe osteoarthritis of the left shoulder. Chest X-Ray 05/15/21 14:36 Impression: Satisfactory insertion of right subclavian catheter. Chest CT 05/16/21 09:05 IMPRESSION: 1. Small bilateral pneumothoraces right greater than left. Right pneumothorax is slightly increased since May 09, 2021. 2. Bilateral chest tubes in good position. 3. Low lung volumes with stable bilateral diffuse interstitial and air space infiltrates consistent with COVID 19 pneumonia. 4. Endotracheal tube with tip above the anusha. Enteric tube with tip below the diaphragm. 5. Previous described subcutaneous emphysema in the right chest wall and neck has resolved. Notified Rah Burk MD at 05/16/2021 12:10 PM. Micro: Microbiology 05/11/21 Unknown Blood Culture - Final Blood NO GROWTH AFTER 5 DAYS 05/11/21 Unknown Blood Culture - Final Blood NO GROWTH AFTER 5 DAYS 05/16/21 10:40 Blood Culture - Preliminary Blood SPECIMEN COLLECTED 05/16/21 10:35 Blood Culture - Preliminary Blood SPECIMEN COLLECTED 05/15/21 21:50 Gram Stain - Final Sputum - Endotracheal Tube Aspirate A&P Assessment and plan (1) ARDS (adult respiratory distress syndrome): Status: Acute (2) Acute encephalopathy: Status: Acute (3) GERD (gastroesophageal reflux disease): Status: Chronic Qualifiers: Esophagitis presence: esophagitis presence not specified Qualified Code(s): K21.9 - Gastro-esophageal reflux disease without esophagitis (4) Acute respiratory failure with hypoxia: Status: Acute (5) Pneumonia due to COVID-19 virus: Status: Acute (6) Hypoxia: Status: Acute (7) Pneumothorax on right: Status: Acute (8) Persistent air leak: Status: Acute (9) Empyema lung: Status: Acute (10) Pneumothorax on left: Status: Acute (11) Ventilator associated pneumonia: Status: Acute #Acute hypoxic respiratory failure secondary to ARDS due to COVID-19 pneumonia complicated bilateral pneumothorax with persistent air leak s/p bilateral chest tubes under waterseal #Ventilator associated pneumonia-due to MDR Enterobacter cloacae and Klebsiella #Possible right-sided empyema #Hypothyroidism #Hypertension -Currently intubated (04/27)and sedated with Precedex 0.7, fentanyl 75 and propofol 30 -Patient moving her limbs but not following commands-appears visibly upset but does not follow commands -Still critically ill-clinically unchanged for the last several days -ABG 7.4 347/61/31 on CMV 370/5/55 percent -CT head 05/09/2021 no acute intracranial hemorrhage or edema, subcutaneous air along the right neck and right retropharyngeal spaces is new. -Chest CT 05/09/2021: Showed [id number] right pneumothorax of approximately 20% with no tension. single right-sided chest tube is present with tip directed towards the apex. Large amounts of subcutaneous emphysema over the right chest wall extending into the neck. Extensive bilateral GGO's and pulmonary consolidations consistent with COVID-19 -Initial right chest tube 05/06/2021-removed on 05/08/2021 after clamping for 24 hours with no air leak-within 2 hours recurrence of tension pneumothorax- reinserted 05/09/2021 -Left-sided pneumothorax-chest tube placed 05/11/2021-persistent air leak and connected to underwater seal -PEEP reduced to 3 and both chest tubes were left under waterseal-but still has persistent air leak -Despite tapering sedation patient mentation does not have any meaningful recovery -Bilateral chest tubes have persistent leaks from bilateral pneumothoraces for more than 1 week -CT chest today 05/16/2021 showed Small bilateral pneumothoraces right greater than left. Right pneumothorax is slightly increased since May 09, 2021.Bilateral chest tubes in good position.Also noted bilateral bullae. -Given her critical clinical condition-she is a poor surgical candidate -s/p 5-day remdesivir protocol; daily dexamethasone, and 1 dose Tocilizumab 04/24/2021 and proned 4 times -On Levophed 2 for hypotension intermittently -Echo during this admission EF 60% grade 1 diastolic dysfunction - Combivent every 6 hours/Advair every 12 hours -IV levothyroxine 40 mg -+44 cc last 24 hours / +6.41 L since admission-Lasix 40 mg 1 dose -Sodium 147 -Continue tube feeding -Sugars better controlled-currently on scale coverage - MRSA, Legionella, bacterial antigens all negative- -Blood cultures from 04/24 negative to date; 05/08 negative; -Sputum cultures 05/11/2021-Klebsiella pneumonia and Enterobacter cloacae sensitive to imipenem- started 05/11/2021 --Despite being treated with imipenem for MDR Enterobacter cloacae and Kle bsiella-patient leukocytosis started trending up and her O2 requirements are still at 60% -Resent blood cultures - Monitor inflammatory markers - Lovenox for DVT prophylaxis - Protonix for GI prophylaxis - Extremely poor prognosis --family wanted DNR but continue care as per previous meeting Recommendations conveyed to hospitalist, RN, RT covering the patient - Attestations Medical Necessity Statement*: Patient requires hospitalization for acute respiratory failure, pneumothorax for persistent air leak, pneumonia secondary to COVID-19 Time Spent in Patient Care: Greater than 35 minutes (>than 50% of time spent in counselling and/or direct pt care on unit) . Critical Care Time: The high probability of a clinically significant, sudden or life threatening deterioration of the patient's [neurologic, infectious, renal and respiratory] system(s) required my full and direct attention, intervention and personal management. The critical care time is as shown. This time is in addition to time spent performing any reported procedures but includes the following: [x] Data and vital sign review and interpretation [x] Patient assessment, examination and intervention [x] Documentation [x] Medication orders and management Critical Care Time (min): 45 Coding Level of Care Code Established Pt Acute Manufacturing Weaver for Chg Fwd Patient Type Established History Comprehensive Exam Comprehensive Medical Decision Making High Complexity Diagnoses ARDS (adult respiratory distress syndrome) J80 Acute encephalopathy G93.40 GERD (gastroesophageal reflux disease) K21.9 Esophagitis presence: esophagitis presence not specified Acute respiratory failure with hypoxia J96.01 Pneumonia due to COVID-19 virus U07.1; J12.82 Hypoxia R09.02 Pneumothorax on right J93.9 Persistent air leak Empyema lung J86.9 Pneumothorax on left J93.9 Ventilator associated pneumonia J95.851
--- NOTE | 2021-05-16 19:02 | PC.NURSE ---
Shift Note Frequent safety and comfort rounds continue. Orders and/or nursing care completed as indicated. Patient monitored for response to intervention and treatment(s). Education provided to sister included medications administered and information about chest tube drainage. Funeral Pre Need Consultant verbalized understanding.
--- NOTE | 2021-05-16 19:04 | PC.NURSE ---
this nurse witnessed Dr. Burk talk with family about comfort care, family agreed and said they would like to terminally extubate tonight
[2021-05-16] MEDS: morphine 4 mg/mL SDV 1 mL IVP ×3 (20:00→20:30)
--- NOTE | 2021-05-16 20:00 | PC.NURSE ---
Bora sandoval [facility] reported patient is not an organ donation candidate at this time, referral number [id number]
--- NOTE | 2021-05-16 20:01 | PC.NURSE ---
Family informed this nurse they would like to donate the patients body to science, Dr. Dawson notifed, this nurse was informed that this would not delay the terminal extubation and to continue as planned
--- NOTE | 2021-05-16 20:09 | PC.NURSE ---
Addendum entered by Deb Quinonez RN 05/16/21 21:01: Verified with family that the wish to terminally extubate the patient at this time and bring patient to morgue until family can make further plans. Original Note: Family informed this nurse of their wishes to continue with the extubation and once patient passes to keep in the morgue while they look into donating to science
--- NOTE | 2021-05-16 21:04 | PC.NURSE ---
Addendum entered by Carla Mcmahon RN 05/16/21 21:06: Witnessed no Apical pulse at 2104 Addendum entered by Carla Mcmahon RN 05/16/21 21:06: Witnessed no Apical pulse at 2014. Original Note: Monitor read asystole, no apical pulse ascultated after one minute, family at bedside, TOD 2104
--- NOTE | 2021-05-16 21:09 | PC.NURSE ---
[facility] contacted, spoke with Ashtyn, this nurse was informed that patient is not a candidate for organ donation with [facility] and [facility]
--- NOTE | 2021-05-16 21:26 | PC.NURSE ---
sign builder supervisor and Dr. Dawson notified of patiet passing
--- NOTE | 2021-05-16 21:32 | PM.MISC ---
Miscellaneous Note Purpose of Documentation: GOALS OF CARE DISCUSSION AND CHANGE IN CODE STATUS Note: Had extensive goals of care discussion with the next of kin listed Ms. Kelli Munson and patient's grandchildren in ICU family waiting room, and patient's elder daughter Ms. Mojica over phone. Patient had listed her sister Ms. Kelli Munson as her DPOA in her previous admissions as well. As per sister patient had a previous history of opiate dependence and she is now sober and she never wanted to be on life supporting machines and requested for comfort care. We all had a group called with daughter Galina and she agreed with the decision. Patient is made comfort care and plan is to withdraw care at 8 PM. RN Mr. Lockwood braiding machine operator Incharge witnessed the conversation.
--- NOTE | 2021-05-16 21:57 | PC.NURSE ---
Family left bedside, informed this nurse they have not made any arrangement decisions at this time, family to call hospital tomorrow
--- NOTE | 2021-05-16 23:15 | PM.DDS ---
Discharge Providers DDS Date of Admission: 04/24/21 09:03 Date Summary Completed: 05/16/21 Attending Provider at Admission: Juwan Hylton MD Time of : 21:05 Attending Provider at Discharge: Marion Bedoya Primary Care Provider: Jacqueline Adam Diagnoses Hospital Diagnoses (1) ARDS (adult respiratory distress syndrome): (2) Acute encephalopathy: (3) GERD (gastroesophageal reflux disease): Qualifiers: Esophagitis presence: esophagitis presence not specified Qualified Code(s): K21.9 - Gastro-esophageal reflux disease without esophagitis (4) Acute respiratory failure with hypoxia: (5) Pneumonia due to COVID-19 virus: (6) Hypoxia: (7) Pneumothorax on right: (8) Persistent air leak: (9) Empyema lung: (10) Pneumothorax on left: (11) Ventilator associated pneumonia: Reason for Visit Reason for Visit: covid + Summary Date and Time of Date of : 05/16/21 Time of : 21:05 Summary Summary: 60-year-old female who was admitted to the hospital with respiratory distress due to COVID-19 pneumonia. Patient was intubated on 04/27/2021. She was started on Remdesivir, dexamethasone and also treated with Actemra. Unfortunately had progressively worsening respiratory failure for which she remain on mechanical ventilation. Pulmonary medicine was consulted.She was initially found to have right-sided pneumothorax requiring chest tube placement and later left-sided pneumothorax requiring secondary chest tube placement. Was continued on antibiotics.Sputum Cultures have shown Klebsiella and Enterobacteriaceae. Urine culture had shown Mary Kay. Blood culture had not shown any growth. despite aggressive treatment measures patient continued to decline. Pulmonary medicine discussed the care with family who eventually opted for terminal extubation. Initiated on comfort care measures only. Patient comfortably on 05/16/2021 at 9:05 p.m.. Of note i was not present at the TOD. Additional Data Confirmation of as documented by pronouncing clinician: no pulse, no respirations and no heart sounds Family: contacted Additional persons at bedside: nursing staff Attending/PCP notified?: Attending notified Was code activated?: No Autopsy requested?: No Advance directives?: No Hospice patient?: Yes Discharge Plan Discharge Patient Disposition: Condition: Stable Probable Cause of Probable cause of : Respiratory arrest DS Attestations Time Spent in /Discharge Care*: greater than 30 min Quality - AMI: AMI present?: No Quality - Stroke: CVA present?: No Quality - VTE: VTE present?: No Coding Level of Care Code Acute Extruder Operator Multiple for Chg Fwd Diagnoses ARDS (adult respiratory distress syndrome) J80 Acute encephalopathy G93.40 GERD (gastroesophageal reflux disease) K21.9 Esophagitis presence: esophagitis presence not specified Acute respiratory failure with hypoxia J96.01 Pneumonia due to COVID-19 virus U07.1; J12.82 Hypoxia R09.02 Pneumothorax on right J93.9 Persistent air leak Empyema lung J86.9 Pneumothorax on left J93.9 Ventilator associated pneumonia J95.851
--- NOTE | 2021-05-17 01:28 | PC.NURSE ---
Eleanor Carvajal called and requested information on patient, no person is on patient chart with that name. Sandra was informed to contact the next of kin listed on chart, a male got on the phone and started cussing at this nurse, this nurse informed male of previous, male continued to cuss at this nurse, this nurse then hung up the phone
== END 2021-05-16 21:05 | disposition expired | DRG 207 ==
LOC: ER 11:47 → ICU 18:15 → MS 2A 20:33 → ICU 04-25 16:02
PROVIDERS: Family Medicine; Hospitalist; Internal Medicine Critical Care Medicine; Internal Medicine Pulmonary Disease; Admitting Provider Internal Medicine; Emergency Provider Emergency Medicine; PCP Physician Assistant; Visit Provider Hospitalist
DX: U07.1 COVID-19 (principal); J12.82 Pneumonia due to coronavirus disease 2019; J80 Acute respiratory distress syndrome; J93.82 Other air leak; G93.40 Encephalopathy, unspecified; J93.9 Pneumothorax, unspecified; J95.851 Ventilator associated pneumonia; M13.862 Other specified arthritis, left knee; E03.9 Hypothyroidism, unspecified; I10 Essential (primary) hypertension; G89.29 Other chronic pain; K21.00 Gastro-esophageal reflux disease with esophagitis, without bleeding; Z79.890 Hormone replacement therapy; Z90.49 Acquired absence of other specified parts of digestive tract; Z96.611 Presence of right artificial shoulder joint; Z87.891 Personal history of nicotine dependence; Z80.9 Family history of malignant neoplasm, unspecified; Z83.3 Family history of diabetes mellitus; Z82.49 Family history of ischemic heart disease and other diseases of the circulatory system; Z84.89 Family history of other specified conditions
CPT/HCPCS: 32551; 36415; 36416; 36592; 36600; 51702; 70450; 71045; 71250; 72020; 73020; 80048; 80051; 80053; 80074; 80202; 81001; 82330; 82550; 82728; 82803; 82805; 82962; 83520; 83605; 83615; 83721; 83735; 83880; 84100; 84145; 84443; 84478; 84484; 85025; 85378; 85384; 85610; 85730; 86140; 86403; 87040; 87070; 87077; 87086; 87106; 87107; 87186; 87205; 87449; 87641; 87804; 93005; 93306; 94002; 94003; 94640; 94660; 94799; 96365; 96367; 96372; 96375; 99285; C1751; J0330; J0360; J0456; J0743; J1100; J1642; J1650; J1815; J1940; J2020; J2060; J2250; J2270; J2405; J2543; J2704; J3010; J3262; J3370; J3480; J3490; J3535; J7030; J7050